=== PATIENT | female | born 1965 | race Caucasian/White ===

== ENCOUNTER 2017-08-21 06:25 | Emergency (ER) | payer BC, SELFPAY ==
[2017-08-21 06:26] VITALS: BP 121/74; PULSE 99; RESP 18; TEMP 36.6; O2SAT 99; BMI 30.3
[2017-08-21 06:29] VITALS: O2SAT 99
--- NOTE | 2017-08-21 06:38 | ED.VISSUMM ---
- ER Visit Summary Date of Service: 08/21/17 Chief Complaint: [] Cough, sore throat History of Present Illness: The patient is a 52 F [] complaining of cough, sore throat, body aches, nausea/vomiting. Her daughter is at the bedside complaining of similar symptoms in the past few weeks. Patient is concerned that she has bronchitis. Physical Examination: [] Afebrile, vital signs stable. HEENT reveals moist mucous terrains without significant oropharyngeal erythema or exudate. No cervical lymphadenopathy. Cardiovascular exam is regular rate and rhythm. Lungs are clear to auscultation. Abdomen is soft nontender. Test Results: [] None. Emergency Department Course and Treatment: [] Patient be treated clinically for viral URI with 8 mg orally of Decadron and 200 mg orally of Tessalon Perles. Patient was given a short-term presents for Tessalon Perles. Encouraged PCP follow-up. Treatment Plan: [] Follow-up with PCP. Disposition: [] Discharge, stable. Impression: [] URI This note was generated with [employer] dictation software. It may contain incorrect words, spelling, and punctuation that were not noted in review of the chart prior to signing ED Disposition - Plan for ED Patient: Disposition: Home or Assisted Living Chief Complaint: Shortness of Breath Instructions: ED Upper Resp Infec No Abx Tx Referrals: Care Physician,No Primary [Primary Care Provider] -
--- NOTE | 2017-08-21 06:41 | ED.DCSUM_ITS ---
- ER Visit Summary Date of Service: 08/21/17 Chief Complaint: [] Cough, sore throat History of Present Illness: The patient is a 52 F [] complaining of cough, sore throat, body aches, nausea/vomiting. Her daughter is at the bedside complaining of similar symptoms in the past few weeks. Patient is concerned that she has bronchitis. Physical Examination: [] Afebrile, vital signs stable. HEENT reveals moist mucous terrains without significant oropharyngeal erythema or exudate. No cervical lymphadenopathy. Cardiovascular exam is regular rate and rhythm. Lungs are clear to auscultation. Abdomen is soft nontender. Test Results: [] None. Emergency Department Course and Treatment: [] Patient be treated clinically for viral URI with 8 mg orally of Decadron and 200 mg orally of Tessalon Perles. Patient was given a short-term presents for Tessalon Perles. Encouraged PCP follow-up. Treatment Plan: [] Follow-up with PCP. Disposition: [] Discharge, stable. Impression: [] URI This note was generated with [employer] dictation software. It may contain incorrect words, spelling, and punctuation that were not noted in review of the chart prior to signing ED Disposition - Plan for ED Patient: Disposition: Home or Assisted Living Chief Complaint: Shortness of Breath Instructions: ED Upper Resp Infec No Abx Tx Referrals: Care Physician,No Primary [Primary Care Provider] -
[2017-08-21] MEDS: Benzonatate 100 MG Capsule 200 MG PO (06:49)
[2017-08-21 06:50] VITALS: BP 133/79; PULSE 96; RESP 17; O2SAT 100
== END 2017-08-21 06:52 | disposition home or self-care (01) ==
PROVIDERS: Emergency Provider Emergency Medicine
DX: J06.9 Acute upper respiratory infection, unspecified (principal); R11.2 Nausea with vomiting, unspecified
CPT/HCPCS: 99283

== ENCOUNTER 2017-12-27 21:11 | Emergency (ER) | payer BC, SELFPAY ==
[2017-12-27 21:12] VITALS: BP 130/77; PULSE 100; RESP 18; TEMP 35.8; O2SAT 98; BMI 30.2
--- NOTE | 2017-12-27 21:45 | CT_ITS ---
STUDY: CT ABDOMEN AND PELVIS WITHOUT CONTRAST REASON FOR EXAM: Female, 52 years old. Elevated blood pressure RADIATION DOSAGE (If Supplied By Facility): CTDIvol = ( 8.07 ) mGy, DLP = ( 403.09 ) mGycm TECHNIQUE: Transaxial images were obtained from the dome of the diaphragm to the symphysis pubis without oral contrast, and without intravenous contrast. Sagittal and coronal images were reconstructed. Individualized dose optimization techniques were used for this CT. COMPARISON: 01/03/2018. FINDINGS: The visualized lung bases are unremarkable. The visualized portions of the heart are within normal limits. Normal liver. The gallbladder is contracted. Normal spleen. Normal pancreas. Normal bilateral adrenal glands. Bilateral renal stones measuring up to 4 mm. No hydronephrosis. No ureteral stone or dilatation. Duplicated right renal collecting system. Normal visualized stomach. Normal small intestine. Normal colon. The appendix is visualized and appears normal. Normal abdominal aorta. Normal inferior vena cava. Normal retroperitoneum. Normal urinary bladder. Normal abdominal wall. Normal osseous structures. CT/Abdomen/Pelvis without Cont IMPRESSION: Nephrolithiasis. No hydronephrosis. Electronically Signed: Michele Martinez DO at 23:12 EDT , Service support ,
[2017-12-27] MEDS: 0.9% Normal Saline 1,000 ML 125 ML IV (22:13)
[2017-12-27 22:20] LABS: Bacteria 0 SEEN /hpf (None Seen); Squamous Epithelial Cells - UA 0 SEEN /hpf (5-10)
[2017-12-27 22:26] LABS: Absolute Lymphocyte Count 2.44 X10^3/ul (0.83-4.51); Absolute Neutrophil Count 4.8 X10^3/uL (2.0-7.7); Basophil# 0.02 X10^3/uL; Basophil% 0.2 % (0-1); Eosinophil# 0.18 X10^3/uL; Eosinophils% 2.1 % (0-5); Hematocrit 34.1 % (37-47); Hemoglobin 11.3 g/dl (12.0-15.0); Lymphocyte # 2.44 X10^3/ul (4.0); Lymphocyte % 28.3 % (19-41); Mean Corp Hgb Conc 33.1 g/gl (32-36); Mean Corpuscular Hgb 29.9 pg (27.0-32.0); Mean Corpuscular Volume 90.2 fL (81-99); Mean Platelet Vol. 8.9 fl (6.2-12.0); Monocyte# 1.21 X10^3/uL; Monocyte% 14.1 % (0-10); Neutrophil # 4.75 X10^3/uL (2.7-7.7); Neutrophil % 55.2 % (47-70); Platelet Count 239 K/mm3 (150-450); RBC Distribution Width CV 12.5 % (11.6-14.6); RBC Distribution Width SD 40.8 fl (35.1-43.9); Red Blood Count 3.78 M/mm3 (4.2-5.4); White Blood Count 8.6 K/mm3 (4.4-11.0)
[2017-12-27 22:27] LABS: POSITIVE COUNT NO; POSITIVE DIFFERENTIAL NO; POSITIVE MORPHOLOGY NO
[2017-12-27 22:34] LABS: ALB/GLOB Ratio 0.8 RATIO (0.9-2.4); AST(SGOT) 11 U/L (15-37); Alanine Aminotransfer ALT/SGPT 21 U/L (13-56); Albumin, Serum 3.3 g/dL (3.2-5.0); Alkaline Phosphatase 85 U/L (45-117); Anion Gap 4 (5-15); BUN 15 mg/dL (7-18); BUN/Creat Ratio 18.2 RATIO (10-20); Calcium,Total 8.4 mg/dL (8.5-10.1); Chloride 105 mmol/L (98-107); Creatinine, Serum 0.82 mg/dL (0.55-1.02); EST Glomerular Filtration Rate 78 mL/min (>60); Est Glom Filt Rate - Afr Amer 94 mL/min (>60); Glucose 88 mg/dL (74-106); Lipase 84 U/L (73-393); Potassium 3.9 mmol/L (3.5-5.1); Protein, Total 7.3 g/dL (6.4-8.2); Sodium Level 140 mmol/L (136-145)
[2017-12-27 22:37] LABS: Color, Urine Yellow (Yellow); Glucose, Dipstick Normal (Normal); Ketone-Dipstick Negative (Negative); Leukocyte Esterase-Dipstick 25 /ul (Negative); Nitrite-Dipstick Negative (Negative); Occult Blood-Urine 150 /ul (Negative); Protein-Dipstick 15 mg/dl (Negative); Urine Bilirubin Dipstick Negative (Negative); Urine Clarity Clear (Clear); Urine Urobilinogen Normal (Normal); Urine pH 6.5 (5.0 - 8.0)
[2017-12-27 22:48] LABS: Mucous, Urine 1+ /hpf (<or=2+); Red Blood Cells-Urine 10-25 SEEN /hpf (0-5)
--- NOTE | 2017-12-27 23:21 | ED.DCSUM_ITS ---
- ER Visit Summary Date of Service: 12/27/17 Chief Complaint: [Abdominal pain] History of Present Illness: The patient is a 52 F [presents the emergency department complaint of a nominal pain that started yesterday. Patient describes intermittent sharp stabbing pain to the right upper quadrant that feels like spasms and feels like a bruise in the area. Patient currently rates her pain a 9 out of 10. Patient's had no nausea or vomiting. She has had no diarrhea. Patient denies any blood in her stool or black tarry stool. Patient denies urinary symptoms. Patient denies trauma or any lifting that may have injured her abdominal wall.] Patient denies any chest pain. Patient denies shortness of breath. Patient has not had any recent travel or surgery. Physical Examination: [HEENT-PERRLA, EOMI. Cranial nerves II through XII grossly intact. TMs clear. Mucous membranes moist. No adenopathy. Cardiovascular-regular rate and rhythm without murmur or ectopy Lungs-clear to auscultation, chest wall stable without crepitus or subcu emphysema Abdomen-normoactive bowel sounds, soft. Patient does have some tenderness over the right upper quadrant seems to somewhat reproduce her pain there is a negative Suero sign. There is no rebound, rigidity, or perineal signs. Patient also has some mild tenderness to the lower anterior ribs that seems to somewhat reproduce her pain although she states it is not quite the same pain. Extremities-intact ?4, normal range of motion, normal pulses, atraumatic] Test Results: [CBC with differential obtained was normal. Chemistries were normal. LFTs were normal. Lipase was normal at 84. Urinalysis showed 10-25 red cells otherwise no signs of infection. CT flank showed nephrolithiasis but otherwise nothing acute] Emergency Department Course and Treatment: [Patient drove herself to the emergency department and did not want anything for pain here.] Treatment Plan: [Patient will be given a prescription for [place] for pain and advised to follow-up with Dr. Montoya within next 3-5 days. Patient advised to return if worsening pain, fever, vomiting, or condition should worsen in any way.] Disposition: [Discharged to home in stable condition] Impression: [Abdominal pain-etiology uncertain] This note was generated with [employer] software. It may contain incorrect words, spelling, and punctuation that were not noted in review of the chart prior to signing ED Disposition - Plan for ED Patient: Chief Complaint: Abd Pain Referrals: Care Physician,No Primary [Primary Care Provider] -
--- NOTE | 2017-12-27 23:21 | ED.DEP ---
ED Disposition - Plan for ED Patient: Chief Complaint: Abd Pain Instructions: ED Abdominal Pain Unkn Cause Prescriptions: Hydrocodone Bitart/Apap 5-325 [[place] 5MG-325MG] 1 tab PO Q4H PRN PRN 2 Days #10 tab PRN Reason: Pain Referrals: Care Physician,No Primary [Primary Care Provider] - Maria D Jean DO [STAFF PHYSICIAN] - 3-5 Days
[2017-12-27] MEDS: HYDROcodone Bitartrate/Apap 5/325 Tablet PO (23:36)
[2017-12-27 23:37] VITALS: BP 137/86; PULSE 88; RESP 16; O2SAT 97
== END 2017-12-27 23:42 | disposition home or self-care (01) ==
LOC: ED 21:55
PROVIDERS: Emergency Provider Emergency Medicine
DX: R10.11 Right upper quadrant pain (principal); N20.0 Calculus of kidney; Z90.89 Acquired absence of other organs
CPT/HCPCS: 74176; 80053; 81001; 83690; 85025; 96360; 99283; J7030; A4216

== ENCOUNTER 2018-06-29 13:25 | Day surgery (SDC) | payer BC, SELFPAY ==
[2018-06-29] VITALS (8 sets, daily range): BP systolic 132–161; BP diastolic 76–90; PULSE 84–97; RESP 14–16; TEMP 36.5–36.8; O2SAT 96–100; BMI 31.8
[2018-06-29 13:58] LABS: Internal QC Validated? YES +Cl - CLEAR BKGD; Pregnancy, Urine Negative Negative
[2018-06-29 14:08] LABS: Hematocrit 33.3 % (37-47); Hemoglobin 10.9 g/dl (12.0-15.0); Mean Corp Hgb Conc 32.7 g/gl (32-36); Mean Corpuscular Hgb 30.2 pg (27.0-32.0); Mean Corpuscular Volume 92.2 fL (81-99); Mean Platelet Vol. 8.7 fl (6.2-12.0); Platelet Count 297 K/mm3 (150-450); RBC Distribution Width CV 13.2 % (11.6-14.6); RBC Distribution Width SD 44.7 fl (35.1-43.9); Red Blood Count 3.61 M/mm3 (4.2-5.4); White Blood Count 7.5 K/mm3 (4.4-11.0)
[2018-06-29 14:15] LABS: Amphetamine Urine VISTA POSITIVE (<1000 ng/mL); Barbiturate Urine VISTA NEGATIVE (< 200 ng/mL); Benzodiazepine Urine VISTA NEGATIVE (< 200 ng/mL); Cocaine Urine VISTA NEGATIVE (< 300 ng/mL); Ecstacy Urine VISTA POSITIVE (< 500 ng/mL); Methadone Urine VISTA NEGATIVE (< 300 ng/mL); PCP Urine VISTA NEGATIVE (< 25 ng/mL); THC Urine VISTA NEGATIVE (< 50 ng/mL); Vista UDS pH Range 5
[2018-06-29 14:15] LABS: Scan Indicated on CBC? Y/N NO
--- NOTE | 2018-06-29 15:19 | PCM.DC.D&C ---
Discharge Diet: No Restrictions Discharge Activity: Return to Normal Activity, May Shower May resume sexual activity in: 4-6 weeks Weight Bearing Status: Weight bearing as tolerated Lifting Restrictions: None Call your doctor if you observe: Fever of 101 or Higher, Inability to urinate, Inability to have a bowel movement, Using more than one pad per hour, Shortness of breath, Dizziness, Chest pain, Increased palpitations (irregular heartbeat), Calf discomfort, Uncontrolled pain Cleanse incision/area with: Soap & Water Allergies/Adverse Reactions: Allergies latex Allergy (Verified 06/29/18 13:46) Swelling Medications to take at Discharge Ibuprofen 400 mg PO PRN PRN 06/29/18 Iron Carbonyl [Feosol] 45 mg PO DAILYCM 06/29/18 Orders to be completed after discharge: Type & Screen Time Frame: 06/29/18, Facility: [facility], Location: Laboratory CBC-Complete Blood Cnt No Diff Time Frame: 06/29/18, Location: Laboratory Urine Drug Screen ([facility]) Time Frame: 06/29/18, Location: Laboratory ,Urine Time Frame: 06/29/18, Location: Laboratory Primary Care Physician: Monica Deleon NP-C [Primary Care Provider] - Test Results: Test results from this visit will be discussed in further detail at your follow-up appointment, if applicable. Please Follow Up With: Meghan Crandall DO When: 1-2 weeks
--- NOTE | 2018-06-29 16:16 | PCM.OPRPT ---
Problem List (1) Abnormal uterine bleeding (AUB) Status: Acute Report of Operation Date of Procedure: 06/29/18 Pre-Operative Diagnosis: AUB, polyps noted on US Post-Operative Diagnosis: AUB, polyps noted on US Surgery/Procedure Performed:: Hysteroscopy, D&C Description of Surgical Findings:: Endometrium appeared very thick. No polyps or fibroids noted within the uterine cavity. Bilateral tubal ostia were visualized. Type of Anesthesia:: MAC Specimen's removed: Endometrial curettings Drains: None Estimated Blood Loss (mL): < 50 cc Description of Procedure: Patient was taken to the operating room where MAC anesthesia was found to be adequate. She was prepped and draped in the usual sterile fashion in dorsal lithotomy position using yellowfin stirrups. A weighted speculum was placed and a single-tooth tenaculum was placed on the anterior lip of the cervix. The cervix was serially dilated to accommodate the hysteroscope. Hysteroscope was introduced into the uterine cavity which was distended with normal saline. Bilateral tubal ostia were visualized. The endometrium appeared very thick. No polyps or fibroids were noted. The hysteroscope was then removed. A sharp curettage was then performed to obtain endometrial curettings. Endometrial curettings were sent to the pathologist for review. All instruments were removed from the vagina and hemostasis was noted. Instrument counts were correct. Patient was taken to the recovery room in stable condition.
== END 2018-06-29 18:14 | disposition home or self-care (01) ==
LOC: SDC 13:30 → AC 13:30
PROVIDERS: Family Provider Nurse Practitioner; PCP Nurse Practitioner; Referring Provider Obstetrics & Gynecology
PROC: 0UB98ZZ Excision of Uterus, Via Natural or Artificial Opening Endoscopic (ICD-10-PCS; CPT 58558; principal; 2018-06-29 14:50)
DX: N95.0 Postmenopausal bleeding (principal); D64.9 Anemia, unspecified; G47.33 Obstructive sleep apnea (adult) (pediatric); Z87.891 Personal history of nicotine dependence; G25.81 Restless legs syndrome; M19.90 Unspecified osteoarthritis, unspecified site; F10.21 Alcohol dependence, in remission; Z79.899 Other long term (current) drug therapy; F41.9 Anxiety disorder, unspecified; F32.9 Major depressive disorder, single episode, unspecified
CPT/HCPCS: 00952; 58558; 80307; 81025; 85027; 86850; 86900; 88305; J7120

== ENCOUNTER → 2023-01-17 | Outpatient (CLI) | payer BC, SELFPAY ==
--- NOTE | 2023-01-17 09:42 | RAD_ITS ---
STUDY: X-RAY - PELVIS REASON FOR EXAM: Female, 57 years old. INFLAMMATORY POLYARTHROPATHY TECHNIQUE: One view of the pelvis was obtained. COMPARISON: None. FINDINGS: There is a non-specific bowel gas pattern. Normal visualized soft tissue structures. Mild SI joint arthrosis. Normal visualized bilateral superior and inferior pubic rami. Normal pubic symphysis. Normal ischial tuberosities. Normal visualized right femoral head. Normal right acetabulum. There is mild articular joint space narrowing of the right hip. Normal visualized left femoral head. Normal left acetabulum. There is mild articular joint space narrowing of the left hip. RAD/Pelvis 1 or 2 Views IMPRESSION: Mild age consistent hip and SI joint arthrosis, no demonstrated fracture or suspicious osseous lesion Electronically Signed: Rodolfo Rockwell MD at 11:47 EDT ,
[2023-01-17 12:06] LABS: Erythrocyte Sedimentation Rate 4 mm/hr (0-30)
[2023-01-17 12:09] LABS: Absolute Lymphocyte Count 5.03 X10^3/uL (0.83-4.51); Absolute Neutrophil Count 5.2 X10^3/uL (2.0-7.7); Basophil# 0.04 X10^3/uL; Basophil% 0.3 % (0-1); Eosinophil# 0.43 X10^3/uL; Eosinophils% 3.7 % (0-5); Hematocrit 38.2 % (37-47); Hemoglobin 13.7 g/dL (12.0-15.0); Lymphocyte # 5.03 X10^3/ul (0.83-4.51); Lymphocyte % 43.4 % (19-41); Mean Corp Hgb Conc 35.9 g/dL (32-36); Mean Corpuscular Hgb 33.5 pg (27.0-32.0); Mean Corpuscular Volume 93.4 fL (81-99); Monocyte# 0.84 X10^3/uL; Monocyte% 7.3 % (0-10); NRBC Flagged by Analyzer 0 % (0-5); Neutrophil # 5.21 X10^3/uL (2.7-7.7); POSITIVE DIFFERENTIAL YES; Platelet Count 282 K/mm3 (150-450); RBC Distribution Width CV 11.4 % (11.6-14.6); RBC Distribution Width SD 39.1 fl (35.1-43.9); Red Blood Count 4.09 M/mm3 (4.2-5.4); White Blood Count 11.6 K/mm3 (4.4-11.0)
[2023-01-17 12:20] LABS: Differential Indicated SCAN CRITERIA MET
[2023-01-17 12:27] LABS: Differential Comment SCANNED
[2023-01-17 12:56] LABS: ALB/GLOB Ratio 1.1 RATIO (0.9-2.4); AST(SGOT) 19 U/L (15-37); Alanine Aminotransfer ALT/SGPT 26 U/L (13-56); Albumin, Serum 3.8 g/dL (3.2-5.0); Alkaline Phosphatase 67 U/L (45-117); Anion Gap 5 (5-15); BUN 18 mg/dL (7-18); BUN/Creat Ratio 24.2 RATIO (10-20); CRP < 2.90 mg/L (0.0-3.0); Calcium,Total 9.2 mg/dL (8.5-10.1); Chloride 110 mmol/L (98-107); Creatinine, Serum 0.74 mg/dL (0.55-1.02); EST Glomerular Filtration Rate 86 mL/min (>60); Est Glom Filt Rate - Afr Amer 104 mL/min (>60); Globulin 3.5 g/dL (2.2-4.2); Glucose 84 mg/dL (74-106); Potassium 3.7 mmol/L (3.5-5.1); Protein, Total 7.3 g/dL (6.4-8.2); Rheumatoid Factor < 10.0 IU/mL (<15); Sodium Level 140 mmol/L (136-145)
[2023-01-17 13:28] LABS: Hepatitis B Surface Antibody Non-Reactive; Hepatitis B Surface Antigen Non-Reactive (Nonreactive); Hepatitis C Antibody Non-Reactive (Nonreactive)
[2023-01-18 13:07] LABS: ANTINUCLEAR ANTIBODIES DIRECT Negative (Negative); CCP IgG Antibodies 5 units (0-19)
== END | disposition home or self-care (01) ==
PROVIDERS: Referring Provider Internal Medicine Rheumatology; Visit Provider Internal Medicine Rheumatology
DX: M06.4 Inflammatory polyarthropathy (principal); M65.341 Trigger finger, right ring finger; M21.41 Flat foot [pes planus] (acquired), right foot; F32.A Depression, unspecified; F98.8 Other specified behavioral and emotional disorders with onset usually occurring in childhood and adolescence; Z87.442 Personal history of urinary calculi
CPT/HCPCS: 36415; 72170; 80053; 85025; 85652; 86038; 86140; 86200; 86431; 86706; 86803; 87340

== ENCOUNTER → 2023-03-30 | Outpatient (CLI) | payer BC, SELFPAY ==
[2023-03-30 10:34] LABS: Absolute Neutrophil Count 4.8 X10^3/uL (2.0-7.7); Basophil# 0.02 X10^3/uL; Basophil% 0.2 % (0-1); Eosinophil# 0.25 X10^3/uL; Eosinophils% 2.3 % (0-5); Hematocrit 36.8 % (37-47); Hemoglobin 12.5 g/dL (12.0-15.0); Lymphocyte % 45.5 % (19-41); Mean Corpuscular Hgb 32.5 pg (27.0-32.0); Mean Corpuscular Volume 95.6 fL (81-99); Mean Platelet Vol. 10.1 fl (6.2-12.0); Monocyte# 0.89 X10^3/uL; Monocyte% 8.1 % (0-10); NRBC Flagged by Analyzer 0 % (0-5); Neutrophil % 43.6 % (47-70); Platelet Count 278 K/mm3 (150-450); RBC Distribution Width CV 12.3 % (11.6-14.6); RBC Distribution Width SD 42.2 fl (35.1-43.9); Red Blood Count 3.85 M/mm3 (4.2-5.4)
[2023-03-30 10:53] LABS: ALB/GLOB Ratio 1.1 RATIO (0.9-2.4); AST(SGOT) 19 U/L (15-37); Alanine Aminotransfer ALT/SGPT 28 U/L (13-56); Albumin, Serum 3.8 g/dL (3.2-5.0); Alkaline Phosphatase 64 U/L (45-117); Anion Gap 4 (5-15); BUN 16 mg/dL (7-18); BUN/Creat Ratio 22.3 RATIO (10-20); Chloride 108 mmol/L (98-107); Creatinine, Serum 0.72 mg/dL (0.55-1.02); EST Glomerular Filtration Rate 89 mL/min (>60); Est Glom Filt Rate - Afr Amer 108 mL/min (>60); Globulin 3.4 g/dL (2.2-4.2); Glucose 86 mg/dL (74-106); Potassium 4.1 mmol/L (3.5-5.1); Protein, Total 7.2 g/dL (6.4-8.2); Sodium Level 139 mmol/L (136-145)
== END | disposition home or self-care (01) ==
LOC: MTLAB 07:48
PROVIDERS: Referring Provider Internal Medicine Rheumatology; Visit Provider Internal Medicine Rheumatology
DX: M06.4 Inflammatory polyarthropathy (principal); Z79.899 Other long term (current) drug therapy
CPT/HCPCS: 36415; 80053; 85025

== ENCOUNTER → 2023-05-24 | Outpatient (CLI) | payer BC, SELFPAY ==
--- OUTSIDE RECORDS SUMMARY | 2023-05-24 07:38 | XMS RPT_ITS | CCD ---
Author Name Unknown Address [id number] [place] [address] Organization [facility] Results Test Name Value Interpretation Reference Range Facil ity Encounters Encounter Date Encounter Type Care Provider Facility Start: 07-10-2022 End: 07-10-2022 ambulatory Facility:[facility] Payers Date Payer Category Payer Unknown [id number] Progress note 07-10-2022 Note Date & Type Note Facility 07-10-2022 Note HNO ID: [id number] Author: Ely Burrell APRN.[employer] MACHINE OPERATOR Service: ? Author Type: Nurse Practitioner Type: Progress Notes Filed: 07/10/2022 9:01 AM Note Text: Subjective The history is provided by the patient. No home appliance tech was used. HPI Karl Martinez is a 57 year old female who presents today for CC of cough for 3 days. She is also having chest congestion. She has used dayquil with short term relief. She is an everyday smoker, no chronic lung disease diagnosis. Declines covid testing. BP 138/82 Pulse 96 Temp 37 ?C (98.6 ?F) Resp 16 Wt 68 kg (150 lb) LMP 06/27/2018 SpO2 98% BMI 29.29 kg/m? 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 Most recent use May 2018 PAST MEDICAL HISTORY Diagnosis Date ADD (attention deficit disorder) Arthritis Depression Renal calculus 2009 I have confirmed and edited as necessary, the [facility] Review of Systems Constitutional: Negative for chills and fever. HENT: Positive for congestion (chest). Negative for ear pain, sinus pain and sore throat. Respiratory: Positive for cough. Negative for sputum production, shortness of breath and wheezing. Cardiovascular: Negative for chest pain. Musculoskeletal: Negative for myalgias. Neurological: Negative for headaches. Objective Physical Exam Vitals and nursing note reviewed. HENT: Head: Normocephalic and atraumatic. Right Ear: Tympanic membrane, ear canal and external ear normal. Left Ear: Tympanic membrane, ear canal and external ear normal. Nose: Mucosal edema and rhinorrhea present. No congestion. Right Sinus: No maxillary sinus tenderness or frontal sinus tenderness. Left Sinus: No maxillary sinus tenderness or frontal sinus tenderness. Mouth/Throat: Pharynx: Uvula midline. No oropharyngeal exudate or posterior oropharyngeal erythema. Cardiovascular: Rate and Rhythm: Normal rate and regular rhythm. Heart sounds: Normal heart sounds. Pulmonary: Effort: Pulmonary effort is normal. Breath sounds: Normal breath sounds. Lymphadenopathy: Head: Right side of head: No submental, submandibular or tonsillar adenopathy. Left side of head: No submental, submandibular or tonsillar adenopathy. Cervical: No cervical adenopathy. Skin: General: Skin is warm and dry. Neurological: Mental Status: She is alert. Psychiatric: Mood and Affect: Affect normal. ASSESSMENT/PLAN: 1. URI with cough and congestion - ICD9: 465.9, ICD10: J06.9 (primary diagnosis) - Discussed viral etiology and rationale for treatment. - Symptomatic treatment with prn analgesia - Supportive care with fluids and rest - Tesslon perls prn 2. Wheezing - ICD9: 786.07, ICD10: R06.2 Albuterol inhaler prn Prednisone burst Diagnosis and treatment plan were discussed and questions were answered to the patient's satisfaction. Pt acknowledged understanding of concepts and follow up plan. Specific signs and symptoms that would indicate the need for higher level of care were discussed in detail warranting prompt ER evaluation. Ely Burrell APRN.[facility] Summary Purpose Family History No Family History Records Found Advance Directives No Advanced Directives Records Found Additional Source Comments INFORMATION SOURCE (unrecogn ized section and content) FOR RECORDS PERTAINING TO PATIENTS WHO ARE OR HAVE BEEN ENROLLED IN A CHEMICAL DEPENDENCY/SUBSTANCEABUSE PROGRAM, SOME INFORMATION MAY BE OMITTED. This clinical summary was aggregated from multiple sources. Caution should be exercised in using it in the provision of clinical care. This summary normalizes information from multiple sources, and as a consequence, information in this document may materially change the coding, format and clinical context of patient data. In addition, data may be omitted in some cases. CLINICAL DECISIONS SHOULD BE BASED ON THE PRIMARY CLINICAL RECORDS. [employer] [facility]. provides no warranty or guarantee of the accuracy or completeness of information in this document.
[2023-05-24 10:18] LABS: Absolute Lymphocyte Count 4.57 X10^3/uL (0.83-4.51); Absolute Neutrophil Count 5.2 X10^3/uL (2.0-7.7); Basophil# 0.03 X10^3/uL; Basophil% 0.3 % (0-1); Eosinophil# 0.27 X10^3/uL; Eosinophils% 2.4 % (0-5); Hematocrit 34.9 % (37-47); Hemoglobin 11.6 g/dL (12.0-15.0); Lymphocyte # 4.57 X10^3/ul (0.83-4.51); Lymphocyte % 41.2 % (19-41); Mean Corp Hgb Conc 33.2 g/dL (32-36); Mean Corpuscular Hgb 32.1 pg (27.0-32.0); Mean Corpuscular Volume 96.7 fL (81-99); Mean Platelet Vol. 9.9 fl (6.2-12.0); Monocyte# 0.94 X10^3/uL; Monocyte% 8.5 % (0-10); NRBC Flagged by Analyzer 0 % (0-5); Neutrophil # 5.24 X10^3/uL (2.7-7.7); Neutrophil % 47.1 % (47-70); Platelet Count 263 K/mm3 (150-450); RBC Distribution Width CV 12.5 % (11.6-14.6); RBC Distribution Width SD 42.9 fl (35.1-43.9); Red Blood Count 3.61 M/mm3 (4.2-5.4); White Blood Count 11.1 K/mm3 (4.4-11.0)
[2023-05-24 10:51] LABS: AST(SGOT) 17 U/L (15-37); Alanine Aminotransfer ALT/SGPT 33 U/L (13-56); Albumin, Serum 3.5 g/dL (3.2-5.0); Alkaline Phosphatase 62 U/L (45-117); Anion Gap 3 (5-15); BUN 29 mg/dL (7-18); BUN/Creat Ratio 27.9 RATIO (10-20); Calcium,Total 9.2 mg/dL (8.5-10.1); Chloride 111 mmol/L (98-107); Creatinine, Serum 1.04 mg/dL (0.55-1.02); EST Glomerular Filtration Rate 58 mL/min (>60); Est Glom Filt Rate - Afr Amer 70 mL/min (>60); Globulin 3.5 g/dL (2.2-4.2); Glucose 80 mg/dL (74-106); Potassium 4.4 mmol/L (3.5-5.1); Sodium Level 140 mmol/L (136-145)
== END | disposition home or self-care (01) ==
LOC: MTLAB 07:28
PROVIDERS: Referring Provider Internal Medicine Rheumatology; Visit Provider Internal Medicine Rheumatology
DX: M06.4 Inflammatory polyarthropathy (principal); Z79.899 Other long term (current) drug therapy
CPT/HCPCS: 36415; 80053; 85025

== ENCOUNTER → 2023-07-19 | Outpatient (CLI) | payer BC, SELFPAY ==
--- OUTSIDE RECORDS SUMMARY | 2023-07-19 07:19 | XMS RPT_ITS | CCD ---
Author Name Unknown Address [address] [place] [address] Organization [facility] Care Team Providers Care Thread Clipper Name Role Phone Unavailable Primary Care Provider Unavailabl e Medications Current Medications Medication Drug Class(es) Dates Sig (Normalized) Sig (Original) brompheniramine maleate 0.4 mg/ml / dextromethorphan hydrobromide 2 mg/ml / pseudoephedrine hydrochloride 6 mg/ml oral solution (1 source) alpha-Adrenergic Agonist, Uncompetitive Y-hzyoee-B-aspartat e Receptor Antagonist, Sigma-1 Agonist Start: 06-12-2023 take 5 mL by mouth four times daily as needed Brompheniramine -Pseudoeph-DM (BROMFED DM) 2-30-10 mg/5 mL syrup Indications: URI, acute , Acute cough Take 5 mL by mouth four times a day as needed. 118 mL 0 06/12/2023 Active Completed/Discontinued Medications Medication Drug Class(es) Dates Sig (Normalized) Sig (Original) acetaminophen 325 mg / HYDROcodone bitartrate 5 mg oral tablet (1 source) Opioid Agonist Start: 12-27-2017 HYDROcodone-acetam inophen (NORCO) 5-325 mg per tablet EVERY 4 HOURS NEEDED PRN For Pain 0 12/27/2017 Active Problems Active Problems Problem Classification Problem Date Documented Da te Episodic/Chronic Other female genital disorders (1 source) Abnormal uterine bleeding; Translations: [Abnormal uterine and vaginal bleeding, unspecified] Onset: 06-14-2018 06-14-2018 Chronic Other lower respiratory disease (1 source) Cough; Translations: [Acute cough] 06-12-2023 Episodic Other upper respiratory infections (1 source) Acute upper respiratory infection; Translations: [Acute upper respiratory infection, unspecified] 06-12-2023 Episodic Past or Other Problems Problem Classification Problem Date Documented Da te Episodic/Chronic Residual codes; unclassified (1 source) History of substance abuse; Translations: [Personal history of other specified conditions] Onset: 06-14-2018 06-14-2018 Episodic Results Test Name Value Interpretation Reference Range Facil ity Vital Signs Date Time Vital Sign Value Performing Clinician Chet steiner 06-12-2023 08:23-0500 Body temperature 100.6 [degF] Adeel Barker PACKAGING LINE ATTENDANT.WATER VALVE MECHANIC Work Phone: [facility] 06-12-2023 08:23-0500 Body weight 69.85 kg Adeel Barker PACKAGING LINE ATTENDANT.WATER VALVE MECHANIC Work Phone: [facility] 06-12-2023 08:23-0500 Diastolic blood pressure 70 mm[Hg] Adeel Barker PACKAGING LINE ATTENDANT.WATER VALVE MECHANIC Work Phone: [facility] 06-12-2023 08:23-0500 Heart rate 91 /min Adeel Barker PACKAGING LINE ATTENDANT.WATER VALVE MECHANIC Work Phone: [facility] 06-12-2023 08:23-0500 Respiratory rate 20 /min Adeel Barker PACKAGING LINE ATTENDANT.WATER VALVE MECHANIC Work Phone: [facility] 06-12-2023 08:23-0500 SaO2% (BldA) [Mass fraction] 100 % Adeel Barker PACKAGING LINE ATTENDANT.WATER VALVE MECHANIC Work Phone: [facility] 06-12-2023 08:23-0500 Systolic blood pressure 110 mm[Hg] Adeel Barker PACKAGING LINE ATTENDANT.WATER VALVE MECHANIC Work Phone: [facility] Encounters Encounter Date Encounter Type Care Provider Facility Start: 06-12-2023 End: 06-12-2023 ambulatory Facility:[facility] Start: 06-12-2023 End: 06-12-2023 Patient encounter procedure Adeel Barker APRN.WATER VALVE MECHANIC Work Phone: [facility] Procedures Date Procedure Procedure Detail Performing Clinician Start: 07-20-2011 Lipid 1996 panel - S alex or Plasma Adeel Barker APRN.WATER VALVE MECHANIC Work Phone: Plan of Treatment Date Care Activity Detail Author Start: 06-14-2023 Screening for malignant neoplasm of cervix [facility] Start: 06-12-2023 End: 06-26-2023 COVID & INFLUENZA A/B & RSV NAAT, ROUTINE COVID & INFLUENZA A/B & RSV NAAT, ROUTINE Microbiology Routine URI, acute Acute cough Expected: 06/12/2023, Expires: 06/26/2023 [facility] Work Phone: Payers Date Payer Category Payer Unknown [employer] PPO OOS [id number] 2022-Present [phone] [address] [place] [address] PPO [id number] 2022 Unknown [id number] Social History Date Type Detail Facility Start: 06-08-2023 [facility] Work Phone: History of tobacco use Current smoker [facility] Work Phone: Start: 06-08-2023 Tobacco use and exposure Smokeless tobacco non-user [facility] Work Phone: Start: 06-12-2023 Alcohol intake Current non-dr edge inker of alcohol (finding) [facility] Start: 04-30-2020 End: 06-12-2023 History of Social function [facility] Start: 04-30-2020 End: 06-12-2023 Tobacco use panel [facility] National Score (1-100), lower number is lower risk Not on file [facility] Start: 06-14-2018 Alcohol Comment rare -- 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 [facility] Start: 1965 Sex Assigned At Not on file [facility] Progress note 06-12-2023 Note Date & Type Note Facility 06-12-2023 Note HNO ID: [id number] Author: ADEEL BARKER APRN.WATER VALVE MECHANIC Service: ? Author Type: Nurse Practitioner Type: Progress Notes Filed: 06/12/2023 09:22 Note Text: This note was created using NoteWriter. Subjective Karl J Juan is a 58 year old female. 58 year old female with no PMH presents today for worsening cough. She was seen in [facility] on 06/08/2023 for cough x1 day and diagnosed with a viral URI. Pertinent positives include nonproductive cough, nasal congestion, rhinorrhea, fatigue, body aches, chills, nausea, vomiting, diarrhea, decreased appetite, chest tightness, and chest discomfort with coughing. Pertinent negatives include dyspnea, chest pain, sinus pain, ear drainage, ear pain, and eye drainage. Patient's daughter was flu positive on 06/08/23 and they live together. Of note, patient declined flu testing on 06/08/23. Was prescribed Tessalon Perles. Denies following up. The history is provided by the patient. No speech language pathologist travel was used. Cough This is a new problem. The current episode started more than 2 days ago. The problem occurs constantly. The problem has been gradually worsening. The cough is Non-productive. There has been no fever. Associated symptoms include chills, sweats, rhinorrhea and myalgias. Pertinent negatives include no chest pain, no ear congestion, no ear pain, no headaches, no sore throat, no shortness of breath and no eye redness. Treatments tried: tessalon pearls. The treatment provided mild relief. She is a smoker. Her past medical history does not include bronchitis, pneumonia, bronchiectasis, COPD, emphysema or asthma. PAST MEDICAL HISTORY Diagnosis Date ADD (attention deficit disorder) Arthritis Depression Renal calculus 2009 PAST SURGICAL HISTORY Procedure Laterality Date APPENDECTOMY SECTION HX x 2 PAST SURGICAL HISTORY OF Bilateral Carpal Tunnel Surgery PAST SURGICAL HISTORY OF Tubes in ears SALPINGECTOMY Ectopic ; unsure which tube was removed ALLERGIES No Known Allergies MEDICATIONS folic acid 1 mg tablet Take 2 tablets by mouth every afternoon. methotrexate 2.5 mg tablet TAKE 7 TABLETS BY MOUTH EVERY WEEK DULoxetine (CYMBALTA) 30 mg capsule Take 1 capsule by mouth every afternoon. benzonatate (TESSALON PERLES) 100 mg capsule Take 2 capsules by mouth three times a day as needed for cough. benzonatate (TESSALON PERLE) 100 mg capsule Take 2 capsules by mouth three times daily as needed. IBUPROFEN ORAL Take by mouth as needed. FLUoxetine (PROZAC) 20 mg capsule hydrOXYzine pamoate (VISTARIL) 25 mg capsule Pseudoephedrine HCl (SUDAFED SR) 120 mg TbER ondansetron orally disintegrating (ZOFRAN ODT) 4 mg disintegrating tablet Lpidkfyffjshldx-Rgcfsnwvl-GU (BROMFED DM) 2-30-10 mg/5 mL syrup Take 5 mL by mouth four times a day as needed. ondansetron orally disintegrating (ZOFRAN ODT) 4 mg disintegrating tablet Take 1 tablet by mouth every 8 hours as needed for nausea/vomiting. albuterol HFA (PROAIR HFA) 90 mcg/actuation inhaler Inhale 2 Puffs as instructed every 4 hours as needed. (Patient not taking: Reported on 06/12/2023) HYDROcodone-acetaminophen (NORCO) 5-325 mg per tablet EVERY 4 HOURS NEEDED PRN For Pain (Patient not taking: Reported on 06/12/2023) FAMILY HISTORY Problem Relation Age of Onset Drug abuse Son Social History Tobacco Use Smoking status: Former Smokeless tobacco: Never Substance Use Topics Alcohol use: No Comment: rare -- 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 Most recent use May 2018 Review of Systems Constitutional: Positive for appetite change, chills and fatigue. Negative for fever. HENT: Positive for congestion and rhinorrhea. Negative for ear discharge, ear pain, sinus pressure, sinus pain and sore throat. Eyes: Negative for discharge and redness. Respiratory: Positive for cough and chest tightness. Negative for shortness of breath. Cardiovascular: Negative for chest pain and leg swelling. Gastrointestinal: Positive for diarrhea, nausea and vomiting. Negative for abdominal pain. Musculoskeletal: Positive for myalgias. Skin: Negative for color change, pallor, rash and wound. Allergic/Immunologic: Negative for environmental allergies, food allergies and immunocompromised state. Neurological: Negative for headaches. Hematological: Negative for adenopathy. Does not bruise/bleed easily. Objective BP 110/70 Pulse 91 Temp (!) 38.1 ?C (100.6 ?F) Resp 20 Wt 69.9 kg (154 lb) LMP 06/27/2018 SpO2 100% BMI 30.08 kg/m? Physical Exam Constitutional: General: She is awake. She is not in acute distress. Appearance: Normal appearance. She is normal weight. She is not ill-appearing, toxic-appearing or diaphoretic. HENT: Head: Normocephalic. Right Ear: Hearing, ear canal and external ear normal. No decreased hearing noted. No laceration, drainage, sw (more content not included)... [facility] History of Present illness Narrative 06-12-2023 Adeel Barker APRN.WATER VALVE MECHANIC - 06/12/2023 8:40 AM EST Note Date & Type Note Facility 06-12-2023 History of Presen t illness Narrative This note was created using Spinnakr. Subjective Karl Martinez is a 58 year old female. 58 year old female with no PMH presents today for worsening cough. She was seen in [facility] on 06/08/2023 for cough x1 day and diagnosed with a viral URI. Pertinent positives include nonproductive cough, nasal congestion, rhinorrhea, fatigue, body aches, chills, nausea, vomiting, diarrhea, decreased appetite, chest tightness, and chest discomfort with coughing. Pertinent negatives include dyspnea, chest pain, sinus pain, ear drainage, ear pain, and eye drainage. Patient's daughter was flu positive on 06/08/23 and they live together. Of note, patient declined flu testing on 06/08/23. Was prescribed Tessalon Perles. Denies following up. The history is provided by the patient. No speech language pathologist travel was used. Cough This is a new problem. The current episode started more than 2 days ago. The problem occurs constantly. The problem has been gradually worsening. The cough is Non-productive. There has been no fever. Associated symptoms include chills, sweats, rhinorrhea and myalgias. Pertinent negatives include no chest pain, no ear congestion, no ear pain, no headaches, no sore throat, no shortness of breath and no eye redness. Treatments tried: tessalon pearls. The treatment provided mild relief. She is a smoker. Her past medical history does not include bronchitis, pneumonia, bronchiectasis, COPD, emphysema or asthma. PAST MEDICAL HISTORY Diagnosis Date ADD (attention deficit disorder) Arthritis Depression Renal calculus 2009 PAST SURGICAL HISTORY Procedure Laterality Date APPENDECTOMY SECTION HX x 2 PAST SURGICAL HISTORY OF Bilateral Carpal Tunnel Surgery PAST SURGICAL HISTORY OF Tubes in ears SALPINGECTOMY Ectopic ; unsure which tube was removed ALLERGIES No Known Allergies MEDICATIONS folic acid 1 mg tablet Take 2 tablets by mouth every afternoon. methotrexate 2.5 mg tablet TAKE 7 TABLETS BY MOUTH EVERY WEEK DULoxetine (CYMBALTA) 30 mg capsule Take 1 capsule by mouth every afternoon. benzonatate (TESSALON PERLES) 100 mg capsule Take 2 capsules by mouth three times a day as needed for cough. benzonatate (TESSALON PERLE) 100 mg capsule Take 2 capsules by mouth three times daily as needed. IBUPROFEN ORAL Take by mouth as needed. FLUoxetine (PROZAC) 20 mg capsule hydrOXYzine pamoate (VISTARIL) 25 mg capsule Pseudoephedrine HCl (SUDAFED SR) 120 mg TbER ondansetron orally disintegrating (ZOFRAN ODT) 4 mg disintegrating tablet Gaknxpsxsajjjsv-Wcfzuodtm-DI (BROMFED DM) 2-30-10 mg/5 mL syrup Take 5 mL by mouth four times a day as needed. ondansetron orally disintegrating (ZOFRAN ODT) 4 mg disintegrating tablet Take 1 tablet by mouth every 8 hours as needed for nausea/vomiting. albuterol HFA (PROAIR HFA) 90 mcg/actuation inhaler Inhale 2 Puffs as instructed every 4 hours as needed. (Patient not taking: Reported on 06/12/2023) HYDROcodone-acetaminophen (NORCO) 5-325 mg per tablet EVERY 4 HOURS NEEDED PRN For Pain (Patient not taking: Reported on 06/12/2023) FAMILY HISTORY Problem Relation Age of Onset Drug abuse Son Social History Tobacco Use Smoking status: Former Smokeless tobacco: Never Substance Use Topics Alcohol use: No Comment: rare -- 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 Most recent use May 2018 Review of Systems Constitutional: Positive for appetite change, chills and fatigue. Negative for fever. HENT: Positive for congestion and rhinorrhea. Negative for ear discharge, ear pain, sinus pressure, sinus pain and sore throat. Eyes: Negative for discharge and redness. Respiratory: Positive for cough and chest tightness. Negative for shortness of breath. Cardiovascular: Negative for chest pain and leg swelling. Gastrointestinal: Positive for diarrhea, nausea and vomiting. Negative for abdominal pain. Musculoskeletal: Positive for myalgias. Skin: Negative for color change, pallor, rash and wound. Allergic/Immunologic: Negative for environmental allergies, food allergies and immunocompromised state. Neurological: Negative for headaches. Hematological: Negative for adenopathy. Does not bruise/bleed easily. Objective BP 110/70 Pulse 91 Temp (!) 38.1 C (100.6 F) Resp 20 Wt 69.9 kg (154 lb) LMP 06/27/2018 SpO2 100% BMI 30.08 kg/m Physical Exam Constitutional: General: She is awake. She is not in acute distress. Appearance: Normal appearance. She is normal weight. She is not ill-appearing, toxic-appearing or diaphoretic. HENT: Head: Normocephalic. Right Ear: Hearing, ear canal and external ear normal. No decreased hearing noted. No laceration, drainage, swelling or tenderness. A middle ear effusion is present. There is no impacted cerumen. No foreign body. No mastoid tenderness. No PE tube. No hemotympanum. Tympanic membrane is not injected, scarred, perforated, erythematous, retracted or bulging. Tympanic membrane has normal mobility. Left Ear: Hearing, ear canal and external ear normal. No decreased hearing noted. No laceration, drainage, swelling or tenderness. A middle ear effusion is present. There is no impacted cerumen. No foreign body. No mastoid tenderness. No PE tube. No hemotympanum. Tympanic membrane is not injected, scarred, perforated, erythematous, retracted or bulging. Tympanic membrane has normal mobility. Nose: Congestion and rhinorrhea present. No nasal deformity or septal deviation. Right Turbinates: Swollen. Not enlarged or pale. Left Turbinates: Swollen. Not enlarged or pale. Right Sinus: No maxillary sinus tenderness or frontal sinus tenderness. Left Sinus: No maxillary sinus tenderness or frontal sinus tenderness. Mouth/Throat: Lips: Tangerine. Mouth: Mucous membranes are moist. No oral lesions. Tongue: No lesions. Palate: No lesions. Pharynx: Oropharynx is clear. Uvula midline. No pharyngeal swelling, oropharyngeal exudate, posterior oropharyngeal erythema or uvula swelling. Tonsils: No tonsillar exudate or tonsillar abscesses. Eyes: General: No scleral icterus. Right eye: No discharge. Left eye: No discharge. Conjunctiva/sclera: Conjunctivae normal. Pupils: Pupils are equal, round, and reactive to light. Cardiovascular: Rate and Rhythm: Normal rate and regular rhythm. Heart sounds: Normal heart sounds, S1 normal and S2 normal. Heart sounds not distant. No murmur heard. No friction rub. No gallop. Pulmonary: Effort: Pulmonary effort is normal. No tachypnea, bradypnea, accessory muscle usage, prolonged expiration or respiratory distress. Breath sounds: No stridor. No wheezing, rhonchi or rales. Chest: Chest wall: No tenderness. Abdominal: General: Abdomen is flat. There is no distension. Palpations: Abdomen is soft. There is no mass. Tenderness: There is no abdominal tenderness. There is no guarding or rebound. Hernia: No hernia is present. Lymphadenopathy: Cervical: No cervical adenopathy. Skin: General: Skin is warm and dry. Capillary Refill: Capillary refill takes less than 2 seconds. Neurological: General: No focal deficit present. Mental Status: She is alert and oriented to person, place, and time. Psychiatric: Mood and Affect: Mood normal. Behavior: Behavior normal. Behavior is cooperative. Assessment and Plan ASSESSMENT/PLAN: 1. URI, acute - ICD9: 465.9, ICD10: J06.9 (primary diagnosis) - Acute onset URI symptoms beginning 6 days ago. Non-productive cough, rhinorrhea, fatigue, body aches, nausea, vomiting, diarrhea, and decreased appetite. Denies dyspnea, sinus pain, ear pain. Daughter flu positive last week. - Current smoker - LCTA on exam, bilateral middle ear effusions - Vitals today include temp 100.6. RR 20, SpO2 100% - Differential includes viral URI and pneumonia - COVID & INFLUENZA A/B & RSV NAAT, ROUTINE - XR CHEST 2V FRONTAL/LAT - [id number] 2 MG-30 MG-10 MG/5 ML ORAL SYRUP - Discussed viral etiology and rationale for treatment. - Symptomatic treatment with prn analgesia - Supportive care with fluids and rest - The patient may also use acetaminophen PRN. XRAY NOT AVAILABLE AT TIME OF EXAM, PATIENT TO RETURN NEXT DAY.; IF REVEALS PNEUMONIA PLEASE PLACE ON ATB 2. Acute cough - ICD9: 786.2, ICD10: R05.1 - Acute onset URI symptoms beginning 6 days ago. Non-productive cough, rhinorrhea, fatigue, body aches, nausea, vomiting, diarrhea, and decreased appetite. Denies dyspnea, sinus pain, ear pain. - Current smoker - LCTA on exam, bilateral middle ear effusions - Vitals today include temp 100.6. RR 20, SpO2 100% - Differential includes viral URI and pneumonia - COVID & INFLUENZA A/B & RSV NAAT, ROUTINE - XR CHEST 2V FRONTAL/LAT - [id number] 2 MG-30 MG-10 MG/5 ML ORAL SYRUP - Discussed viral etiology and rationale for treatment. - Symptomatic treatment with prn analgesia - Supportive care with fluids and rest - The patient may also use acetaminophen PRN. Candelaria Lynn TEACHING PROVIDER (Physician/PA/PACKAGING LINE ATTENDANT) NOTE OF PERSONAL INVOLVEMENT IN CARE: I have personally seen and examined the patient and performed the medical decision-making components. I have reviewed the Advanced Practice Registered Nurse (PACKAGING LINE ATTENDANT) Student's documentation and verified the findings in the note as written. Any additions or changes are noted in bold/italics. Signature: Adeel Barker Date: 06/12/2023 Time: 9:20 AM documented in this encounter [facility] Progress note 06-08-2023 Note Date & Type Note Facility 06-08-2023 Note HNO ID: [id number] Author: ADEEL BARKER APRN.ELIANE Service: ? Author Type: Nurse Practitioner Type: Progress Notes Filed: 06/08/2023 12:12 Note Text: This note was created using NoteWriter. Subjective Karl Martinez is a 58 year old female. 58 year old female with no PMH presents today with acute onset cough and chest congestion that began 1 day ago. She is a current 0.5 ppd smoker for 5 years. Daughter is has been sick as well and is being today. Pertinent positives include non productive cough, chest congestion, and chest tightness with cough and deep breathing. Pertinent negatives include shortness of breath, chest pain, dizziness, nausea, vomiting, diarrhea, fever, fatigue, decreased appetite, nasal congestion, rhinorrhea, ear pain, and sore throat. The history is provided by the patient. Nasal Congestion This is a new problem. The current episode started yesterday. The problem is unchanged. There has been no fever. Her pain is at a severity of 0/10. She is experiencing no pain. Associated symptoms include congestion and coughing. Pertinent negatives include no chills, ear pain, shortness of breath, sinus pressure, sneezing or sore throat. Treatments tried: robitussin. The treatment provided mild relief. PAST MEDICAL HISTORY Diagnosis Date ADD (attention deficit disorder) Arthritis Depression Renal calculus 2009 PAST SURGICAL HISTORY Procedure Laterality Date APPENDECTOMY SECTION HX x 2 PAST SURGICAL HISTORY OF Bilateral Carpal Tunnel Surgery PAST SURGICAL HISTORY OF Tubes in ears SALPINGECTOMY Ectopic ; unsure which tube was removed ALLERGIES No Known Allergies MEDICATIONS albuterol HFA (PROAIR HFA) 90 mcg/actuation inhaler Inhale 2 Puffs as instructed every 4 hours as needed. IBUPROFEN ORAL Take by mouth as needed. folic acid 1 mg tablet Take 2 tablets by mouth every afternoon. methotrexate 2.5 mg tablet TAKE 7 TABLETS BY MOUTH EVERY WEEK DULoxetine (CYMBALTA) 30 mg capsule Take 1 capsule by mouth every afternoon. benzonatate (TESSALON PERLES) 100 mg capsule Take 2 capsules by mouth three times a day as needed for cough. benzonatate (TESSALON PERLE) 100 mg capsule Take 2 capsules by mouth three times daily as needed. (Patient not taking: Reported on 06/08/2023) HYDROcodone-acetaminophen (NORCO) 5-325 mg per tablet EVERY 4 HOURS NEEDED PRN For Pain (Patient not taking: Reported on 07/10/2022) FLUoxetine (PROZAC) 20 mg capsule DAILY (Patient not taking: Reported on 07/10/2022) hydrOXYzine pamoate (VISTARIL) 25 mg capsule 3 TIMES DAILY NEEDED PRN For Anxiety (Patient not taking: Reported on 07/10/2022) Pseudoephedrine HCl (SUDAFED SR) 120 mg TbER Q12H (Patient not taking: Reported on 07/10/2022) ondansetron orally disintegrating (ZOFRAN ODT) 4 mg disintegrating tablet EVERY 8 HOURS NEEDED PRN For Nausea (Patient not taking: Reported on 07/10/2022) FAMILY HISTORY Problem Relation Age of Onset Drug abuse Son Social History Tobacco Use Smoking status: Former Smokeless tobacco: Never Substance Use Topics Alcohol use: No Comment: rare -- 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 Most recent use May 2018 Review of Systems Constitutional: Negative for appetite change, chills, fatigue and fever. HENT: Positive for congestion and dental problem. Negative for ear discharge, ear pain, postnasal drip, rhinorrhea, sinus pressure, sinus pain, sneezing and sore throat. Patient states she had a blister around tooth that popped a few days ago and is having tooth pain. Eyes: Negative for discharge. Respiratory: Positive for cough and chest tightness. Negative for shortness of breath, wheezing and stridor. Cardiovascular: Negative for chest pain. Gastrointestinal: Negative for abdominal pain, diarrhea, nausea and vomiting. Musculoskeletal: Negative for arthralgias. Objective BP 136/68 Pulse 90 Temp 36.6 ?C (97.9 ?F) Resp 16 Wt 72.6 kg (160 lb) LMP 06/27/2018 SpO2 97% BMI 31.25 kg/m? Physical Exam Constitutional: General: She is not in acute distress. Appearance: Normal appearance. She is normal weight. She is not ill-appearing, toxic-appearing or diaphoretic. HENT: Head: Normocephalic. Right Ear: Tympanic membrane, ear canal and external ear normal. No decreased hearing noted. No laceration, drainage, swelling or tenderness. No middle ear effusion. There is no impacted cerumen. No foreign body. No mastoid tenderness. No PE tube. No hemotympanum. Tympanic membrane is not injected, scarred, perforated, erythematous, retracted or bulging. Tympanic membrane has normal mobility. Left Ear: Ear canal and external ear normal. No decreased hearing noted. No laceration, drainage, swelling or tenderness. No middle ear effusion. There is no impacted cerumen. No foreign body. No mastoid tenderness. No PE tube. No (more content not included)... [facility] Progress note 07-10-2022 Note Date & Type Note Facility 07-10-2022 Note HNO ID: [id number] Author: Ely Burrell APRN.[employer] Service: ? Author Type: Nurse Practitioner Type: Progress Notes Filed: 07/10/2022 9:01 AM Note Text: Subjective The history is provided by the patient. No speech language pathologist travel was used. HPI Karl Martinez is a [...] have confirmed and edited as necessary, the [facility] Review of Systems Constitutional: Negative for chills [...] detail warranting prompt ER evaluation. Ely Burrell APRN.[employer] [facility] Evaluation note Note Date & Type Note Facility documented in this encounter [facility] Health Concerns Infection Onset Date Last Indicated Resolved Time COVID-19 Rule-Out 06/12/2023 06/12/2023 Summary Purpose Family History No Family History Records Found Advance Directives No Advanced Directives Records Found Additional Source Comments Source Comments (unrecognize d section and content) In the event this informatio n is protected by the Federal Confidentiality of Alcohol and Drug Abuse Patient Records regulations: The Federal rules restrict any use of the information to criminally investigate or prosecute any alcohol or drug abuse patient.[facility] Reason for Visit (unrecogniz ed section and content) INFORMATION SOURCE (unrecogn ized section and content) [...] BE BASED ON THE PRIMARY CLINICAL RECORDS. [facility] [email or web address] [facility]. provides no warranty or guarantee of the accuracy or completeness of information in this document.
[2023-07-19 10:10] LABS: Absolute Lymphocyte Count 3.96 X10^3/uL (0.83-4.51); Absolute Neutrophil Count 4.3 X10^3/uL (2.0-7.7); Basophil# 0.02 X10^3/uL; Basophil% 0.2 % (0-1); Eosinophil# 0.26 X10^3/uL; Eosinophils% 2.7 % (0-5); Hemoglobin 11.7 g/dL (12.0-15.0); Lymphocyte # 3.96 X10^3/ul (0.83-4.51); Lymphocyte % 41.8 % (19-41); Mean Corp Hgb Conc 34.4 g/dL (32-36); Mean Corpuscular Hgb 33.7 pg (27.0-32.0); Mean Platelet Vol. 9.7 fl (6.2-12.0); Monocyte# 0.87 X10^3/uL; Monocyte% 9.2 % (0-10); NRBC Flagged by Analyzer 0 % (0-5); Neutrophil # 4.34 X10^3/uL (2.7-7.7); Neutrophil % 45.8 % (47-70); Platelet Count 300 K/mm3 (150-450); RBC Distribution Width CV 13.5 % (11.6-14.6); RBC Distribution Width SD 46.8 fl (35.1-43.9); Red Blood Count 3.47 M/mm3 (4.2-5.4); White Blood Count 9.5 K/mm3 (4.4-11.0)
[2023-07-19 11:23] LABS: ALB/GLOB Ratio 1.1 RATIO (0.9-2.4); AST(SGOT) 17 U/L (15-37); Alanine Aminotransfer ALT/SGPT 33 U/L (13-56); Albumin, Serum 3.7 g/dL (3.2-5.0); Alkaline Phosphatase 72 U/L (45-117); Anion Gap 5 (5-15); BUN 19 mg/dL (7-18); BUN/Creat Ratio 26.4 RATIO (10-20); Calcium,Total 9.6 mg/dL (8.5-10.1); Chloride 107 mmol/L (98-107); Creatinine, Serum 0.72 mg/dL (0.55-1.02); EST Glomerular Filtration Rate 89 mL/min (>60); Est Glom Filt Rate - Afr Amer 107 mL/min (>60); Globulin 3.4 g/dL (2.2-4.2); Glucose 82 mg/dL (74-106); Potassium 3.8 mmol/L (3.5-5.1); Protein, Total 7.1 g/dL (6.4-8.2); Sodium Level 141 mmol/L (136-145)
== END | disposition home or self-care (01) ==
LOC: MTLAB 07:07
PROVIDERS: Referring Provider Internal Medicine Rheumatology; Visit Provider Internal Medicine Rheumatology
DX: M06.4 Inflammatory polyarthropathy (principal); Z79.899 Other long term (current) drug therapy; M65.341 Trigger finger, right ring finger
CPT/HCPCS: 36415; 80053; 85025

== ENCOUNTER → 2023-09-13 | Outpatient (CLI) | payer BC, SELFPAY ==
[2023-09-13 10:54] LABS: Absolute Lymphocyte Count 4.01 X10^3/uL (0.83-4.51); Absolute Neutrophil Count 4.8 X10^3/uL (2.0-7.7); Basophil# 0.03 X10^3/uL; Basophil% 0.3 % (0-1); Eosinophil# 0.22 X10^3/uL; Eosinophils% 2.2 % (0-5); Hematocrit 35.5 % (37-47); Lymphocyte # 4.01 X10^3/ul (0.83-4.51); Lymphocyte % 39.9 % (19-41); Mean Corp Hgb Conc 33.8 g/dL (32-36); Mean Corpuscular Hgb 33.4 pg (27.0-32.0); Mean Corpuscular Volume 98.9 fL (81-99); Mean Platelet Vol. 9.7 fl (6.2-12.0); Monocyte# 0.96 X10^3/uL; Monocyte% 9.5 % (0-10); NRBC Flagged by Analyzer 0 % (0-5); Neutrophil # 4.81 X10^3/uL (2.7-7.7); Neutrophil % 47.8 % (47-70); Platelet Count 268 K/mm3 (150-450); RBC Distribution Width CV 12.8 % (11.6-14.6); RBC Distribution Width SD 45.6 fl (35.1-43.9); Red Blood Count 3.59 M/mm3 (4.2-5.4); White Blood Count 10.1 K/mm3 (4.4-11.0)
[2023-09-13 11:08] LABS: ALB/GLOB Ratio 1.1 RATIO (0.9-2.4); AST(SGOT) 26 U/L (15-37); Alanine Aminotransfer ALT/SGPT 68 U/L (13-56); Albumin, Serum 3.7 g/dL (3.2-5.0); Alkaline Phosphatase 63 U/L (45-117); Anion Gap 4 (5-15); BUN 22 mg/dL (7-18); BUN/Creat Ratio 27.8 RATIO (10-20); Calcium,Total 9.2 mg/dL (8.5-10.1); Chloride 110 mmol/L (98-107); Creatinine, Serum 0.79 mg/dL (0.55-1.02); EST Glomerular Filtration Rate 80 mL/min (>60); Est Glom Filt Rate - Afr Amer 96 mL/min (>60); Globulin 3.4 g/dL (2.2-4.2); Glucose 89 mg/dL (74-106); Potassium 4.3 mmol/L (3.5-5.1); Protein, Total 7.1 g/dL (6.4-8.2); Sodium Level 140 mmol/L (136-145)
== END | disposition home or self-care (01) ==
LOC: MTLAB 08:00
PROVIDERS: Referring Provider Internal Medicine Rheumatology; Visit Provider Internal Medicine Rheumatology
DX: M06.4 Inflammatory polyarthropathy (principal); Z79.899 Other long term (current) drug therapy; M65.341 Trigger finger, right ring finger
CPT/HCPCS: 36415; 80053; 85025

== ENCOUNTER → 2023-10-04 | Outpatient (CLI) | payer BC, SELFPAY ==
[2023-10-04 10:51] LABS: AST(SGOT) 22 U/L (15-37); Alanine Aminotransfer ALT/SGPT 33 U/L (13-56); Albumin, Serum 3.6 g/dL (3.2-5.0); Alkaline Phosphatase 76 U/L (45-117); Anion Gap 7 (5-15); BUN 20 mg/dL (7-18); BUN/Creat Ratio 31.2 RATIO (10-20); Calcium,Total 9.2 mg/dL (8.5-10.1); Chloride 105 mmol/L (98-107); Creatinine, Serum 0.64 mg/dL (0.55-1.02); EST Glomerular Filtration Rate 101 mL/min (>60); Est Glom Filt Rate - Afr Amer 123 mL/min (>60); Globulin 3.5 g/dL (2.2-4.2); Glucose 87 mg/dL (74-106); Protein, Total 7.1 g/dL (6.4-8.2); Sodium Level 136 mmol/L (136-145)
== END | disposition home or self-care (01) ==
PROVIDERS: Visit Provider Internal Medicine Rheumatology
DX: M06.4 Inflammatory polyarthropathy (principal); Z79.899 Other long term (current) drug therapy; M65.341 Trigger finger, right ring finger; M21.41 Flat foot [pes planus] (acquired), right foot; F32.A Depression, unspecified; F98.8 Other specified behavioral and emotional disorders with onset usually occurring in childhood and adolescence; Z87.442 Personal history of urinary calculi
CPT/HCPCS: 36415; 80053

== ENCOUNTER → 2023-11-28 | Outpatient (CLI) | payer BC, SELFPAY ==
[2023-11-28 10:14] LABS: Absolute Lymphocyte Count 4.19 X10^3/uL (0.83-4.51); Absolute Neutrophil Count 4.8 X10^3/uL (2.0-7.7); Basophil# 0.03 X10^3/uL; Basophil% 0.3 % (0-1); Eosinophil# 0.84 X10^3/uL; Eosinophils% 7.9 % (0-5); Lymphocyte # 4.19 X10^3/ul (0.83-4.51); Lymphocyte % 39.3 % (19-41); Mean Corp Hgb Conc 34.3 g/dL (32-36); Mean Corpuscular Hgb 32.8 pg (27.0-32.0); Mean Corpuscular Volume 95.6 fL (81-99); Monocyte# 0.81 X10^3/uL; Monocyte% 7.6 % (0-10); NRBC Flagged by Analyzer 0 % (0-5); Neutrophil # 4.76 X10^3/uL (2.7-7.7); Neutrophil % 44.6 % (47-70); Platelet Count 261 K/mm3 (150-450); RBC Distribution Width CV 11.9 % (11.6-14.6); RBC Distribution Width SD 40.6 fl (35.1-43.9); Red Blood Count 3.66 M/mm3 (4.2-5.4); White Blood Count 10.7 K/mm3 (4.4-11.0)
[2023-11-28 11:08] LABS: ALB/GLOB Ratio 1.1 RATIO (0.9-2.4); AST(SGOT) 23 U/L (15-37); Alanine Aminotransfer ALT/SGPT 33 U/L (13-56); Albumin, Serum 3.5 g/dL (3.2-5.0); Alkaline Phosphatase 77 U/L (45-117); Anion Gap 8 (5-15); BUN 21 mg/dL (7-18); BUN/Creat Ratio 28.3 RATIO (10-20); Calcium,Total 9.4 mg/dL (8.5-10.1); Chloride 109 mmol/L (98-107); Creatinine, Serum 0.74 mg/dL (0.55-1.02); EST Glomerular Filtration Rate 86 mL/min (>60); Est Glom Filt Rate - Afr Amer 104 mL/min (>60); Globulin 3.3 g/dL (2.2-4.2); Glucose 80 mg/dL (74-106); Protein, Total 6.8 g/dL (6.4-8.2); Sodium Level 142 mmol/L (136-145)
== END | disposition home or self-care (01) ==
PROVIDERS: Referring Provider Internal Medicine Rheumatology; Visit Provider Internal Medicine Rheumatology
DX: M06.4 Inflammatory polyarthropathy (principal); Z79.899 Other long term (current) drug therapy
CPT/HCPCS: 36415; 80053; 85025

== ENCOUNTER 2024-02-15 07:30 | Outpatient (CLI) | payer BC, SELFPAY ==
[2024-02-15 10:14] LABS: Absolute Lymphocyte Count 4.35 X10^3/uL (0.83-4.51); Absolute Neutrophil Count 6.9 X10^3/uL (2.0-7.7); Basophil# 0.02 X10^3/uL; Basophil% 0.2 % (0-1); Eosinophil# 0.46 X10^3/uL; Eosinophils% 3.6 % (0-5); Hemoglobin 11.9 g/dL (12.0-15.0); Lymphocyte # 4.35 X10^3/ul (0.83-4.51); Mean Corpuscular Hgb 32.9 pg (27.0-32.0); Mean Corpuscular Volume 96.7 fL (81-99); Mean Platelet Vol. 9.7 fl (6.2-12.0); Monocyte# 0.99 X10^3/uL; Monocyte% 7.7 % (0-10); NRBC Flagged by Analyzer 0 % (0-5); Neutrophil # 6.94 X10^3/uL (2.7-7.7); Neutrophil % 54.2 % (47-70); Platelet Count 271 K/mm3 (150-450); RBC Distribution Width CV 12.8 % (11.6-14.6); RBC Distribution Width SD 44.5 fl (35.1-43.9); Red Blood Count 3.62 M/mm3 (4.2-5.4); White Blood Count 12.8 K/mm3 (4.4-11.0)
[2024-02-15 10:29] LABS: AST(SGOT) 20 U/L (15-37); Alanine Aminotransfer ALT/SGPT 27 U/L (13-56); Albumin, Serum 3.5 g/dL (3.2-5.0); Alkaline Phosphatase 80 U/L (45-117); Anion Gap 4 (5-15); BUN 18 mg/dL (7-18); BUN/Creat Ratio 22.6 RATIO (10-20); Calcium,Total 9.5 mg/dL (8.5-10.1); Chloride 109 mmol/L (98-107); EST Glomerular Filtration Rate 79 mL/min (>60); Est Glom Filt Rate - Afr Amer 95 mL/min (>60); Globulin 3.6 g/dL (2.2-4.2); Glucose 90 mg/dL (74-106); Potassium 4.1 mmol/L (3.5-5.1); Protein, Total 7.1 g/dL (6.4-8.2); Sodium Level 140 mmol/L (136-145)
== END 2024-02-15 23:59 | disposition home or self-care (01) ==
LOC: MTLAB 07:31
PROVIDERS: Referring Provider Internal Medicine Rheumatology; Visit Provider Internal Medicine Rheumatology
DX: M06.4 Inflammatory polyarthropathy (principal); Z79.899 Other long term (current) drug therapy
CPT/HCPCS: 36415; 80053; 85025

== ENCOUNTER → 2024-02-21 | Outpatient (CLI) | payer BC, SELFPAY ==
[2024-02-21 12:10] LABS: Absolute Lymphocyte Count 4.35 X10^3/uL (0.83-4.51); Absolute Neutrophil Count 5.1 X10^3/uL (2.0-7.7); Basophil# 0.02 X10^3/uL; Basophil% 0.2 % (0-1); Eosinophils% 1.9 % (0-5); Hematocrit 38.2 % (37-47); Hemoglobin 12.9 g/dL (12.0-15.0); Lymphocyte # 4.35 X10^3/ul (0.83-4.51); Lymphocyte % 41.3 % (19-41); Mean Corp Hgb Conc 33.8 g/dL (32-36); Mean Corpuscular Hgb 32.5 pg (27.0-32.0); Mean Corpuscular Volume 96.2 fL (81-99); Mean Platelet Vol. 9.8 fl (6.2-12.0); Monocyte# 0.86 X10^3/uL; Monocyte% 8.2 % (0-10); NRBC Flagged by Analyzer 0 % (0-5); Neutrophil # 5.06 X10^3/uL (2.7-7.7); Neutrophil % 48.1 % (47-70); Platelet Count 316 K/mm3 (150-450); RBC Distribution Width CV 12.6 % (11.6-14.6); RBC Distribution Width SD 42.7 fl (35.1-43.9); Red Blood Count 3.97 M/mm3 (4.2-5.4); White Blood Count 10.5 K/mm3 (4.4-11.0)
[2024-02-21 12:44] LABS: Vitamin B12 1082 pg/mL (211-911)
[2024-02-21 13:08] LABS: AST(SGOT) 17 U/L (15-37); Alanine Aminotransfer ALT/SGPT 34 U/L (13-56); Albumin, Serum 3.8 g/dL (3.2-5.0); Alkaline Phosphatase 82 U/L (45-117); Anion Gap 7 (5-15); BUN 15 mg/dL (7-18); Calcium,Total 9.7 mg/dL (8.5-10.1); Chloride 106 mmol/L (98-107); Cholesterol 249 mg/dL (200); Creatinine, Serum 0.68 mg/dL (0.55-1.02); EST Glomerular Filtration Rate 94 mL/min (>60); Est Glom Filt Rate - Afr Amer 114 mL/min (>60); Ferritin 25 ng/mL (8-252); Globulin 3.7 g/dL (2.2-4.2); Glucose 88 mg/dL (74-106); High Density Lipoprotein 63 mg/dL; Iron 56 ug/dL (50-170); Potassium 3.6 mmol/L (3.5-5.1); Protein, Total 7.5 g/dL (6.4-8.2); Sodium Level 140 mmol/L (136-145); Triglycerides 80 mg/dL; Very Low Density Lipoprotein 16 mg/dL (5-40)
[2024-02-22 09:33] LABS: Vitamin D,25 Hydroxy 34.2 ng/mL
== END | disposition home or self-care (01) ==
LOC: BFHLAB 09:31
PROVIDERS: PCP Nurse Practitioner Family; Referring Provider Nurse Practitioner Family; Visit Provider Nurse Practitioner Family
DX: Z00.01 Encounter for general adult medical examination with abnormal findings (principal); R53.83 Other fatigue
CPT/HCPCS: 36415; 80053; 80061; 82306; 82607; 82728; 83540; 84439; 84443; 85025

== ENCOUNTER 2024-05-02 10:18 | Outpatient (RCR) | payer BC, SELFPAY ==
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
--- NOTE | 2024-09-27 15:12 | HP.PTDCNRP_ITS ---
Patient Information Patient Information: KARL CLAROS was seen in my office for initial evaluation on 05/02/24. The following Plan of Care was established for this patient: POC Established Initial Frequency: 2x /Week Initial Duration: 4 Weeks Anticipated Interventions Patient/Client Instruction: Educate patient on: Condition and Plan of Care For the Purpose of:: To decrease pain, To increase ROM, To improve muscle performance and motor function, To increase tolerance to activity/condition/position, To improve ability of physical actions for home/community/work/leisure, To improve health of tissue, To decrease soft tissue restriction, To increase flexibility/ROM and To improve tolerance to ADL's Therapeutic Exercise to Include: Strength training, Postural training, Flexibilty training and Active ROM For the Purpose of:: To decrease pain, To increase ROM, To improve muscle performance and motor function, To improve ability to perform ADL's, To improve ability of physical actions for home/community/work/leisure, To improve health of tissue, To decrease soft tissue restriction and To increase flexibility/ROM Manual Therapy Techniques to Include: Mobilization Comment: CERVICAL TRACTION For the Purpose of:: To decrease pain, To increase ROM, To improve nutrient delivery to tissue, To increase oxygenation perfusion, To decrease soft tissue restriction and To increase flexibility/ROM TENS: Yes IF ES: Yes Cryotherapy (ice pack, ice massage): Yes Thermo therapy (hot pack): Yes Ultrasound (thermal/non thermal): Yes For the Purpose of:: To decrease pain, To increase ROM, To improve nutrient delivery to tissue, To increase oxygenation perfusion, To improve health of tissue and To decrease soft tissue restriction Last Seen Last Seen: This patient was last seen in our office . Pertinent comments regarding their Physical therapy will appear below: Patient see for cervical pain with recommendation for s/p ACDF thus d/c. At this point I will be discontinuing this patient from physical therapy. I w ould be happy to see this patient again in the future if found appropriate by the physician. Thank you! Cesar Chacko, PT, Cert MDT, OCS Balance/Gait/Functional tests Balance/Special Test Scores Oswestry Neck Score: 24
== END 2024-05-02 19:00 | disposition home or self-care (01) ==
LOC: PT 10:18
PROVIDERS: PCP Nurse Practitioner Family; Referring Provider Student in an Organized Health Care Education/Training Program; Visit Provider Student in an Organized Health Care Education/Training Program
DX: G95.9 Disease of spinal cord, unspecified (principal)
CPT/HCPCS: 97140; 97162

== ENCOUNTER 2024-05-04 06:54 | Day surgery (SDC) | payer BC, SELFPAY ==
[2024-05-04] VITALS (7 sets, daily range): BP systolic 124–151; BP diastolic 71–83; PULSE 75–96; RESP 16; TEMP 36.2–36.6; O2SAT 96–100; BMI 31.8
--- NOTE | 2024-05-04 07:30 | PRE.ANES_ITS ---
ASA Classification* ASA Classification ASA Classification: 2 Assessment & Plan Anesthesia* Anesthesia Assessment Anesthesia Assessment: Discussed sedation and/or anesthesia options, risks, benefits, and alternatives with patient/parents/legal guardian/POA. Questions invited. The patient/parents/legal guardian/POA seems to understand and agrees to proceed with anesthesia plan. Reviewed the physical assessment, medical history, allergy history and patient home medications list prior to surgery/procedure/anesthetic and documented any changes. Performed airway and anesthesia risk assessments. Anesthesia Type Anesthesia Type: MAC Anesthesia Focused Assessment* Temperature: 98 F Pulse Rate: 96 Blood Pressure: 137/80 Respiratory Rate: 16 Pulse Ox: 100 Airway Assessment Mouth opens: >3 cm Mallampati Score: II Focused Labs Anesthesia Preop lab: CBC WBC 10.5 K/mm3 (4.4-11.0) 02/21/24 09:32 RBC 3.97 M/mm3 (4.2-5.4) L 02/21/24 09:32 Hgb 12.9 g/dL (12.0-15.0) 02/21/24 09:32 Hct 38.2 % (37-47) 02/21/24 09:32 Plt Count 316 K/mm3 (150-450) 02/21/24 09:32 CHEMISTRY Potassium 3.6 mmol/L (3.5-5.1) 02/21/24 09:32 Sodium 140 mmol/L (136-145) 02/21/24 09:32 BUN 15 mg/dL (7-18) 02/21/24 09:32 Creatinine 0.68 mg/dL (0.55-1.02) 02/21/24 09:32 Glucose 88 mg/dL (74-106) 02/21/24 09:32 TSH 1.220 uIU/mL (0.358-3.740) 02/21/24 09:32 COAG Urine Test Negative Negative 06/29/18 13:35 Pre-Assessment Diagnosis/Proposed Procedure Planned Operative Procedure(s): COLONOSCOPY Anesthesia History 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 When Was Last Pacemaker Check QUESTION #4 FULL TEXT: You/Your Family Experience fever (hyperthermia) with Anesthesia Last Oral Intake Last Oral intake: Last Oral Intake NPO since 20:00 05/04/24 07:21 Meds taken in AM with sips of No 05/04/24 07:21 water? Meds patient instructed to take am of surgery PONV PONV - wireline supervisor: PONV - wireline supervisor Female Yes 05/01/24 14:03 HX of Motion Sickness No 05/01/24 14:03 HX of N/V After Surgery No 05/01/24 14:03 Non-Smoker No 05/01/24 14:03 Duration of Surgery greater No 05/01/24 14:03 than 60 minutes Number of Risk Factors 1 05/01/24 14:03 PONV Score Low Risk 05/01/24 14:03 Height & Weight Height & Weight: Anesthesia: Height & Weight Height 5 ft 05/04/24 07:21 Weight: 74 kg 05/04/24 07:21 Body Mass Index (BMI) 31.8 05/04/24 07:21 Respiratory Assessment Respiratory Assessment - wireline supervisor: Respiratory Tract Infection Hx - wireline supervisor Hx Respiratory Tract Infection No 05/01/24 14:03 STOP Sleep Apnea STOP Sleep Apnea - wireline supervisor: STOP Sleep Apnea - wireline supervisor Hx Hypertension No 05/02/24 10:30 Hx Sleep Apnea Yes: UNABLE TO TOLERATE CPAP 05/01/24 14:03 CPAP No 05/01/24 14:03 BIPAP No 05/01/24 14:03 Do you snore loudly (louder than talking or can be heard Do you often feel tired/ fatigued/ sleepy during daytime? Has anyone observed you stop breathing during sleep? STOP Results Positive 05/01/24 14:03 QUESTION #5 FULL TEXT : Do you snore loudly (louder than talking or can be heard through closed doors)? 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 Specify any problems Hx of Preganancy in last 3 No 05/01/24 14:03 Months Nurse Filling Out Transfusion VLEHMAN 05/01/24 14:03 & Questions: Date: 05/01/24 05/01/24 14:03 Time: 14:10 05/01/24 14:03 Patient unable to answer at this time (ie. confused, unrespo /Reproduction History /Reproductive History - wireline supervisor: /Reproductive Hx- wireline supervisor Hx Now No 05/01/24 14:03 Gestational Age (in weeks): EDC: Hx Hx Para Hx Section SAB PFSH Medical History Wears glasses Wears partial dentures History of renal disease Low iron Heartburn Smoker CPAP (continuous positive airway pressure) dependence Leg cramps Sleep apnea Acid reflux Anxiety Depression Arthritis, rheumatoid Home Medications ?Medication ?Instructions ?Recorded ?Last Taken ?Type ibuprofen 400 mg tablet 400 mg PO PRN PRN Pain 06/29/18 Unknown History iron, carbonyl 45 mg tablet 45 mg PO DAILYCM 06/29/18 Unknown History (Feosol) cholecalciferol (vitamin D3) 25 25 mcg PO QDAY 04/11/24 Unknown History mcg (1,000 unit) capsule dextroamphetamine-amphetamine 30 30 mg PO BID 04/11/24 Unknown History mg tablet (Adderall) duloxetine 60 mg capsule,delayed 60 mg PO QDAY 04/11/24 Unknown History release (Cymbalta) folic acid 1 mg tablet 1 mg PO QDAY 04/11/24 Unknown History hydroxyzine HCl 25 mg tablet 25 mg PO TID PRN anxiety 11/20/24 Unknown History methotrexate sodium 2.5 mg tablet 15 mg PO QWEEK 04/11/24 Unknown History tramadol 50 mg tablet 50 mg PO TID 04/11/24 Unknown History Allergy/AdvReac Type Severity Reaction Status Date / Time No Known Allergies Allergy Verified 05/04/24 07:19 Family History Father Heart disease Cancer Surgical History S/P carpal tunnel release Delivery by section Social History Smoking Status: Light Smoker (<10/day) alcohol intake: never additional social history: ibuprofen daily Review of Systems (Anesthesia) ROS Narrative System reviewed and no additional complaints, except as documented.
--- NOTE | 2024-05-04 08:50 | HP.PCM_ITS ---
HPI - General General Date of Admission: 05/04/24 Date of Service: 05/04/24 Chief Complaint: Positive Cologuard test HPI Narrative KARL CLAROS, is a 58 F who presents for colonoscopy. She was recently found to have positive Cologuard test. She denies any GI issues or complaints otherwise. [facility] Medical History Wears glasses Wears partial dentures History of renal disease Low iron Heartburn Smoker CPAP (continuous positive airway pressure) dependence Leg cramps Sleep apnea Acid reflux Anxiety Depression Arthritis, rheumatoid Home Medications ?Medication ?Instructions ?Recorded ?Last Taken ?Type ibuprofen 400 mg tablet 400 mg PO PRN PRN Pain 06/29/18 Unknown History iron, carbonyl 45 mg tablet 45 mg PO DAILYCM 06/29/18 Unknown History (Feosol) cholecalciferol (vitamin D3) 25 25 mcg PO QDAY 04/11/24 Unknown History mcg (1,000 unit) capsule dextroamphetamine-amphetamine 30 30 mg PO BID 04/11/24 Unknown History mg tablet (Adderall) duloxetine 60 mg capsule,delayed 60 mg PO QDAY 04/11/24 Unknown History release (Cymbalta) folic acid 1 mg tablet 1 mg PO QDAY 04/11/24 Unknown History hydroxyzine HCl 25 mg tablet 25 mg PO TID PRN anxiety 04/11/24 Unknown History methotrexate sodium 2.5 mg tablet 15 mg PO QWEEK 04/11/24 Unknown History tramadol 50 mg tablet 50 mg PO TID 04/11/24 Unknown History Allergy/AdvReac Type Severity Reaction Status Date / Time No Known Allergies Allergy Verified 05/04/24 07:19 Family History Father Heart disease Cancer Surgical History S/P carpal tunnel release Delivery by section Social History Smoking Status: Light Smoker (<10/day) alcohol intake: never additional social history: ibuprofen daily Vital Signs Vital Signs Vital Signs: 05/04/24 07:21 05/04/24 07:21 05/04/24 07:30 Temperature 98 F 98 F Temperature Source Temporal Pulse Rate 96 96 Respiratory Rate 16 16 Respiratory Pattern Normal Blood Pressure 137/80 H 137/80 H Blood Pressure Mean 99 Blood Pressure Source Monitor Blood Pressure Position Semi-Fowlers Blood Pressure Location Right Arm Pulse Ox 100 100 Oxygen Delivery Method Room Air Weight Weight: 163 lb 2.273 oz Body Mass Index (BMI) 31.8 Assessment & Plan Assessment/Plan (1) Positive colorectal cancer screening using Cologuard test: PLAN: Plan The patient is a 58-year-old female in need of a colonoscopy to evaluate positive Cologuard test which was recently performed. We discussed the details of the planned procedure and she wishes to proceed. This will be performed momentarily.
--- NOTE | 2024-05-04 09:25 | OP.COLON_ITS ---
Patient Name: Cathy Martinez Procedure Date: 05/04/2024 8:50 AM Date of : 1965 Age: 58 Procedure: Colonoscopy Indications: Positive Cologuard test Providers: Christian Florence MD Referring MD: Stephenie Phillips Medicines: Monitored Anesthesia Care Patient Profile: Refer to note in patient chart for documentation of history and physical. Last Colonoscopy: none. The patient's first colonoscopy is today. Complications: No immediate complications. Estimated blood loss: None. Procedure: Pre-Anesthesia Assessment: - Prior to the procedure, a History and Physical was performed, and patient medications and allergies were reviewed. The patient's tolerance of previous anesthesia was also reviewed. The risks and benefits of the procedure and the sedation options and risks were discussed with the patient. All questions were answered, and informed consent was obtained. Prior Anticoagulants: The patient has taken no anticoagulant or antiplatelet agents. ASA Grade Assessment: II - A patient with mild systemic disease. After reviewing the risks and benefits, the patient was deemed in satisfactory condition to undergo the procedure. After I obtained informed consent, the scope was passed under direct vision. Throughout the procedure, the patient's blood pressure, pulse, and oxygen saturations were monitored continuously. The adult colonoscope was introduced through the anus and advanced to the cecum, identified by appendiceal orifice and ileocecal valve. The ileocecal valve, appendiceal orifice, and rectum were photographed. The entire colon was well visualized. The colonoscopy was performed without difficulty. The patient tolerated the procedure well. The quality of the bowel preparation was adequate. Moderate Sedation: See the other procedure note for documentation of moderate sedation with intraservice time. Scope In: 9:05:59 AM Scope Withdrawal Time 0 hours 8 minutes 58 seconds Scope Out: 9:20:37 AM Total Procedure Duration Time 0 hours 14 minutes 38 seconds Findings: The perianal and digital rectal examinations were normal. A few small-mouthed diverticula were found in the sigmoid colon. The exam was otherwise without abnormality on direct and retroflexion views. Impression: - Diverticulosis in the sigmoid colon. - The examination was otherwise normal on direct and retroflexion views. - No specimens collected. Recommendation: - Discharge patient to home (ambulatory). - High fiber diet. - Repeat colonoscopy in 7-10 years for screening purposes. - Return to my office PRN. - Continue present medications. Procedure Code(s): --- Professional --- 50448, Colonoscopy, flexible; diagnostic, including collection of specimen(s) by brushing or washing, when performed (separate procedure) Diagnosis Code(s): --- Professional --- K57.30, Diverticulosis of large intestine without perforation or abscess without bleeding R19.5, Other fecal abnormalities CPT copyright 2021 [employer]. All rights reserved. The codes documented in this report are preliminary and upon breaker up review may be revised to meet current compliance requirements. Christian Florence MD 05/04/2024 9:25:03 AM This report has been signed electronically. Number of Addenda: 0 Note Initiated On: 05/04/2024 8:50 AM
--- NOTE | 2024-05-04 09:25 | OP.CCLET_ITS ---
05/04/2024 Stephenie Phillips Re : Colonoscopy procedure for Cathy Daniels Sukumar This procedure was performed on Saturday, May 04, 2024. My impressions and recommendations are as follows: Impressions : - Diverticulosis in the sigmoid colon. - The examination was otherwise normal on direct and retroflexion views. - No specimens collected. Recommendations : - Discharge patient to home (ambulatory). - High fiber diet. - Repeat colonoscopy in 7-10 years for screening purposes. - Return to my office PRN. - Continue present medications. My findings are described in the full procedure note, which is enclosed. If I can be of further assistance, please feel free to contact me at . Sincerely, Christian Florence MD 05/04/2024 9:25:03 AM This report has been signed electronically.
--- NOTE | 2024-05-04 09:27 | PCM.POST.ANE ---
Anesthesia: Postop Eval I Current Vital Signs Temperature: 97.6 F Pulse Rate: 84 Blood Pressure: 151/83 Respiratory Rate: 16 Pulse Ox: 98 Oxygen Delivery Method: Room Air Assessment Airway patent: Yes Spontaneous unlabored respirations: Yes Mental status: Asleep nausea: No Vomiting: No Anesthesia Complication: No Fluid Hydration Crystalloid volume administer (ml): 60 Total IV fluid infused: 60 Progress Note Anesthesia document: Postop Eval 1 completed: Yes
--- NOTE | 2024-05-04 11:20 | PCM.POSTANE2 ---
Anesthesia Postop Eval I Sum Postop Eval Completion status Anesthesia document: Postop Eval 1 completed: Yes Anesthesia Postop Eval I Summary Anesthesia Postop Eval I Summary: Anesthesia Postop Eval I: Assessment Summary Airway patent Yes 05/04/24 09:28 [email or web address] Spontaneous unlabored Yes 05/04/24 09:28 [email or web address] respirations Mental status Asleep 05/04/24 09:28 [email or web address] nausea No 05/04/24 09:28 [email or web address] Vomiting No 05/04/24 09:28 [email or web address] Anesthesia Postop Eval I: Fluid Summary Crystalloid volume administer 60 05/04/24 09:28 [email or web address] (ml) Colloids volume administered ( ml) Blood Product volume administered (ml) Total IV fluid infused 60 05/04/24 09:28 [email or web address] Anesthesia Postop Eval I: Summary Notes Anesthesia Complication No 05/04/24 09:28 [email or web address] Anesthesia Complication Comment: Post-operative progress note Anesthesia: Postop Eval II Evaluation Mental status: Awake and Calm Pain Level: 0 nausea: No Vomiting: No Complications Anesthesia Complication: No
== END 2024-05-04 09:55 | disposition home or self-care (01) ==
LOC: EN 06:55 → AC 06:55
PROVIDERS: PCP Nurse Practitioner Family; Referring Provider Nurse Practitioner Family; Visit Provider Surgery
PROC: 0DJD8ZZ Inspection of Lower Intestinal Tract, Via Natural or Artificial Opening Endoscopic (ICD-10-PCS; CPT 45378; principal; 2024-05-04 08:10)
DX: K57.30 Diverticulosis of large intestine without perforation or abscess without bleeding (principal); K21.9 Gastro-esophageal reflux disease without esophagitis; R19.5 Other fecal abnormalities; F17.200 Nicotine dependence, unspecified, uncomplicated
CPT/HCPCS: 45378; A4216; J2405

== ENCOUNTER → 2024-05-21 | Outpatient (CLI) | payer BC, SELFPAY ==
[2024-05-21 10:20] LABS: Absolute Lymphocyte Count 4.72 X10^3/uL (0.83-4.51); Absolute Neutrophil Count 8.4 X10^3/uL (2.0-7.7); Basophil# 0.03 X10^3/uL; Basophil% 0.2 % (0-1); Eosinophil# 0.33 X10^3/uL; Eosinophils% 2.2 % (0-5); Hematocrit 34.9 % (37-47); Hemoglobin 12.1 g/dL (12.0-15.0); Lymphocyte # 4.72 X10^3/ul (0.83-4.51); Lymphocyte % 32.1 % (19-41); Mean Corp Hgb Conc 34.7 g/dL (32-36); Mean Corpuscular Hgb 32.3 pg (27.0-32.0); Mean Corpuscular Volume 93.1 fL (81-99); Mean Platelet Vol. 9.6 fl (6.2-12.0); Monocyte% 8.2 % (0-10); NRBC Flagged by Analyzer 0 % (0-5); Neutrophil # 8.37 X10^3/uL (2.7-7.7); Neutrophil % 56.8 % (47-70); Platelet Count 299 K/mm3 (150-450); RBC Distribution Width CV 11.6 % (11.6-14.6); RBC Distribution Width SD 39.1 fl (35.1-43.9); Red Blood Count 3.75 M/mm3 (4.2-5.4); White Blood Count 14.7 K/mm3 (4.4-11.0)
[2024-05-21 10:28] LABS: AST(SGOT) 22 U/L (15-37); Alanine Aminotransfer ALT/SGPT 35 U/L (13-56); Albumin, Serum 3.7 g/dL (3.2-5.0); Alkaline Phosphatase 83 U/L (45-117); Anion Gap 6 (5-15); BUN 27 mg/dL (7-18); BUN/Creat Ratio 27.1 RATIO (10-20); Calcium,Total 9.6 mg/dL (8.5-10.1); Chloride 107 mmol/L (98-107); EST Glomerular Filtration Rate 61 mL/min (>60); Est Glom Filt Rate - Afr Amer 74 mL/min (>60); Globulin 3.8 g/dL (2.2-4.2); Glucose 85 mg/dL (74-106); Potassium 3.9 mmol/L (3.5-5.1); Protein, Total 7.5 g/dL (6.4-8.2); Sodium Level 138 mmol/L (136-145)
== END | disposition home or self-care (01) ==
PROVIDERS: PCP Nurse Practitioner Family; Referring Provider Internal Medicine Rheumatology; Visit Provider Internal Medicine Rheumatology
DX: M06.4 Inflammatory polyarthropathy (principal); M65.341 Trigger finger, right ring finger; Z79.899 Other long term (current) drug therapy
CPT/HCPCS: 36415; 80053; 85025

== ENCOUNTER → 2024-06-04 | Outpatient (CLI) | payer BC, SELFPAY ==
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
== END | disposition home or self-care (01) ==
PROVIDERS: PCP Nurse Practitioner Family; Referring Provider Student in an Organized Health Care Education/Training Program; Visit Provider Student in an Organized Health Care Education/Training Program
DX: G95.9 Disease of spinal cord, unspecified (principal)

== ENCOUNTER → 2024-06-29 | Outpatient (CLI) | payer BC, SELFPAY ==
[2024-06-29 12:34] LABS: Absolute Lymphocyte Count 2.14 X10^3/uL (0.83-4.51); Absolute Neutrophil Count 4.6 X10^3/uL (2.0-7.7); Basophil# 0.02 X10^3/uL; Basophil% 0.3 % (0-1); Eosinophil# 0.13 X10^3/uL; Eosinophils% 1.7 % (0-5); Hematocrit 38.3 % (37-47); Hemoglobin 12.9 g/dL (12.0-15.0); Lymphocyte # 2.14 X10^3/ul (0.83-4.51); Lymphocyte % 27.7 % (19-41); Mean Corp Hgb Conc 33.7 g/dL (32-36); Mean Corpuscular Hgb 31.7 pg (27.0-32.0); Mean Corpuscular Volume 94.1 fL (81-99); Mean Platelet Vol. 9.6 fl (6.2-12.0); Monocyte# 0.81 X10^3/uL; Monocyte% 10.5 % (0-10); NRBC Flagged by Analyzer 0 % (0-5); Neutrophil # 4.61 X10^3/uL (2.7-7.7); Neutrophil % 59.5 % (47-70); Platelet Count 245 K/mm3 (150-450); RBC Distribution Width CV 12.3 % (11.6-14.6); RBC Distribution Width SD 42.2 fl (35.1-43.9); Red Blood Count 4.07 M/mm3 (4.2-5.4); White Blood Count 7.7 K/mm3 (4.4-11.0)
[2024-06-29 13:11] LABS: ALB/GLOB Ratio 0.8 RATIO (0.9-2.4); AST(SGOT) 38 U/L (15-37); Alanine Aminotransfer ALT/SGPT 51 U/L (13-56); Albumin, Serum 3.4 g/dL (3.2-5.0); Alkaline Phosphatase 91 U/L (45-117); Anion Gap 7 (5-15); BUN 13 mg/dL (7-18); Calcium,Total 9.5 mg/dL (8.5-10.1); Chloride 104 mmol/L (98-107); Creatinine, Serum 0.69 mg/dL (0.55-1.02); EST Glomerular Filtration Rate 94 mL/min (>60); Est Glom Filt Rate - Afr Amer 113 mL/min (>60); Glucose 94 mg/dL (74-106); Potassium 3.8 mmol/L (3.5-5.1); Protein, Total 7.4 g/dL (6.4-8.2); Sodium Level 139 mmol/L (136-145)
== END | disposition home or self-care (01) ==
LOC: BFHLAB 09:58
PROVIDERS: PCP Nurse Practitioner Family; Visit Provider Nurse Practitioner Family
DX: Z01.818 Encounter for other preprocedural examination (principal)
CPT/HCPCS: 36415; 80053; 85025

== ENCOUNTER → 2024-08-14 | Outpatient (CLI) | payer BC, SELFPAY ==
[2024-08-14 10:44] LABS: Absolute Neutrophil Count 6.7 X10^3/uL (2.0-7.7); Basophil# 0.04 X10^3/uL; Basophil% 0.3 % (0-1); Eosinophil# 0.35 X10^3/uL; Eosinophils% 2.9 % (0-5); Hematocrit 36.3 % (37-47); Hemoglobin 12.8 g/dL (12.0-15.0); Lymphocyte % 32.7 % (19-41); Mean Corp Hgb Conc 35.3 g/dL (32-36); Mean Corpuscular Hgb 32.7 pg (27.0-32.0); Mean Corpuscular Volume 92.6 fL (81-99); Mean Platelet Vol. 9.5 fl (6.2-12.0); NRBC Flagged by Analyzer 0 % (0-5); Neutrophil # 6.69 X10^3/uL (2.7-7.7); Neutrophil % 54.8 % (47-70); Platelet Count 301 K/mm3 (150-450); RBC Distribution Width CV 12.2 % (11.6-14.6); RBC Distribution Width SD 40.6 fl (35.1-43.9); Red Blood Count 3.92 M/mm3 (4.2-5.4); White Blood Count 12.2 K/mm3 (4.4-11.0)
[2024-08-14 11:49] LABS: ALB/GLOB Ratio 1.4 RATIO (0.9-2.4); AST(SGOT) 19 U/L (<=31); Alanine Aminotransfer ALT/SGPT 20 U/L (<=34); Albumin, Serum 4.2 g/dL (3.5-5.0); Alkaline Phosphatase 99 U/L (35-104); Anion Gap 11 (5-15); BUN 16 mg/dL (4-19); Calcium,Total 8.6 mg/dL (7.6-11.0); Carbon Dioxide 24.5 mmol/L (21.0-32.0); Chloride 105 mmol/L (98-108); Creatinine, Serum 0.79 mg/dL (0.70-1.20); EST Glomerular Filtration Rate 87 (>60); Globulin 2.9 g/dL (2.2-4.2); Glucose 82 mg/dL (70-99); Potassium 4.1 mmol/L (3.3-5.1); Protein, Total 7.1 g/dL (5.9-8.4); Sodium Level 140 mmol/L (133-145); Total Bilirubin 0.22 mg/dL (0.00-1.30)
== END | disposition home or self-care (01) ==
LOC: MTLAB 07:30
PROVIDERS: PCP Nurse Practitioner Family; Referring Provider Internal Medicine Rheumatology; Visit Provider Internal Medicine Rheumatology
DX: M06.4 Inflammatory polyarthropathy (principal); Z79.899 Other long term (current) drug therapy; M65.341 Trigger finger, right ring finger
CPT/HCPCS: 36415; 80053; 85025

== ENCOUNTER → 2024-11-05 | Outpatient (CLI) | payer BC, SELFPAY ==
[2024-11-05 10:50] LABS: Absolute Lymphocyte Count 3.46 X10^3/uL (0.83-4.51); Absolute Neutrophil Count 4.3 X10^3/uL (2.0-7.7); Basophil# 0.03 X10^3/uL; Basophil% 0.3 % (0-1); Eosinophil# 0.44 X10^3/uL; Eosinophils% 4.7 % (0-5); Hematocrit 32.6 % (37-47); Hemoglobin 11.6 g/dL (12.0-15.0); Lymphocyte # 3.46 X10^3/ul (0.83-4.51); Lymphocyte % 37.2 % (19-41); Mean Corp Hgb Conc 35.6 g/dL (32-36); Mean Corpuscular Hgb 32.5 pg (27.0-32.0); Mean Corpuscular Volume 91.3 fL (81-99); Mean Platelet Vol. 9.6 fl (6.2-12.0); Monocyte# 1.01 X10^3/uL; Monocyte% 10.9 % (0-10); NRBC Flagged by Analyzer 0 % (0-5); Neutrophil # 4.34 X10^3/uL (2.7-7.7); Neutrophil % 46.7 % (47-70); Platelet Count 273 K/mm3 (150-450); RBC Distribution Width CV 11.9 % (11.6-14.6); RBC Distribution Width SD 38.5 fl (35.1-43.9); Red Blood Count 3.57 M/mm3 (4.2-5.4); White Blood Count 9.3 K/mm3 (4.4-11.0)
[2024-11-05 18:16] LABS: ALB/GLOB Ratio 1.5 RATIO (0.9-2.4); AST(SGOT) 24 U/L (<=31); Alanine Aminotransfer ALT/SGPT 19 U/L (<=34); Alkaline Phosphatase 93 U/L (35-104); Anion Gap 12 (5-15); BUN 15 mg/dL (4-19); BUN/Creat Ratio 20.5 RATIO (10-20); Calcium,Total 9.6 mg/dL (7.6-11.0); Carbon Dioxide 22.9 mmol/L (21.0-32.0); Chloride 105 mmol/L (98-108); Creatinine, Serum 0.75 mg/dL (0.70-1.20); EST Glomerular Filtration Rate 93 (>60); Globulin 2.8 g/dL (2.2-4.2); Glucose 88 mg/dL (70-99); Potassium 4.3 mmol/L (3.3-5.1); Protein, Total 6.8 g/dL (5.9-8.4); Sodium Level 140 mmol/L (133-145)
[2024-11-06 16:04] LABS: Total Bilirubin 0.25 mg/dL (0.00-1.30)
== END | disposition home or self-care (01) ==
LOC: MTLAB 07:31
PROVIDERS: PCP Nurse Practitioner Family; Referring Provider Internal Medicine Rheumatology; Visit Provider Internal Medicine Rheumatology
DX: M06.4 Inflammatory polyarthropathy (principal); Z79.899 Other long term (current) drug therapy
CPT/HCPCS: 36415; 80053; 85025

== ENCOUNTER 2025-01-12 11:57 | Emergency (ER) | payer BC, SELFPAY ==
[2025-01-12 11:59] VITALS: BP 158/77; PULSE 108; RESP 16; TEMP 37.2; O2SAT 98; BMI 34.0
--- NOTE | 2025-01-12 12:24 | CT_ITS ---
PROCEDURE: ABDOMEN/PELVIS W IV CONT ONLY 01/12/2025 REASON FOR EXAM: LLQ PAIN TECHNIQUE: ABDOMEN/PELVIS W IV CONT ONLY Coronal and Sagittal reconstruction series were provided. CONTRAST: Isovue 370 VOLUME: 100 mL One or more dose reduction techniques were used (e.g., Automated exposure control, adjustment of the mA and/or kV according to patient size, use of iterative reconstruction technique. RADIATION DOSE SUMMARY: CTDlvol: 20.75 mGy DLP: 995.96 mGycm COMPARISON: None. FINDINGS: Lung bases: Clear. Liver: Unremarkable. Gallbladder: Unremarkable. No biliary dilation. Spleen: Unremarkable. Pancreas: Unremarkable. Adrenals: Unremarkable. Kidneys: Bilateral kidney stones measuring up to 4 mm. No hydronephrosis. Simple left kidney cysts measuring 11 and 17 mm. No hydronephrosis. Bladder: Unremarkable. Reproductive Organs: Unremarkable. Bowel: A haustral left, sigmoid colon and rectum along with edematous wall thickening with minimal pericolic fat stranding suggestive of acute colitis. Appendix: Unremarkable. Lymph nodes: No lymphadenopathy. Vasculature: No aneurysm. Atherosclerotic calcifications of the aorta. Peritoneum / Retroperitoneum: No free air or free fluid. Bones: No acute bony abnormalities. CT/Abdomen/Pelvis W IV Cont ONLY IMPRESSION: A haustral left, sigmoid colon and rectum along with edematous wall thickening with minimal pericolic fat stranding suggestive of acute colitis. This can be infectious, inflammatory or ischemic. Bilateral non obstructive kidney stones measuring up to 4 mm. No hydronephrosi s. Reading Location: [id number]
--- NOTE | 2025-01-12 12:25 | ED.VIS.GI ---
HPI HPI - GI History of Present Illness Chief Complaint: Abd Pain Informant: patient Narrative Narrative: 59-year-old female 4 days worth of pain in her left lower quadrant radiating into her left low back that feels different than her rheumatoid arthritis joint pain, sent by urgent care for evaluation. States pains been constant and worsening. No diarrhea no blood in her stool no urinary symptoms no nausea, vomiting, fevers, or chills. PFSH PFSH Medical History Loss of hearing Post-menopausal Rheumatoid arthritis Restless legs Injury of head and neck Blackout Shortness of breath on exertion History of pain when walking History of edema Wears glasses Wears partial dentures Low iron Heartburn Smoker CPAP (continuous positive airway pressure) dependence Leg cramps Anxiety Depression Home Medications ?Medication ?Instructions ?Recorded ?Last Taken ?Type iron, carbonyl 45 mg tablet 45 mg PO DAILYCM 06/29/18 Unknown History (Feosol) cholecalciferol (vitamin D3) 25 25 mcg PO QDAY 04/11/24 Unknown History mcg (1,000 unit) capsule dextroamphetamine-amphetamine 30 30 mg PO BID 04/11/24 Unknown History mg tablet (Adderall) duloxetine 60 mg capsule,delayed 60 mg PO QDAY 04/11/24 Unknown History release (Cymbalta) folic acid 1 mg tablet 1 mg PO QDAY 04/11/24 Unknown History hydroxyzine HCl 25 mg tablet 25 mg PO TID PRN anxiety 04/11/24 Unknown History methotrexate sodium 2.5 mg tablet 15 mg PO WE 04/11/24 Unknown History tramadol 50 mg tablet 50 mg PO TID 04/11/24 Unknown History metronidazole 500 mg tablet 500 mg PO BID #14 tabs 01/12/25 Unknown Rx naproxen 500 mg tablet 500 mg PO BID PRN pain #8 tabs 01/12/25 Unknown Rx Allergy/AdvReac Type Severity Reaction Status Date / Time No Known Allergies Allergy Verified 01/12/25 12:00 Family History Father Heart disease Cancer Surgical History Hx of myringotomy History of Hx of colonoscopy Hx of exploratory laparotomy Hx of lithotripsy History of carpal tunnel surgery of right wrist History of carpal tunnel surgery of left wrist Social History Smoking Status: Former smoker alcohol intake: never additional social history: ibuprofen daily ROS ROS ED Constitutional Constitutional ED: Denies chills or fever(s) Eyes Eyes: Denies change in vision or diplopia ENT ENT ED: Denies rhinorrhea or sore throat Cardiovascular Cardiovascular: Denies chest pain or palpitations Respiratory/Chest Respiratory/Chest: Denies cough or dyspnea Gastrointestinal Gastrointestinal: Reports abdominal pain; Denies diarrhea, hematochezia, melena, nausea or vomiting Genitourinary Genitourinary ED: Denies dysuria or hematuria Musculoskeletal Musculoskeletal: Reports back pain; Denies neck pain Integumentary Denies abscess or rash Neurologic Neurologic: Denies headache(s), paresthesias or weakness Psychiatric Psychiatric: Denies anxiety or suicidal thoughts EXAM Physical Exam Const Vital Signs: 01/12/25 11:59 01/12/25 13:58 01/12/25 15:00 Temperature 98.9 F 97.7 F L 98.1 F Temperature Source Oral Oral Oral Pulse Rate 108 H 93 97 Respiratory Rate 16 17 14 Blood Pressure 158/77 H 135/83 H 151/88 H Blood Pressure Mean 104 100 109 Pulse Ox 98 96 97 Oxygen Delivery Method Room Air Room Air 01/12/25 15:22 Temperature 97.8 F Temperature Source Pulse Rate 92 Respiratory Rate 16 Blood Pressure 151/88 H Blood Pressure Mean 109 Pulse Ox 93 Oxygen Delivery Method Positive well nourished and well developed General Appearance ED: well developed and NAD HEENT Reports moist mucous membranes normocephalic and atraumatic Eyes PERRL and EOMs intact bilaterally Neck full ROM and supple Resp normal respiratory effort and clear to auscultation bilaterally Cardio regular rate, regular rhythm and no murmurs GI non-distended GI Narrative: Tender in the left lower quadrant, closer to the umbilicus/medially, no guarding or rebound no pulsatile masses. No cullon sign or Delgado Blum sign Auscultation: normoactive bowel sounds Palpation: soft Back/Spine no CVA tenderness General Back: other FROM Extremity normal to inspection General Extremety ED: Negative for edema, pulses abnormal or tenderness General Extremity: Negative for edema or pulses abnormal Neuro oriented x3, CN's II-XII intact bilaterally and no sensory deficits noted Sensorium / Orientation: awake and alert Motor Exam: strength 5/5 throughout Skin no rashes or lesions noted and no wounds MDM MDM MDM Narrative Medical decision making narrative: Patient with left lower quadrant pain and some focal tenderness without guarding or rebound, less concerned about AAA but more concerned about diverticulitis, could also be a stone in the differential. Urinalysis shows trace amount of blood but is also otherwise unremarkable, and her labs are normal. Obtained a CT of the abdomen/pelvis, I reviewed images and the result which I agree with, it is consistent with sigmoid and rectal colitis rather than diverticulitis. Also noted incidental bilateral nephrolithiasis up to 4 mm without signs of hydronephrosis. When asked about blood and mucus in her stools, she states she does not think she has had any blood but she really has not been paying that much attention to her stools. She was given Toradol which did not help a lot with the pain but she states the pain is not severe. Her vital signs are stable. I think this is less likely to be ischemic given her overall general good health, but differential includes ischemic colitis versus inflammatory versus infectious. She does not have a significant leukocytosis but I am going to put her on metronidazole until she can follow-up especially since she is relatively immunocompromised on methotrexate. GI is not on-call this weekend, I am giving her their information to make an appointment as well as her physician. Lab Data Attestation: I reviewed the patient's lab results. Labs: Laboratory Results - last 24 hr 01/12/25 01/12/25 12:33 12:50 WBC 8.4 RBC 3.77 L Hgb 12.2 Hct 34.6 L MCV 91.8 MCH 32.4 H MCHC 35.3 RDW Std Deviation 39.6 RDW Coeff of Kierra 11.9 Plt Count 272 MPV 8.8 Immature Gran % (Auto) 0.200 Neut % (Auto) 53.6 Lymph % (Auto) 33.0 [place] % (Auto) 9.6 Eos % (Auto) 3.2 Baso % (Auto) 0.4 Absolute Neuts (auto) 4.5 Absolute Lymphs (auto) 2.78 Nucleated RBC % 0 Sodium 141 Potassium 4.1 Chloride 103 Carbon Dioxide 27.6 Anion Gap 11 BUN 14 Creatinine 0.67 L Estim Creat Clear Calc 85.06 Est GFR (MDRD) Non-Af 101 BUN/Creatinine Ratio 20.7 H Glucose 86 Calcium 10.2 Urine Color Yellow Urine Clarity Clear Urine pH 7.0 Ur Specific [place] 1.010 Urine Protein Negative Urine Glucose (UA) Normal Urine Ketones Negative Urine Occult Blood 150 H Urine Nitrite Negative Urine Bilirubin Negative Urine Urobilinogen Normal Ur Leukocyte Esterase Negative Urine RBC 5-10 SEEN Urine WBC 0 SEEN Ur Squamous Epith Cells 0 SEEN Urine Bacteria 0 SEEN Urine Mucus 0 SEEN Radiography Diagnostic Testing: Clinical Impression(s) from Imaging Studies Abdomen/Pelvis CT 01/12/25 12:24 IMPRESSION: A haustral left, sigmoid colon and rectum along with edematous wall thickening with minimal pericolic fat stranding suggestive of acute colitis. This can be infectious, inflammatory or ischemic. Bilateral non obstructive kidney stones measuring up to 4 mm. No hydronephrosis. Reading Location: [facility] Discharge Plan Triage Chief Complaint: Abd Pain ED Provider: Anthony Delgado Dx/Rx/DC Orders Clinical Impression: Colitis, Bilateral nephrolithiasis Instructions: Colitis Prescriptions: New metronidazole 500 mg tablet 500 mg PO BID Qty: 14 0RF naproxen 500 mg tablet 500 mg PO BID PRN (Reason: pain) Qty: 8 0RF No Action dextroamphetamine-amphetamine [Adderall] 30 mg tablet 30 mg PO BID Rx Instructions: administer doses at least 4-6 hours apart duloxetine [Cymbalta] 60 mg capsule,delayed release(DR/EC) 60 mg PO QDAY folic acid 1 mg tablet 1 mg PO QDAY hydroxyzine HCl 25 mg tablet 25 mg PO TID PRN (Reason: anxiety) tramadol 50 mg tablet 50 mg PO TID methotrexate sodium 2.5 mg tablet 15 mg PO WE cholecalciferol (vitamin D3) 25 mcg (1,000 unit) capsule 25 mcg PO QDAY iron, carbonyl [Feosol] 45 MG capsule 45 mg PO DAILYCM Primary Care Provider: Leslie Patino Referrals: Friend,DO Justino [Med Staff - Active Staff] - As soon as possible Leslie Patino, PHARMACY TECHNICIAN ASSISTANT-C [Primary Care Provider] - As soon as possible Activity Restrictions/Additional Instructions: Your CT scan also incidentally showed small stones in both your kidneys, no larger than 4 mm. These are not causing any pain or problems right now but could come down and become stuck in the plumbing 1 day and cause pain on 1 side. There is no sign of that occurring at this time. Print Language: Cymro Disposition Disposition: Home, Self Care
--- OUTSIDE RECORDS SUMMARY | 2025-01-12 12:36 | XMS RPT_ITS | CCD ---
Author Organization [facility] Care Team Providers Care Leach Tank Tender Name Role Phone Unavailable Primary Care Provider Unavailabl e Sukumar WASTEWATER PLANT OPERATOR-C, Leslie Primary Care Provider Kate Gaona Attending Provider [phone] Kate Gaona Referring Provider [phone] Sukumar WASTEWATER PLANT OPERATOR-C, Leslie Referring Provider Naman PHILIPPE, Dr. Christian Ornelas Attending Provider Naman PHILIPPE, Dr. Christian Ornelas Other Provider Erum PHILIPPE, Dr. Mansfield Attending Provider Erum PHILIPPE, Dr. Mansfield Referring Provider Reno PHILIPPE, Dr. Dos Santos Attending Provider Lucas PHILIPPE, Dr. Stone Attending Provider [phone] Sukumar WASTEWATER PLANT OPERATOR-C, Leslie Attending Provider [phone] Sukumar WASTEWATER PLANT OPERATOR-C, Leslie Primary Care Provider Sukumar WASTEWATER PLANT OPERATOR-C, Leslie Referring Provider [phone] Kate Gaona Attending Provider [phone] Erum PHILIPPE, Dr. Mansfield Attending Provider Erum PHILIPPE, Dr. Mansfield Referring Provider Sukumar WASTEWATER PLANT OPERATOR-C, Leslie Primary Care Provider Sukumar, Leslie Referring Unavailable Sukumar, Leslie Primary Care Unavailable Kate Burrell Attending Unavailable Care Physician, No Primary Primary Care Unava ilable Vellanki, Shyla Attending Unavailable Vellanki, Shyla Referring Unavailable Care Physician, No Primary Primary Care Unava ilable Vellanki, Shyla Attending Unavailable Vellanki, Shyla Referring Unavailable Levon Bojorquez Attending Unavailable Sukumar, Leslie Primary Care Unavailable Sukumar, Lesile Attending Unavailable Sukumar, Leslie Primary Care Unavailable Sukumar, Leslie Referring Unavailable Sukumar, Leslie Primary Care Unavailable Vellanki, Shyla Referring Unavailable Vellanki, Shyla Attending Unavailable Sukumar, Leslie Primary Care Unavailable IndraFloriyn Attending Unavailable Indra, Kate Referring Unavailable Sukumar, Leslie Primary Care Unavailable Vellanki, Shyla Attending Unavailable Vellanki, Shyla Referring Unavailable Sukumar, Leslie Referring Unavailable Christian Florence Attending Unavailable Sukumar, Leslie Primary Care Unavailable Indra, Kate Attending Unavailable Indra, Kate Referring Unavailable Sukumar, Leslie Primary Care Unavailable Levon Bojorquez Attending Unavailable Sukumar, Leslie Primary Care Unavailable Sukumar, Leslie Referring Unavailable Sukumar, Leslie Attending Unavailable Sukumar, Leslie Primary Care Unavailable Sukumar, Leslie Attending Unavailable Sukumar, Leslie Primary Care Unavailable Sukumar, Leslie Referring Unavailable Sukumar, Leslie Primary Care Unavailable Vellanki, Shyla Referring Unavailable Vellanki, Shyla Attending Unavailable Sukumar, Leslie Primary Care Unavailable LucasChase lala Attending Unavailable Sukumar, Leslie Referring Unavailable WanChristian roper Attending Unavailable Sukumar, Leslie Primary Care Unavailable Sukumar, Leslie Primary Care Unavailable LucasAnirudh lalaril Attending Unavailable Sukumar, Leslie Referring Unavailable Sukumar, Leslie Primary Care Unavailable Kate Burrell Attending Unavailable Sukumar, Leslie Primary Care Unavailable LucasAnirudh lalaril Attending Unavailable Sukumar, Leslie Referring Unavailable Christian Florence Attending Unavailable Christian Florence Consulting Unavailable Sukumar, Leslie Primary Care Unavailable Allergies Allergy Classification Reported Allergen(s) Allergy Type Date of Onset Reaction(s) Facility (5 sources) Latex Allergy [facility] substance 06-29-[facility] Latex Drug allergy (disorder) 04-17-2024 [facility] Repository Medications Current Medications Medication Drug Class(es) Dates Sig (Normalized) Sig (Original) amphetamine aspartate 7.5 mg / amphetamine sulfate 7.5 mg / dextroamphetamine saccharate 7.5 mg / dextroamphetamine sulfate 7.5 mg oral tablet (3 sources) Central Nervous System Stimulant Start: 04-11-2024 take 1 tablet by mouth every four to six hours Dextroamphetami ne-Amphetamine (Adderall) 30 mg tablet Active 30 mg PO TWICE A DAY April 11, 2024 1:00am administer doses at least 4-6 hours apart brompheniramine maleate 0.4 mg/ml / dextromethorphan hydrobromide 2 mg/ml / pseudoephedrine hydrochloride 6 mg/ml oral solution (1 source) alpha-Adrenergic Agonist, Uncompetitive H-suzjap-Q-aspartat e Receptor Antagonist, Sigma-1 Agonist Start: 06-12-2023 take 5 mL by mouth four times daily as needed Brompheniramine -Pseudoeph-DM (BROMFED DM) 2-30-10 mg/5 mL syrup Indications: URI, acute , Acute cough Take 5 mL by mouth four times a day as needed. 118 mL 0 06/12/2023 Active Start: 06-12-2023 take 5 mL by mouth f our times daily as needed Sjiuqqmzvbutkky-Jfmrekyoz-ZT (BROMFED DM ) 2-30-10 mg/5 mL syrup Indications: URI, acute , Acute cough Take 5 mL by mouth four times a day as needed. 118 mL 0 06/12/2023 Active Comment on above: Take 5 mL by mouth f our times a day as needed. cholecalciferol 0.025 mg oral capsule (3 sources) Vitamin D Start: take 1 capsule by mouth once daily Cholecalciferol (Vitamin D3) 25 mcg (1,000 unit) capsule Active 25 ug PO daily April 11, 2024 1:00am DULoxetine 60 mg delayed release oral capsule (4 sources) Serotonin and Norepinephrine Reuptake Inhibitor Start: take 1 capsule by mouth once daily Duloxetine (Cymbalta) 60 mg capsule,delayed release(DR/EC) Active 60 mg PO daily April 11, 2024 1:00am Start: 05-25-2023 take 1 capsule by mouth once D ULoxetine (CYMBALTA) 30 mg capsule Take 1 capsule by mouth every afternoon. 0 05/25/2023 Active Comment on above: Take 1 capsule by mo ut every afternoon. folic acid 1 mg oral tablet (4 sources) Start: 04-11-2024 take 1 tablet by mouth once daily Folic Acid 1 mg tablet Active 1 mg PO daily April 11, 2024 1:00am Start: 06-03-2023 take 2 tablets by mouth once f olic acid 1 mg tablet Take 2 tablets by mouth every afternoon. 0 06/03/2023 Active Comment on above: Take 2 tablets by [facility] every afternoon. hydrOXYzine hydrochloride 25 mg oral tablet (4 sources) Antihistamine Start: 04-11-20 take 1 tablet by mouth three times daily as needed for anxiety Hydroxyzine Hcl 25 mg tablet Active 25 mg PO THREE TIMES A DAY as needed for anxiety April 11, 2024 1:00am Start: 04-30-2017 hydrOXYzine pa moate (VISTARIL) 25 mg capsule iron carbonyl 45 mg oral tablet (8 sources) Start: 06-29-2018 take 1 capsule by mouth once daily at mealtime Iron, Carbonyl (Feosol) 45 MG capsule Active 45 mg PO DAILY WITH MEALS June 29, 2018 1:00am methotrexate 2.5 mg oral tablet (4 sources) Folate Analog Metabolic Inhibitor Start: 04-11-2024 Methotrexate Sodium 2.5 mg tablet Active 15 mg PO WE April 11, 2024 1:00am Start: 05-25-2023 take 7 tablets by [facility] every week methotrexate 2.5 mg tablet TAKE 7 TABLETS BY MOUTH EVERY WEEK 0 05/25/2023 Active Comment on above: TAKE 7 TABLETS BY [facility] EVERY WEEK ondansetron 4 mg disintegrating oral tablet (2 sources) Serotonin-3 Receptor Antagonist Start: 06-12-19 take 1 tablet by mouth every eight hours as needed ondansetron orally disintegrating (ZOFRAN ODT) 4 mg disintegrating tablet Take 1 tablet by mouth every 8 hours as needed for nausea/vomiting. 15 tablet 0 06/12/2023 Active Start: 04-30-2017 ondansetron or ally disintegrating (ZOFRAN ODT) 4 mg disintegrating tablet Comment on above: Take 1 tablet by [facility] every 8 hours as needed for nausea/vomiting. traMADol hydrochloride 50 mg oral tablet (3 sources) Opioid Agonist Start: 04-11-20 take 1 tablet by mouth three times daily Tramadol 50 mg tablet Active 50 mg PO THREE TIMES A DAY April 11, 2024 1:00am Completed/Discontinued Medications Medication Drug Class(es) Dates Sig (Normalized) Sig (Original) acetaminophen 325 mg / HYDROcodone bitartrate 5 mg oral tablet (1 source) Opioid Agonist Start: 12-27-2017 HYDROcodone-acetam inophen (NORCO) 5-325 mg per tablet EVERY 4 HOURS NEEDED PRN For Pain 0 12/27/2017 Active Comment on above: EVERY 4 HOURS NEE DED PRN For Pain [id number] 200 actuat albuterol 0.09 mg/actuat metered dose inhaler (1 source) beta2-Adrenergic Agonist Start: 07-10-2022 take 2 puff(s) by inhalation every four hours as needed albuterol HFA (PROAIR HFA) 90 mcg/actuation inhaler Inhale 2 Puffs as instructed every 4 hours as needed. 18 g 0 07/10/2022 Active Comment on above: Inhale 2 Puffs as in structed every 4 hours as needed. benzonatate 100 mg oral capsule (2 sources) Non-narcotic Antitussive Start: 07-10-2022 take 2 capsules by mouth every eight hours as needed benzonatate (TESSALON PERLES) 100 mg capsule Take 2 capsules by mouth three times a day as needed for cough. 30 capsule 0 06/08/2023 Active Comment on above: Take 2 capsules by m outh three times daily as needed. Take 2 capsules by m outh three times a day as needed for cough. FLUoxetine 20 mg oral capsule (1 source) Serotonin Reuptake Inhibitor Start: 05-26-2016 FLUoxetine (PROZAC) 20 mg capsule ibuprofen 400 mg oral tablet (9 sources) Nonsteroidal Anti-inflammatory Drug Start: 06-29-2018 End: 06-14-2024 Ibuprofen 400 MG tablet Discontinued 400 mg PO NEEDED as needed for Pain June 29, 2018 1:00am June 14, 2024 10:07am IBUPROFEN ORAL T chang by mouth as needed. 0 Active Comment on above: Take by mouth as nee ded. 12 hr pseudoephedrine hydrochloride 120 mg extended release oral tablet (1 source) alpha-Adrenergic Agonist Start: 05-26-2016 Pseudoephedrine HCl (SUDAFED SR) 120 mg TbER Problems Active Problems Problem Classification Problem Date Documented Da te Episodic/Chronic Menopausal disorders (8 sources) Perimenopausal state; Translations: [Menopausal and female climacteric states] 05-27-2016 Chronic Other female genital disorders (9 sources) Abnormal uterine bleeding; Translations: [Abnormal uterine and vaginal bleeding, unspecified] Onset: 06-14-2018 06-29-2018 Chronic Other gastrointestinal disorders (4 sources) Stool DNA-based colorectal cancer screening positive; Translations: [Other fecal abnormalities] 04-11-2024 Episodic Other gastrointestinal disorders (3 sources) Constipation; Translations: [Constipation, unspecified] 04-11-2024 Episodic Other lower respiratory disease (1 source) Cough; Translations: [Acute cough] 06-12-2023 Episodic Other nervous system disorders (7 sources) Cervical myelopathy; Translations: [Disease of spinal cord, unspecified] 04-17-2024 Chronic Other nervous system disorders (1 source) Disease of spinal cord, unspecified; Translations: [Disease of spinal cord, unspecified] Onset: 10-05-2024 Chronic Other upper respiratory disease (1 source) Chronic rhinitis; Translations: [Rhinosinusitis] 05-27-2016 Chronic Other upper respiratory infections (7 sources) Chronic sinusitis, unspecified; Translations: [Rhinosinusitis] 05-27-2016 Chronic Other upper respiratory infections (1 source) Acute upper respiratory infection; Translations: [Acute upper respiratory infection, unspecified] 06-12-2023 Episodic Rheumatoid arthritis and related disease (1 source) Inflammatory polyarthropathy; Translations: [Inflammatory polyarthropathy] Onset: 11-09-2024 Chronic Past or Other Problems Problem Classification Problem Date Documented Da te Episodic/Chronic Other gastrointestinal disorders (2 sources) Other fecal abnormalities; Translations: [Other fecal abnormalities] Onset: 05-14-2024 Episodic Other non-traumatic joint disorders (6 sources) Pain in left knee; Translations: [Left knee pain] Onset: 06-21-2024 06-21-2024 Episodic Other screening for suspected conditions (not mental disorders or infectious disease) (1 source) Encounter for screening mammogram for malignant neoplasm of breast; Translations: [Encounter for screening mammogram for malignant neoplasm of breast] Onset: 02-28-2024 Episodic Residual codes; unclassified (1 source) History of substance abuse; Translations: [Personal history of other specified conditions] Onset: 06-14-2018 06-14-2018 Episodic Spondylosis; intervertebral disc disorders; other back problems (9 sources) Cervical radiculopathy; Translations: [Radiculopathy, cervical region] Onset: 04-17-2024 04-17-2024 Episodic Results Test Name Value Interpretation Reference Range Facility Comprehensive Metabolic Prof ilon 11-06-2024 Bilirubin [Mass/Vol] 0.25 mg/dL Normal 0.00-1.30 [facility] Comment on above: Performed By: #### L 500.4050, L100.0100 ####[facility] [address], [address] Absolute lymphocyte countOrd ered By: Shylabethany Danielson on 11-05-2024 Lymphocytes Auto (Unsp spec) [#/Vol] 3.46 10*3/uL 0.83-4.51 [facility] Absolute neutrophil countOrd ered By: [facility] Erum on 11-05-2024 Neutrophils (Bld) [#/Vol] 4.3 10*3/uL 2.0-7.7 [facility] Anion gap in Serum or Plasma Ordered By: Shyla Danielson on 11-05-2024 Anion gap [Moles/Vol] 12 mmol/L 5-15 [facility] Automated lymphocyte count a s percentage of total leukocytesOrdered By: Shyla Danielson on 11-05-2024 Lymphocytes/100 WBC Auto (Unsp spec) 37.2 % 19-41 [facility] BUN/creatinine ratioOrdered By: Shylabethany Danielson on 11-05-2024 Urea nitrogen/Creatinine [Mass ratio] 20.5 mg/mg High 10-20 [facility] Basophil percentageOrdered B y: Shyla Danielson on 11-05-2024 Basophils/100 WBC (Bld) 0.3 % 0-1 [facility] Bilirubin, totalOrdered By: Shyla Danielson on 11-05-2024 Bilirubin [Mass/Vol] 0.25 mg/dL 0.00-1.30 [facility] CBC W/Diff, Automatedon 10-21 Absolute Lymph 3.46 X10 3/uL Normal 0.83-4.51 [facility] Comment on above: Performed By: #### L 500.4050, L100.0100 ####[facility] [address], [address] Absolute Neut 4.3 X10 3/uL Normal 2.0-7.7 [facility] Comment on above: Performed By: #### L 500.4050, L100.0100 ####[facility] [address] [place], [address] Basophils/100 WBC (Bld) 0.3 % Normal 0-1 [facility] Comment on above: Performed By: #### L 500.4050, L100.0100 ####[facility] [address] [place], [address] Eosinophils/100 WBC (Bld) 4.7 % Normal 0-5 [facility] Comment on above: Performed By: #### L [id number], L100.0100 ####[facility] [address], [address] Erythrocyte distribution width (RBC) [Ratio] 11.9 % Normal 11.6-14.6 [facility] Comment on above: Performed By: #### L 500.4050, L100.0100 ####[facility] [address] [place], [address] Hematocrit (Bld) [Volume fraction] 32.6 % Low 37-47 [facility] Comment on above: Performed By: #### L 500.4050, L100.0100 ####[facility] [address] [place], [address] Hemoglobin (Bld) [Mass/Vol] 11.6 g/dL Low 12.0-15.0 [facility] Comment on above: Performed By: #### L 500.4050, L100.0100 ####[facility] [address] [place], [address] IG% 0.200 Normal 0.0-0.9 [facility] Comment on above: Result Comment: IG% - Immature Granulocytes (promyelocytes, myelocytes and metamyelocytes) > 1% indicates that a LEFT SHIFT is Present. Performed By: #### L 500.4050, L100.0100 ####[facility] [address] [place], [address] Lymphocytes/100 WBC (Bld) 37.2 % Normal 19-41 [facility] Comment on above: Performed By: #### L 500.4050, L100.0100 ####[facility] [address] [place], [address] MCH (RBC) [Entitic mass] 32.5 pg High 27.0-32.0 [facility] Comment on above: Performed By: #### L 500.4050, L100.0100 ####[facility] [address] [place], [address] MCHC (RBC) [Mass/Vol] 35.6 g/dL Normal 32-36 [facility] Comment on above: Performed By: #### L [id number], L100.0100 ####[facility] [address] [place], [address] MCV (RBC) [Entitic vol] 91.3 fL Normal 81-99 [facility] Comment on above: Performed By: #### L 500.4050, L100.0100 ####[facility] [address] [place], [address] Monocytes/100 WBC (Bld) 10.9 % High 0-10 [facility] Comment on above: Performed By: #### L 500.4050, L100.0100 ####[facility] [address] [place], [address] Neutrophils/100 WBC (Bld) 46.7 % Low 47-70 [facility] Comment on above: Performed By: #### L 500.4050, L100.0100 ####[facility] [address] [place], [address] Nucleated RBC (Bld) [#/Vol] 0 10*3/uL Normal 0-5 [facility] Comment on above: Performed By: #### L 500.4050, L100.0100 ####[facility] [address] [place], [address] Platelet mean volume (Bld) [Entitic vol] 9.6 fL Normal 6.2-12.0 [facility] Comment on above: Performed By: #### L 500.4050, L100.0100 ####[facility] [address] [place], [address] Platelets (Bld) [#/Vol] 273 10*3/uL Normal 150-450 [facility] Comment on above: Performed By: #### L 500.4050, L100.0100 ####[facility] [address] [place], [address] RBC (Bld) [#/Vol] 3.57 10*6/uL Low 4.2-5.4 [facility] Comment on above: Performed By: #### L 500.4050, L100.0100 ####[facility] [address] [place], [address] RDW SD 38.5 fl Normal 35.1-43.9 [facility] Comment on above: Performed By: #### L 500.4050, L100.0100 ####[facility] [address] [place], [address] WBC (Bld) [#/Vol] 9.3 10*3/uL Normal 4.4-11.0 [facility] Comment on above: Performed By: #### L 500.4050, L100.0100 ####[facility] [address] [place], [address] Carbon dioxide, total [Moles /volume] in Central venous bloodOrdered By: Shyla Danielson on 11-05-2024 CO2 [Moles/Vol] 22.9 mmol/L 21.0-32.0 [facility] Chloride assayOrdered By: Jeffery Danielson on 11-05-2024 Chloride [Moles/Vol] 105 mmol/L 98-108 [facility] Eosinophil percentageOrdered By: Shyla Danielson on 11-05-2024 Eosinophils/100 WBC (Bld) 4.7 % 0-5 [facility] Erythrocyte distribution wid th ratioOrdered By: Shyla Danielson on 11-05-2024 Erythrocyte distribution width (RBC) [Ratio] 11.9 % 11.6-14.6 [facility] Erythrocyte distribution wid th standard deviationOrdered By: Shyla Danielson on 11-05-2024 Erythrocyte distribution width (RBC) [Ratio] 38.5 fl 35.1-43.9 [facility] Glomerular filtration rate ( GFR) estimation/1.73 sq m using serum, plasma, or whole bOrdered By: Shyla Danielson on 11-05-2024 GFR/1.73 sq M.predicted among non-blacks MDRD (S/P/Bld) [Vol rate/Area] 93 mL/min/{1.73_m2} >60 [facility] Comment on above: mL/min/1.73m2 CKD-EP I Creatinine Equation (2020) Hematocrit Auto (Bld) [Volum e fraction]Ordered By: Shyla Danielson on 11-05-2024 Hematocrit (Bld) [Volume fraction] 32.6 % Low 37-47 [facility] Hemoglobin measurementOrdere d By: Shyla Danielson on 11-05-2024 Hemoglobin (Bld) [Mass/Vol] 11.6 g/dL Low 12.0-15.0 [facility] Immature granulocytes/100 WB C Auto (Bld)Ordered By: Shyla Danielson on 11-05-2024 Immature granulocytes/100 WBC (Bld) 0.200 % 0.0-0.9 [facility] Comment on above: IG% - Immature Granu locytes (promyelocytes, myelocytes and metamyelocytes) > 1% indicates that a LEFT SHIFT is Present. Laboratory - Chemistry and C hemistry - challengeOrdered By: Shyla Danielson on 11-05-2024 AST [Catalytic activity/Vol] 24 U/L <32 [facility] MCV (mean corpuscular volume ) determinationOrdered By: Shyla Danielson on 11-05-2024 MCV (RBC) [Entitic vol] 91.3 fL 81-99 [facility] Mean corpuscular hemoglobin (MCH) determinationOrdered By: Shyla Danielson on 11-05-2024 MCH (RBC) [Entitic mass] 32.5 pg High 27.0-32.0 [facility] Mean corpuscular hemoglobin concentration (MCHC) determinationOrdered By: Shyla Danielson on 11-05-2024 MCHC (RBC) [Mass/Vol] 35.6 g/dL 32-36 [facility] Mean platelet volume determi nationOrdered By: Shyla Danielson on 11-05-2024 Platelet mean volume (Bld) [Entitic vol] 9.6 fL 6.2-12.0 [facility] Monocyte percentageOrdered B y: Shyla Danielson on 11-05-2024 Monocytes/100 WBC (Bld) 10.9 % High 0-10 [facility] Neutrophil percentageOrdered By: Shyla Danielson on 11-05-2024 Neutrophils/100 WBC (Bld) 46.7 % Low 47-70 [facility] Nucleated red blood cell per centageOrdered By: Shyla Danielson on 11-05-2024 Nucleated RBC/100 WBC (Bld) [Ratio] 0 % 0-5 [facility] Platelet countOrdered By: Jeffery Danielson on 11-05-2024 Platelets (Bld) [#/Vol] 273 10*3/uL 150-450 [facility] Potassium measurement (mass/ volume)Ordered By: Shyla Danielson on 11-05-2024 Potassium (Unsp spec) [Mass/Vol] 4.3 mmol/L 3.3-5.1 [facility] RBC Auto (Bld) [#/Vol]Ordere d By: Shyla Danielson on 11-05-2024 RBC (Bld) [#/Vol] 3.57 10*6/uL Low 4.2-5.4 [facility] Serum creatinine measurement (mass/volume)Ordered By: Shyla Danielson on 11-05-2024 Creatinine [Mass/Vol] 0.75 mg/dL 0.70-1.20 [facility] Serum globulin measurementOr dered By: Shyla Danielson on 11-05-2024 Globulin (S) [Mass/Vol] 2.8 g/dL 2.2-4.[address] [facility] Serum glucose measurement (m ass/volume)Ordered By: Shyla Danielson on 11-05-2024 Glucose [Mass/Vol] 88 mg/dL 70-99 [facility] Serum or plasma alanine avila otransferase (ALT) measurementOrdered By: Shyla Danielson on 11-05-2024 ALT [Catalytic activity/Vol] 19 U/L <35 [facility] Serum or plasma albumin idania urement (mass/volume)Ordered By: Shyla Danielson on 11-05-2024 Albumin [Mass/Vol] 4.0 g/dL 3.5-5.0 [facility] Serum or plasma albumin/glob ulin mass ratioOrdered By: Shyla Danielson on 11-05-2024 Albumin/Globulin [Mass ratio] 1.5 {ratio} 0.9-2.4 [facility] Serum or plasma alkaline joaquín sphatase measurementOrdered By: Shyla Danielson on 11-05-2024 ALP [Catalytic activity/Vol] 93 U/L 35-104 [facility] Serum or plasma calcium idania urement (mass/volume)Ordered By: Shyla Danielson on 11-05-2024 Calcium [Mass/Vol] 9.6 mg/dL 7.6-11.0 [facility] Serum or plasma urea nitroge n measurement (mass/volume)Ordered By: Shyla Danielson on 11-05-2024 Urea nitrogen [Mass/Vol] 15 mg/dL 4-19 [facility] Sodium levelOrdered By: Tushar Danielson on 11-05-2024 Sodium [Moles/Vol] 140 mmol/L 133-145 [facility] Total proteinOrdered By: Deja Danielson on 11-05-2024 Protein [Mass/Vol] 6.8 g/dL 5.9-8.4 [facility] White blood cell (WBC) count Ordered By: Shyla Danielson on 11-05-2024 WBC (Bld) [#/Vol] 9.3 10*3/uL 4.4-11.0 [facility] Absolute lymphocyte countOrd ered By: Shyla Danielson on 08-14-2024 Lymphocytes Auto (Unsp spec) [#/Vol] 4.00 10*3/uL 0.83-4.51 [facility] Absolute neutrophil countOrd ered By: Shylabethany Danielson on 08-14-2024 Neutrophils (Bld) [#/Vol] 6.7 10*3/uL 2.0-7.7 [facility] Anion gap in Serum or Plasma Ordered By: Shyla Danielson on 08-14-2024 Anion gap [Moles/Vol] 11 mmol/L 5- [facility] Automated lymphocyte count a s percentage of total leukocytesOrdered By: Shyla Danielson on 08-14-2024 Lymphocytes/100 WBC Auto (Unsp spec) 32.7 % 19-41 [facility] BUN/creatinine ratioOrdered By: Shylabethany Danielson on 08-14-2024 Urea nitrogen/Creatinine [Mass ratio] 20.0 mg/mg 10-20 [facility] Basophil percentageOrdered B y: Shyla Danielson on 08-14-2024 Basophils/100 WBC (Bld) 0.3 % 0-1 [facility] Bilirubin, totalOrdered By: Shyla Danielson on 08-14-2024 Bilirubin [Mass/Vol] 0.22 mg/dL 0.00-1.30 [facility] CBC W/Diff, Automatedon 07-22 Absolute Lymph 4.00 X10 3/uL Normal 0.83-4.51 [facility] Comment on above: Performed By: #### L 500.4050, L100.0100 #### [facility] [address] [place] [address]. [place], [address] Absolute Neut 6.7 X10 3/uL Normal 2.0-7.7 [facility] Comment on above: Performed By: #### L 500.4050, L100.0100 #### [facility] [address] [place], [address] Basophils/100 WBC (Bld) 0.3 % Normal 0-1 [facility] Comment on above: Performed By: #### L 500.4050, L100.0100 #### [facility] [address] [place], [address] Eosinophils/100 WBC (Bld) 2.9 % Normal 0-5 [facility] Comment on above: Performed By: #### L 500.4050, L100.0100 #### [facility] [address] [place], [address] Erythrocyte distribution width (RBC) [Ratio] 12.2 % Normal 11.6-14.6 [facility] Comment on above: Performed By: #### L 500.4050, L100.0100 #### [facility] [address] [place], [address] Hematocrit (Bld) [Volume fraction] 36.3 % Low 37-47 [facility] Comment on above: Performed By: #### L 500.4050, L100.0100 #### [facility] [address] [place], [address] Hemoglobin (Bld) [Mass/Vol] 12.8 g/dL Normal 12.0-15.0 [facility] Comment on above: Performed By: #### L 500.4050, L100.0100 #### [facility] [address] [place], [address] IG% 0.300 Normal 0.0-0.9 [facility] Comment on above: Result Comment: IG% - Immature Granulocytes (promyelocytes, myelocytes and metamyelocytes) > 1% indicates that a LEFT SHIFT is Present. Performed By: #### L 500.4050, L100.0100 #### [facility] [address] [place], [address] Lymphocytes/100 WBC (Bld) 32.7 % Normal 19-41 [facility] Comment on above: Performed By: #### L 500.4050, L100.0100 #### [facility] [address] [place], [address] MCH (RBC) [Entitic mass] 32.7 pg High 27.0-32.0 [facility] Comment on above: Performed By: #### L 500.4050, L100.0100 #### [facility] [address] [place], [address] MCHC (RBC) [Mass/Vol] 35.3 g/dL Normal 32-36 [facility] Comment on above: Performed By: #### L 500.4050, L100.0100 #### [facility] [address] [place], [address] MCV (RBC) [Entitic vol] 92.6 fL Normal 81-[address] [facility] Comment on above: Performed By: #### L 500.4050, L100.0100 #### [facility] [address] [place], [address] Monocytes/100 WBC (Bld) 9.0 % Normal 0-[address] [facility] Comment on above: Performed By: #### L 500.4050, L100.0100 #### [facility] [address] [place], [address] Neutrophils/100 WBC (Bld) 54.8 % Normal 47-70 [facility] Comment on above: Performed By: #### L 500.4050, L100.0100 #### [facility] [address] [place], [address] Nucleated RBC (Bld) [#/Vol] 0 10*3/uL Normal 0-5 [facility] Comment on above: Performed By: #### L 500.4050, L100.0100 #### [facility] [address] [place], [address] Platelet mean volume (Bld) [Entitic vol] 9.5 fL Normal 6.2-12.0 [facility] Comment on above: Performed By: #### L 500.4050, L100.0100 #### [facility] [address] [place], [address] Platelets (Bld) [#/Vol] 301 10*3/uL Normal 150-450 [facility] Comment on above: Performed By: #### L 500.4050, L100.0100 #### [facility] [address] [place], [address] RBC (Bld) [#/Vol] 3.92 10*6/uL Low 4.2-5.4 [facility] Comment on above: Performed By: #### L 500.4050, L100.0100 #### [facility] [address] [place], [address] RDW SD 40.6 fl Normal 35.1-43.9 [facility] Comment on above: Performed By: #### L 500.4050, L100.0100 #### [facility] [address] [place], [address] WBC (Bld) [#/Vol] 12.2 10*3/uL High 4.4-11.0 [facility] Comment on above: Performed By: #### L 500.4050, L100.0100 #### [facility] [address] [place], [address] Carbon dioxide, total [Moles /volume] in Central venous bloodOrdered By: Shyla Danielson on 08-14-2024 CO2 [Moles/Vol] 24.5 mmol/L 21.0-32.0 [facility] Chloride assayOrdered By: Jeffery Danielson on 08-14-2024 Chloride [Moles/Vol] 105 mmol/L 98-108 [facility] Comprehensive Metabolic Prof ilon 08-14-2024 Albumin [Mass/Vol] 4.2 g/dL Normal 3.5-5.0 [facility] Comment on above: Performed By: #### L 500.4050, L100.0100 #### [facility] [address] [place], [address] Albumin/Globulin [Mass ratio] 1.4 {ratio} Normal 0.9-2.4 [facility] Comment on above: Performed By: #### L 500.4050, L100.0100 #### [facility] [address] [place], [address] ALK PHOS 99 U/L Normal 35-104 [facility] Comment on above: Performed By: #### L 500.4050, L100.0100 #### [facility] [address] [place], [address] ALT [Catalytic activity/Vol] 20 U/L Normal <=34 [facility] Comment on above: Performed By: #### L 500.4050, L100.0100 #### [facility] [address] [place], [address] AST [Catalytic activity/Vol] 19 U/L Normal <=31 [facility] Comment on above: Performed By: #### L 500.4050, L100.0100 #### [facility] [address] [place], [address] Bilirubin [Mass/Vol] 0.22 mg/dL Normal 0.00-1.30 [facility] Comment on above: Performed By: #### L 500.4050, L100.0100 #### [facility] [address] [place], [address] BUN/CRE 20.0 RATIO Normal 10-20 [facility] Comment on above: Performed By: #### L 500.4050, L100.0100 #### [facility] [address] [place], [address] Calcium [Mass/Vol] 8.6 mg/dL Normal 7.6-11.0 [facility] Comment on above: Performed By: #### L 500.4050, L100.0100 #### [facility] [address] [place], [address] Chloride [Moles/Vol] 105 mmol/L Normal 98-108 [facility] Comment on above: Performed By: #### L 500.4050, L100.0100 #### [facility] [address] [place], [address] CO2 [Moles/Vol] 24.5 mmol/L Normal 21.0-32.0 [facility] Comment on above: Performed By: #### L 500.4050, L100.0100 #### [facility] [address] [place], [address] Creatinine [Mass/Vol] 0.79 mg/dL Normal 0.70-1.20 [facility] Comment on above: Performed By: #### L 500.4050, L100.0100 #### [facility] [address] [place], [address] GAP 11 Normal 5-15 [facility] Comment on above: Performed By: #### L 500.4050, L100.0100 #### [facility] [address] [place], [address] GFR/1.73 sq M.predicted among non-blacks MDRD (S/P/Bld) [Vol rate/Area] 87 mL/min/{1.73_m2} Normal >60 [facility] Comment on above: Result Comment: mL/m in/1.73m2 CKD-EPI Creatinine Equation (2020) Performed By: #### L 500.4050, L100.0100 #### [facility] [address] [place], [address] Globulin (S) [Mass/Vol] 2.9 g/dL Normal 2.2-4.[address] [facility] Comment on above: Performed By: #### L 500.4050, L100.0100 #### [facility] [address] [place], [address] Glucose [Mass/Vol] 82 mg/dL Normal 70-99 [facility] Comment on above: Performed By: #### L 500.4050, L100.0100 #### [facility] [address] [place], [address] Potassium [Moles/Vol] 4.1 mmol/L Normal 3.3-5.1 [facility] Comment on above: Performed By: #### L 500.4050, L100.0100 #### [facility] [address] [place], [address] Sodium [Moles/Vol] 140 mmol/L Normal 133-145 [facility] Comment on above: Performed By: #### L 500.4050, L100.0100 #### [facility] [address] [place], [address] T PROT 7.1 g/dL Normal 5.9-8.4 [facility] Comment on above: Performed By: #### L 500.4050, L100.0100 #### [facility] [address] [place], [address] Urea nitrogen [Mass/Vol] 16 mg/dL Normal 4-19 [facility] Comment on above: Performed By: #### L 500.4050, L100.0100 #### [facility] [place], [address] Eosinophil percentageOrdered By: Shyla Danielson on 08-14-2024 Eosinophils/100 WBC (Bld) 2.9 % 0-5 [facility] Erythrocyte distribution wid th ratioOrdered By: Shyla Danielson on 08-14-2024 Erythrocyte distribution width (RBC) [Ratio] 12.2 % 11.6-14.6 [facility] Erythrocyte distribution wid th standard deviationOrdered By: Shylabethany Danielson on 08-14-2024 Erythrocyte distribution width (RBC) [Entitic vol] 40.6 fL 35.1-43.9 [facility] Erythrocyte distribution width (RBC) [Ratio] 40.6 fl 35.1-43.9 [facility] GFR/1.73 sq M.predicted reza g non-blacks MDRD (S/P/Bld) [Vol rate/Area]Ordered By: Shyla Danielson on 08-14-2024 Estimated GFR (MDRD) Non-Af Amer 87 >60 [facility] Comment on above: mL/min/1.73m2 CKD-EP I Creatinine Equation (2020) Glomerular filtration rate ( GFR) estimation/1.73 sq m using serum, plasma, or whole bOrdered By: Shyla Danielson on 08-14-2024 GFR/1.73 sq M.predicted among non-blacks MDRD (S/P/Bld) [Vol rate/Area] 87 mL/min/{1.73_m2} >60 [facility] Comment on above: mL/min/1.73m2 CKD-EP I Creatinine Equation (2020) Hematocrit Auto (Bld) [Volum e fraction]Ordered By: Shyla Danielson on 08-14-2024 Hematocrit (Bld) [Volume fraction] 36.3 % Low 37-47 [facility] Hemoglobin measurementOrdere d By: Shyla Danielson on 08-14-2024 Hemoglobin (Bld) [Mass/Vol] 12.8 g/dL 12.0-15.0 [facility] Immature granulocytes/100 WB C Auto (Bld)Ordered By: Shyla Danielson on 08-14-2024 Immature granulocytes/100 WBC (Bld) 0.300 % 0.0-0.9 [facility] Comment on above: IG% - Immature Granu locytes (promyelocytes, myelocytes and metamyelocytes) > 1% indicates that a LEFT SHIFT is Present. Laboratory - Chemistry and C hemistry - challengeOrdered By: Shyla Danielson on 08-14-2024 AST [Catalytic activity/Vol] 19 U/L <32 [facility] Lymphocytes Auto (Unsp spec) [#/Vol]Ordered By: Shyla Danielson on 08-14-2024 Lymphocytes (Bld) [#/Vol] 4.00 10*3/uL 0.83-4.51 [facility] Lymphocytes/100 WBC Auto (Un sp spec)Ordered By: Shyla Danielson on 08-14-2024 Lymphocytes/100 WBC (Bld) 32.7 % 19-41 [facility] MCV (mean corpuscular volume ) determinationOrdered By: Shyla Danielson on 08-14-2024 MCV (RBC) [Entitic vol] 92.6 fL 81-99 [facility] Mean corpuscular hemoglobin (MCH) determinationOrdered By: Shylabethany Danielson on 08-14-2024 MCH (RBC) [Entitic mass] 32.7 pg High 27.0-32.0 [facility] Mean corpuscular hemoglobin concentration (MCHC) determinationOrdered By: Shyla Danielson on 08-14-2024 MCHC (RBC) [Mass/Vol] 35.3 g/dL 32-36 [facility] Mean platelet volume determi nationOrdered By: Shyla Danielson on 08-14-2024 Platelet mean volume (Bld) [Entitic vol] 9.5 fL 6.2-12.0 [facility] Monocyte percentageOrdered B y: Shyla Danielson on 08-14-2024 Monocytes/100 WBC (Bld) 9.0 % 0-10 [facility] Neutrophil percentageOrdered By: Shyla Danielson on 08-14-2024 Neutrophils/100 WBC (Bld) 54.8 % 47-70 [facility] Nucleated red blood cell per centageOrdered By: Shyla Danielson on 08-14-2024 Nucleated RBC/100 WBC (Bld) [Ratio] 0 % 0-5 [facility] Platelet countOrdered By: Jeffery Danielson on 08-14-2024 Platelets (Bld) [#/Vol] 301 10*3/uL 150-450 [facility] Potassium (Unsp spec) [Mass/ Vol]Ordered By: Shyla Danielson on 08-14-2024 Potassium [Moles/Vol] 4.1 mmol/L 3.3-5.1 [facility] Potassium measurement (mass/ volume)Ordered By: Shyla Danielson on 08-14-2024 Potassium (Unsp spec) [Mass/Vol] 4.1 mmol/L 3.3-5.1 [facility] RBC Auto (Bld) [#/Vol]Ordere d By: Shyla Danielson on 08-14-2024 RBC (Bld) [#/Vol] 3.92 10*6/uL Low 4.2-5.4 [facility] Serum creatinine measurement (mass/volume)Ordered By: Shyla Danielson on 08-14-2024 Creatinine [Mass/Vol] 0.79 mg/dL 0.70-1.20 [facility] Serum globulin measurementOr dered By: Shyla Danielson on 08-14-2024 Globulin (S) [Mass/Vol] 2.9 g/dL 2.2-4.2 [facility] Serum glucose measurement (m ass/volume)Ordered By: Shyla Danielson on 08-14-2024 Glucose [Mass/Vol] 82 mg/dL 70-99 [facility] Serum or plasma alanine avila otransferase (ALT) measurementOrdered By: Shyla Danielson on 08-14-2024 ALT [Catalytic activity/Vol] 20 U/L <35 [facility] Serum or plasma albumin idania urement (mass/volume)Ordered By: Shyla Danielson on 08-14-2024 Albumin [Mass/Vol] 4.2 g/dL 3.5-5.0 [facility] Serum or plasma albumin/glob ulin mass ratioOrdered By: Shyla Danielson on 08-14-2024 Albumin/Globulin [Mass ratio] 1.4 {ratio} 0.9-2.4 [facility] Serum or plasma alkaline joaquín sphatase measurementOrdered By: Shyla Danielson on 08-14-2024 ALP [Catalytic activity/Vol] 99 U/L 35-104 [facility] Serum or plasma calcium idania urement (mass/volume)Ordered By: Shyla Danielson on 08-14-2024 Calcium [Mass/Vol] 8.6 mg/dL 7.6-11.0 [facility] Serum or plasma urea nitroge n measurement (mass/volume)Ordered By: Shyla Danielson on 08-14-2024 Urea nitrogen [Mass/Vol] 16 mg/dL 4-19 [facility] Sodium levelOrdered By: Tushar Danielson on 08-14-2024 Sodium [Moles/Vol] 140 mmol/L 133-145 [facility] Total proteinOrdered By: Deja Danielson on 08-14-2024 Protein [Mass/Vol] 7.1 g/dL 5.9-8.4 [facility] White blood cell (WBC) count Ordered By: Shyla Danielson on 08-14-2024 WBC (Bld) [#/Vol] 12.2 10*3/uL High 4.4-11.0 [facility] MR/PATZONIAon 07-02-2024 MR/PATZONIA [facility] Medical Records Department [address] [place] [address] PAT - Anesthesia 07/02/24 1452 MR#: [id number] Acct: [id number] Name: KARL CLAROS Rep #: [id number] : 1965 59 From: Dev Balbuena MD PCP: ELISE Phillips Status:PRE [facility] Y Race: C Location: 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 When Was Last Pacemaker Check QUESTION #4 FULL TEXT: You/Your Family Experience fever (hyperthermia) with Anesthesia Last Oral Intake Last Oral intake: Last Oral Intake NPO since Meds taken in AM with sips of water? 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 machine operator Female Yes 07/02/24 13:22 HX of Motion Sickness No 07/02/24 13:22 HX of N/V After Surgery No 07/02/24 13:22 Non-Smoker No 07/02/24 13:22 Duration of Surgery greater Yes 07/02/24 13:22 than 60 minutes Number of Risk Factors 2 07/02/24 13:22 PONV Score Moderate Risk 07/02/24 13:22 Height Weight Height Weight: Anesthesia: Height Weight Height 5 ft 05/04/24 07:21 Respiratory Assessment Respiratory Assessment - chip machine operator: Respiratory Tract Infection Hx - chip machine operator Hx Respiratory Tract Infection No: SINUS CONGESTION 07/02/24 13:22 STOP Sleep Apnea STOP Sleep Apnea - chip machine operator: STOP Sleep Apnea - chip machine operator Hx Hypertension No 07/02/24 13:22 Hx Sleep Apnea Yes 07/02/24 13:22 CPAP Yes: NONCOMPLIANT 07/02/24 13:22 BIPAP No 07/02/24 13:22 Do you snore loudly (louder than talking or can be heard Do you often feel tired/ fatigued/ sleepy during daytime? Has anyone observed you stop breathing during sleep? STOP Results Positive 07/02/24 13:22 QUESTION #5 FULL TEXT : Do you snore loudly (louder than talking or can be heard through closed doors)? 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 Specify any problems Hx of Preganancy in last 3 No 07/02/24 13:22 Months Nurse Filling Out Transfusion DSCHRIBER 07/02/24 13:22 Questions: Date: 07/02/24 07/02/24 13:22 Time: 13:24 07/02/24 13:22 Patient unable to answer at this time (ie. confused, unrespo /Reproducti on History /Reproducti ve History - chip machine operator: /Reproducti ve Hx- chip machine operator Hx Now No 07/02/24 13:22 Gestational Age (in weeks): EDC: Hx Hx Para Hx Section SAB No 07/02/24 13:22 [facility] Medical History (Updated 07/02/24 @ 13:32 by Elise Walter) Loss of hearing Post-menopausal Rheumatoid arthritis Restless legs Injury of head and neck Blackout Shortness of breath on exertion History of pain when walking History of edema Wears glasses Wears partial dentures Low iron Heartburn Smoker CPAP (continuous positive airway pressure) dependence Leg cramps Anxiety Depression Home Medications ???Medication ???Instructions ???Recorded ???Last Taken ???Type iron, carbonyl 45 mg tablet 45 mg PO DAILYCM 06/29/18 Unknown History (Feosol) cholecalciferol (vitamin D3) 25 25 mcg PO QDAY 04/11/24 Unknown Hi story mcg (1,000 unit) capsule dextroamphetamine-am phetamine 30 30 mg PO BID 04/11/24 Unknown Hist ory mg tablet (Adderall) duloxetine 60 mg capsule,delayed 60 mg PO QDAY 04/11/24 Unknown His tory release (Cymbalta) folic acid 1 mg tablet 1 mg PO QDAY 04/11/24 Unk (more content not included)... Normal [facility] Absolute lymphocyte countOrd ered By: Leslie Patino on 06-29-2024 Lymphocytes Auto (Unsp spec) [#/Vol] 2.14 10*3/uL 0.83-4.51 [facility] Absolute neutrophil countOrd ered By: Leslie Patino on 06-29-2024 Neutrophils (Bld) [#/Vol] 4.6 10*3/uL 2.0-7.7 [facility] Albumin to globulin ratioOrd ered By: Leslie Patino on 06-29-2024 Albumin/Globulin [Mass ratio] 0.8 {ratio} Low 0.9-2.4 [facility] Automated lymphocyte count a s percentage of total leukocytesOrdered By: Leslie Sukumar on 06-29-2024 Lymphocytes/100 WBC Auto (Unsp spec) 27.7 % 19-41 [facility] Basophil percentageOrdered B y: Leslie Sukumar on 06-29-2024 Basophils/100 WBC (Bld) 0.3 % 0-1 [facility] Bilirubin, totalOrdered By: Leslie Sukumar on 06-29-2024 Bilirubin [Mass/Vol] 0.30 mg/dL 0.20-1.00 [facility] Comment on above: For patients on eltr ombopag therapy, use of Dimension Mcclellan TBIL is not recommended. Blood urea nitrogen (BUN)/cr eatinine ratioOrdered By: Leslie Sukumar on 06-29-2024 Urea nitrogen/Creatinine [Mass ratio] 19.0 mg/mg 10-20 [facility] CBC W/Diff, Automatedon Absolute Lymph 2.14 X10 3/uL Normal 0.83-4.51 [facility] Comment on above: Performed By: #### L 100.0100, L500.4050 #### [facility] [address] [place], [address] Absolute Neut 4.6 X10 3/uL Normal 2.0-7.7 [facility] Comment on above: Performed By: #### L 100.0100, L500.4050 #### [facility] [address] [place], [address] Basophils/100 WBC (Bld) 0.3 % Normal 0-1 [facility] Comment on above: Performed By: #### L 100.0100, L500.4050 #### [facility] [address] [place], [address] Eosinophils/100 WBC (Bld) 1.7 % Normal 0-5 [facility] Comment on above: Performed By: #### L 100.0100, L500.4050 #### [facility] [address] [place], [address] Erythrocyte distribution width (RBC) [Ratio] 12.3 % Normal 11.6-14.6 [facility] Comment on above: Performed By: #### L 100.0100, L500.4050 #### [facility] [address] [place], [address] Hematocrit (Bld) [Volume fraction] 38.3 % Normal 37-47 [facility] Comment on above: Performed By: #### L 100.0100, L500.4050 #### [facility] [address], [address] Hemoglobin (Bld) [Mass/Vol] 12.9 g/dL Normal 12.0-15.0 [facility] Comment on above: Performed By: #### L 100.0100, L500.4050 #### [facility] [address], [address] IG% 0.300 Normal 0.0-0.9 [facility] Comment on above: Result Comment: IG% - Immature Granulocytes (promyelocytes, myelocytes and metamyelocytes) > 1% indicates that a LEFT SHIFT is Present. Performed By: #### L 100.0100, L500.4050 #### [facility] [address] [place], [address] Lymphocytes/100 WBC (Bld) 27.7 % Normal 19-41 [facility] Comment on above: Performed By: #### L 100.0100, L500.4050 #### [facility] [address] [place], [address] MCH (RBC) [Entitic mass] 31.7 pg Normal 27.0-32.0 [facility] Comment on above: Performed By: #### L 100.0100, L500.4050 #### [facility] [address] [place], [address] MCHC (RBC) [Mass/Vol] 33.7 g/dL Normal 32-36 [facility] Comment on above: Performed By: #### L 100.0100, L500.4050 #### [facility] [address] [place], [address] MCV (RBC) [Entitic vol] 94.1 fL Normal 81-[address] [facility] Comment on above: Performed By: #### L 100.0100, L500.4050 #### [facility] [address] [place], [address] Monocytes/100 WBC (Bld) 10.5 % High 0-[address] [facility] Comment on above: Performed By: #### L 100.0100, L500.4050 #### [facility] [address] [place], [address] Neutrophils/100 WBC (Bld) 59.5 % Normal 47-70 [facility] Comment on above: Performed By: #### L 100.0100, L500.4050 #### [facility] [address] [place], [address] Nucleated RBC (Bld) [#/Vol] 0 10*3/uL Normal 0-5 [facility] Comment on above: Performed By: #### L 100.0100, L500.4050 #### [facility] [address] [place], [address] Platelet mean volume (Bld) [Entitic vol] 9.6 fL Normal 6.2-12.0 [facility] Comment on above: Performed By: #### L 100.0100, L500.4050 #### [facility] [address] [place], [address] Platelets (Bld) [#/Vol] 245 10*3/uL Normal 150-450 [facility] Comment on above: Performed By: #### L 100.0100, L500.4050 #### [facility] [address] [place], [address] RBC (Bld) [#/Vol] 4.07 10*6/uL Low 4.2-5.4 [facility] Comment on above: Performed By: #### L 100.0100, L500.4050 #### [facility] [address] [place], [address] RDW SD 42.2 fl Normal 35.1-43.9 [facility] Comment on above: Performed By: #### L 100.0100, L500.4050 #### [facility] [address] [place], [address] WBC (Bld) [#/Vol] 7.7 10*3/uL Normal 4.4-11.0 [facility] Comment on above: Performed By: #### L 100.0100, L500.4050 #### [facility] [address] [place], [address] Carbon dioxide measurementOr dered By: Leslie Patino on 06-29-2024 CO2 [Moles/Vol] 28.0 mmol/L 21.0-32.0 [facility] Chloride measurementOrdered By: Leslie Patino on 06-29-2024 Chloride [Moles/Vol] 104 mmol/L 98-107 [facility] Comprehensive Metabolic Prof ilon 06-29-2024 Albumin [Mass/Vol] 3.4 g/dL Normal 3.2-5.0 [facility] Comment on above: Performed By: #### L 100.0100, L500.4050 ####[facility] [address] [place], [address] Albumin/Globulin [Mass ratio] 0.8 {ratio} Low 0.9-2.4 [facility] Comment on above: Performed By: #### L 100.0100, L500.4050 ####[facility] [address] [place], [address] ALK P 91 U/L Normal 45-117 [facility] Comment on above: Performed By: #### L 100.0100, L500.4050 ####[facility] [address] [place], [address] ALT [Catalytic activity/Vol] 51 U/L Normal 13-56 [facility] Comment on above: Performed By: #### L 100.0100, L500.4050 ####[facility] [address] [place], [address] AST [Catalytic activity/Vol] 38 U/L High 15-37 [facility] Comment on above: Performed By: #### L 100.0100, L500.4050 ####[facility] [address] [place], [address] Bilirubin [Mass/Vol] 0.30 mg/dL Normal 0.20-1.00 [facility] Comment on above: Result Comment: For patients on eltrombopag therapy, use of Dimension Mcclellan TBIL is not recommended. Performed By: #### L 100.0100, L500.4050 ####[facility] [address] [place], [address] BUN/CRE 19.0 RATIO Normal 10-20 [facility] Comment on above: Performed By: #### L 100.0100, L500.4050 ####[facility] [address] [place], [address] CA,Total 9.5 mg/dL Normal 8.5-10.1 [facility] Comment on above: Performed By: #### L 100.0100, L500.4050 ####[facility] [address] [place], [address] Chloride [Moles/Vol] 104 mmol/L Normal 98-107 [facility] Comment on above: Performed By: #### L 100.0100, L500.4050 ####[facility] [address] [place], [address] CO2 [Moles/Vol] 28.0 mmol/L Normal 21.0-32.0 [facility] Comment on above: Performed By: #### L 100.0100, L500.4050 ####[facility] [address] [place], [address] Creatinine [Mass/Vol] 0.69 mg/dL Normal 0.55-1.02 [facility] Comment on above: Result Comment: The validity of the calculated GFR GFRAA in patients over 70 years has not been determined. Clinical correlation is essential. Performed By: #### L 100.0100, L500.4050 ####[facility] [address] [place], [address] EST GFR - AA 113 mL/min Normal >60 [facility] Comment on above: Result Comment: Afri can [place] GFR Calc Performed By: #### L 100.0100, L500.4050 ####[facility] [address] [place], [address] GAP 7 Normal 5-15 [facility] Comment on above: Performed By: #### L 100.0100, L500.4050 ####[facility] [address] [place], [address] GFR/1.73 sq M.predicted among non-blacks MDRD (S/P/Bld) [Vol rate/Area] 94 mL/min/{1.73_m2} Normal >60 [facility] Comment on above: Result Comment: Non- GFR Calc Performed By: #### L 100.0100, L500.4050 ####[facility] [address] [place], [address] Globulin (S) [Mass/Vol] 4.0 g/dL Normal 2.2-4.[address] [facility] Comment on above: Performed By: #### L 100.0100, L500.4050 ####[facility] [address] [place], [address] Glucose [Mass/Vol] 94 mg/dL Normal 74-106 [facility] Comment on above: Performed By: #### L 100.0100, L500.4050 ####[facility] [address] [place], [address] Potassium [Moles/Vol] 3.8 mmol/L Normal 3.5-5.1 [facility] Comment on above: Performed By: #### L 100.0100, L500.4050 ####[facility] [address] [place], [address] Sodium [Moles/Vol] 139 mmol/L Normal 136-145 [facility] Comment on above: Performed By: #### L 100.0100, L500.4050 ####[facility] [address] [place], [address] T PROT 7.4 g/dL Normal 6.4-8.2 [facility] Comment on above: Performed By: #### L 100.0100, L500.4050 ####[facility] [address] [place], [address] Urea nitrogen [Mass/Vol] 13 mg/dL Normal 7-18 [facility] Comment on above: Performed By: #### L 100.0100, L500.4050 ####[facility] [address] [place], [address] Eosinophil percentageOrdered By: Leslie Patino on 06-29-2024 Eosinophils/100 WBC (Bld) 1.7 % 0-5 [facility] Erythrocyte distribution wid th ratioOrdered By: Leslieshay Patino on 06-29-2024 Erythrocyte distribution width (RBC) [Ratio] 12.3 % 11.6-14.6 [facility] Erythrocyte distribution wid th standard deviationOrdered By: Leslie Sukumar on 06-29-2024 Erythrocyte distribution width (RBC) [Entitic vol] 42.2 fL 35.1-43.9 [facility] Erythrocyte distribution width (RBC) [Ratio] 42.2 fl 35.1-43.9 [facility] Estimated glomerular filtrat ion rate (GFR) AmericanOrdered By: Leslieshay Patino on 06-29-2024 Estimated GFR (MDRD) Amer 113 mL/min >60 [facility] Comment on above: GFR Calc Glomerular filtration rate ( GFR) estimationOrdered By: Leslieshay Patino on 06-29-2024 Estimated GFR (MDRD) Non-Af Amer 94 mL/min >60 [facility] Comment on above: Non- GFR Calc GFR/1.73 sq M.predicted among non-blacks MDRD (S/P/Bld) [Vol rate/Area] 94 mL/min/{1.73_m2} >60 [facility] Comment on above: Non- GFR Calc Glucose measurementOrdered B y: Leslie Patino on 06-29-2024 Glucose [Mass/Vol] 94 mg/dL 74-106 [facility] Hematocrit Auto (Bld) [Volum e fraction]Ordered By: Leslieshay Patino on 06-29-2024 Hematocrit (Bld) [Volume fraction] 38.3 % 37-47 [facility] Hemoglobin measurementOrdere d By: Leslieshay Patino on 06-29-2024 Hemoglobin (Bld) [Mass/Vol] 12.9 g/dL 12.0-15.0 [facility] Immature granulocytes/100 WB C Auto (Bld)Ordered By: Leslie Patino on 06-29-2024 Immature granulocytes/100 WBC (Bld) 0.300 % 0.0-0.9 [facility] Comment on above: IG% - Immature Granu locytes (promyelocytes, myelocytes and metamyelocytes) > 1% indicates that a LEFT SHIFT is Present. Laboratory - Chemistry and C hemistry - challengeOrdered By: Leslie Patino on 06-29-2024 AST [Catalytic activity/Vol] 38 U/L High 15-37 [facility] Lymphocytes Auto (Unsp spec) [#/Vol]Ordered By: Leslie Patino on 06-29-2024 Lymphocytes (Bld) [#/Vol] 2.14 10*3/uL 0.83-4.51 [facility] Lymphocytes/100 WBC Auto (Un sp spec)Ordered By: Leslie Patino on 06-29-2024 Lymphocytes/100 WBC (Bld) 27.7 % 19-41 [facility] MCV (mean corpuscular volume ) determinationOrdered By: Leslie Patino on 06-29-2024 MCV (RBC) [Entitic vol] 94.1 fL 81-99 [facility] Mean corpuscular hemoglobin (MCH) determinationOrdered By: Leslie Patino on 06-29-2024 MCH (RBC) [Entitic mass] 31.7 pg 27.0-32.0 [facility] Mean corpuscular hemoglobin concentration (MCHC) determinationOrdered By: Leslie Patino on 06-29-2024 MCHC (RBC) [Mass/Vol] 33.7 g/dL 32-36 [facility] Mean platelet volume determi nationOrdered By: Leslie Patino on 06-29-2024 Platelet mean volume (Bld) [Entitic vol] 9.6 fL 6.2-12.0 [facility] Monocyte percentageOrdered B y: Leslie Patino on 06-29-2024 Monocytes/100 WBC (Bld) 10.5 % High 0-10 [facility] Neutrophil percentageOrdered By: Leslie Patino on 06-29-2024 Neutrophils/100 WBC (Bld) 59.5 % 47-70 [facility] Nucleated red blood cell per centageOrdered By: Leslie Patino on 06-29-2024 Nucleated RBC/100 WBC (Bld) [Ratio] 0 % 0-5 [facility] Platelet countOrdered By: Ra roverto Patino on 06-29-2024 Platelets (Bld) [#/Vol] 245 10*3/uL 150-450 [facility] Potassium measurementOrdered By: Leslei Patino on 06-29-2024 Potassium [Moles/Vol] 3.8 mmol/L 3.5-5.1 [facility] RBC Auto (Bld) [#/Vol]Ordere d By: Leslie Patino on 06-29-2024 RBC (Bld) [#/Vol] 4.07 10*6/uL Low 4.2-5.4 [facility] Serum anion gap measurementO rdered By: Leslie Patino on 06-29-2024 Anion gap [Moles/Vol] 7 mmol/L 5-15 [facility] Serum globulin measurementOr dered By: Leslie Patino on 06-29-2024 Globulin (S) [Mass/Vol] 4.0 g/dL 2.2-4.2 [facility] Serum or plasma alanine avila otransferase (ALT) measurementOrdered By: Leslie Patino on 06-29-2024 ALT [Catalytic activity/Vol] 51 U/L 13-56 [facility] Serum or plasma albumin idania urement (mass/volume)Ordered By: Leslie Patino on 06-29-2024 Albumin [Mass/Vol] 3.4 g/dL 3.2-5.0 [facility] Serum or plasma alkaline joaquín sphatase measurementOrdered By: Leslie Patino on 06-29-2024 ALP [Catalytic activity/Vol] 91 U/L 45-117 [facility] Serum or plasma calcium idania urement (mass/volume)Ordered By: Leslie Patino on 06-29-2024 Calcium [Mass/Vol] 9.5 mg/dL 8.5-10.1 [facility] Serum or plasma creatinine m easurement (mass/volume)Ordered By: Leslie Patino on 06-29-2024 Creatinine [Mass/Vol] 0.69 mg/dL 0.55-1.02 [facility] Comment on above: The validity of the calculated GFR & GFRAA in patients over 70 years has not been determined. Clinical correlation is essential. Serum or plasma urea nitroge n measurement (mass/volume)Ordered By: Leslie Patino on 06-29-2024 Urea nitrogen [Mass/Vol] 13 mg/dL 7-18 [facility] Sodium levelOrdered By: Roseline el Sukumar on 06-29-2024 Sodium [Moles/Vol] 139 mmol/L 136-145 [facility] Total proteinOrdered By: Yumi Patino on 06-29-2024 Protein [Mass/Vol] 7.4 g/dL 6.4-8.2 [facility] White blood cell (WBC) count Ordered By: Leslie Sukumar on 06-29-2024 WBC (Bld) [#/Vol] 7.7 10*3/uL 4.4-11.0 [facility] Knee 4 or More Viewson 06-21 Knee 4 or More Views [facility] Imaging Services [address] [place] [address] Knee 4 or More Views MR#: [id number] Acct: [id number] Name: KARL CLAROS Rep #: [id number] : 1965 F 59 From: Fareed Rashid PCP: ELISE Phillips Status: DEP AMB Study: Knee 4 or More Views Date of Exam: 06/21/24 Exam# [id number] Ordering Dr: Kate Burrell PROCEDURE: KNEE 4 OR MORE VIEWS REASON FOR EXAM: Chronic pain. TECHNIQUE: 4 views of the left knee COMPARISON: None. RAD/Knee 4 or More Views IMPRESSION: No significant left knee joint effusion is noted. [id number]-qihmtvna left knee degenerative changes are seen, most prominent in the medial compartment, where moderately severe joint narrowing is evident. No acute fracture or dislocation is seen. Reading Location: [id number] CC: WASTEWATER PLANT OPERATORQuan Patino; JEFFERY Lynn It Support Engineer: Signed Normal [facility] Orthopedic Visit Reporton Orthopedic Visit Report [facility] [address] [place] [address] [address] [place], [place] [address] OFFICE VISIT Date of Service: 06/21/24 MR#: [id number] Acct: [id number] Name: KARL CLAROS Rep #: [id number] : 1965 Provider: Dr. Levon Bojorquez MD Age/Sex: 59/F Location: [facility] [place] Status: Signed Intake Vital Signs 05/04/24 07:21 Height 5 ft Intake Visit Reasons: CERVICAL SPINE Chief Complaint: Cervical spine Allergies No Known Allergies Allergy (Verified 06/21/24 08:21) Medications ???Medication ???Instructions ???Recorded ???Confirmed ???Type iron, carbonyl 45 mg tablet 45 mg PO DAILYCM 06/29/18 06/21/24 History (Feosol) cholecalciferol (vitamin D3) 25 25 mcg PO QDAY 04/11/24 06/21/24 H istory mcg (1,000 unit) capsule dextroamphetamine-am phetamine 30 30 mg PO BID 04/11/24 06/21/24 His tory mg tablet (Adderall) duloxetine 60 mg capsule,delayed 60 mg PO QDAY 04/11/24 06/21/24 Hi story release (Cymbalta) folic acid 1 mg tablet 1 mg PO QDAY 04/11/24 06/21/24 His tory hydroxyzine HCl 25 mg tablet 25 mg PO TID PRN anxiety 04/11/24 06/21/24 History methotrexate sodium 2.5 mg tablet 15 mg PO QWEEK 04/11/24 06/21/24 History tramadol 50 mg tablet 50 mg PO TID 04/11/24 06/21/24 His tory PFSH Medical History Wears glasses Wears partial dentures History of renal disease Low iron Heartburn Smoker CPAP (continuous positive airway pressure) dependence Leg cramps Sleep apnea Acid reflux Anxiety Depression Arthritis, rheumatoid Surgical History S/P carpal tunnel release Delivery by section Family History Father Heart disease Cancer Social History Smoking Status: Light Smoker (<10/day) alcohol intake: never additional social history: ibuprofen daily HPI CERVICAL SPINE Details: This documentation accurately reflects the service provided and the decisions made by me, Dr. Levon Bojorquez MD 06/21/24 0814. Part of today???s visit was documented by Sammi [place] LPN, acting as scribe. KARL CLAROS is a 59 year old F here today to discuss surgical options. She still complains of ongoing neck and upper back pain that is worse on the left. She has numbness and tingling into her left arm. She would like to discuss surgical options. Says that she can't use a pen to write, she does have RA in her hands and has a trigger finger. HPI from 06/14/24: KARL CLAROS is a 59 year old F here today for MRI cervical spine follow-up. Established 04/17/24 for neck and upper back pain. Occasional numbness and tingling in left upper arm and forearm; Tilting head to right or re-positioning left arm is helpful however it does make it difficult to sleep at night due to the amount of repositioning that she has to do. Denies numbness or tingling sensation in hand. Worsening numbness and tingling in left arm that extends from her elbow to her wrist. Says that she still has a numb spot by her left shoulder blade. Says her balance comes and goes, says she had a fall in the cooler at work. Says that her symptoms have made it difficult for her to complete her job at work. No diabetes, no heart or lung issues, no blood thinners. She has a history of rheumatoid arthritis and takes methotrexate once a week. 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 No prior neck or back surgeries. Ortho Exam General General: Yes no acute distress Neurologic: Yes alert and Yes oriented x3 Spine SPINE TESTING CERVICAL THORACIC LUMBAR Musculoskeletal Strength 0=absent - 5=normal Details: Neurological exam of the upper extremities shows 4+ power bilateral triceps, all other muscle groups shows 5 power. Normal sensations across all dermatomes. Brisk right knee reflexes. Aryan's negative. No midline tenderness. Left paraspinal tenderness. Romberg's negative. Single leg stand shows poor balance bilaterally. Coding Level of Care Code Off vis,est,level 4 Diagnoses Cervical radiculopathy M54.12 Cervical myelopathy G95.9 Acute pain of left knee M25.562 Chronicity: acute Time Spent (min) 35 Assessment and Plan Assessment and Plan (1) Cervical radiculopathy: Status: Acute (2) Cervical myelopathy: Status: Acute (3) Left knee pain: Status: Acute Qualifiers: Chronicity: acute Qualified Code(s): M25.562 - Pain in left knee Plan Again reviewed prior cervical x-rays. Imaging shows loss of normal cervical lordosis, subtle spondylolisthesis of C4-5 which reduces on extension, and multilevel disc height loss. Reviewed cervical MRI from June 04. Imaging shows C4-C5 significant n (more content not included)... 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 Integration Required: No Accompanied by: Self Is patient in pain?: No Allergies No Known Allergies Allergy (Verified 06/14/24 09:07) Medications ???Medication ???Instructions ???Recorded ???Confirmed ???Type iron, carbonyl 45 mg tablet 45 mg PO DAILYCM 06/29/18 06/14/24 History (Feosol) cholecalciferol (vitamin D3) 25 25 mcg PO QDAY 04/11/24 06/14/24 History mcg (1,000 unit) capsule dextroamphetamine-am phetamine 30 30 mg PO BID 04/11/24 06/14/24 History mg tablet (Adderall) duloxetine 60 mg capsule,delayed 60 mg PO QDAY 04/11/24 06/14/24 History release (Cymbalta) folic acid 1 mg tablet 1 mg PO QDAY 04/11/24 06/14/24 History hydroxyzine HCl 25 mg tablet 25 mg PO TID PRN anxiety 04/11/24 06/14/24 History methotrexate sodium 2.5 mg tablet 15 mg PO QWEEK 04/11/24 06/14/24 History tramadol 50 mg tablet 50 mg PO TID 04/11/24 06/14/24 History PFSH Medical History Wears glasses Wears partial dentures History of renal disease Low iron Heartburn Smoker CPAP (continuous positive airway pressure) dependence Leg cramps Sleep apnea Acid reflux Anxiety Depression Arthritis, rheumatoid Surgical History S/P carpal tunnel release Delivery by section Family History Father Heart disease Cancer Social History Smoking Status: Light Smoker (<10/day) alcohol intake: never additional social history: ibuprofen daily HPI CERVICAL SPINE Details: This documentation accurately reflects the service provided and the decisions made by me, JEFEFRY Lynn 06/14/24 0904. Part of today???s visit was documented by [ ], acting as scribe. KARL CLAROS is a 59 year old F here today for MRI cervical spine follow-up. Establshed 04/17/24 for neck and upper back pain. Occasional numbness and tingling in left upper arm and forearm; Tilting head to right or re-positioning left arm is helpful however it does make it difficult to sleep at night due to the amount of repositioning that she has to do. Denies numbness or tingling sensation in hand. Worsening numbness and tingling in left arm that extends from her elbow to her wrist. Says that she still has a numb spot by her left shoulder blade. Says her balance comes and goes, says she had a fall in the cooler at work. Says that her symptoms have made it difficult for her to complete her job at work. No diabetes, no heart or lung issues, no blood thinners. She has a history of rheumatoid arthritis and takes methotrexate once a week. 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 No prior neck or back surgeries. Ortho Exam General General: Yes no acute distress Neurologic: Yes alert and Yes oriented x3 Spine SPINE TESTING CERVICAL THORACIC LUMBAR Musculoskeletal Strength 0=absent - 5=normal Details: Neurological exam of the upper extremities shows 4+ power bilateral triceps, all other muscle groups shows 5 power. Normal sensations across all dermatomes. Brisk right knee reflexes. Aryan's negative. No midline tenderness. Left paraspinal tenderness. Romberg's negative. Single leg stand shows poor balance bilaterally. Coding Level of Care Code Off vis,est,level 3 Diagnoses Cervical myelopathy G95.9 Cervical radiculopathy M54.12 Assessment and Plan Assessment and Plan (1) Cervical myelopathy: Status: Acute (2) Cervical radiculopathy: Status: Acute Plan Again reviewed prior cervical x-rays. Imaging shows loss of normal cervical lordosis, subtle spondylolisthesis of C4-5 which reduces on extension, and multilevel disc height loss. Reviewed cervical MRI from June 04. Imaging shows C4-C5 significant narrowing of the right neural foramen, C5-C6 left central disc protrusion causes narrowing of the left lateral recess and left neural foramen. C6-C7 disc space narrowing and mild disc protrusion causing mild spinal stenosis. Explained imaging findings with the patient. At this time she does continue to have dexterity issues in her left hand and complaints of her left arm going numb from her elbow to her wrist. Due to her myelopathic symptoms of dexterity issues, balance changes, brisk knee reflexes, discussed her symptoms and imaging (more content not included)... Normal [facility] Spine Cervical (Routine)on 0 06-04-2024 Spine Cervical (Routine) [facility] Imaging Services [address] [place] [address] Spine Cervical (Routine) MR#: [id number] Acct: [id number] Name: KARL CLAROS Paz Rep #: [id number] : 1965 F 59 From: Anibal Arias MD PCP: ELISE Phillips Status: REG CLI Study: Spine Cervical (Routine) Date of Exam: Exam# [id number] Ordering Dr: Kate Burrell [id number] EXAM: MR CERVICAL SPINE WITHOUT INTRAVENOUS CONTRAST CLINICAL INDICATION: cervical myelopathy, PAIN IN L SIDE OF NECK INTO L SHOULDER AND ARM, L ARM NUMBNESS X 6 MONS - YEAR TECHNIQUE: Multiplanar and multisequence MR images of the cervical spine without intravenous contrast were performed. COMPARISON: No relevant prior studies available. FINDINGS: VERTEBRAE: See below. SPINAL CORD: Unremarkable in signal and morphology. SOFT TISSUES: Normal. No prevertebral soft tissue swelling. LYMPH NODES: Normal. There is no cervical adenopathy. DISCS/SPINAL CANAL/NEURAL FORAMINA: C2-C3: Normal disc height and morphology. Normal spinal canal. Normal neuroforamina. C3-C4: Normal disc height and morphology. Normal spinal canal. Normal neuroforamina. C4-C5: No disc space narrowing. No disc protrusion. No spinal stenosis. Significant narrowing of the right neural foramen related to uncinate joint hypertrophy and facet arthropathy. C5-C6: Left central disc protrusion causes narrowing of the left lateral recess and left neural foramen. No significant spinal stenosis. C6-C7: Disc space narrowing. Mild broad-based disc protrusion causes mild spinal stenosis. Prominent narrowing of the left neural foramen related to uncinate joint hypertrophy. C7-T1: Normal disc height and morphology. Normal spinal canal. Normal neuroforamina. MRI/Spine Cervical (Routine) IMPRESSION: 1. Mild multilevel spinal stenosis related to disc protrusion. 2. Prominent left lateral recess stenosis at C5-6 related to disc protrusion. 3. Marked right C4-5 neural foraminal narrowing related to bony hypertrophy. Electronically Signed: Anibal Arias MD at 17:01 EST , CC: ELISE Patino; JEFFERY Lynn It Support Engineer: Signed Normal [facility] Absolute neutrophil countOrd ered By: Shyla Danielson on 05-21-2024 Neutrophils (Bld) [#/Vol] 8.4 10*3/uL High 2.0-7.7 [facility] Albumin to globulin ratioOrd ered By: Shyla Danielson on 05-21-2024 Albumin/Globulin [Mass ratio] 1.0 {ratio} 0.9-2.4 [facility] Basophil percentageOrdered B y: Shyla Danielson on 05-21-2024 Basophils/100 WBC (Bld) 0.2 % 0-1 [facility] Bilirubin, totalOrdered By: Shyla Danielson on 05-21-2024 Bilirubin [Mass/Vol] 0.50 mg/dL 0.20-1.00 [facility] Comment on above: For patients on eltr ombopag therapy, use of Dimension Mcclellan TBIL is not recommended. Blood urea nitrogen (BUN)/cr eatinine ratioOrdered By: Shyla Danielson on 05-21-2024 Urea nitrogen/Creatinine [Mass ratio] 27.1 mg/mg High 10- [facility] CBC W/Diff, Automatedon 04-24-2023 Absolute Lymph 4.72 X10 3/uL High 0.83-4.51 [facility] Comment on above: Performed By: #### L 500.4050, L100.0100 ####[facility] [address] [place], [address] Absolute Neut 8.4 X10 3/uL High 2.0-7.7 [facility] Comment on above: Performed By: #### L 500.4050, L100.0100 ####[facility] [address] [place], [address] Basophils/100 WBC (Bld) 0.2 % Normal 0-1 [facility] Comment on above: Performed By: #### L 500.4050, L100.0100 ####[facility] [address] [place], [address] Eosinophils/100 WBC (Bld) 2.2 % Normal 0-5 [facility] Comment on above: Performed By: #### L 500.4050, L100.0100 ####[facility] [address] [place], [address] Erythrocyte distribution width (RBC) [Ratio] 11.6 % Normal 11.6-14.6 [facility] Comment on above: Performed By: #### L 500.4050, L100.0100 ####[facility] [address] [place], [address] Hematocrit (Bld) [Volume fraction] 34.9 % Low 37-47 [facility] Comment on above: Performed By: #### L 500.4050, L100.0100 ####[facility] [address] [place], [address] Hemoglobin (Bld) [Mass/Vol] 12.1 g/dL Normal 12.0-15.0 [facility] Comment on above: Performed By: #### L 500.4050, L100.0100 ####[facility] [address] [place], [address] IG% 0.500 Normal 0.0-0.9 [facility] Comment on above: Result Comment: IG% - Immature Granulocytes (promyelocytes, myelocytes and metamyelocytes) > 1% indicates that a LEFT SHIFT is Present. Performed By: #### L 500.4050, L100.0100 ####[facility] [address] [place], [address] Lymphocytes/100 WBC (Bld) 32.1 % Normal 19-41 [facility] Comment on above: Performed By: #### L 500.4050, L100.0100 ####[facility] [address] [place], [address] MCH (RBC) [Entitic mass] 32.3 pg High 27.0-32.0 [facility] Comment on above: Performed By: #### L 500.4050, L100.0100 ####[facility] [address] [place], [address] MCHC (RBC) [Mass/Vol] 34.7 g/dL Normal 32-36 [facility] Comment on above: Performed By: #### L 500.4050, L100.0100 ####[facility] [address] [place], [address] MCV (RBC) [Entitic vol] 93.1 fL Normal 81-99 [facility] Comment on above: Performed By: #### L 500.4050, L100.0100 ####[facility] [address] [place], [address] Monocytes/100 WBC (Bld) 8.2 % Normal 0-[address] [facility] Comment on above: Performed By: #### L 500.4050, L100.0100 ####[facility] [address] [place], [address] Neutrophils/100 WBC (Bld) 56.8 % Normal 47-70 [facility] Comment on above: Performed By: #### L 500.4050, L100.0100 ####[facility] [address] [place], [address] Nucleated RBC (Bld) [#/Vol] 0 10*3/uL Normal 0-5 [facility] Comment on above: Performed By: #### L 500.4050, L100.0100 ####[facility] [address] [place], [address] Platelet mean volume (Bld) [Entitic vol] 9.6 fL Normal 6.2-12.0 [facility] Comment on above: Performed By: #### L 500.4050, L100.0100 ####[facility] [address] [place], [address] Platelets (Bld) [#/Vol] 299 10*3/uL Normal 150-450 [facility] Comment on above: Performed By: #### L 500.4050, L100.0100 ####[facility] [address] [place], [address] RBC (Bld) [#/Vol] 3.75 10*6/uL Low 4.2-5.4 [facility] Comment on above: Performed By: #### L 500.4050, L100.0100 ####[facility] [address] [place], [address] RDW SD 39.1 fl Normal 35.1-43.9 [facility] Comment on above: Performed By: #### L 500.4050, L100.0100 ####[facility] [address] [place], [address] WBC (Bld) [#/Vol] 14.7 10*3/uL High 4.4-11.0 [facility] Comment on above: Performed By: #### L 500.4050, L100.0100 ####[facility] [address] [place], [address] Carbon dioxide measurementOr dered By: Shyla Danielson on 05-21-2024 CO2 [Moles/Vol] 25.0 mmol/L 21.0-32.0 [facility] Chloride measurementOrdered By: Shylabethany Danielson on 05-21-2024 Chloride [Moles/Vol] 107 mmol/L 98-107 [facility] Comprehensive Metabolic Prof ilon 05-21-2024 Albumin [Mass/Vol] 3.7 g/dL Normal 3.2-5.0 [facility] Comment on above: Performed By: #### L 500.4050, L100.0100 ####[facility] [address] [place], [address] Albumin/Globulin [Mass ratio] 1.0 {ratio} Normal 0.9-2.4 [facility] Comment on above: Performed By: #### L 500.4050, L100.0100 ####[facility] [address] [place], [address] ALK P 83 U/L Normal 45-117 [facility] Comment on above: Performed By: #### L 500.4050, L100.0100 ####[facility] [address] [facility] [place], [address] ALT [Catalytic activity/Vol] 35 U/L Normal 13-56 [facility] Comment on above: Performed By: #### L 500.4050, L100.0100 ####[facility] [address] [place], [address] AST [Catalytic activity/Vol] 22 U/L Normal 15-37 [facility] Comment on above: Performed By: #### L 500.4050, L100.0100 ####[facility] [address] [place], [address] Bilirubin [Mass/Vol] 0.50 mg/dL Normal 0.20-1.00 [facility] Comment on above: Result Comment: For patients on eltrombopag therapy, use of Dimension Mcclellan TBIL is not recommended. Performed By: #### L 500.4050, L100.0100 ####[facility] [address] [place], [address] BUN/CRE 27.1 RATIO High 10-20 [facility] Comment on above: Performed By: #### L 500.4050, L100.0100 ####[facility] [address] [place], [address] CA,Total 9.6 mg/dL Normal 8.5-10.1 [facility] Comment on above: Performed By: #### L 500.4050, L100.0100 ####[facility] [address] [place], [address] Chloride [Moles/Vol] 107 mmol/L Normal 98-107 [facility] Comment on above: Performed By: #### L 500.4050, L100.0100 ####[facility] [address] [place], [address] CO2 [Moles/Vol] 25.0 mmol/L Normal 21.0-32.0 [facility] Comment on above: Performed By: #### L 500.4050, L100.0100 ####[facility] [address] [place], [address] Creatinine [Mass/Vol] 1.00 mg/dL Normal 0.55-1.02 [facility] Comment on above: Result Comment: The validity of the calculated GFR GFRAA in patients over 70 years has not been determined. Clinical correlation is essential. Performed By: #### L 500.4050, L100.0100 ####[facility] [address] [place], [address] EST GFR - AA 74 mL/min Normal >60 [facility] Comment on above: Result Comment: Afri can [place] GFR Calc Performed By: #### L 500.4050, L100.0100 ####[facility] [address] [place], [address] GAP 6 Normal 5-15 [facility] Comment on above: Performed By: #### L 500.4050, L100.0100 ####[facility] [address] [place], [address] GFR/1.73 sq M.predicted among non-blacks MDRD (S/P/Bld) [Vol rate/Area] 61 mL/min/{1.73_m2} Normal >60 [facility] Comment on above: Result Comment: Non- GFR Calc Performed By: #### L 500.4050, L100.0100 ####[facility] [address] [place], [address] Globulin (S) [Mass/Vol] 3.8 g/dL Normal 2.2-4.[address] [facility] Comment on above: Performed By: #### L 500.4050, L100.0100 ####[facility] [address] [place], [address] Glucose [Mass/Vol] 85 mg/dL Normal 74-106 [facility] Comment on above: Performed By: #### L 500.4050, L100.0100 ####[facility] [address] [place], [address] Potassium [Moles/Vol] 3.9 mmol/L Normal 3.5-5.1 [facility] Comment on above: Performed By: #### L 500.4050, L100.0100 ####[facility] [address] [place], [address] Sodium [Moles/Vol] 138 mmol/L Normal 136-145 [facility] Comment on above: Performed By: #### L 500.4050, L100.0100 ####[facility] [address] [place], [address] T PROT 7.5 g/dL Normal 6.4-8.2 [facility] Comment on above: Performed By: #### L 500.4050, L100.0100 ####[facility] [address] [place], [address] Urea nitrogen [Mass/Vol] 27 mg/dL High 7-18 [facility] Comment on above: Performed By: #### L 500.4050, L100.0100 ####[facility] [address] [place], [address] Eosinophil percentageOrdered By: Shyla Danielson on 05-21-2024 Eosinophils/100 WBC (Bld) 2.2 % 0-5 [facility] Erythrocyte distribution wid th ratioOrdered By: Shyla Danielson on 05-21-2024 Erythrocyte distribution width (RBC) [Ratio] 11.6 % 11.6-14.6 [facility] Erythrocyte distribution wid th standard deviationOrdered By: Shyla Danielson on 05-21-2024 Erythrocyte distribution width (RBC) [Entitic vol] 39.1 fL 35.1-43.9 [facility] Estimated glomerular filtrat ion rate (GFR) AmericanOrdered By: Shyla Danielson on 05-21-2024 Estimated GFR (MDRD) Amer 74 mL/min >60 [facility] Comment on above: GFR Calc Glomerular filtration rate ( GFR) estimationOrdered By: Shyla Danielson on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 other visual disturbances, No radicular pain, No restless legs, No sensory deficit, No syncope, Yes tingling, No tremor(s), No weakness and No other Exam Const General: cooperative, comfortable and no acute distress Nutritional Appearance: average body habitus HENMT Head: normal to inspection Eyes General: appearance normal, both eyes and all related structures GI Inspection: normal to inspection Assessment and Plan Assessment and Plan (1) Positive colorectal cancer screening using Cologuard test: Status: Acute Plan: The patient is a 58-year-old female who is being seen today with a positive Cologuard test. She is in need of a colonoscopy. We discu (more content not included)... 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 COMPARISON: Thoracic spine on the same date and cervical spine, 02/16/2011 FINDINGS: VERTEBRAE: Multilevel facet arthrosis, uncovertebral joint arthrosis, and endplate osteophytosis. Straightening of expected cervical lordosis may be in part positional. No spondylolisthesis. No fracture or traumatic subluxation. DISC SPACES: Multilevel intervertebral disc height loss. At least mild multilevel osseous encroachment of the neural foramina. SOFT TISSUES: No significant abnormality. No prevertebral soft tissue widening. VASCULATURE: Vascular calcifications. LUNG APICES: Clear. RAD/Cerv Spine 4 or 5 Views IMPRESSION: 1. No fracture or traumatic subluxation. Degenerative changes mildly progressed since prior radiographic examination. 2. Straightening of expected cervical lordosis may be in part positional. Electronically Signed: Bryant Flaherty DO at 23:53 EDT , CC: ELISE Patino It Support Engineer: Signed Normal [facility] L/S Spine Min 4 Viewson L/S Spine Min 4 Views [facility] [address] [place] [address] L/S Spine Min 4 Views MR#: [id number] Acct: [id number] Name: KARL CLAROS Rep #: [id number] : 1965 F 58 From: Bryant miller DO PCP: ELISE Phillips Status: DEP AMB Study: L/S Spine Min 4 Views Date of Exam: 02/22/24 Exam# [id number] Ordering Dr: Leslie Patino NP-Anthony [id number] EXAM: XR LUMBOSACRAL SPINE, 4 OR 5 VIEWS CLINICAL INDICATION: PAIN TECHNIQUE: Frontal, lateral and bilateral oblique views of the lumbar spine. COMPARISON: Thoracic Spine on the same date and lumbar spine, 06/20/2006 FINDINGS: VERTEBRAE: Multilevel facet arthrosis and endplate osteophytosis. No fracture or spondylolysis. Degenerative anterolisthesis of L5 upon S1. Mild apex right scoliotic curvature of the thoracolumbar spine. DISC SPACES: Multilevel intervertebral disc height loss. VASCULATURE: Atherosclerosis. GASTROINTESTINAL TRACT: Normal as visualized. Included bowel gas pattern is non-obstructive. RAD/L/S Spine Min 4 Views IMPRESSION: No fracture or spondylolysis. Degenerative anterolisthesis of L5 upon S1. Multilevel degenerative change. Electronically Signed: Bryant Flaherty DO at 23:54 EDT , CC: ELISE Patino It Support Engineer: Signed Normal [facility] Thoracic Spine 2 Viewson Thoracic Spine 2 Views [facility] [address] [place] [address] Thoracic Spine 2 Views MR#: [id number] Acct: [id number] Name: KARL CLAROS Rep #: [id number] : 1965 F 58 From: Bryant miller DO PCP: ELISE Phillips Status: DEP AMB Study: Thoracic Spine 2 Views Date of Exam: 02/22/24 Exam# [id number] Ordering Dr: Leslie Patino [id number] EXAM: XR THORACIC SPINE, 2 VIEWS CLINICAL INDICATION: PAIN TECHNIQUE: Frontal and lateral views of the thoracic spine. COMPARISON: Cervical and thoracic spine on the same date. FINDINGS: VERTEBRAE: Multilevel facet arthrosis and endplate osteophytosis. Mild apex right thoracolumbar curvature. Preserved vertebral body height. No fracture. No spondylolisthesis. DISC SPACES: Multilevel intervertebral disc height loss. RAD/Thoracic Spine 2 Views IMPRESSION: Degenerative change. No acute findings. Electronically Signed: Bryant Flaherty DO at 23:55 EDT , CC: ELISE Patino It Support Engineer: Signed Normal [facility] Vitamin D,25 Hydroxyon 02-21 Vitamin D 25-OH 34.2 ng/mL Normal [facility] Comment on above: Result Comment: Olga min D 25(OH) Status Range Deficiency <20 ng/mL (50nmol/L) Insufficiency 20 - 30 ng/mL (50 - 75 nmol/L) Sufficiency 30 - 100 ng/mL (75 - 250 nmol/L) Toxicity >100 ng/mL (>250 nmol/L) Performed By: #### L 503.0105, L506.1000, L501.9520, L506.0400, L100.0100, L503.6550, L503.6150, L500.4100, L500.4050 ####[facility] [address], [address] CBC W/Diff, Automatedon 10-0 1-2024 Absolute Lymph 4.35 X10 3/uL Normal 0.83-4.51 [facility] Comment on above: Performed By: #### L 503.0105, L506.1000, L501.9520, L506.0400, L100.0100, L503.6550, L503.6150, L500.4100, L500.4050 ####[facility] [address] [place], [address] Absolute Neut 5.1 X10 3/uL Normal 2.0-7.7 [facility] Comment on above: Performed By: #### L 503.0105, L506.1000, L501.9520, L506.0400, L100.0100, L503.6550, L503.6150, L500.4100, L500.4050 ####[facility] [address] [place], [address] Basophils/100 WBC (Bld) 0.2 % Normal 0-1 [facility] Comment on above: Performed By: #### L 503.0105, L506.1000, L501.9520, L506.0400, L100.0100, L503.6550, L503.6150, L500.4100, L500.4050 ####[facility] [address] [place], [address] Eosinophils/100 WBC (Bld) 1.9 % Normal 0-5 [facility] Comment on above: Performed By: #### L 503.0105, L506.1000, L501.9520, L506.0400, L100.0100, L503.6550, L503.6150, L500.4100, L500.4050 ####[facility] [address] [place], [address] Erythrocyte distribution width (RBC) [Ratio] 12.6 % Normal 11.6-14.6 [facility] Comment on above: Performed By: #### L 503.0105, L506.1000, L501.9520, L506.0400, L100.0100, L503.6550, L503.6150, L500.4100, L500.4050 ####[facility] [address] [place], [address] Hematocrit (Bld) [Volume fraction] 38.2 % Normal 37-47 [facility] Comment on above: Performed By: #### L 503.0105, L506.1000, L501.9520, L506.0400, L100.0100, L503.6550, L503.6150, L500.4100, L500.4050 ####[facility] [address] [place], [place], [phone]) Hemoglobin (Bld) [Mass/Vol] 12.9 g/dL Normal 12.0-15.0 [facility] Comment on above: Performed By: #### L 503.0105, L506.1000, L501.9520, L506.0400, L100.0100, L503.6550, L503.6150, L500.4100, L500.4050 ####[facility] [address] [place], [address] IG% 0.300 Normal 0.0-0.9 [facility] Comment on above: Result Comment: IG% - Immature Granulocytes (promyelocytes, myelocytes and metamyelocytes) > 1% indicates that a LEFT SHIFT is Present. Performed By: #### L 503.0105, L506.1000, L501.9520, L506.0400, L100.0100, L503.6550, L503.6150, L500.4100, L500.4050 ####[facility] [address] [place], [place], [phone] Lymphocytes/100 WBC (Bld) 41.3 % High 19-41 [facility] Comment on above: Performed By: #### L 503.0105, L506.1000, L501.9520, L506.0400, L100.0100, L503.6550, L503.6150, L500.4100, L500.4050 ####[facility] [address] [place], [address] MCH (RBC) [Entitic mass] 32.5 pg High 27.0-32.0 [facility] Comment on above: Performed By: #### L 503.0105, L506.1000, L501.9520, L506.0400, L100.0100, L503.6550, L503.6150, L500.4100, L500.4050 ####[facility] [address] [place], [address] MCHC (RBC) [Mass/Vol] 33.8 g/dL Normal 32-36 [facility] Comment on above: Performed By: #### L 503.0105, L506.1000, L501.9520, L506.0400, L100.0100, L503.6550, L503.6150, L500.4100, L500.4050 ####[facility] [address] [place], [address] MCV (RBC) [Entitic vol] 96.2 fL Normal 81-99 [facility] Comment on above: Performed By: #### L 503.0105, L506.1000, L501.9520, L506.0400, L100.0100, L503.6550, L503.6150, L500.4100, L500.4050 ####[facility] [address] [place], [address] Monocytes/100 WBC (Bld) 8.2 % Normal 0-10 [facility] Comment on above: Performed By: #### L 503.0105, L506.1000, L501.9520, L506.0400, L100.0100, L503.6550, L503.6150, L500.4100, L500.4050 ####[facility] [address], [address] Neutrophils/100 WBC (Bld) 48.1 % Normal 47-70 [facility] Comment on above: Performed By: #### L 503.0105, L506.1000, L501.9520, L506.0400, L100.0100, L503.6550, L503.6150, L500.4100, L500.4050 ####[facility] [address] [place], [address] Nucleated RBC (Bld) [#/Vol] 0 10*3/uL Normal 0-5 [facility] Comment on above: Performed By: #### L 503.0105, L506.1000, L501.9520, L506.0400, L100.0100, L503.6550, L503.6150, L500.4100, L500.4050 ####[facility] [address] [place], [address] Platelet mean volume (Bld) [Entitic vol] 9.8 fL Normal 6.2-12.0 [facility] Comment on above: Performed By: #### L 503.0105, L506.1000, L501.9520, L506.0400, L100.0100, L503.6550, L503.6150, L500.4100, L500.4050 ####[facility] [address] [place], [address] Platelets (Bld) [#/Vol] 316 10*3/uL Normal 150-450 [facility] Comment on above: Performed By: #### L 503.0105, L506.1000, L501.9520, L506.0400, L100.0100, L503.6550, L503.6150, L500.4100, L500.4050 ####[facility] [address] [place], [place], [phone] RBC (Bld) [#/Vol] 3.97 10*6/uL Low 4.2-5.4 [facility] Comment on above: Performed By: #### L 503.0105, L506.1000, L501.9520, L506.0400, L100.0100, L503.6550, L503.6150, L500.4100, L500.4050 ####[facility] [address] [place], [address] RDW SD 42.7 fl Normal 35.1-43.9 [facility] Comment on above: Performed By: #### L 503.0105, L506.1000, L501.9520, L506.0400, L100.0100, L503.6550, L503.6150, L500.4100, L500.4050 ####[facility] [address] [place], [place], [id number] WBC (Bld) [#/Vol] 10.5 10*3/uL Normal 4.4-11.0 [facility] Comment on above: Performed By: #### L 503.0105, L506.1000, L501.9520, L506.0400, L100.0100, L503.6550, L503.6150, L500.4100, L500.4050 ####[facility] [address] [place], [place], [id number] Comprehensive Metabolic Prof ilon 02-21-2024 Albumin [Mass/Vol] 3.8 g/dL Normal 3.2-5.0 [facility] Comment on above: Performed By: #### L 503.0105, L506.1000, L501.9520, L506.0400, L100.0100, L503.6550, L503.6150, L500.4100, L500.4050 ####[facility] [address] [place], [address] Albumin/Globulin [Mass ratio] 1.0 {ratio} Normal 0.9-2.4 [facility] Comment on above: Performed By: #### L 503.0105, L506.1000, L501.9520, L506.0400, L100.0100, L503.6550, L503.6150, L500.4100, L500.4050 ####[facility] [address] [place], [address] ALK P 82 U/L Normal 45-117 [facility] Comment on above: Performed By: #### L 503.0105, L506.1000, L501.9520, L506.0400, L100.0100, L503.6550, L503.6150, L500.4100, L500.4050 ####[facility] [address] [place], [address] ALT [Catalytic activity/Vol] 34 U/L Normal 13-56 [facility] Comment on above: Performed By: #### L 503.0105, L506.1000, L501.9520, L506.0400, L100.0100, L503.6550, L503.6150, L500.4100, L500.4050 ####[facility] [address] [place], [address] AST [Catalytic activity/Vol] 17 U/L Normal 15-37 [facility] Comment on above: Performed By: #### L 503.0105, L506.1000, L501.9520, L506.0400, L100.0100, L503.6550, L503.6150, L500.4100, L500.4050 ####[facility] [address] [place], [address] Bilirubin [Mass/Vol] 0.30 mg/dL Normal 0.20-1.00 [facility] Comment on above: Result Comment: For patients on eltrombopag therapy, use of Dimension Mcclellan TBIL is not recommended. Performed By: #### L 503.0105, L506.1000, L501.9520, L506.0400, L100.0100, L503.6550, L503.6150, L500.4100, L500.4050 ####[facility] [address] [place], [address] BUN/CRE 22.0 RATIO High 10-20 [facility] Comment on above: Performed By: #### L 503.0105, L506.1000, L501.9520, L506.0400, L100.0100, L503.6550, L503.6150, L500.4100, L500.4050 ####[facility] [address] [place], [address] CA,Total 9.7 mg/dL Normal 8.5-10.1 [facility] Comment on above: Performed By: #### L 503.0105, L506.1000, L501.9520, L506.0400, L100.0100, L503.6550, L503.6150, L500.4100, L500.4050 ####[facility] [address] [place], [address] Chloride [Moles/Vol] 106 mmol/L Normal 98-107 [facility] Comment on above: Performed By: #### L 503.0105, L506.1000, L501.9520, L506.0400, L100.0100, L503.6550, L503.6150, L500.4100, L500.4050 ####[facility] [address] [place], [address] CO2 [Moles/Vol] 27.0 mmol/L Normal 21.0-32.0 [facility] Comment on above: Performed By: #### L 503.0105, L506.1000, L501.9520, L506.0400, L100.0100, L503.6550, L503.6150, L500.4100, L500.4050 ####[facility] [address] [place], [place], [phone] Creatinine [Mass/Vol] 0.68 mg/dL Normal 0.55-1.02 [facility] Comment on above: Result Comment: The validity of the calculated GFR GFRAA in patients over 70 years has not been determined. Clinical correlation is essential. Performed By: #### L 503.0105, L506.1000, L501.9520, L506.0400, L100.0100, L503.6550, L503.6150, L500.4100, L500.4050 ####[facility] [address] [place], [phone] EST GFR - AA 114 mL/min Normal >60 [facility] Comment on above: Result Comment: Afri can [place] GFR Calc Performed By: #### L 503.0105, L506.1000, L501.9520, L506.0400, L100.0100, L503.6550, L503.6150, L500.4100, L500.4050 ####[facility] [address] [place], [place], [phone] GAP 7 Normal 5-15 [facility] Comment on above: Performed By: #### L 503.0105, L506.1000, L501.9520, L506.0400, L100.0100, L503.6550, L503.6150, L500.4100, L500.4050 ####[facility] [address] [place], [place], [phone] GFR/1.73 sq M.predicted among non-blacks MDRD (S/P/Bld) [Vol rate/Area] 94 mL/min/{1.73_m2} Normal >60 [facility] Comment on above: Result Comment: Non- GFR Calc Performed By: #### L 503.0105, L506.1000, L501.9520, L506.0400, L100.0100, L503.6550, L503.6150, L500.4100, L500.4050 ####[facility] [address] [place], [address] Globulin (S) [Mass/Vol] 3.7 g/dL Normal 2.2-4.[address] [facility] Comment on above: Performed By: #### L 503.0105, L506.1000, L501.9520, L506.0400, L100.0100, L503.6550, L503.6150, L500.4100, L500.4050 ####[facility] [address] [place], [address] Glucose [Mass/Vol] 88 mg/dL Normal 74-106 [facility] Comment on above: Performed By: #### L 503.0105, L506.1000, L501.9520, L506.0400, L100.0100, L503.6550, L503.6150, L500.4100, L500.4050 ####[facility] [address] [place], [address] Potassium [Moles/Vol] 3.6 mmol/L Normal 3.5-5.1 [facility] Comment on above: Performed By: #### L 503.0105, L506.1000, L501.9520, L506.0400, L100.0100, L503.6550, L503.6150, L500.4100, L500.4050 ####[facility] [address] [place], [address] Sodium [Moles/Vol] 140 mmol/L Normal 136-145 [facility] Comment on above: Performed By: #### L 503.0105, L506.1000, L501.9520, L506.0400, L100.0100, L503.6550, L503.6150, L500.4100, L500.4050 ####[facility] [address] [place], [place], [phone] T PROT 7.5 g/dL Normal 6.4-8.2 [facility] Comment on above: Performed By: #### L 503.0105, L506.1000, L501.9520, L506.0400, L100.0100, L503.6550, L503.6150, L500.4100, L500.4050 ####[facility] [address] [place], [place], [id number] Urea nitrogen [Mass/Vol] 15 mg/dL Normal 7-18 [facility] Comment on above: Performed By: #### L 503.0105, L506.1000, L501.9520, L506.0400, L100.0100, L503.6550, L503.6150, L500.4100, L500.4050 ####[facility] [address] [place], [place], [phone] Ferritinon 02-21-2024 Ferritin [Mass/Vol] 25 ng/mL Normal 8-252 [facility] Comment on above: Performed By: #### L 503.0105, L506.1000, L501.9520, L506.0400, L100.0100, L503.6550, L503.6150, L500.4100, L500.4050 ####[facility] [address] [place], [address] Ironon 02-21-2024 Iron [Mass/Vol] 56 ug/dL Normal 50-170 [facility] Comment on above: Performed By: #### L 503.0105, L506.1000, L501.9520, L506.0400, L100.0100, L503.6550, L503.6150, L500.4100, L500.4050 ####[facility] [address] [place], [address] Lipid Profileon 02-21-2024 Cholesterol [Mass/Vol] 249 mg/dL High 200 [facility] Comment on above: Result Comment: <200 mg/dL Desirable 200-240 mg/dL Borderline >240 mg/dL High Risk Performed By: #### L 503.0105, L506.1000, L501.9520, L506.0400, L100.0100, L503.6550, L503.6150, L500.4100, L500.4050 ####[facility] [address] [place], [address] Cholesterol in HDL [Mass/Vol] 63 mg/dL Normal [facility] Comment on above: Result Comment: The drugs N-Acetylcysteine and Metamizole may falsely depress this assay. Reference Range HDL <40 mg/dL Low HDL Cholesterol HDL >or= 60 mg/dL High HDL Cholesterol Performed By: #### L 503.0105, L506.1000, L501.9520, L506.0400, L100.0100, L503.6550, L503.6150, L500.4100, L500.4050 ####[facility] [address] [place], [address] Cholesterol in LDL [Mass/Vol] 170 mg/dL High 0-130 [facility] Comment on above: Performed By: #### L 503.0105, L506.1000, L501.9520, L506.0400, L100.0100, L503.6550, L503.6150, L500.4100, L500.4050 ####[facility] [address] [place], [address] Cholesterol in VLDL [Mass/Vol] 16 mg/dL Normal 5-40 [facility] Comment on above: Performed By: #### L 503.0105, L506.1000, L501.9520, L506.0400, L100.0100, L503.6550, L503.6150, L500.4100, L500.4050 ####[facility] [address] [place], [place], [id number] Triglyceride [Mass/Vol] 80 mg/dL Normal [facility] Comment on above: Result Comment: The drugs N-Acetylcysteine and Metamizole may falsely depress this assay. Serum Triglycerides Reference Interval Normal <150 mg/dL Borderline high 150 - 199 mg/dL High 200 - 499 mg/dL Very High > or = 500 mg/dL Performed By: #### L 503.0105, L506.1000, L501.9520, L506.0400, L100.0100, L503.6550, L503.6150, L500.4100, L500.4050 ####[facility] [address], [address] T4 Free Directon 02-21-2024 T4 FREE DIRECT 1.10 ng/dL Normal 0.76-1.46 [facility] Comment on above: Performed By: #### L 503.0105, L506.1000, L501.9520, L506.0400, L100.0100, L503.6550, L503.6150, L500.4100, L500.4050 ####[facility] [address] [place], [place], [phone] Thyroid Stim Hormone (TSH)on 02-21-2024 TSH 1.220 uIU/mL Normal 0.358-3.740 [facility] Comment on above: Performed By: #### L 503.0105, L506.1000, L501.9520, L506.0400, L100.0100, L503.6550, L503.6150, L500.4100, L500.4050 ####[facility] [address] [place], [address] Vitamin B12on 02-21-2024 Cobalamin (Vitamin B12) [Mass/Vol] 1082 pg/mL High 211-911 [facility] Comment on above: Performed By: #### L 503.0105, L506.1000, L501.9520, L506.0400, L100.0100, L503.6550, L503.6150, L500.4100, L500.4050 ####[facility] [address] [place], [address] CBC W/Diff, Automatedon 01-22 Absolute Lymph 4.35 X10 3/uL Normal 0.83-4.51 [facility] Comment on above: Performed By: #### L 100.0100, L500.4050 ####[facility] [address] [place], [address] Absolute Neut 6.9 X10 3/uL Normal 2.0-7.7 [facility] Comment on above: Performed By: #### L 100.0100, L500.4050 ####[facility] [address] [place], [address] Basophils/100 WBC (Bld) 0.2 % Normal 0-1 [facility] Comment on above: Performed By: #### L 100.0100, L500.4050 ####[facility] [address] [place], [address] Eosinophils/100 WBC (Bld) 3.6 % Normal 0-5 [facility] Comment on above: Performed By: #### L 100.0100, L500.4050 ####[facility] [address] [place], [address] Erythrocyte distribution width (RBC) [Ratio] 12.8 % Normal 11.6-14.6 [facility] Comment on above: Performed By: #### L 100.0100, L500.4050 ####[facility] [address] [place], [address] Hematocrit (Bld) [Volume fraction] 35.0 % Low 37-47 [facility] Comment on above: Performed By: #### L 100.0100, L500.4050 ####[facility] [address] [place], [address] Hemoglobin (Bld) [Mass/Vol] 11.9 g/dL Low 12.0-15.0 [facility] Comment on above: Performed By: #### L 100.0100, L500.4050 ####[facility] [address] [place], [address] IG% 0.300 Normal 0.0-0.9 [facility] Comment on above: Result Comment: IG% - Immature Granulocytes (promyelocytes, myelocytes and metamyelocytes) > 1% indicates that a LEFT SHIFT is Present. Performed By: #### L 100.0100, L500.4050 ####[facility] [address] [place], [address] Lymphocytes/100 WBC (Bld) 34.0 % Normal 19-41 [facility] Comment on above: Performed By: #### L 100.0100, L500.4050 ####[facility] [address] [place], [address] MCH (RBC) [Entitic mass] 32.9 pg High 27.0-32.0 [facility] Comment on above: Performed By: #### L 100.0100, L500.4050 ####[facility] [address] [place], [address] MCHC (RBC) [Mass/Vol] 34.0 g/dL Normal 32-36 [facility] Comment on above: Performed By: #### L 100.0100, L500.4050 ####[facility] [address] [place], [address] MCV (RBC) [Entitic vol] 96.7 fL Normal 81-99 [facility] Comment on above: Performed By: #### L 100.0100, L500.4050 ####[facility] [address] [place], [address] Monocytes/100 WBC (Bld) 7.7 % Normal 0-10 [facility] Comment on above: Performed By: #### L 100.0100, L500.4050 ####[facility] [address] [place], [address] Neutrophils/100 WBC (Bld) 54.2 % Normal 47-70 [facility] Comment on above: Performed By: #### L 100.0100, L500.4050 ####[facility] [address] [place], [address] Nucleated RBC (Bld) [#/Vol] 0 10*3/uL Normal 0-5 [facility] Comment on above: Performed By: #### L 100.0100, L500.4050 ####[facility] [address] [place], [address] Platelet mean volume (Bld) [Entitic vol] 9.7 fL Normal 6.2-12.0 [facility] Comment on above: Performed By: #### L 100.0100, L500.4050 ####[facility] [address] [place], [address] Platelets (Bld) [#/Vol] 271 10*3/uL Normal 150-450 [facility] Comment on above: Performed By: #### L 100.0100, L500.4050 ####[facility] [address] [place], [address] RBC (Bld) [#/Vol] 3.62 10*6/uL Low 4.2-5.4 [facility] Comment on above: Performed By: #### L 100.0100, L500.4050 ####[facility] [address] [place], [address] RDW SD 44.5 fl High 35.1-43.9 [facility] Comment on above: Performed By: #### L 100.0100, L500.4050 ####[facility] [address] [place], [address] WBC (Bld) [#/Vol] 12.8 10*3/uL High 4.4-11.0 [facility] Comment on above: Performed By: #### L 100.0100, L500.4050 ####[facility] [address] [place], [address] Comprehensive Metabolic Prof ilon 02-15-2024 Albumin [Mass/Vol] 3.5 g/dL Normal 3.2-5.0 [facility] Comment on above: Performed By: #### L 100.0100, L500.4050 ####[facility] [address] [place], [address] Albumin/Globulin [Mass ratio] 1.0 {ratio} Normal 0.9-2.4 [facility] Comment on above: Performed By: #### L 100.0100, L500.4050 ####[facility] [address] [place], [address] ALK P 80 U/L Normal 45-117 [facility] Comment on above: Performed By: #### L 100.0100, L500.4050 ####[facility] [address] [place], [address] ALT [Catalytic activity/Vol] 27 U/L Normal 13-56 [facility] Comment on above: Performed By: #### L 100.0100, L500.4050 ####[facility] [address] [place], [address] AST [Catalytic activity/Vol] 20 U/L Normal 15-37 [facility] Comment on above: Performed By: #### L 100.0100, L500.4050 ####[facility] [address] [place], [address] Bilirubin [Mass/Vol] 0.20 mg/dL Normal 0.20-1.00 [facility] Comment on above: Result Comment: For patients on eltrombopag therapy, use of Dimension Mcclellan TBIL is not recommended. Performed By: #### L 100.0100, L500.4050 ####[facility] [address] [place], [address] BUN/CRE 22.6 RATIO High 10-20 [facility] Comment on above: Performed By: #### L 100.0100, L500.4050 ####[facility] [address] [place], [address] CA,Total 9.5 mg/dL Normal 8.5-10.1 [facility] Comment on above: Performed By: #### L 100.0100, L500.4050 ####[facility] [address] [place], [address] Chloride [Moles/Vol] 109 mmol/L High 98-107 [facility] Comment on above: Performed By: #### L 100.0100, L500.4050 ####[facility] [address] [place], [address] CO2 [Moles/Vol] 26.0 mmol/L Normal 21.0-32.0 [facility] Comment on above: Performed By: #### L 100.0100, L500.4050 ####[facility] [address] [place], [address] Creatinine [Mass/Vol] 0.80 mg/dL Normal 0.55-1.02 [facility] Comment on above: Result Comment: The validity of the calculated GFR GFRAA in patients over 70 years has not been determined. Clinical correlation is essential. Performed By: #### L 100.0100, L500.4050 ####[facility] [address] [place], [address] EST GFR - AA 95 mL/min Normal >60 [facility] Comment on above: Result Comment: Afri can [place] GFR Calc Performed By: #### L 100.0100, L500.4050 ####[facility] [address] [place], [address] GAP 4 Low 5-15 [facility] Comment on above: Performed By: #### L 100.0100, L500.4050 ####[facility] [address] [place], [address] GFR/1.73 sq M.predicted among non-blacks MDRD (S/P/Bld) [Vol rate/Area] 79 mL/min/{1.73_m2} Normal >60 [facility] Comment on above: Result Comment: Non- GFR Calc Performed By: #### L 100.0100, L500.4050 ####[facility] [address] [place], [address] Globulin (S) [Mass/Vol] 3.6 g/dL Normal 2.2-4.[address] [facility] Comment on above: Performed By: #### L 100.0100, L500.4050 ####[facility] [address] [place], [address] Glucose [Mass/Vol] 90 mg/dL Normal 74-106 [facility] Comment on above: Performed By: #### L 100.0100, L500.4050 ####[facility] [address] [place], [address] Potassium [Moles/Vol] 4.1 mmol/L Normal 3.5-5.1 [facility] Comment on above: Performed By: #### L 100.0100, L500.4050 ####[facility] [address] [place], [address] Sodium [Moles/Vol] 140 mmol/L Normal 136-145 [facility] Comment on above: Performed By: #### L 100.0100, L500.4050 ####[facility] [address] [place], [address] T PROT 7.1 g/dL Normal 6.4-8.2 [facility] Comment on above: Performed By: #### L 100.0100, L500.4050 ####[facility] [address] [place], [address] Urea nitrogen [Mass/Vol] 18 mg/dL Normal 7-18 [facility] Comment on above: Performed By: #### L 100.0100, L500.4050 ####[facility] [address] [place], [address] CBC W/Diff, Automatedon 07-0 8-2024 Absolute Lymph 4.19 X10 3/uL Normal 0.83-4.51 [facility] Comment on above: Performed By: #### L 500.4050, L100.0100 #### [facility] [address] [place], [address] Absolute Neut 4.8 X10 3/uL Normal 2.0-7.7 [facility] Comment on above: Performed By: #### L 500.4050, L100.0100 #### [facility] [address] [place], [address] Basophils/100 WBC (Bld) 0.3 % Normal 0-1 [facility] Comment on above: Performed By: #### L 500.4050, L100.0100 #### [facility] [address] [place], [address] Eosinophils/100 WBC (Bld) 7.9 % High 0-5 [facility] Comment on above: Performed By: #### L 500.4050, L100.0100 #### [facility] [address] [place], [address] Erythrocyte distribution width (RBC) [Ratio] 11.9 % Normal 11.6-14.6 [facility] Comment on above: Performed By: #### L 500.4050, L100.0100 #### [facility] [address] [place], [address] Hematocrit (Bld) [Volume fraction] 35.0 % Low 37-47 [facility] Comment on above: Performed By: #### L 500.4050, L100.0100 #### [facility] [address] [place], [address] Hemoglobin (Bld) [Mass/Vol] 12.0 g/dL Normal 12.0-15.0 [facility] Comment on above: Performed By: #### L 500.4050, L100.0100 #### [facility] [address] [place], [address] IG% 0.300 Normal 0.0-0.9 [facility] Comment on above: Result Comment: IG% - Immature Granulocytes (promyelocytes, myelocytes and metamyelocytes) > 1% indicates that a LEFT SHIFT is Present. Performed By: #### L 500.4050, L100.0100 #### [facility] [address] [place], [address] Lymphocytes/100 WBC (Bld) 39.3 % Normal 19-41 [facility] Comment on above: Performed By: #### L 500.4050, L100.0100 #### [facility] [address] [place], [address] MCH (RBC) [Entitic mass] 32.8 pg High 27.0-32.0 [facility] Comment on above: Performed By: #### L 500.4050, L100.0100 #### [facility] [address] [place], [address] MCHC (RBC) [Mass/Vol] 34.3 g/dL Normal 32-36 [facility] Comment on above: Performed By: #### L 500.4050, L100.0100 #### [facility] [address] [place], [address] MCV (RBC) [Entitic vol] 95.6 fL Normal 81-[address] [facility] Comment on above: Performed By: #### L 500.4050, L100.0100 #### [facility] [address] [place], [address] Monocytes/100 WBC (Bld) 7.6 % Normal 0-[address] [facility] Comment on above: Performed By: #### L 500.4050, L100.0100 #### [facility] [address] [place], [address] Neutrophils/100 WBC (Bld) 44.6 % Low 47-70 [facility] Comment on above: Performed By: #### L 500.4050, L100.0100 #### [facility] [address] [place], [address] Nucleated RBC (Bld) [#/Vol] 0 10*3/uL Normal 0-5 [facility] Comment on above: Performed By: #### L 500.4050, L100.0100 #### [facility] [address] [place], [address] Platelet mean volume (Bld) [Entitic vol] 10.0 fL Normal 6.2-12.0 [facility] Comment on above: Performed By: #### L 500.4050, L100.0100 #### [facility] [address] [place], [address] Platelets (Bld) [#/Vol] 261 10*3/uL Normal 150-450 [facility] Comment on above: Performed By: #### L 500.4050, L100.0100 #### [facility] [address] [place], [address] RBC (Bld) [#/Vol] 3.66 10*6/uL Low 4.2-5.4 [facility] Comment on above: Performed By: #### L 500.4050, L100.0100 #### [facility] [address] [place], [address] RDW SD 40.6 fl Normal 35.1-43.9 [facility] Comment on above: Performed By: #### L 500.4050, L100.0100 #### [facility] [address] [place], [address] WBC (Bld) [#/Vol] 10.7 10*3/uL Normal 4.4-11.0 [facility] Comment on above: Performed By: #### L 500.4050, L100.0100 #### [facility] [address] [place], [address] Comprehensive Metabolic Prof [facility] 11-28-2023 Albumin [Mass/Vol] 3.5 g/dL Normal 3.2-5.0 [facility] Comment on above: Performed By: #### L 500.4050, L100.0100 #### [facility] [address] [place], [address] Albumin/Globulin [Mass ratio] 1.1 {ratio} Normal 0.9-2.4 [facility] Comment on above: Performed By: #### L 500.4050, L100.0100 #### [facility] [address] [place], [id number] ALK P 77 U/L Normal 45-117 [facility] Comment on above: Performed By: #### L 500.4050, L100.0100 #### [facility] [address] [place], [address] ALT [Catalytic activity/Vol] 33 U/L Normal 13-56 [facility] Comment on above: Performed By: #### L [id number], L100.0100 #### [facility] [address] [place], [address] AST [Catalytic activity/Vol] 23 U/L Normal 15-37 [facility] Comment on above: Performed By: #### L [id number], L100.0100 #### [facility] [address] [place], [address] Bilirubin [Mass/Vol] 0.20 mg/dL Normal 0.20-1.00 [facility] Comment on above: Result Comment: For patients on eltrombopag therapy, use of Dimension Mcclellan TBIL is not recommended. Performed By: #### L [id number], L100.0100 #### [facility] [address] [place], [address] BUN/CRE 28.3 RATIO High 10-20 [facility] Comment on above: Performed By: #### L [id number], L100.0100 #### [facility] [address] [place], [address] CA,Total 9.4 mg/dL Normal 8.5-10.1 [facility] Comment on above: Performed By: #### L [id number], L100.0100 #### [facility] [address] [place], [address] Chloride [Moles/Vol] 109 mmol/L High 98-107 [facility] Comment on above: Performed By: #### L [id number], L100.0100 #### [facility] [address] [place], [address] CO2 [Moles/Vol] 25.0 mmol/L Normal 21.0-32.0 [facility] Comment on above: Performed By: #### L [id number], L100.0100 #### [facility] [address] [place], [address] Creatinine [Mass/Vol] 0.74 mg/dL Normal 0.55-1.02 [facility] Comment on above: Result Comment: The validity of the calculated GFR GFRAA in patients over 70 years has not been determined. Clinical correlation is essential. Performed By: #### L [id number], L100.0100 #### [facility] [address] [place], [address] EST GFR - AA 104 mL/min Normal >60 [facility] Comment on above: Result Comment: Afri can [place] GFR Calc Performed By: #### L [id number], L100.0100 #### [facility] [address] [place], [address] GAP 8 Normal 5-15 [facility] Comment on above: Performed By: #### L [id number], L100.0100 #### [facility] [address] [place], [address] GFR/1.73 sq M.predicted among non-blacks MDRD (S/P/Bld) [Vol rate/Area] 86 mL/min/{1.73_m2} Normal >60 [facility] Comment on above: Result Comment: Non- GFR Calc Performed By: #### L [id number], L100.0100 #### [facility] [address] [place], [address] Globulin (S) [Mass/Vol] 3.3 g/dL Normal 2.2-4.[address] [facility] Comment on above: Performed By: #### L [id number], L100.0100 #### [facility] [address] [place], [address] Glucose [Mass/Vol] 80 mg/dL Normal 74-106 [facility] Comment on above: Performed By: #### L [id number], L100.0100 #### [facility] [address] [place], [address] Potassium [Moles/Vol] 4.0 mmol/L Normal 3.5-5.1 [facility] Comment on above: Performed By: #### L [id number], L100.0100 #### [facility] [address] [place], [address] Sodium [Moles/Vol] 142 mmol/L Normal 136-145 [facility] Comment on above: Performed By: #### L [id number], L100.0100 #### [facility] [address] [place], [address] T PROT 6.8 g/dL Normal 6.4-8.2 [facility] Comment on above: Performed By: #### L [id number], L100.0100 #### [facility] [address] [place], [address] Urea nitrogen [Mass/Vol] 21 mg/dL High 7-18 [facility] Comment on above: Performed By: #### L [id number], L100.0100 #### [facility] [address] [place], [address] Absolute lymphocyte countOrd ered By: Shyla Danielson on 09-13-2023 Lymphocytes Auto (Unsp spec) [#/Vol] 4.01 10*3/uL 0.83-4.51 [facility] Automated lymphocyte count a s percentage of total leukocytesOrdered By: Shyla Danielson on 09-13-2023 Lymphocytes/100 WBC Auto (Unsp spec) 39.9 % 19-41 [facility] Basophil percentageOrdered B y: Shyla Danielson on 09-13-2023 Basophils/100 WBC (Bld) 0.3 % 0-1 [facility] Bilirubin [Mass/Vol] 0.30 mg/dL 0.20-1.00 [facility] Comment on above: For patients on eltr ombopag therapy, use of Dimension Mcclellan TBIL is not recommended. Chloride [Moles/Vol] 110 mmol/L 98-107 [facility] Eosinophils/100 WBC (Bld) 2.2 % 0-5 [facility] Glucose [Mass/Vol] 89 mg/dL 74-106 [facility] Hemoglobin (Bld) [Mass/Vol] 12.0 g/dL 12.0-15.0 [facility] Monocytes/100 WBC (Bld) 9.5 % 0-10 [facility] Neutrophils (Bld) [#/Vol] 4.8 10*3/uL 2.0-7.7 [facility] Neutrophils/100 WBC (Bld) 47.8 % 47-70 [facility] Potassium [Moles/Vol] 4.3 mmol/L 3.5-5.1 [facility] Protein [Mass/Vol] 7.1 g/dL 6.4-8.2 [facility] Sodium [Moles/Vol] 140 mmol/L 136-145 [facility] WBC (Bld) [#/Vol] 10.1 10*3/uL 4.4-11.0 [facility] Determination of erythrocyte mean corpuscular volume (MCV)Ordered By: Shyla Danielson on 09-13-2023 MCV (RBC) [Entitic vol] 98.9 fL 81-99 [facility] Erythrocyte distribution wid th ratioOrdered By: Shyla Danielson on 09-13-2023 Erythrocyte distribution width (RBC) [Ratio] 12.8 % 11.6-14.6 [facility] Erythrocyte distribution wid th standard deviationOrdered By: Shyla Danielson on 09-13-2023 Erythrocyte distribution width (RBC) [Entitic vol] 45.6 fL 35.1-43.9 [facility] Hematocrit Auto (Bld) [Volum e fraction]Ordered By: Shyla Danielson on 09-13-2023 Hematocrit (Bld) [Volume fraction] 35.5 % 37-47 [facility] Immature granulocytes/100 WB C Auto (Bld)Ordered By: Shyla Danielson on 09-13-2023 Immature granulocytes/100 WBC (Bld) 0.300 % 0.0-0.9 [facility] Comment on above: IG% - Immature Granu locytes (promyelocytes, myelocytes and metamyelocytes) > 1% indicates that a LEFT SHIFT is Present. Laboratory - Chemistry and C hemistry - challengeOrdered By: Shyla Danielson on 09-13-2023 Albumin/Globulin [Mass ratio] 1.1 {ratio} 0.9-2.4 [facility] ALP [Catalytic activity/Vol] 63 U/L 45-117 [facility] ALT [Catalytic activity/Vol] 68 U/L 13-56 [facility] CO2 [Moles/Vol] 26.0 mmol/L 21.0-32.0 [facility] Globulin (S) [Mass/Vol] 3.4 g/dL 2.2-4.2 [facility] Urea nitrogen/Creatinine [Mass ratio] 27.8 mg/mg 10-20 [facility] - Hematology and Cell countsOrdered By: Shyla Danielson on 09-13-2023 MCH (RBC) [Entitic mass] 33.4 pg 27.0-32.0 [facility] MCHC (RBC) [Mass/Vol] 33.8 g/dL 32-36 [facility] Nucleated RBC/100 WBC (Bld) [Ratio] 0 % 0-5 [facility] Platelet mean volume (Bld) [Entitic vol] 9.7 fL 6.2-12.0 [facility] Platelets (Bld) [#/Vol] 268 10*3/uL 150-450 [facility] No Panel InformationOrdered By: Shyla Danielson on 09-13-2023 Estimated GFR (MDRD) Amer 96 mL/min >60 [facility] Comment on above: GFR Calc Estimated GFR (MDRD) Non-Af Amer 80 mL/min >60 [facility] Comment on above: Non- GFR Calc RBC Auto (Bld) [#/Vol]Ordere d By: Shyla Danielson on 09-13-2023 RBC (Bld) [#/Vol] 3.59 10*6/uL 4.2-5.4 [facility] Serum or plasma calcium idania urement (mass/volume)Ordered By: Shyla Danielson on 09-13-2023 Calcium [Mass/Vol] 9.2 mg/dL 8.5-10.1 [facility] Serum or plasma creatinine m easurement (mass/volume)Ordered By: Shyla Danielson on 09-13-2023 Creatinine [Mass/Vol] 0.79 mg/dL 0.55-1.02 [facility] Comment on above: The validity of the calculated GFR & GFRAA in patients over 70 years has not been determined. Clinical correlation is essential. Serum or plasma urea nitroge n measurement (mass/volume)Ordered By: Shyla Danielson on 09-13-2023 Urea nitrogen [Mass/Vol] 22 mg/dL 7-18 [facility] Thin prep Papanicolaou smear with manual screeningOrdered By: Shyla Danielson on 09-13-2023 Thin prep Papanicolaou smear with manual screening 3.7 g/dL 3.2-5.0 [facility] Thin prep Papanicolaou smear with manual screening 26 U/L 15-37 [facility] Thin prep Papanicolaou smear with manual screening 4 5-15 [facility] Absolute lymphocyte countOrd ered By: hSyla Danielson on 07-19-2023 Lymphocytes Auto (Unsp spec) [#/Vol] 3.96 10*3/uL 0.83-4.51 [facility] Automated lymphocyte count a s percentage of total leukocytesOrdered By: Shyla Danielson on 07-19-2023 Lymphocytes/100 WBC Auto (Unsp spec) 41.8 % 19-41 [facility] Basophil percentageOrdered B y: Shyla Danielson on 07-19-2023 Basophils/100 WBC (Bld) 0.2 % 0-1 [facility] Bilirubin [Mass/Vol] 0.20 mg/dL 0.20-1.00 [facility] Comment on above: For patients on eltr ombopag therapy, use of Dimension Mcclellan TBIL is not recommended. Chloride [Moles/Vol] 107 mmol/L 98-107 [facility] Eosinophils/100 WBC (Bld) 2.7 % 0-5 [facility] Glucose [Mass/Vol] 82 mg/dL 74-106 [facility] Hemoglobin (Bld) [Mass/Vol] 11.7 g/dL 12.0-15.0 [facility] Monocytes/100 WBC (Bld) 9.2 % 0-10 [facility] Neutrophils (Bld) [#/Vol] 4.3 10*3/uL 2.0-7.7 [facility] Neutrophils/100 WBC (Bld) 45.8 % 47-70 [facility] Potassium [Moles/Vol] 3.8 mmol/L 3.5-5.1 [facility] Protein [Mass/Vol] 7.1 g/dL 6.4-8.2 [facility] Sodium [Moles/Vol] 141 mmol/L 136-145 [facility] WBC (Bld) [#/Vol] 9.5 10*3/uL 4.4-11.0 [facility] Determination of erythrocyte mean corpuscular volume (MCV)Ordered By: Shyla Danielson on 07-19-2023 MCV (RBC) [Entitic vol] 98.0 fL 81-99 [facility] Erythrocyte distribution wid th ratioOrdered By: Shyla Danielson on 07-19-2023 Erythrocyte distribution width (RBC) [Ratio] 13.5 % 11.6-14.6 [facility] Erythrocyte distribution wid th standard deviationOrdered By: Shyla Danielson on 07-19-2023 Erythrocyte distribution width (RBC) [Entitic vol] 46.8 fL 35.1-43.9 [facility] Hematocrit Auto (Bld) [Volum e fraction]Ordered By: Shyla Danielson on 07-19-2023 Hematocrit (Bld) [Volume fraction] 34.0 % 37-47 [facility] Immature granulocytes/100 WB C Auto (Bld)Ordered By: Shyla Danielson on 07-19-2023 Immature granulocytes/100 WBC (Bld) 0.300 % 0.0-0.9 [place] [facility] Comment on above: IG% - Immature Granu locytes (promyelocytes, myelocytes and metamyelocytes) > 1% indicates that a LEFT SHIFT is Present. Laboratory - Chemistry and C hemistry - challengeOrdered By: Shyla Danielson on 07-19-2023 Albumin/Globulin [Mass ratio] 1.1 {ratio} 0.9-2.4 [facility] ALP [Catalytic activity/Vol] 72 U/L 45-117 [facility] ALT [Catalytic activity/Vol] 33 U/L 13-56 [facility] CO2 [Moles/Vol] 29.0 mmol/L 21.0-32.0 [facility] Globulin (S) [Mass/Vol] 3.4 g/dL 2.2-4.[address] [facility] Urea nitrogen/Creatinine [Mass ratio] 26.4 mg/mg 10-20 [facility] - Hematology and Cell countsOrdered By: Shyla Danielson on 07-19-2023 MCH (RBC) [Entitic mass] 33.7 pg 27.0-32.0 [facility] MCHC (RBC) [Mass/Vol] 34.4 g/dL 32-36 [facility] Nucleated RBC/100 WBC (Bld) [Ratio] 0 % 0-5 [facility] Platelet mean volume (Bld) [Entitic vol] 9.7 fL 6.2-12.0 [facility] Platelets (Bld) [#/Vol] 300 10*3/uL 150-450 [facility] No Panel InformationOrdered By: Shyla Danielson on 07-19-2023 Estimated GFR (MDRD) Amer 107 mL/min >60 [facility] Comment on above: GFR Calc Estimated GFR (MDRD) Non-Af Amer 89 mL/min >60 [facility] Comment on above: Non- GFR Calc RBC Auto (Bld) [#/Vol]Ordere d By: Shyla Danielson on 07-19-2023 RBC (Bld) [#/Vol] 3.47 10*6/uL 4.2-5.4 [facility] Serum or plasma calcium idania urement (mass/volume)Ordered By: Shyla Danielson on 07-19-2023 Calcium [Mass/Vol] 9.6 mg/dL 8.5-10.1 [facility] Serum or plasma creatinine m easurement (mass/volume)Ordered By: Shyla Danielson on 07-19-2023 Creatinine [Mass/Vol] 0.72 mg/dL 0.55-1.02 [facility] Comment on above: The validity of the calculated GFR & GFRAA in patients over 70 years has not been determined. Clinical correlation is essential. Serum or plasma urea nitroge n measurement (mass/volume)Ordered By: Shyla Danielson on 07-19-2023 Urea nitrogen [Mass/Vol] 19 mg/dL 7-18 [facility] Thin prep Papanicolaou smear with manual screeningOrdered By: Shylabethany Danielson on 07-19-2023 Thin prep Papanicolaou smear with manual screening 3.7 g/dL 3.2-5.0 [facility] Thin prep Papanicolaou smear with manual screening 17 U/L 15-37 [facility] Thin prep Papanicolaou smear with manual screening 5 5-15 [facility] CNOVon 06-12-2023 CNOV Office Visit (UCTR) KARL CLAROS ([id number]) 1965 F Date Time Provider Department 06/12/23 8:15 AM MINNIE BARKER [facility] During your visit today, we recorded the following information about you: Temperature Pulse Respiration Blood pressure 100.6 degrees 91/minute 20/minute 110/70 Weight 69.9 kg Minnie Barker APRN.SUPERVISOR [employer] 06/12/2023 9:22 AM Addendum This note was created using NoteWriter. Subjective Karl Mullen Juan is a 58 year old female. 58 year old female with no PMH presents today for worsening cough. She was seen in [facility] on 06/08/2023 for cough x1 day and [...] history is provided by the patient. No ethylbenzene converter operator was used. Cough This is a new [...] disintegrating (ZOFRAN ODT) 4 mg disintegrating tablet Brompheniramine-Pseu doeph-DM (BROMFED DM) 2-30-10 mg/5 mL syrup Take 5 mL by mouth four times a day as needed. ondansetron orally disintegrating (ZOFRAN ODT) 4 mg disintegrating tablet Take 1 tablet by mouth every 8 hours as needed for nausea/vomiting. albuterol HFA (PROAIR HFA) 90 mcg/actuation inhaler Inhale 2 Puffs as instructed every 4 hours as needed. (Patient not taking: Reported on 06/12/2023) HYDROcodone-acetamin ophen (NORCO) 5-325 mg per tablet EVERY 4 [...] for color change, pallor, rash and wound. Allergic/Immunologic : Negative for environmental allergies, food allergies and immunocompromised state. Neurological: Negative for headaches. Hematological: Negative for adenopathy. Does not bruise/bleed easily. Objective BP 110/70 Pulse 91 Temp (!) 38.1 ?C (100.6 ?F) Resp 20 Wt 69.9 kg (154 lb) LMP 06/27/2018 SpO2 100% BMI 30.08 kg/m? Physical Exam Constitutional: General: She is (more content not included)... Normal [facility] COVID AND INFLUENZA A/B AND RSV NAAT, ROUTINEon 06-12-2023 SARS-CoV-2 (COVID-19) RNA RAMEZ+probe Ql (Unsp spec) COVID 19 RESULT: Not detected The method used is RT-PCR or an equivalent NAAT method. Reference Range (the expected result in uninfected individuals): Not detected INFLUENZA A PCR: Detected INFLUENZA B PCR: Not detected RSV PCR: Not detected Abnormal [facility] Comment on above: Performed By: #### C LRS #### [facility] CLIA [id number] [address] [place] [address] [place] CNOVon 06-08-2023 CNOV Office Visit (UCWSTR) KARL CLAROS ([id number]) 1965 F Date Time Provider Department 06/08/23 11:15 AM MINNIE BARKER [facility] During your visit today, we recorded the following information about you: Temperature Pulse Respiration Blood pressure 97.9 degrees 90/minute 16/minute 136/68 Weight 72.6 kg Minnie Barker APRN.SUPERVISOR [employer] 06/08/2023 12:12 PM Signed This note was created using doUdealter. Subjective Karl Claros is a 58 year old female. 58 [...] needed. (Patient not taking: Reported on 06/08/2023) HYDROcodone-acetamin ophen (NORCO) 5-325 mg per tablet EVERY 4 [...] membrane is not injected, scarred, perforated, erythematous, retrac (more content not included)... Normal [facility] Absolute lymphocyte countOrd ered By: Shyla Danielson on 05-24-2023 Lymphocytes Auto (Unsp spec) [#/Vol] 4.57 10*3/uL 0.83-4.51 [facility] Basophil percentageOrdered B y: Shyla Danielson on 05-24-2023 Basophils/100 WBC (Bld) 0.3 % 0-1 [facility] Bilirubin [Mass/Vol] 0.20 mg/dL 0.20-1.00 [facility] Comment on above: For patients on eltr ombopag therapy, use of Dimension Mcclellan TBIL is not recommended. Chloride [Moles/Vol] 111 mmol/L 98-107 [facility] Eosinophils/100 WBC (Bld) 2.4 % 0-5 [facility] Glucose [Mass/Vol] 80 mg/dL 74-106 [facility] Neutrophils (Bld) [#/Vol] 5.2 10*3/uL 2.0-7.7 [facility] Neutrophils/100 WBC (Bld) 47.1 % 47-70 [facility] Potassium [Moles/Vol] 4.4 mmol/L 3.5-5.1 [facility] Protein [Mass/Vol] 7.0 g/dL 6.4-8.2 [facility] Sodium [Moles/Vol] 140 mmol/L 136-145 [facility] WBC (Bld) [#/Vol] 11.1 10*3/uL 4.4-11.0 [facility] Blood erythrocytes count (nu mber/volume)Ordered By: Shyla Danielson on 05-24-2023 RBC (Bld) [#/Vol] 3.61 10*6/uL 4.2-5.4 [facility] Blood hemoglobin measurement (mass/volume)Ordered By: Shyla Danielson on 05-24-2023 Hemoglobin (Bld) [Mass/Vol] 11.6 g/dL 12.0-15.0 [facility] Blood lymphocytes/100 leukoc ytesOrdered By: Shyla Danielson on 05-24-2023 Lymphocytes/100 WBC (Bld) 41.2 % 19-41 [facility] Blood monocytes/100 leukocyt esOrdered By: Shyla Danielson on 05-24-2023 Monocytes/100 WBC (Bld) 8.5 % 0-10 [facility] Blood platelet mean volumeOr dered By: Shyla Danielson on 05-24-2023 Platelet mean volume (Bld) [Entitic vol] 9.9 fL 6.2-12.0 [facility] Determination of erythrocyte mean corpuscular volume (MCV)Ordered By: Shyla Danielson on 05-24-2023 MCV (RBC) [Entitic vol] 96.7 fL 81-99 [facility] Hematocrit Auto (Bld) [Volum e fraction]Ordered By: Shyla Danielson on 05-24-2023 Hematocrit (Bld) [Volume fraction] 34.9 % 37-47 [facility] - Chemistry and C hemistry - challengeOrdered By: Shyla Danielson on 05-24-2023 ALP [Catalytic activity/Vol] 62 U/L 45-117 [facility] ALT [Catalytic activity/Vol] 33 U/L 13-56 [facility] CO2 [Moles/Vol] 26.0 mmol/L 21.0-32.0 [facility] Globulin (S) [Mass/Vol] 3.5 g/dL 2.2-4.2 [facility] Urea nitrogen/Creatinine [Mass ratio] 27.9 mg/mg 10-20 [facility] - Hematology and Cell countsOrdered By: Shyla Danielson on 05-24-2023 Erythrocyte distribution width (RBC) [Entitic vol] 42.9 fL 35.1-43.9 [facility] Erythrocyte distribution width (RBC) [Ratio] 12.5 % 11.6-14.6 [facility] Immature granulocytes/100 WBC (Bld) 0.500 % 0.0-0.9 [facility] Comment on above: IG% - Immature Granu locytes (promyelocytes, myelocytes and metamyelocytes) > 1% indicates that a LEFT SHIFT is Present. MCH (RBC) [Entitic mass] 32.1 pg 27.0-32.0 [facility] Nucleated RBC/100 WBC (Bld) [Ratio] 0 % 0-5 [facility] MCHC Auto (RBC) [Mass/Vol]Or dered By: Shyla Danielson on 05-24-2023 MCHC (RBC) [Mass/Vol] 33.2 g/dL 32-36 [facility] No Panel InformationOrdered By: Shyla Danielson on 05-24-2023 Estimated GFR (MDRD) Amer 70 mL/min >60 [facility] Comment on above: GFR Calc Estimated GFR (MDRD) Non-Af Amer 58 mL/min >60 [facility] Comment on above: Non- GFR Calc Platelets bldOrdered By: Deja Danielson on 05-24-2023 Platelets (Bld) [#/Vol] 263 10*3/uL 150-450 [facility] Serum or plasma albumin idania urement (mass/volume)Ordered By: Shyla Danielson on 05-24-2023 Albumin [Mass/Vol] 3.5 g/dL 3.2-5.0 [facility] Serum or plasma albumin/glob ulin mass ratioOrdered By: Shyla Danielson on 05-24-2023 Albumin/Globulin [Mass ratio] 1.0 {ratio} 0.9-2.4 [facility] Serum or plasma calcium idania urement (mass/volume)Ordered By: Shyla Danielson on 05-24-2023 Calcium [Mass/Vol] 9.2 mg/dL 8.5-10.1 [facility] Serum or plasma creatinine m easurement (mass/volume)Ordered By: Shyla Danielson on 05-24-2023 Creatinine [Mass/Vol] 1.04 mg/dL 0.55-1.02 [facility] Comment on above: The validity of the calculated GFR & GFRAA in patients over 70 years has not been determined. Clinical correlation is essential. Serum or plasma urea nitroge n measurement (mass/volume)Ordered By: Shyla Danielson on 05-24-2023 Urea nitrogen [Mass/Vol] 29 mg/dL 7-18 [facility] Thin prep Papanicolaou smear with manual screeningOrdered By: Shyla Danielson on 05-24-2023 Thin prep Papanicolaou smear with manual screening 17 U/L 15-37 [facility] Thin prep Papanicolaou smear with manual screening 3 5-15 [facility] Absolute lymphocyte countOrd ered By: Shyla Danielson on 03-30-2023 Lymphocytes Auto (Unsp spec) [#/Vol] 5.00 10*3/uL 0.83-4.51 [facility] Basophil percentageOrdered B y: Shyla Danielson on 03-30-2023 Basophils/100 WBC (Bld) 0.2 % 0-[address] [facility] Bilirubin [Mass/Vol] 0.20 mg/dL 0.20-1.00 [facility] Comment on above: For patients on eltr ombopag therapy, use of Dimension Mcclellan TBIL is not recommended. Chloride [Moles/Vol] 108 mmol/L 98-107 [facility] Eosinophils/100 WBC (Bld) 2.3 % 0-5 [facility] Glucose [Mass/Vol] 86 mg/dL 74-106 [facility] Neutrophils (Bld) [#/Vol] 4.8 10*3/uL 2.0-7.7 [facility] Neutrophils/100 WBC (Bld) 43.6 % 47-70 [facility] Potassium [Moles/Vol] 4.1 mmol/L 3.5-5.1 [facility] Protein [Mass/Vol] 7.2 g/dL 6.4-8.2 [facility] Sodium [Moles/Vol] 139 mmol/L 136-145 [facility] WBC (Bld) [#/Vol] 11.0 10*3/uL 4.4-11.0 [facility] Blood erythrocytes count (nu mber/volume)Ordered By: Shyla Danielson on 03-30-2023 RBC (Bld) [#/Vol] 3.85 10*6/uL 4.2-5.4 [facility] Blood hemoglobin measurement (mass/volume)Ordered By: Shyla Danielson on 03-30-2023 Hemoglobin (Bld) [Mass/Vol] 12.5 g/dL 12.0-15.0 [facility] Blood lymphocytes/100 leukoc ytesOrdered By: Shlya Danielson on 03-30-2023 Lymphocytes/100 WBC (Bld) 45.5 % 19-41 [facility] Blood monocytes/100 leukocyt esOrdered By: Shyla Danielson on 03-30-2023 Monocytes/100 WBC (Bld) 8.1 % 0-10 [facility] Blood platelet mean volumeOr dered By: Shyla Danielson on 03-30-2023 Platelet mean volume (Bld) [Entitic vol] 10.1 fL 6.2-12.0 [facility] Determination of erythrocyte mean corpuscular volume (MCV)Ordered By: Shyla Danielson on 03-30-2023 MCV (RBC) [Entitic vol] 95.6 fL 81-[address] [facility] Hematocrit Auto (Bld) [Volum e fraction]Ordered By: Shyla Danielson on 03-30-2023 Hematocrit (Bld) [Volume fraction] 36.8 % 37-47 [facility] - Chemistry and C hemistry - challengeOrdered By: Shyla Danielson on 03-30-2023 ALP [Catalytic activity/Vol] 64 U/L 45-117 [facility] ALT [Catalytic activity/Vol] 28 U/L 13-56 [facility] CO2 [Moles/Vol] 27.0 mmol/L 21.0-32.0 [facility] Globulin (S) [Mass/Vol] 3.4 g/dL 2.2-4.2 [facility] Urea nitrogen/Creatinine [Mass ratio] 22.3 mg/mg 10-20 [facility] - Hematology and Cell countsOrdered By: Shyla Danielson on 03-30-2023 Erythrocyte distribution width (RBC) [Entitic vol] 42.2 fL 35.1-43.9 [facility] Erythrocyte distribution width (RBC) [Ratio] 12.3 % 11.6-14.6 [facility] Immature granulocytes/100 WBC (Bld) 0.300 % 0.0-0.9 [facility] Comment on above: IG% - Immature Granu locytes (promyelocytes, myelocytes and metamyelocytes) > 1% indicates that a LEFT SHIFT is Present. MCH (RBC) [Entitic mass] 32.5 pg 27.0-32.0 [facility] Nucleated RBC/100 WBC (Bld) [Ratio] 0 % 0-5 [facility] MCHC Auto (RBC) [Mass/Vol]Or dered By: Shyla Danielson on 03-30-2023 MCHC (RBC) [Mass/Vol] 34.0 g/dL 32-36 [facility] No Panel InformationOrdered By: Shyla Danielson on 03-30-2023 Estimated GFR (MDRD) Amer 108 mL/min >60 [facility] Comment on above: GFR Calc Estimated GFR (MDRD) Non-Af Amer 89 mL/min >60 [facility] Comment on above: Non- GFR Calc Platelets bldOrdered By: Deja Danielson on 03-30-2023 Platelets (Bld) [#/Vol] 278 10*3/uL 150-450 [facility] Serum or plasma albumin idania urement (mass/volume)Ordered By: Shyla Danielson on 03-30-2023 Albumin [Mass/Vol] 3.8 g/dL 3.2-5.0 [facility] Serum or plasma albumin/glob ulin mass ratioOrdered By: Shyla Danielson on 03-30-2023 Albumin/Globulin [Mass ratio] 1.1 {ratio} 0.9-2.4 [facility] Serum or plasma calcium idania urement (mass/volume)Ordered By: Shyla Danielson on 03-30-2023 Calcium [Mass/Vol] 9.0 mg/dL 8.5-10.1 [facility] Serum or plasma creatinine m easurement (mass/volume)Ordered By: Shyla Danielson on 03-30-2023 Creatinine [Mass/Vol] 0.72 mg/dL 0.55-1.02 [facility] Comment on above: The validity of the calculated GFR & GFRAA in patients over 70 years has not been determined. Clinical correlation is essential. Serum or plasma urea nitroge n measurement (mass/volume)Ordered By: Shyla Danielson on 03-30-2023 Urea nitrogen [Mass/Vol] 16 mg/dL 7-18 [facility] Thin prep Papanicolaou smear with manual screeningOrdered By: Shyla Danielson on 03-30-2023 Thin prep Papanicolaou smear with manual screening 19 U/L 15-37 [facility] Thin prep Papanicolaou smear with manual screening 4 5-15 [facility] Absolute lymphocyte countOrd ered By: Shyla Danielson on 01-17-2023 Lymphocytes Auto (Unsp spec) [#/Vol] 5.03 10*3/uL 0.83-4.51 [facility] Basophil percentageOrdered B y: Shyla Danielson on 01-17-2023 Basophils/100 WBC (Bld) 0.3 % 0-[address] [facility] Bilirubin [Mass/Vol] 0.40 mg/dL 0.20-1.00 [facility] Comment on above: For patients on eltr ombopag therapy, use of Dimension Mcclellan TBIL is not recommended. Chloride [Moles/Vol] 110 mmol/L 98-107 [facility] Eosinophils/100 WBC (Bld) 3.7 % 0-5 [facility] Glucose [Mass/Vol] 84 mg/dL 74-106 [facility] Neutrophils (Bld) [#/Vol] 5.2 10*3/uL 2.0-7.7 [facility] Neutrophils/100 WBC (Bld) 45.0 % 47-70 [facility] Potassium [Moles/Vol] 3.7 mmol/L 3.5-5.1 [facility] Protein [Mass/Vol] 7.3 g/dL 6.4-8.2 [facility] Sodium [Moles/Vol] 140 mmol/L 136-145 [facility] WBC (Bld) [#/Vol] 11.6 10*3/uL 4.4-11.0 [facility] Blood erythrocytes count (nu mber/volume)Ordered By: Shyla Danielson on 01-17-2023 RBC (Bld) [#/Vol] 4.09 10*6/uL 4.2-5.4 [facility] Blood hemoglobin measurement (mass/volume)Ordered By: Shyla Danielson on 01-17-2023 Hemoglobin (Bld) [Mass/Vol] 13.7 g/dL 12.0-15.0 [facility] Blood lymphocytes/100 leukoc ytesOrdered By: Shyla Danielson on 01-17-2023 Lymphocytes/100 WBC (Bld) 43.4 % 19-41 [facility] Blood manual differential co mment interpretation (narrative result)Ordered By: Shyla Danielson on 01-17-2023 Manual differential comment Lauro (Bld) [Interp] SCANNED [facility] Blood monocytes/100 leukocyt esOrdered By: Shyla Danielson on 01-17-2023 Monocytes/100 WBC (Bld) 7.3 % 0-10 [facility] Blood platelet mean volumeOr dered By: Shyla Danielson on 01-17-2023 Platelet mean volume (Bld) [Entitic vol] 10.0 fL 6.2-12.0 [facility] Determination of erythrocyte mean corpuscular volume (MCV)Ordered By: Shyla Danielson on 01-17-2023 MCV (RBC) [Entitic vol] 93.4 fL 81-99 [facility] Erythrocyte sedimentation ra teOrdered By: Shyla Danielson on 01-17-2023 ESR (Bld) [Velocity] 4 mm/h 0-30 [facility] Hematocrit Auto (Bld) [Volum e fraction]Ordered By: Shyla Danielson on 01-17-2023 Hematocrit (Bld) [Volume fraction] 38.2 % 37-47 [facility] - Chemistry and C hemistry - challengeOrdered By: Shyla Danielson on 01-17-2023 ALP [Catalytic activity/Vol] 67 U/L 45-117 [facility] ALT [Catalytic activity/Vol] 26 U/L 13-56 [facility] CO2 [Moles/Vol] 25.0 mmol/L 21.0-32.0 [facility] Globulin (S) [Mass/Vol] 3.5 g/dL 2.2-4.2 [facility] Urea nitrogen/Creatinine [Mass ratio] 24.2 mg/mg 10-20 [facility] - Hematology and Cell countsOrdered By: Shyla Danielson on 01-17-2023 Erythrocyte distribution width (RBC) [Entitic vol] 39.1 fL 35.1-43.9 [facility] Erythrocyte distribution width (RBC) [Ratio] 11.4 % 11.6-14.6 [facility] Immature granulocytes/100 WBC (Bld) 0.300 % 0.0-0.9 [facility] Comment on above: IG% - Immature Granu locytes (promyelocytes, myelocytes and metamyelocytes) > 1% indicates that a LEFT SHIFT is Present. MCH (RBC) [Entitic mass] 33.5 pg 27.0-32.0 [facility] Nucleated RBC/100 WBC (Bld) [Ratio] 0 % 0-5 [facility] MCHC Auto (RBC) [Mass/Vol]Or dered By: Shyla Danielson on 01-17-2023 MCHC (RBC) [Mass/Vol] 35.9 g/dL 32-36 [facility] No Panel InformationOrdered By: Shyla Danielson on 01-17-2023 Anti-Nuclear Antibody Screen Negative Negative [facility] Comment on above: Performed at: [address] [id number] Director: Jass Portillo PhD, Phone: [phone] Estimated GFR (MDRD) Amer 104 mL/min >60 [facility] Comment on above: GFR Calc Estimated GFR (MDRD) Non-Af Amer 86 mL/min >60 [facility] Comment on above: Non- GFR Calc Hepatitis B Surface Antigen Non-Reactive Nonreactive [facility] Hepatitis C Antibody Non-Reactive Nonreactive [facility] Comment on above: Non Reactive: < 0.8 Equivocal: >/= 0.8 to < 1.0 Reactive: >/= 1.0The [facility] recommends that a reactive/equivocal HCV antibody result be followed up by the HCV Nucleic Acid Amplificationtest (216126) Platelets bldOrdered By: Deja Danielson on 01-17-2023 Platelets (Bld) [#/Vol] 282 10*3/uL 150-450 [facility] Serum cyclic citrullinated p eptide IgG antibody assay (units/volume)Ordered By: Shyla Danielson on 01-17-2023 Cyclic citrullinated peptide IgG Qn 5 units 0-19 [facility] Comment on above: Negative <20 Weak po sitive 20 - 39 Moderate positive 40 - 59 Strong positive >59Performed at: [facility] Director: Jass Portillo PhD, Phone: [phone] Serum hepatitis B virus surf solange antibody IgG detectionOrdered By: Shyla Danielson on 01-17-2023 HBV surface IgG Ql (S) Non-Reactive [facility] Comment on above: Non Reactive: Incons istent with immunity less than <10 mIU/mL Reactive: Consistent with immunity greater than or equal to 10 mIU/mL Serum or plasma C reactive p rotein measurement (mass/volume)Ordered By: Shyla Danielson on 01-17-2023 CRP [Mass/Vol] mg/L 0.0-3.0 [facility] Comment on above: C-Reactive Protein ( CRP) provides useful information for thediagnosis, therapy and monitoring of inflammatory processesand associated diseases. For the evaluation of Relative Riskfor Cardiovascular Disease, a High Sensitivity CRP (HSCRP)should be ordered. Serum or plasma albumin idania urement (mass/volume)Ordered By: Shyla Danielson on 01-17-2023 Albumin [Mass/Vol] 3.8 g/dL 3.2-5.0 [facility] Serum or plasma albumin/glob ulin mass ratioOrdered By: Shyla Danielson on 01-17-2023 Albumin/Globulin [Mass ratio] 1.1 {ratio} 0.9-2.4 [facility] Serum or plasma calcium idania urement (mass/volume)Ordered By: Shyla Danielson on 01-17-2023 Calcium [Mass/Vol] 9.2 mg/dL 8.5-10.1 [facility] Serum or plasma creatinine m easurement (mass/volume)Ordered By: Shyla Danielson on 01-17-2023 Creatinine [Mass/Vol] 0.74 mg/dL 0.55-1.02 [facility] Comment on above: The validity of the calculated GFR & GFRAA in patients over 70 years has not been determined. Clinical correlation is essential. Serum or plasma urea nitroge n measurement (mass/volume)Ordered By: Shyla Danielson on 01-17-2023 Urea nitrogen [Mass/Vol] 18 mg/dL 7-18 [facility] Serum rheumatoid factor dete ctionOrdered By: Shyla Danielson on 01-17-2023 Rheumatoid factor Ql (S) < 10.0 IU/mL <15 [facility] Thin prep Papanicolaou smear with manual screeningOrdered By: Shyla Danielson on 01-17-2023 Thin prep Papanicolaou smear with manual screening 19 U/L 15-37 [facility] Thin prep Papanicolaou smear with manual screening 5 5-15 [facility] CNOVon 07-10-2022 CNOV Office Visit (UCWSTR) KARL CLAROS ([id number]) 1965 F Date Time Provider Department 07/10/22 8:45 AM ELY BURRELL SURAJ During your visit today, we recorded the following information about you: Temperature Pulse Respiration Blood pressure 98.6 degrees 96/minute 16/minute 138/82 Weight 68 kg Ely Burrell APRN.ELIANE 07/10/2022 8:50 AM Signed Rest, increase water intake Motrin or Tylenol as needed for fever or pain. Salt water gargles, chloraseptic spray or lozenges as needed for sore throat. Warm beverages, honey. Nasal saline spray as needed Cool mist humidifier at night Tylenol (generic acetaminophen) 500 mg-2 tabs every 8 hrs. as needed for fever and aches Ibuprofen 600 mg (3-200mg tablets) every 6 hours -Mucinex (generic is fine) Guaifenesin 1200 mg twice daily to help with cough and to thin out mucus Albuterol inhaler 2 puffs every 4-6 hours as needed * Prednisone 40 mg (2 tablets) per day for 5 days, take in morning or early in day * Do not NSAIDs during this 5 day course (ibuprofen, naproxen, Motrin, Aleve, Advil) Tylenol only during prednisone use * Follow up with primary care provider if no improvement with treatment * Seek medical care immediately, call 911, go to ER if you have chest pain, difficulty breathing, shortness of breath, inability to swallow. Ely Burrell APRN.ELIANE 07/10/2022 9:01 AM Signed Subjective The history is provided by the patient. No ethylbenzene converter operator was used. RAJESH Karl Claros is a 57 year old female who [...] have confirmed and edited as necessary, the [facility] Review of Systems Constitutional: Negative for [...] detail warranting prompt ER evaluation. Ely Burrell APRN.SUPERVISOR BEET END Referring Provider: SELF [[id number]] Allergies As of Date: 07/10/2022 Noted Allergy Reaction NO KNOWN ALLERGIES 08/21/2017 14 - Other: See Comments Date Reviewed: 07/10/2022 Reviewed by: Karen Gibbs LPN - Fully Assessed Reason for Visit: Cough [28] Cmt: X3 days Primary Visit Diagnosis:URI with cough and congestion [J06.9] Other Visit Diagnosis:Wheezing [R06.2] Order(s):albut (more content not included)... Normal [facility] Vital Signs Date Time Vital Sign Value Performing Clinician Facility 05-04-2024 09:35-0500 Body temperature 97.2 [degF] Leslie Ricardogar [employer]EWATER [employer] OPERATOR[employer] Work Phone: [facility] 05-04-2024 09:35-0500 Diastolic blood pressure 80 mm[Hg] Leslie Sukumar [employer] OPERATOR[employer] Work Phone: [facility] 05-04-2024 09:35-0500 Heart rate 85 /min Leslie Sukumar [employer] PL[employer] OPERATOR[employer]C Work Phone: [facility] 05-04-2024 09:35-0500 Respiratory rate 16 /min Leslie Sukumar [employer]ATER PL[employer] OPERATOR[employer]C Work Phone: [facility] 05-04-2024 09:35-0500 SaO2% (BldA) [Mass fraction] 100 % Leslie Sukumar [employer] OPERATOR[employer]C Work Phone: [facility] 05-04-2024 09:35-0500 Systolic blood pressure 128 mm[Hg] Leslie Sukumar [employer]EWATER PL[employer] OPERATOR-C Work Phone: [facility] 05-04-2024 07:21-0500 Body height 152.4 cm Leslie Sukumar [employer]ATER PL[employer] OPERATOR[employer]C Work Phone: [facility] 05-04-2024 07:21-0500 Body mass index (BMI) [Ratio] 31.8 kg/m2 Leslie Sukumar [employer] OPERATOR[employer] Work Phone: [facility] 05-04-2024 07:21-0500 Body weight 74 kg Leslie Sukumar [employer]ATER PL[employer] OPERATOR[employer]C Work Phone: [facility] 06-12-2023 08:23-0500 Body temperature 100.6 [degF] Minnie Barker SCADA ENGINEER.SUPERVISOR BEET END Work Phone: [facility] 06-12-2023 08:23-0500 Body weight 69.85 kg Minnie Barker SCADA ENGINEER.SUPERVISOR BEET END Work Phone: [facility] 06-12-2023 08:23-0500 Diastolic blood pressure 70 mm[Hg] Minnie Barker SCADA ENGINEER.SUPERVISOR BEET END Work Phone: [facility] 06-12-2023 08:23-0500 Heart rate 91 /min Minnie Barker SCADA ENGINEER.SUPERVISOR BEET END Work Phone: [facility] 06-12-2023 08:23-0500 Respiratory rate 20 /min Minnie Barker SCADA ENGINEER.SUPERVISOR BEET END Work Phone: [facility] 06-12-2023 08:23-0500 SaO2% (BldA) [Mass fraction] 100 % Minnie Barker SCADA ENGINEER.SUPERVISOR BEET END Work Phone: [facility] 06-12-2023 08:23-0500 Systolic blood pressure 110 mm[Hg] Minnie Barker SCADA ENGINEER.SUPERVISOR BEET END Work Phone: [facility] Encounters Encounter Date Encounter Type Care Provider Facility Start: 11-05-2024 End: 11-05-2024 ambulatory [facility] [employer]ATER [employer] OPERATOR-C Work Phone: [facility] Work Phone: Start: 11-05-2024 End: 11-05-[address] Shyla Danielson MD -Laboratory [place] Work Phone: Start: 11-05-2024 End: 11-05-2024 ambulatory [facility] Facility:[facility] Start: 08-14-2024 End: 08-14-2024 ambulatory [facility] [employer]ATER [employer] OPERATOR-C Work Phone: [facility] Work Phone: Start: 08-14-2024 End: 08-14-[address] Shyla Danielson MD -Laboratory, [place] Work Phone: Start: 08-14-2024 End: 08-14-2024 ambulatory [facility] Facility:[facility] Start: 07-13-2024 Encounter for other preprocedural examination [facility] Start: 07-10-2024 Encounter for other preprocedural examination Levon Bojorquez [facility] Start: 06-29-2024 End: 06-29-2024 Patient encounter procedure Leslie Patino [employer]EWATER PLANT OPERATOR-C -Laboratory, [place] Start: 06-29-2024 End: 06-29-2024 ambulatory [facility] Facility:[facility] Start: 06-26-2024 ambulatory [facility] Facility:[facility] Start: 06-21-2024 End: 06-21-[address] Levon Bojorquez MD -[facility] Work Phone: Start: 06-21-2024 End: 06-21-2024 ambulatory Levonwilliams Bojorquez Facility:[facility] Start: 06-14-2024 End: 06-14-2024 Patient encounter procedure Kate GIL -[facility] Work Phone: Start: 06-14-2024 End: 06-14-2024 ambulatory [place] Sukumar Facility:[facility] Start: 06-04-2024 End: 06-04-2024 Patient encounter procedure Kate GIL [facility] Work Phone: Start: 06-04-2024 End: 06-04-2024 ambulatory Kate Indra Facility:[facility] Start: 05-21-2024 End: 05-21-[address] Shyla Danielson MD -Laboratory, [place] Work Phone: Start: 05-21-2024 End: 05-21-2024 ambulatory Leslieshay Patino Facility:[facility] Start: 05-04-2024 ambulatory [facility] Facility:[facility] Start: 05-04-2024 Non-patient / Non-visit [facility]. Sunita PHILIPPE [facility] Start: 05-04-2024 End: 05-04-2024 Admission to same day surgery center Dr. Christian Florence MD -Endoscopy Work Phone: Start: 05-04-2024 End: 05-04-2024 ambulatory [facility] Facility:[facility] Start: 05-02-2024 Registered Recurring Kate GIL -Physical Therapy Work Phone: Start: 05-02-2024 End: 05-02-2024 ambulatory [facility] Facility:[facility] Start: 04-17-2024 End: 04-17-2024 ambulatory [facility] Facility:[facility] Start: 04-11-2024 End: 04-11-2024 ambulatory [facility] Facility:[facility] Start: 03-14-2024 Encounter for genera l adult medical examination with abnormal findings [facility] Start: 02-29-2024 ambulatory [facility] Facility:[facility] Start: 02-22-2024 End: 02-22-2024 ambulatory [facility] Facility:[facility] Start: 02-21-2024 End: 02-21-2024 ambulatory [facility] Facility:[facility] Start: 02-15-2024 End: 02-15-2024 ambulatory No Primary Care Physician Facility:[facility] Start: 11-28-2023 End: 11-28-2023 ambulatory No Primary Care Physician Facility:[facility] Start: 09-13-2023 End: 09-13-2023 ambulatory [facility] Work Phone: Start: 09-13-2023 End: 09-13-2023 Patient encounter procedure [facility] Work Phone: Start: 07-19-2023 End: 07-19-2023 ambulatory [facility] Work Phone: Start: 07-19-2023 End: 07-19-2023 Patient encounter procedure [facility] Work Phone: Start: 06-12-2023 End: 06-12-2023 ambulatory Facility:[facility] Start: 06-12-2023 End: 06-12-2023 Patient encounter procedure Minnie Barker APRN.SUPERVISOR BEET END Work Phone: [facility] Comment on above: URI, acute (Primary Dx); Acute cough Start: 06-08-2023 End: 06-08-2023 ambulatory Facility:[facility] Start: 05-24-2023 End: 05-24-2023 ambulatory [facility] Work Phone: Start: 05-24-2023 End: 05-24-2023 [facility] Start: 03-30-2023 End: 03-30-2023 ambulatory [facility] Work Phone: Start: 03-30-2023 End: 03-30-2023 Patient encounter procedure [facility] Work Phone: Start: 01-17-2023 End: 01-17-2023 ambulatory [facility] Work Phone: Start: 01-17-2023 End: 01-17-2023 Patient encounter procedure [facility] Work Phone: Start: 07-10-2022 End: 07-10-2022 ambulatory Facility:[facility] Procedures Date Procedure Procedure Detail Performing Clinician Start: 06-29-2024 Measurement of renal function Leslie Patino W[employer]EWATER PL[employer] OPERATOR-C Work Phone: Comment on above: GFR Calc Start: 06-21-2024 X-ray of knee, four or more views Leslie Patino WASTEWATER PLANT OPERATOR-C Work Phone: Start: 06-04-2024 MRI of cervical spine R richardson Patino W[employer]EWATER PLANT OPERATOR-C Work Phone: Start: 01-17-2023 Pelvis X-ray Start: 07-20-2011 Lipid 1996 panel - S alex or Plasma Minnie Barker SCADA ENGINEER.SUPERVISOR BEET END Work Phone: Plan of Treatment Date Care Activity Detail Author Start: 05-04-2024 Colonoscopy flx dx w/collj spec when pfrmd DIAGNOSTIC COLONOSCOPY [facility] Start: 05-04-2024 Patient discharge [facility] Start: 06-14-2023 Screening for malign ant neoplasm of cervix [facility] Start: 06-12-2023 End: 06-26-2023 COVID & INFLUENZA A/B & RSV NAAT, ROUTINE COVID & INFLUENZA A/B & RSV NAAT, ROUTINE Microbiology Routine URI, acute Acute cough Expected: 06/12/2023, Expires: 06/26/2023 [facility] Work Phone: Comment on above: Expected: 06/12/2023 , Expires: 06/26/2023 Start: 05-23-2023 Depression Assessment Depression Ass essment [facility] Start: 01-21-2023 Influenza vaccination Influenza Vacc ine (#1) [facility] Start: 10-09-2020 Covid-19 Vaccine (3 - Moderna risk series) Covid-19 Vaccine (3 - Moderna risk series) [facility] Start: 07-20-2016 Lipid panel Lipid Screening [facility] Start: 07-20-2014 Diabetes Screening Diabetes Screenin g [facility] Start: 2011 Screening for malign ant neoplasm of colon [facility] Start: 2006 Screening for malign ant neoplasm of breast Mammogram Screening [facility] Start: 1985 Shingrix Vaccine (1 of 2) Shingrix Vaccine (1 of 2) [facility] Start: 1985 Urine microalbumin profile DTaP,Tdap,Td Vaccine (1 - Tdap) [facility] Start: 1984 Hepatitis C screening Hepatitis C Sc maryana [facility] Start: 1984 HIV screening HIV Screening [facility] Start: 1972 Pneumococcal vaccination Pneumococcal Vaccine (1 of 2 - PCV) [facility] Start: 1966 Hepatitis B Vaccine (1 of 3 - 3-dose series) Hepatitis B Vaccine (1 of 3 - 3-dose series) [facility] Patient referral [facility] Work Phone: End: 07-11-2024 Radiologic exam chest 2 views XR CHEST 2V FRONTAL/LAT Radiology STAT URI, acute Acute cough 1 Occurrences starting 06/12/2023 until 07/11/2024 [facility] Work Phone: Comment on above: 1 Occurrences starti ng 06/12/2023 until 07/11/2024 Payers Date Payer Category Payer Unknown [id number] 2023 Self-pay [id number] 2022 Unknown [id number] 2022 Unknown [employer] C[employer] PPO OOS [id number] 2022-Present [phone] [address] [place] [address] PPO [id number] Unknown MED [place] TPA [id number] Unknown [id number] Unknown [id number] Unknown [id number] Unknown [id number] [id number] Unknown [id number] [id number] Unknown [id number] [id number] Unknown [id number] [id number] Unknown [id number] [id number] Unknown [id number] [id number] Unknown [id number] [id number] Unknown [id number] [id number] Unknown [id number] [id number] Unknown [id number] 2.16.840.1.923904.3.579.2.462 Unknown [id number] 2.16.840.1.891785.3.579.2.462 Unknown [id number] 2.16.840.1.156213.3.579.2.462 Unknown [id number] 2.16.840.1.991829.3.579.2.462 Unknown [id number] [id number] Unknown [id number] Unknown [id number] Unknown [id number] Social History Date Type Detail Facility Start: 06-29-2018 End: 06-29-2018 Tobacco smoking status [facility] Unknown if ever smoked [facility] Start: 06-29-2018 Non-smoker [facility] Start: 1965 Sex Assigned At Female [facility] Start: 06-08-2023 Tobacco smoking status PRIS Ex-smoker [facility] Work Phone: History of tobacco use Current smoker [facility] Work Phone: Start: 06-08-2023 Tobacco use and exposure Smokeless tobacco non-user [facility] Work Phone: Start: 06-12-2023 Alcohol intake Current non-dr 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 of alcohol (finding) [facility] Start: 04-30-2020 End: 06-12-2023 History of Social function [facility] Start: 04-30-2020 End: 06-12-2023 Tobacco use panel [facility] National Score (1-100), lower number is lower risk Not on file [facility] Start: 06-14-2018 Alcohol Comment rare -- 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 [facility] Start: 1965 Sex Assigned At Not on file [facility] Start: 07-02-2024 Tobacco smoking status PRIS Smokes tobacco daily (finding) [facility] Start: 08-20-2024 Sex Female (finding) [facility] NEGATED: Highlighted row Not [facility] Goals Date Patient Goal Desired Activity /State Mental Status Date Assessment Result Facility 05-04-2024 Cognitive function Level Of Consciousness Drowsy [facility] Work Phone: 05-04-2024 Cognitive function Voice/Name [facility] Work Phone: Evaluation note 06-14-2024 Note Date & Type Note Facility 06-14-2024 Evaluation note Diagnosis Onset Date Resolution Cervical myelopathy acute 2024 9:02am Cervical radiculopathy acute [facility] 2024 9:02am Cervical myelopathy acute 2024 8:13am Cervical radiculopathy acute [facility] 2024 8:13am Left knee pain acute June 212024 8:13am [facility] Work Phone: Evaluation note 05-04-2024 Note Date & Type Note Facility 05-04-2024 Evaluation note Diagnosis Onset Date Resolution Positive colorectal cancer screening using Cologuard test acute May 04, 2 024 6:54am Cervical myelopathy acute 2024 9:02am Cervical radiculopathy acute [facility]2024 9:02am Cervical myelopathy acute 2024 8:13am Cervical radiculopathy acute [facility] 2024 8:13am Left knee pain acute June 212024 8:13am [facility] Work Phone: Clinical Note 05-04-2024 Note Date & Type Note Facility 05-04-2024 Note [facility] Medical Records Department [address] [place] [address] History Physical Exam 05/04/24 0850 MR#: [id number] Acct: [id number] Name: KARL CLAROS Rep #: [id number] : 1965 58 From: Christian Florence MD PCP: ELISE Phillips Status:REG [facility] Location: AC AC15-1 HPI - General General Date of Admission: 05/04/24 Date of Service: 05/04/24 Chief Complaint: Positive Cologuard test HPI Narrative KARL CLAROS, is a 58 F who presents for colonoscopy. She was recently found to have positive Cologuard test. She denies any GI issues or complaints otherwise. [facility] Medical History Wears glasses Wears partial dentures History of renal disease Low iron Heartburn Smoker CPAP (continuous positive airway pressure) dependence Leg cramps Sleep apnea Acid reflux Anxiety Depression Arthritis, rheumatoid Home Medications ???Medication ???Instructions ???Recorded ???Last Taken ???Type ibuprofen 400 mg tablet 400 mg PO PRN PRN Pain 06/29/18 Unknown History iron, carbonyl 45 mg tablet 45 mg PO DAILYCM 06/29/18 Unknown History (Feosol) cholecalciferol (vitamin D3) 25 25 mcg PO QDAY 04/11/24 Unknown History mcg (1,000 unit) capsule dextroamphetamine-amphetamine 30 30 mg PO BID 04/11/24 Unknown History mg tablet (Adderall) duloxetine 60 mg capsule,delayed 60 mg PO QDAY 04/11/24 Unknown History release (Cymbalta) folic acid 1 mg tablet 1 mg PO QDAY 04/11/24 Unknown History hydroxyzine HCl 25 mg tablet 25 mg PO TID PRN anxiety 04/11/24 Unknown History methotrexate sodium 2.5 mg tablet 15 mg PO QWEEK 04/11/24 Unknown History tramadol 50 mg tablet 50 mg PO TID 04/11/24 Unknown History Allergy/AdvReac Type Severity Reaction Status Date / Time No Known Allergies Allergy Verified 05/04/24 07:19 Family History Father Heart disease Cancer Surgical History S/P carpal tunnel release Delivery by section Social History Smoking Status: Light Smoker (<10/day) alcohol intake: never additional social history: ibuprofen daily Vital Signs Vital Signs Vital Signs: 05/04/24 07:21 05/04/24 07:21 05/04/24 07:30 Temperature 98 F 98 F Temperature Source Temporal Pulse Rate 96 96 Respiratory Rate 16 16 Respiratory Pattern Normal Blood Pressure 137/80 H 137/80 H Blood Pressure Mean 99 Blood Pressure Source Monitor Blood Pressure Position Semi-Fowlers Blood Pressure Location Right Arm Pulse Ox 100 100 Oxygen Delivery Method Room Air Weight Weight: 163 lb 2.273 oz Body Mass Index (BMI) 31.8 Assessment Plan Assessment/Plan (1) Positive colorectal cancer screening using Cologuard test: PLAN: Plan The patient is a 58-year-old female in need of a colonoscopy to evaluate positive Cologuard test which was recently performed. We discussed the details of the planned procedure and she wishes to proceed. This will be performed momentarily. 05/04/24 0853 Cosigner Signature (if applicable): CC: ELISE Patino; Dr. Christian Florence MD Signed ADDENDUM by Dr. Christian Florence MD on 05/04/24 at 0936 Addendum Patient is alert and oriented x 3. She is in no acute distress. Abdomen is soft, nontender nondistended. 05/04/24 0936 Cosigner Signature (if applicable): cc: ELISE Patino; Dr. Christian Florence MD * Signed [facility] Progress note 06-12-2023 Note Date & Type Note Facility 06-12-2023 Note HNO ID: [id number] Author: MINNIE BARKER APRN.SUPERVISOR BE[employer] Service: ? Author Type: Nurse Practitioner Type: Progress Notes Filed: 06/12/2023 09:22 Note Text: This note was created using NoteWriter. Subjective Karl Claros is a 58 year old female. 58 year old female with no PMH presents today for worsening cough. She was seen in [facility] on 06/08/2023 for cough x1 day [...] history is provided by the patient. No ethylbenzene converter operator was used. Cough This is a new [...] disintegrating (ZOFRAN ODT) 4 mg disintegrating tablet Blwftsqcajsjrwg-Bogayauji-TC (BROMFED DM) 2-30-10 mg/5 mL syrup Take [...] laceration, drainage, sw (more content not included)... [facility] History of Present illness Narrative 06-12-2023 Minnie Barker APRN.[facility] - 06/12/2023 8:40 AM EST Note Date & Type Note Facility 06-12-2023 History of Presen t illness Narrative This note was created using MicroQuantriter. Subjective Karl Claros is a 58 year old female. 58 year old female with no PMH presents today for worsening cough. She was seen in [facility] care on 06/08/2023 for cough x1 day [...] history is provided by the patient. No ethylbenzene converter operator was used. Cough This is a new [...] disintegrating (ZOFRAN ODT) 4 mg disintegrating tablet Jigenqcrnhybiwd-Yxyzyyfaw-BG (BROMFED DM) 2-30-10 mg/5 mL syrup Take [...] tenderness or frontal sinus tenderness. Mouth/Throat: Lips: [place]. Mouth: Mucous membranes are moist. No oral [...] ROUTINE - XR CHEST 2V FRONTAL/LAT - ONWPSEYLMXGSHTE-BVXXSGGVRJZMRXE-[id number] 2 MG-30 MG-10 MG/5 ML ORAL SYRUP [...] ROUTINE - XR CHEST 2V FRONTAL/LAT - DTJSUPKYKXYRKAQ-KETOHLSVFKOTKKY-[id number] 2 MG-30 MG-10 MG/5 ML ORAL SYRUP - Discussed viral etiology and rationale for treatment. - Symptomatic treatment with prn analgesia - Supportive care with fluids and rest - The patient may also use acetaminophen PRN. Candelaria Lynn TEACHING PROVIDER (Physician/PA/SCADA ENGINEER) NOTE OF PERSONAL INVOLVEMENT IN CARE: I have personally seen and examined the patient and performed the medical decision-making components. I have reviewed the Advanced Practice Registered Nurse (SCADA ENGINEER) Student's documentation and verified the findings in the note as written. Any additions or changes are noted in bold/italics. Signature: Minnie Barker Date: 06/12/2023 Time: 9:20 AM documented in this encounter [facility] Progress note 06-08-2023 Note Date & Type Note Facility 06-08-2023 Note HNO ID: [id number] Author: MINNIE BARKER APRN.ELIANE Service: ? Author Type: Nurse Practitioner Type: Progress Notes Filed: 06/08/2023 12:12 Note Text: This note was created using MicroQuantriter. Subjective Karl Claros is a 58 year old female. 58 [...] PE tube. No (more content not included)... [facility] Progress note 07-10-2022 Note Date & Type Note Facility 07-10-2022 Note HNO ID: [id number] Author: Ely Burrell APRN.SUPERVISOR [employer] Service: ? Author Type: Nurse Practitioner Type: Progress Notes Filed: 07/10/2022 9:01 AM Note Text: Subjective The history is provided by the patient. No ethylbenzene converter operator was used. HPI Karl Claros is a 57 year old female who [...] have confirmed and edited as necessary, the [facility] Review of Systems Constitutional: Negative for [...] detail warranting prompt ER evaluation. Ely Burrell APRN.[facility] Evaluation note Note Date & Type Note Facility Evaluation note No assessment information availa ble [facility] Work Phone: Evaluation note Note Date & Type Note Facility Evaluation note Diagnosis URI, acute- Primary Acute upper respiratory infections of unspecified site Acute cough documented in this encounter [facility] Reason for referral (narrative) Note Date & Type Note Facility Reason for referral (narrative) No reason for referral information available [facility] Work Phone: Advance Directives No Advanced Directives Records Found Advance Directive Response Recorded Date/ Time Advance Directives No April 30, 2017 12:59am Living Will No June 29 9:34am Power of Public Health Technician No June 29, 2018 9:34am Advance Directive Response Recorded Date/ Time Advance Directives No April 29, 2017 11:59pm Living Will No June 29 8:34am Power of Public Health Technician No June 29, 2018 8:34am Advance Directive Response Recorded Date/ Time Living Will No May 01 3:03pm Do you have a Healthcare Power of Public Health Technician? No May 01, 2024 3:03pm Advance Directives No February 22, 2024 8:17am Advance Directive Response Recorded Date/ Time Advance Directives No February 22, 2024 8:17am Chief Complaint and Reason for Visit Chief Complaint PAIN- COPY PCP Chief Complaint PAIN- COPY PCP PAIN- COPY PCP Chief Complaint PAIN- COPY PCP PAIN- COPY PCP Pain Chief Complaint Admit Date CERV MYELOPATHY/RX HERE May 02 10:18am COPY PCP May 21, 2024 7:43am CERVICAL MYELOPATHY June 04, 2024 7 :30am CERVICAL SPINE June 14, 2024 9 :02am CERVICAL SPINE June 21, 2024 8 :13am room 4 June 21, 2024 9 :12am PAIN- COPY PCP August 14, 2024 7:2 9am Reason for Visit Admit Date Positive colorectal cancer screening usi ng Cologuard test May 04, 2024 6:54am Cervical myelopathy June 14, 2024 9 :02am Cervical radiculopathy June 14 9:02am Cervical myelopathy June 21, 2024 8 :13am Cervical radiculopathy June 21 8:13am Left knee pain June 21, 2024 8 :13am Chief Complaint Admit Date CERVICAL SPINE June 14, 2024 9 :02am CERVICAL SPINE June 21, 2024 8 :13am room 4 June 21, 2024 9 :12am PAIN- COPY PCP August 14, 2024 7:2 9am Reason for Visit Admit Date Cervical myelopathy June 14, 2024 9 :02am Cervical radiculopathy June 14 9:02am Cervical myelopathy June 21, 2024 8 :13am Cervical radiculopathy June 21 8:13am Left knee pain June 21, 2024 8 :13am Chief Complaint Admit Date PAIN- COPY PCP August 14, 2024 7:2 9am PAIN- COPY PCP November 05, 2024 7:30 am Health Concerns Infection Onset Date Last Indicated Resolved Time COVID-19 Rule-Out 06/12/2023 06/12/2023 Summary Purpose Family History No Family History Records Found Relationship Condition Age at Onset Recorded Date/T mallory father Cardiac disease Unknown Malignant neoplasm Unknown Additional Source Comments Care Teams (unrecognized sec tion and content) Team Status: Active Member Role Status Dates Leslie Patino NP-C Primary Care Provider Active Team Status: Inactive Member Role Status Dates Leslie Patino NP-C Primary Care Provider Active Start: June 14, 2024 End: June 14, 2024 Leslie Patino NP-Anthony Referring Provider Active St art: June 14, 2024 End: June 14, 2024 JEFFERY Lynn Attending Provider Active Star t: June 14, 2024 End: June 14, 2024 Team Status: Inactive Member Role Status Dates Leslie Patino NP-C Primary Care Provider Active Start: June 21, 2024 End: June 21, 2024 Leslie Patino NP-Anthony Referring Provider Active St art: June 21, 2024 End: June 21, 2024 Dr. Levon Bojorquez MD Attending Provider Active Start: June 21, 2024 End: June 21, 2024 Team Status: Inactive Member Role Status Dates Leslie Patino NP-C Primary Care Provider Active Start: June 21, 2024 End: June 21, 2024 Dr. Chase Zavala MD Attending Provider Active S tart: June 21, 2024 End: June 21, 2024 Team Status: Inactive Member Role Status Dates Leslie Patino , WASTEWATER PLANT OPERATOR-C Primary Care Provider Active Start: June 29, 2024 End: June 29, 2024 Leslie Patino WASTEWATER PLANT OPERATOR-C Attending Provider Active St art: June 29, 2024 End: June 29, 2024 Team Status: Inactive Member Role Status Dates Leslie Patino WASTEWATER PLANT OPERATOR-C Primary Care Provider Active Start: August 14, 2024 End: August 14, 2024 Dr. Shyla Danielson MD Attending Provider Active Start: August 14, 2024 End: August 14, 2024 Dr. Shyla Danielson MD Referring Provider Active Start: August 14, 2024 End: August 14, 2024 Team Status: Active Member Role Status Dates Monica Deleon MIGUEL, WASTEWATER PLANT OPERATOR-C Family Provider Active No Primary Care Physician Primary Care Provider Active Team Status: Inactive Member Role Status Dates No Primary Care Physician Primary Care Provider Active Dr. Shyla Danielson MD Attending Provider, Referring Provider Active Team Status: Active Member Role Status Dates Leslie Patino , WASTEWATER PLANT OPERATOR-C Primary Care Provider Active Start: May 02, 2024 JEFFERY Lynn Attending Provider Active Star t: May 02, 2024 JEFFERY Lynn Referring Provider Active Star t: May 02, 2024 Team Status: Inactive Member Role Status Dates Leslie Patino WASTEWATER PLANT OPERATOR-C Primary Care Provider Active Start: May 04, 2024 End: May 04, 2024 Leslie Patino , WASTEWATER PLANT OPERATOR-C Referring Provider Active St art: May 04, 2024 End: May 04, 2024 Dr. Christian Florence MD Attending Provider Active Start: May 04, 2024 End: May 04, 2024 Team Status: Active Member Role Status Dates Leslie Patino WASTEWATER PLANT OPERATOR-C Primary Care Provider Active Start: May 04, 2024 Leslie Patino WASTEWATER PLANT OPERATOR-C Referring Provider Active St art: May 04, 2024 Dr. Christian Florence MD Attending Provider Active Start: May 04, 2024 Dr. Christian Florence MD Other Provider Active St art: May 04, 2024 Team Status: Inactive Member Role Status Dates Leslie Patino , WASTEWATER PLANT OPERATOR-C Primary Care Provider Active Start: May 21, 2024 End: May 21, 2024 Dr. Shyla Danielson MD Attending Provider Active Start: May 21, 2024 End: May 21, 2024 Dr. Shyla Danielson MD Referring Provider Active Start: May 21, 2024 End: May 21, 2024 Team Status: Inactive Member Role Status Dates ELISE Phillips Primary Care Provider Active Start: June 04, 2024 End: June 04, 2024 JEFFERY Lynn Attending Provider Active Star t: June 04, 2024 End: June 04, 2024 JEFFERY Lynn Referring Provider Active Star t: June 04, 2024 End: June 04, 2024 Team Status: Inactive Member Role Status Dates ELISE Phillips Primary Care Provider Active Start: November 05, 2024 End: November 05, 2024 Dr. Shyla Danielson MD Attending Provider Active Start: November 05, 2024 End: November 05, 2024 Dr. Shyla Danielson MD Referring Provider Active Start: November 05, 2024 End: November 05, 2024 Goals (unrecognized section and content) Goals may be documented in a n alternate sectionGoals may be documented in an alternate sectionGoals may be documented in an alternate sectionGoals may be documented in an alternate sectionGoals may be documented in an alternate sectionGoals may be documented in an alternate sectionGoals may be documented in an alternate section Source Comments (unrecognize d section and content) In the event this informatio n is protected by the Federal Confidentiality of Alcohol and Drug Abuse Patient Records regulations: The Federal rules restrict any use of the information to criminally investigate or prosecute any alcohol or drug abuse patient.[facility] Reason for Visit (unrecogniz ed section and content) Reason Comments Cough Retuning from INFORMATION SOURCE (unrecogn ized section and content) DATE CREATED AUTHOR 06/12/2023 [facility] DATE CREATED AUTHOR 'S ORGANIZ ATION 11/09/2024 [facility] FOR RECORDS PERTAINING TO PATIENTS WHO ARE [...] BE BASED ON THE PRIMARY CLINICAL RECORDS. [facility] [employer] [facility]. provides no warranty or guarantee of the accuracy or completeness of information in this document.
[2025-01-12 12:41] LABS: Hematocrit 34.6 % (37-47); Hemoglobin 12.2 g/dL (12.0-15.0); Immature Granulocytes Count 0.020 X10^3/uL (0.0-0.0); Mean Corp Hgb Conc 35.3 g/dL (32-36); Mean Corpuscular Volume 91.8 fL (81-99); Mean Platelet Vol. 8.8 fl (6.2-12.0); NRBC Flagged by Analyzer 0 % (0-5); Platelet Count 272 K/mm3 (150-450); RBC Distribution Width CV 11.9 % (11.6-14.6); RBC Distribution Width SD 39.6 fl (35.1-43.9); Red Blood Count 3.77 M/mm3 (4.2-5.4); White Blood Count 8.4 K/mm3 (4.4-11.0)
[2025-01-12 12:55] LABS: Mucous, Urine 0 SEEN /hpf (<or=2+); Squamous Epithelial Cells - UA 0 SEEN /hpf (5-10)
[2025-01-12 12:56] LABS: Color, Urine Yellow (Yellow); Glucose, Dipstick Normal (Normal); Ketone-Dipstick Negative (Negative); Leukocyte Esterase-Dipstick Negative /ul (Negative); Nitrite-Dipstick Negative (Negative); Occult Blood-Urine 150 /ul (Negative); Protein-Dipstick Negative (Negative); Specific Gravity, Urine 1.010 (1.002-1.030); Urine Bilirubin Dipstick Negative (Negative)
[2025-01-12 13:05] LABS: Red Blood Cells-Urine 5-10 SEEN /hpf (0-5)
[2025-01-12 13:19] LABS: Anion Gap 11 (5-15); BUN 14 mg/dL (4-19); BUN/Creat Ratio 20.7 RATIO (10-20); Calcium,Total 10.2 mg/dL (7.6-11.0); Carbon Dioxide 27.6 mmol/L (21.0-32.0); Chloride 103 mmol/L (98-108); Estimated Creatinine Clearance 85.06 ml/min (50-250); Glucose 86 mg/dL (70-99); Potassium 4.1 mmol/L (3.3-5.1)
[2025-01-12 13:58] VITALS: BP 135/83; PULSE 93; RESP 17; TEMP 36.5; O2SAT 96
[2025-01-12 15:00] VITALS: BP 151/88; PULSE 97; RESP 14; TEMP 36.7; O2SAT 97
[2025-01-12 15:22] VITALS: BP 151/88; PULSE 92; RESP 16; TEMP 36.6; O2SAT 93
== END 2025-01-12 15:44 | disposition home or self-care (01) ==
PROVIDERS: Emergency Provider Emergency Medicine; PCP Nurse Practitioner Family; Visit Provider Emergency Medicine
DX: K52.9 Noninfective gastroenteritis and colitis, unspecified (principal); M06.9 Rheumatoid arthritis, unspecified; M54.50 Low back pain, unspecified; D84.9 Immunodeficiency, unspecified; N20.0 Calculus of kidney; F32.A Depression, unspecified; F41.9 Anxiety disorder, unspecified; Z79.899 Other long term (current) drug therapy; Z87.891 Personal history of nicotine dependence
CPT/HCPCS: 74177; 80048; 81001; 85025; 96374; 99283; Q9967; A4216

== ENCOUNTER → 2025-02-12 | Outpatient (CLI) | payer BC, SELFPAY ==
[2025-02-18 19:08] LABS: Age Gdln ACOG Testing 30-65 (.); HPV APTIMA, High Risk Negative (Negative)
== END | disposition home or self-care (01) ==
LOC: LABSPEC 15:34
PROVIDERS: PCP Nurse Practitioner Family; Referring Provider Nurse Practitioner Family; Visit Provider Nurse Practitioner Family
DX: Z12.4 Encounter for screening for malignant neoplasm of cervix (principal)
CPT/HCPCS: 87624; 88175; G0145

== ENCOUNTER → 2025-02-20 | Outpatient (CLI) | payer BC, SELFPAY ==
[2025-02-20 12:47] LABS: Hematocrit 36.8 % (37-47); Hemoglobin 12.5 g/dL (12.0-15.0); Immature Granulocytes Count 0.030 X10^3/uL (0.0-0.0); Mean Corp Hgb Conc 34.0 g/dL (32-36); Mean Corpuscular Volume 93.9 fL (81-99); Mean Platelet Vol. 9.5 fl (6.2-12.0); NRBC Flagged by Analyzer 0 % (0-5); Platelet Count 289 K/mm3 (150-450); RBC Distribution Width CV 12.5 % (11.6-14.6); RBC Distribution Width SD 42.2 fl (35.1-43.9); Red Blood Count 3.92 M/mm3 (4.2-5.4); White Blood Count 8.1 K/mm3 (4.4-11.0)
[2025-02-20 13:04] LABS: AST(SGOT) 20 U/L (<=31); Alanine Aminotransfer ALT/SGPT 20 U/L (<=34); Albumin, Serum 4.2 g/dL (3.5-5.0); Alkaline Phosphatase 97 U/L (35-104); Anion Gap 12 (5-15); BUN 15 mg/dL (4-19); BUN/Creat Ratio 22.3 RATIO (10-20); Calcium,Total 9.5 mg/dL (7.6-11.0); Carbon Dioxide 26.1 mmol/L (21.0-32.0); Chloride 105 mmol/L (98-108); Globulin 3.1 g/dL (2.2-4.2); Glucose 81 mg/dL (70-99); Potassium 4.0 mmol/L (3.3-5.1)
== END | disposition home or self-care (01) ==
LOC: MTLAB 09:09
PROVIDERS: PCP Nurse Practitioner Family; Referring Provider Internal Medicine Rheumatology; Visit Provider Internal Medicine Rheumatology
DX: M06.4 Inflammatory polyarthropathy (principal); Z79.899 Other long term (current) drug therapy
CPT/HCPCS: 36415; 80053; 85025

== ENCOUNTER → 2025-05-08 | Outpatient (CLI) | payer BC, SELFPAY ==
--- OUTSIDE RECORDS SUMMARY | 2025-05-08 07:48 | XMS RPT_ITS | CCD ---
Author Organization [facility] Care Team Providers Care [place] Stonemason Name Role Phone Unavailable Primary Care Provider Unavailabl e Sukumar DIAMOND SAW OPERATOR-C, Leslie Primary Care Provider Kate Gaona Attending Provider [phone] Kate Gaona Referring Provider [phone] Sukumar DIAMOND SAW OPERATOR-C, Leslie Referring Provider [phone] Naman PHILIPPE, Dr. Christian Ornelas Attending Provider Naman PHILIPPE, Dr. Christian Ornelas Other Provider Erum PHILIPPE, Dr. Mansfield Attending Provider Erum PHILIPPE, Dr. Mansfield Referring Provider Reno PHILIPPE, Dr. Dos Santos Attending Provider Lucas PHILIPPE, Dr. Stone Attending Provider [phone] Sukumar DIAMOND SAW OPERATOR-C, Leslie Attending Provider Sukumar DIAMOND SAW OPERATOR-C, Leslie Primary Care Provider Sukumar DIAMOND SAW OPERATOR-C, Leslie Referring Provider Kate Gaona Attending Provider Erum PHILIPPE, Dr. Mansfield Attending Provider Dr. Shyla Danielson MD Referring Provider Sukumar DIAMOND SAW OPERATOR-C, Leslie Primary Care Provider Sukumar DIAMOND SAW OPERATOR-C, Leslie Primary Care Provider Erum PHILIPPE, Dr. Mansfield Attending Provider Erum PHILIPPE, Dr. Mansfield Referring Provider Sandy PHILIPPE, Dr. Cruz Emergency Provider Unavailable Primary Care Provider UnavailNADEEN Cedillo Attending Unavailable Sukumar DIAMOND SAW OPERATOR-C, Leslie Primary Care Physician Erum PHILIPPE, Dr. Mansfield Attending Physician Sandy PHILIPPE, Dr. Cruz Attending Physician Sandy PHILIPPE, Dr. Cruz Emergency Department Phys ician Sukumar DIAMOND SAW OPERATOR-C, Leslie Attending Physician Sukumar DIAMOND SAW OPERATOR-C, Leslie Referring Provider [phone] Sukumar, Leslie Primary Care Unavailable IndraKate Attending Unavailable Sukumar, Leslie Referring Unavailable Sukumar, Leslie Primary Care Unavailable Vellanki, Shyla Attending Unavailable Vellanki, Shyla Referring Unavailable Sukumar, Leslie Referring Unavailable Sukumar, Leslie Attending Unavailable Sukumar, Leslie Primary Care Unavailable Sukumar, Leslie Primary Care Unavailable IndraFloriyn Attending Unavailable Sukumar, Leslie Referring Unavailable Sukumar, Leslie Referring Unavailable Sukumar, Leslie Primary Care Unavailable Levon Bojorquez Attending Unavailable Christian Florence Attending Unavailable Christian Florence Consulting Unavailable Sukumar, Leslie Primary Care Unavailable Sukumar, Leslie Referring Unavailable Levon Bojorquez Attending Unavailable Sukumar, Leslie Primary Care Unavailable Sukumar, Leslie Primary Care Unavailable Indra Kate Referring Unavailable IndraKate Attending Unavailable Sukumar, Leslie Primary Care Unavailable Vellanki, Shyla Referring Unavailable Vellanki, Shyla Attending Unavailable Sukumar, Leslie Primary Care Unavailable Anthony Delgado Attending Unavailable Christian Florence Attending Unavailable Sukumar, Leslie Primary Care Unavailable Sukumar, Leslie Referring Unavailable Sukumar, Leslie Primary Care Unavailable IndraFloriyn Attending Unavailable Indra, Kate Referring Unavailable Sukumar, Leslie Primary Care Unavailable Vellanki, Shyla Referring Unavailable Vellanki, Shyla Attending Unavailable Sukumar, Leslie Primary Care Unavailable Sukumar, Leslie Attending Unavailable Sukumar, Leslie Primary Care Unavailable Vellanki, Shyla Referring Unavailable Vellanki, Shyla Attending Unavailable Sukumar, Leslie Primary Care Unavailable Lucas, Orovada Attending Unavailable [facility] Primary Care Unavailable Chase Zavala Attending Unavailable [facility] Primary Care Unavailable Chase Zavala Attending Unavailable Christian Florence Attending Unavailable [facility] Primary Care Unavailable [facility] Referring Unavailable Allergies Allergy Classification Reported Allergen(s) Allergy Type Date of Onset Reaction(s) Facility (5 sources) Latex Allergy to substance 06-29-2018 Swelling [facility] (1 source) Latex Drug allergy (disorder) 04-17-2024 [facility] Repository Medications Current Medications Medication Drug Class(es) Dates Sig (Normalized) Sig (Original) acetaminophen 325 mg / HYDROcodone bitartrate 5 mg oral tablet (3 sources) Opioid Agonist Start: 12-27-2017 HYDROcodone-acet aminophen (NORCO) 5-325 mg per tablet EVERY 4 HOURS NEEDED PRN For Pain 12/27/2017 Active Comment on above: EVERY 4 HOURS NEE DED PRN For Pain [id number] actuat albuterol 0.09 mg/actuat metered dose inhaler (3 sources) beta2-Adrenergic Agonist Start: 07-10-2022 take 2 puff(s) by inhalation every four hours as needed albuterol HFA (PROAIR HFA) 90 mcg/actuation inhaler Inhale 2 Puffs as instructed every 4 hours as needed. 18 g 07/10/2022 Active Comment on above: Inhale 2 Puffs as in structed every 4 hours as needed. amphetamine aspartate 7.5 mg / amphetamine sulfate 7.5 mg / dextroamphetamine saccharate 7.5 mg / dextroamphetamine sulfate 7.5 mg oral tablet (5 sources) Central Nervous System Stimulant Start: 04-11-2024 take 1 tablet by mouth every four to six hours benzonatate 100 mg oral capsule (6 sources) Non-narcotic Antitussive Start: 07-10-2022 take 2 capsules by mouth every eight hours as needed benzonatate (TESSALON PERLES) 100 mg capsule Take 2 capsules by mouth three times a day as needed for cough. 30 capsule 06/08/2023 Active Comment on above: Take 2 capsules by m outh three times daily as needed. Take 2 capsules by m outh three times a day as needed for cough. brompheniramine maleate 0.4 mg/ml / dextromethorphan hydrobromide 2 mg/ml / pseudoephedrine hydrochloride 6 mg/ml oral solution (3 sources) alpha-Adrenergic Agonist, Uncompetitive N-rcckvr-H-aspartat e Receptor Antagonist, Sigma-1 Agonist Start: 06-12-2023 take 5 mL by mouth four times daily as needed Brompheniramine- Pseudoeph-DM (BROMFED DM) 2-30-10 mg/5 mL syrup Indications: URI, acute , Acute cough Take 5 mL by mouth four times a day as needed. 118 mL 06/12/2023 Active Comment on above: Take 5 mL by mouth f our times a day as needed. cholecalciferol 0.025 mg oral capsule (5 sources) Vitamin D Start: 04-11-2024 take 1 capsule by mouth once daily DULoxetine 60 mg delayed release oral capsule (8 sources) Serotonin and Norepinephrine Reuptake Inhibitor Start: 04-11-2024 take 1 capsule by mouth once daily Start: 05-25-2023 take 1 capsule by mouth once D ULoxetine (CYMBALTA) 30 mg capsule Take 1 capsule by mouth every afternoon. 05/25/2023 Active Comment on above: Take 1 capsule by mo [facility] every afternoon. FLUoxetine 20 mg oral capsule (3 sources) Serotonin Reuptake Inhibitor Start: 05-26-2016 FLUoxetine (PROZAC) 20 mg capsule 05/26/2016 Active folic acid 1 mg oral tablet (8 sources) Start: 04-11-2024 take 1 tablet by mouth once daily Start: 06-03-2023 take 2 tablets by mouth once f olic acid 1 mg tablet Take 2 tablets by mouth every afternoon. 06/03/2023 Active Comment on above: Take 2 tablets by mo [facility] every afternoon. hydrOXYzine hydrochloride 25 mg oral tablet (8 sources) Antihistamine Start: 04-11-2024 take 1 tablet by mouth three times daily as needed for anxiety Start: 04-30-2017 hydrOXYzine pa moate (VISTARIL) 25 mg capsule 04/30/2017 Active iron carbonyl 45 mg oral tablet (10 sources) Start: 06-29-2018 take 1 capsule by mouth once daily at mealtime methotrexate 2.5 mg oral tablet (8 sources) Folate Analog Metabolic Inhibitor Start: 04-11-2024 Start: 05-25-2023 take 7 tablets by mo [facility] every week methotrexate 2.5 mg tablet TAKE 7 TABLETS BY MOUTH EVERY WEEK 05/25/2023 Active Comment on above: TAKE 7 TABLETS BY [facility] EVERY WEEK metroNIDAZOLE 500 mg oral tablet (2 sources) Nitroimidazole Antimicrobial Start: take 1 tablet by mouth twice daily naproxen 500 mg oral tablet (2 sources) Nonsteroidal Anti-inflammatory Drug Start: take 1 tablet by mouth twice daily as needed for pain ondansetron 4 mg disintegrating oral tablet (6 sources) Serotonin-3 Receptor Antagonist Start: take 1 tablet by mouth every eight hours as needed ondansetron orally disintegrating (ZOFRAN ODT) 4 mg disintegrating tablet Take 1 tablet by mouth every 8 hours as needed for nausea/vomiting. 15 tablet 06/12/2023 Active Comment on above: Take 1 tablet by [facility] every 8 hours as needed for nausea/vomiting. 12 hr pseudoephedrine hydrochloride 120 mg extended release oral tablet (3 sources) alpha-Adrenergic Agonist Start: Pseudoephedrine HCl (SUDAFED SR) 120 mg TbER 05/26/2016 Active traMADol hydrochloride 50 mg oral tablet (5 sources) Opioid Agonist Start: take 1 tablet by mouth three times daily Completed/Discontinued Medications Medication Drug Class(es) Dates Sig (Normalized) Sig (Original) ibuprofen 400 mg oral tablet (13 sources) Nonsteroidal Anti-inflammatory Drug Start: 06-29-2018 End: 06-14-2024 Ibuprofen 400 MG tablet Discontinued 400 mg PO NEEDED as needed for Pain June 29, 2018 1:00am June 14, 2024 10:07am IBUPROFEN ORAL T chang by mouth as needed. Active IBUPROFEN ORAL T chang by mouth as needed. 0 Active Comment on above: Take by mouth as nee ded. Problems Active Problems Problem Classification Problem Date Documented Da te Episodic/Chronic Abdominal pain (3 sources) Left lower quadrant pain; Translations: [Left lower quadrant pain] Onset: 01-12-2025 01-12-2025 Episodic Calculus of urinary tract (2 sources) Kidney stone; Translations: [Calculus of kidney] 01-12-2025 Episodic Genitourinary symptoms and ill-defined conditions (2 sources) Blood in urine; Translations: [Hematuria, unspecified] Onset: 01-12-2025 01-12-2025 Episodic Menopausal disorders (10 sources) Perimenopausal state; Translations: [Menopausal and female climacteric states] 05-27-2016 Chronic Noninfectious gastroenteritis (2 sources) Colitis; Translations: [Noninfective gastroenteritis and colitis, unspecified] 01-12-2025 Episodic Other female genital disorders (13 sources) Abnormal uterine bleeding; Translations: [Abnormal uterine and vaginal bleeding, unspecified] Onset: 06-14-2018 06-29-2018 Chronic Other gastrointestinal disorders (6 sources) Stool DNA-based colorectal cancer screening positive; Translations: [Other fecal abnormalities] 04-11-2024 Episodic Other gastrointestinal disorders (5 sources) Constipation; Translations: [Constipation, unspecified] 04-11-2024 Episodic Other lower respiratory disease (1 source) Cough; Translations: [Acute cough] 06-12-2023 Episodic Other nervous system disorders (9 sources) Cervical myelopathy; Translations: [Disease of spinal cord, unspecified] 04-17-2024 Chronic Other nervous system disorders (1 source) Disease of spinal cord, unspecified; Translations: [Disease of spinal cord, unspecified] Onset: 10-05-2024 Chronic Other screening for suspected conditions (not mental disorders or infectious disease) (1 source) Encounter for screening for malignant neoplasm of cervix; Translations: [Encounter for screening for malignant neoplasm of cervix] Onset: 02-21-2025 Episodic Other upper respiratory disease (1 source) Chronic rhinitis; Translations: [Rhinosinusitis] 05-27-2016 Chronic Other upper respiratory infections (9 sources) Chronic sinusitis, unspecified; Translations: [Rhinosinusitis] 05-27-2016 Chronic Other upper respiratory infections (1 source) Acute upper respiratory infection; Translations: [Acute upper respiratory infection, unspecified] 06-12-2023 Episodic Rheumatoid arthritis and related disease (1 source) Inflammatory polyarthropathy; Translations: [Inflammatory polyarthropathy] Onset: 03-15-2025 Chronic Past or Other Problems Problem Classification Problem Date Documented Da te Episodic/Chronic Other gastrointestinal disorders (2 sources) Other fecal abnormalities; Translations: [Other fecal abnormalities] Onset: 05-14-2024 Episodic Other non-traumatic joint disorders (8 sources) Pain in left knee; Translations: [Left knee pain] Onset: 06-21-2024 06-21-2024 Episodic Residual codes; unclassified (1 source) History of substance abuse; Translations: [Personal history of other specified conditions] Onset: 06-14-2018 06-14-2018 Episodic Residual codes; unclassified (2 sources) Personal history of other specified conditions; Translations: [Other specified personal history presenting hazards to health] Onset: 06-14-2018 06-14-2018 Episodic Spondylosis; intervertebral disc disorders; other back problems (11 sources) Cervical radiculopathy; Translations: [Radiculopathy, cervical region] Onset: 04-17-2024 04-17-2024 Episodic Results Test Name Value Interpretation Reference Range Facility Foot min 3 Viewson Foot min 3 Views [facility] Imaging Services [address] [place] [address] (020) Foot min 3 Views MR#: [id number] Acct: [id number] Name: KARL CLAROS Rep #: [id number] : 1965 F 59 From: Bharat Potter MD PCP: ELISE Phillips Status: DEP AMB Study: Foot min 3 Views Date of Exam: 03/25/25 Exam# [id number] Ordering Dr: Leslie Patino EXAM: XR Left Foot Complete, 3 or More Views CLINICAL INDICATION: ASSESS FOR ABNORMALITITES, PAIN, NKI TECHNIQUE: Frontal, lateral and oblique views of the left foot. COMPARISON: No relevant prior studies available. FINDINGS: BONES/JOINTS: Moderate degenerative changes of the 1st metatarsophalangeal joint. Mild degenerative change of the D IP joints. Mild degenerative change of the intertarsal joints. No acute fracture. No dislocation. SOFT TISSUES: Soft tissue swelling. RAD/Foot min 3 Views IMPRESSION: Degenerative changes as above. Reading Location: [facility] CC: ELISE Patino Research Biostatistician: Signed Normal [facility] Foot min 3 Views [facility] Imaging Services [address], [place] [id number] (297) Foot min 3 Views MR#: [id number] Acct: [id number] Name: KARL CLAROS Rep #: [id number] : 1965 F 59 From: Bharat Potter MD PCP: ELISE Phillips Status: DEP AMB Study: Foot min 3 Views Date of Exam: 03/25/25 Exam# [id number] Ordering Dr: Leslie Patino EXAM: XR Right Foot Complete, 3 or More Views CLINICAL INDICATION: ASSESS FOR ABNORMALITITES, PAIN, NKI TECHNIQUE: Frontal, lateral and oblique views of the right foot. COMPARISON: No relevant prior studies available. FINDINGS: BONES/JOINTS: Moderate degenerative changes of the 1st metatarsophalangeal joint. Mild degenerative change of the intra tarsal joints. Mild degenerative changes of the DIP joints. No acute fracture. No dislocation. SOFT TISSUES: Soft tissue swelling. RAD/Foot min 3 Views IMPRESSION: Degenerative changes as above. Reading Location: [facility] CC: DIAMOND SAW OPERATOR-C Leslie Patino Research Biostatistician: Signed Normal [facility] Knee 4 or More Viewson 03-25 Knee 4 or More Views [facility] Imaging Services [address] [place] [address] Knee 4 or More Views MR#: [id number] Acct: [id number] Name: KARL CLAROS Rep #: [id number] : 1965 F 59 From: Bharat Potter MD PCP: ELISE Phillips Status: DEP AMB Study: Knee 4 or More Views Date of Exam: 03/25/25 Exam# [id number] Ordering Dr: Leslie Patino EXAM: XR Left Knee Complete, 4 or More Views CLINICAL INDICATION: ASSESS FOR ABNORMALITIES, PAIN, NKI TECHNIQUE: Four or more views of the left knee. COMPARISON: XR Knee dated 06/21/2024 FINDINGS: BONES/JOINTS: Moderate degenerative changes medial compartment of the knee joint. No acute fracture. No dislocation. SOFT TISSUES: Unremarkable. RAD/Knee 4 or More Views IMPRESSION: Degenerative changes as above. Reading Location: [facility] CC: ELISE Patino Research Biostatistician: Signed Normal [facility] Absolute lymphocyte countOrd ered By: Shyla Danielson on 02-20-2025 Lymphocytes Auto (Unsp spec) [#/Vol] 2.77 10*3/uL 0.83-4.51 [facility] Absolute neutrophil countOrd ered By: Shylabethany Danielson on 02-20-2025 Neutrophils (Bld) [#/Vol] 4.1 10*3/uL 2.0-7.7 [facility] Anion gap in Serum or Plasma Ordered By: Shyla Danielson on 02-20-2025 Anion gap [Moles/Vol] 12 mmol/L - [facility] Automated lymphocyte count a s percentage of total leukocytesOrdered By: Shyla Danielson on 02-20-2025 Lymphocytes/100 WBC Auto (Unsp spec) 34.2 % [facility] BUN/creatinine ratioOrdered By: Shylabethnay Danielson on 02-20-2025 Urea nitrogen/Creatinine [Mass ratio] 22.3 mg/mg High 10- [facility] Basophil percentageOrdered B y: Shyla Danielson on 02-20-2025 Basophils/100 WBC (Bld) 0.4 % 0-1 [facility] Bilirubin, totalOrdered By: Shyla Danielson on 02-20-2025 Bilirubin [Mass/Vol] mg/dL 0.00-1.30 [facility] CBC W/Diff, Automatedon Absolute Lymph 2.77 X10 3/uL Normal 0.83-4.51 [facility] Comment on above: Performed By: #### L 500.4050, L100.0100 #### [facility] [address] [place], [address] Absolute Neut 4.1 X10 3/uL Normal 2.0-7.7 [facility] Comment on above: Performed By: #### L 500.4050, L100.0100 #### [facility] [address] [place], [address] Basophils/100 WBC (Bld) 0.4 % Normal 0-1 [facility] Comment on above: Performed By: #### L 500.4050, L100.0100 #### [facility] [address], [address] Eosinophils/100 WBC (Bld) 3.1 % Normal 0-5 [facility] Comment on above: Performed By: #### L 500.4050, L100.0100 #### [facility] [address] [place], [address] Erythrocyte distribution width (RBC) [Ratio] 12.5 % Normal 11.6-14.6 [facility] Comment on above: Performed By: #### L 500.4050, L100.0100 #### [facility] [address] [place], [address] Hematocrit (Bld) [Volume fraction] 36.8 % Low 37-47 [facility] Comment on above: Performed By: #### L 500.4050, L100.0100 #### [facility] [address] [place], [address] Hemoglobin (Bld) [Mass/Vol] 12.5 g/dL Normal 12.0-15.0 [facility] Comment on above: Performed By: #### L 500.4050, L100.0100 #### [facility] [address] [place], [address] IG% 0.400 Normal 0.0-0.9 [facility] Comment on above: Result Comment: IG% - Immature Granulocytes (promyelocytes, myelocytes and metamyelocytes) > 1% indicates that a LEFT SHIFT is Present. Performed By: #### L 500.4050, L100.0100 #### [facility] [address] [place], [address] Lymphocytes/100 WBC (Bld) 34.2 % Normal 19-41 [facility] Comment on above: Performed By: #### L 500.4050, L100.0100 #### [facility] [address] [place], [address] MCH (RBC) [Entitic mass] 31.9 pg Normal 27.0-32.0 [facility] Comment on above: Performed By: #### L 500.4050, L100.0100 #### [facility] [address] [place], [address] MCHC (RBC) [Mass/Vol] 34.0 g/dL Normal 32-36 [facility] Comment on above: Performed By: #### L 500.4050, L100.0100 #### [facility] [address] [place], [address] MCV (RBC) [Entitic vol] 93.9 fL Normal 81-99 [facility] Comment on above: Performed By: #### L 500.4050, L100.0100 #### [facility] [address] [place], [address] Monocytes/100 WBC (Bld) 11.1 % High 0-10 [facility] Comment on above: Performed By: #### L 500.4050, L100.0100 #### [facility] [address] [place], [address] Neutrophils/100 WBC (Bld) 50.8 % Normal 47-70 [facility] Comment on above: Performed By: #### L 500.4050, L100.0100 #### [facility] [address] [place], [address] Nucleated RBC (Bld) [#/Vol] 0 10*3/uL Normal 0-5 [facility] Comment on above: Performed By: #### L 500.4050, L100.0100 #### [facility] [address] [place], [address] Platelet mean volume (Bld) [Entitic vol] 9.5 fL Normal 6.2-12.0 [facility] Comment on above: Performed By: #### L 500.4050, L100.0100 #### [facility] [address] [place], [address] Platelets (Bld) [#/Vol] 289 10*3/uL Normal 150-450 [facility] Comment on above: Performed By: #### L 500.4050, L100.0100 #### [facility] [address] [place], [address] RBC (Bld) [#/Vol] 3.92 10*6/uL Low 4.2-5.4 [facility] Comment on above: Performed By: #### L 500.4050, L100.0100 #### [facility] [address] [place], [address] RDW SD 42.2 fl Normal 35.1-43.9 [facility] Comment on above: Performed By: #### L 500.4050, L100.0100 #### [facility] [address] [place], [address] WBC (Bld) [#/Vol] 8.1 10*3/uL Normal 4.4-11.0 [facility] Comment on above: Performed By: #### L 500.4050, L100.0100 #### [facility] [address] [place], [address] Carbon dioxide, total [Moles /volume] in Central venous bloodOrdered By: Shyla Danielson on 02-20-2025 CO2 [Moles/Vol] 26.1 mmol/L 21.0-32.0 [facility] Chloride assayOrdered By: Jeffery Danielson on 02-20-2025 Chloride [Moles/Vol] 105 mmol/L 98-108 [facility] Comprehensive Metabolic Prof ilon 02-20-2025 Albumin [Mass/Vol] 4.2 g/dL Normal 3.5-5.0 [facility] Comment on above: Performed By: #### L 500.4050, L100.0100 #### [facility] [address] [place], [address] Albumin/Globulin [Mass ratio] 1.3 {ratio} Normal 0.9-2.4 [facility] Comment on above: Performed By: #### L 500.4050, L100.0100 #### [facility] [address] [place], [address] ALK PHOS 97 U/L Normal 35-104 [facility] Comment on above: Performed By: #### L 500.4050, L100.0100 #### [facility] [address] [place], [address] ALT [Catalytic activity/Vol] 20 U/L Normal <=34 [facility] Comment on above: Performed By: #### L 500.4050, L100.0100 #### [facility] [address] [place], [address] AST [Catalytic activity/Vol] 20 U/L Normal <=31 [facility] Comment on above: Performed By: #### L 500.4050, L100.0100 #### [facility] [address] [place], [address] BUN/CRE 22.3 RATIO High 10-20 [facility] Comment on above: Performed By: #### L 500.4050, L100.0100 #### [facility] [address] [place], [address] Calcium [Mass/Vol] 9.5 mg/dL Normal 7.6-11.0 [facility] Comment on above: Performed By: #### L 500.4050, L100.0100 #### [facility] [address] [place], [address] Chloride [Moles/Vol] 105 mmol/L Normal 98-108 [facility] Comment on above: Performed By: #### L 500.4050, L100.0100 #### [facility] [address] [place], [address] CO2 [Moles/Vol] 26.1 mmol/L Normal 21.0-32.0 [facility] Comment on above: Performed By: #### L 500.4050, L100.0100 #### [facility] [address] [place], [address] Creatinine [Mass/Vol] 0.68 mg/dL Low 0.70-1.20 [facility] Comment on above: Performed By: #### L 500.4050, L100.0100 #### [facility] [address] [place], [address] GAP 12 Normal 5-15 [facility] Comment on above: Performed By: #### L 500.4050, L100.0100 #### [facility] [address] [place], [address] GFR/1.73 sq M.predicted among non-blacks MDRD (S/P/Bld) [Vol rate/Area] 101 mL/min/{1.73_m2} Normal >60 [facility] Comment on above: Result Comment: mL/m in/1.73m2 CKD-EPI Creatinine Equation (2020) Performed By: #### L 500.4050, L100.0100 #### [facility] [address] [place], [address] Globulin (S) [Mass/Vol] 3.1 g/dL Normal 2.2-4.2 [facility] [facility] Comment on above: Performed By: #### L 500.4050, L100.0100 #### [facility] [address] [place], [address] Glucose [Mass/Vol] 81 mg/dL Normal 70-99 [facility] Comment on above: Performed By: #### L 500.4050, L100.0100 #### [facility] [address] [place], [address] Potassium [Moles/Vol] 4.0 mmol/L Normal 3.3-5.1 [facility] Comment on above: Performed By: #### L 500.4050, L100.0100 #### [facility] [address] [place], [address] Sodium [Moles/Vol] 143 mmol/L Normal 133-145 [facility] Comment on above: Performed By: #### L 500.4050, L100.0100 #### [facility] [address] [place], [address] T BILI < 0.15 Normal 0.00-1.30 [facility] Comment on above: Performed By: #### L 500.4050, L100.0100 #### [facility] [address] [place], [address] T PROT 7.3 g/dL Normal 5.9-8.4 [facility] Comment on above: Performed By: #### L 500.4050, L100.0100 #### [facility] [address] [place], [address] Urea nitrogen [Mass/Vol] 15 mg/dL Normal 4-19 [facility] Comment on above: Performed By: #### L 500.4050, L100.0100 #### [facility] [address] [place], [address] Eosinophil percentageOrdered By: Shyla Danielson on 02-20-2025 Eosinophils/100 WBC (Bld) 3.1 % 0-5 [facility] Erythrocyte distribution wid th ratioOrdered By: Shyla Danielson on 02-20-2025 Erythrocyte distribution width (RBC) [Ratio] 12.5 % 11.6-14.6 [facility] Erythrocyte distribution wid th standard deviationOrdered By: Shyla Danielson on 02-20-2025 Erythrocyte distribution width (RBC) [Ratio] 42.2 fl 35.1-43.9 [facility] Glomerular filtration rate ( GFR) estimation/1.73 sq m using serum, plasma, or whole bOrdered By: Shyla Danielson on 02-20-2025 GFR/1.73 sq M.predicted among non-blacks MDRD (S/P/Bld) [Vol rate/Area] 101 mL/min/{1.73_m2} >60 [facility] Comment on above: mL/min/1.73m2 CKD-EP I Creatinine Equation (2020) Hematocrit Auto (Bld) [Volum e fraction]Ordered By: Shyla Danielson on 02-20-2025 Hematocrit (Bld) [Volume fraction] 36.8 % Low 37-47 [facility] Hemoglobin measurementOrdere d By: Shyla Danielson on 02-20-2025 Hemoglobin (Bld) [Mass/Vol] 12.5 g/dL 12.0-15.0 [facility] Immature granulocytes/100 WB C Auto (Bld)Ordered By: Shyla Danielson on 02-20-2025 Immature granulocytes/100 WBC (Bld) 0.400 % 0.0-0.9 [facility] Comment on above: IG% - Immature Granu locytes (promyelocytes, myelocytes and metamyelocytes) > 1% indicates that a LEFT SHIFT is Present. Laboratory - Chemistry and C hemistry - challengeOrdered By: Shyla Danielson on 02-20-2025 AST [Catalytic activity/Vol] 20 U/L <32 [facility] MCV (mean corpuscular volume ) determinationOrdered By: Shyla Danielson on 02-20-2025 MCV (RBC) [Entitic vol] 93.9 fL 81-99 [facility] Mean corpuscular hemoglobin (MCH) determinationOrdered By: Shyla Danielson on 02-20-2025 MCH (RBC) [Entitic mass] 31.9 pg 27.0-32.0 [facility] Mean corpuscular hemoglobin concentration (MCHC) determinationOrdered By: Shyla Danielson on 02-20-2025 MCHC (RBC) [Mass/Vol] 34.0 g/dL 32-36 [facility] Mean platelet volume determi nationOrdered By: Shyla Danielson on 02-20-2025 Platelet mean volume (Bld) [Entitic vol] 9.5 fL 6.2-12.0 [facility] Monocyte percentageOrdered B y: Shyla Danielson on 02-20-2025 Monocytes/100 WBC (Bld) 11.1 % High 0-10 [facility] Neutrophil percentageOrdered By: Shyla Danielson on 02-20-2025 Neutrophils/100 WBC (Bld) 50.8 % 47-70 [facility] Nucleated red blood cell per centageOrdered By: Shyla Danielson on 02-20-2025 Nucleated RBC/100 WBC (Bld) [Ratio] 0 % 0-5 [facility] Platelet countOrdered By: Jeffery Danielson on 02-20-2025 Platelets (Bld) [#/Vol] 289 10*3/uL 150-450 [facility] Potassium measurement (mass/ volume)Ordered By: Shyla Danielson on 02-20-2025 Potassium (Unsp spec) [Mass/Vol] 4.0 mmol/L 3.3-5.1 [facility] RBC Auto (Bld) [#/Vol]Ordere d By: Shyla Danielson on 02-20-2025 RBC (Bld) [#/Vol] 3.92 10*6/uL Low 4.2-5.4 [facility] Serum creatinine measurement (mass/volume)Ordered By: Shyla Danielson on 02-20-2025 Creatinine [Mass/Vol] 0.68 mg/dL Low 0.70-1.20 [facility] Serum globulin measurementOr dered By: Shyla Danielson on 02-20-2025 Globulin (S) [Mass/Vol] 3.1 g/dL 2.2-4.2 [facility] Serum glucose measurement (m ass/volume)Ordered By: Shyla Danielson on 02-20-2025 Glucose [Mass/Vol] 81 mg/dL 70-99 [facility] Serum or plasma alanine avila otransferase (ALT) measurementOrdered By: Shyla Danielson on 02-20-2025 ALT [Catalytic activity/Vol] 20 U/L <35 [facility] Serum or plasma albumin idania urement (mass/volume)Ordered By: Shyla Danielson on 02-20-2025 Albumin [Mass/Vol] 4.2 g/dL 3.5-5.0 [facility] Serum or plasma albumin/glob ulin mass ratioOrdered By: Shyla Danielson on 02-20-2025 Albumin/Globulin [Mass ratio] 1.3 {ratio} 0.9-2.4 [facility] Serum or plasma alkaline joaquín sphatase measurementOrdered By: Shyla Danielson on 02-20-2025 ALP [Catalytic activity/Vol] 97 U/L 35-104 [facility] Serum or plasma calcium idania urement (mass/volume)Ordered By: Shyla Danielson on 02-20-2025 Calcium [Mass/Vol] 9.5 mg/dL 7.6-11.0 [facility] Serum or plasma urea nitroge n measurement (mass/volume)Ordered By: Shyla Danielson on 02-20-2025 Urea nitrogen [Mass/Vol] 15 mg/dL 4-19 [facility] Sodium levelOrdered By: Tushar Danielson on 02-20-2025 Sodium [Moles/Vol] 143 mmol/L 133-145 [facility] Total proteinOrdered By: Deja Danielson on 02-20-2025 Protein [Mass/Vol] 7.3 g/dL 5.9-8.4 [facility] White blood cell (WBC) count Ordered By: Shyla Danielson on 02-20-2025 WBC (Bld) [#/Vol] 8.1 10*3/uL 4.4-11.0 [facility] PAP IG w/Reflex HPV GDLNon 0 02-18-2025 ADEQ Comment Normal . [facility] Comment on above: Order Comment: Speci men Comment: No. of containers..01 ThinPrep Vial Result Comment: Sati sfactory for evaluation. Endocervical component may not be distinguished in cases of atrophy. Performed By: #### L 7400.0290 #### [facility] [address] [place], [address] Age Gdln ACOG T 30-65 Normal . [facility] Comment on above: Order Comment: Speci men Comment: No. of containers..01 ThinPrep Vial Performed By: #### L 7400.0290 #### [facility] [address] [place], [address] COMM . Normal . [facility] Comment on above: Order Comment: Speci men Comment: No. of containers..01 ThinPrep Vial Performed By: #### L 7400.0290 #### [facility] [address] [place], [address] COMMENT Comment Normal . [facility] Comment on above: Order Comment: Speci men Comment: No. of containers..01 ThinPrep Vial Result Comment: This liquid based ThinPrep(R) pap test was screened with the use of an image guided system. Performed By: #### L 7400.0290 #### [facility] [address] [place], [address] DIAG Comment Normal . [facility] Comment on above: Order Comment: Speci men Comment: No. of containers..01 ThinPrep Vial Result Comment: NEGA TIVE FOR INTRAEPITHELIAL LESION OR MALIGNANCY. CELLULAR CHANGES ASSOCIATED WITH ATROPHY ARE PRESENT. Performed By: #### L 7400.0290 #### [facility] [address] [place], [address] HPV APTIMA, HR Negative Normal Negative [facility] Comment on above: Order Comment: Speci men Comment: No. of containers..01 ThinPrep Vial Result Comment: This nucleic acid amplification test detects fourteen high- risk HPV types (16,18,31,33,35,39,45,51,52,56,58,59,66,68) without differentiation. Performed By: #### L 7400.0290 #### [facility] [address] [place], [place], [id number] HPV Yanet Rfx Comment Normal . [facility] Comment on above: Order Comment: Speci men Comment: No. of containers..01 ThinPrep Vial Result Comment: Crit eria not met, HPV Genotype not performed. Performed at: =[address] [id number] Claims Administrator: Zahra Bang MD, Phone: [phone] Performed at: [address] [id number] Claims Administrator: Zahra Bang MD, Phone: [phone] Performed By: #### L 7400.0290 #### [facility] [address] [place], [place], [id number] PAPSMR Comment Normal . [facility] Comment on above: Order Comment: Speci men Comment: No. of containers..01 ThinPrep Vial Result Comment: The Pap smear is a screening test designed to aid in the detection of premalignant and malignant conditions of the uterine cervix. It is not a diagnostic procedure and should not be used as the sole means of detecting cervical cancer. Both false-positive and false-negative reports do occur. Performed By: #### L 7400.0290 #### [facility] [address] [place], [place], [address] PERFORM Comment Normal . [facility] Comment on above: Order Comment: Speci men Comment: No. of containers..01 ThinPrep Vial Result Comment: Darwin Wyatt, Furnace Unloader (ASCP) Performed By: #### L 7400.0290 #### [facility] [address] [place], [place], [id number] Cervical or vaginal specimen microscopic examination by liquid based cytology (reportOrdered By: Leslie Patino on 02-12-2025 Cytology report Cyto stain.thin prep Doc (Cvx/Vag) Comment . [facility] Comment on above: Criteria not met, HP V Genotype not performed.Performed at: =[address] [id number] Director: Zahra Bang MD, Phone: [phone] at: [address] [place], [place] [id number] Director: Zahra Bang MD, Phone: [phone] Cervical or vagninal specime n microscopic examination by cytology stain (reported asOrdered By: Leslie Patino on 02-12-2025 Cytology report Cyto stain Doc (Cvx/Vag) Comment . [facility] Comment on above: The Pap smear is a s creening test designed to aid in thedetection of premalignant and malignant conditions of theuterine cervix. It is not a diagnostic procedure andshould not be used as the sole means of detecting cervicalcancer. Both false-positive and false-negative reports dooccur. Laboratory - CytologyOrdered By: Leslie Patino on 02-12-2025 Furnace Unloader Cyto stain Nom (Cvx/Vag) [ID] Comment . [facility] Comment on above: Frank Nalyorlo gist (ASCP) Laboratory - Miscellaneous t estsOrdered By: Leslie Patino on 02-12-2025 Service comment (Unsp spec) [Interp] . . [facility] No Panel InformationOrdered By: Leslie Patino on 02-12-2025 Pap Smear Additional Comments 30-65 . [facility] Pap Smear Specimen Adequacy Comment . [facility] Comment on above: Satisfactory for gabriele luation. Endocervical component may not bedistinguished in cases of atrophy. Abdomen/Pelvis W IV Cont ONL Yon 01-12-2025 Abdomen/Pelvis W IV Cont ONLY [facility] [address] [place] [address] Abdomen/Pelvis W IV Cont ONLY MR#: [id number] Acct: [id number] Name: KARL CLAROS Rep #: [id number] : 1965 F 59 From: Alice Madden MD PCP: Leslie Patino, DIAMOND SAW OPERATOR-C Status: REG ER Study: Abdomen/Pelvis W IV Cont ONLY Date of Exam: Exam# [id number] Ordering Dr: Anthony Delgado MD PROCEDURE: ABDOMEN/PELVIS W IV CONT ONLY 01/12/2025 REASON FOR EXAM: LLQ PAIN TECHNIQUE: ABDOMEN/PELVIS W IV CONT ONLY Coronal and Sagittal reconstruction series were provided. CONTRAST: Isovue 370 VOLUME: 100 mL One or more dose reduction techniques were used (e.g., Automated exposure control, adjustment of the mA and/or kV according to patient size, use of iterative reconstruction technique. RADIATION DOSE SUMMARY: CTDlvol: 20.75 mGy DLP: 995.96 mGycm COMPARISON: None. FINDINGS: Lung bases: Clear. Liver: Unremarkable. Gallbladder: Unremarkable. No biliary dilation. Spleen: Unremarkable. Pancreas: Unremarkable. Adrenals: Unremarkable. Kidneys: Bilateral kidney stones measuring up to 4 mm. No hydronephrosis. Simple left kidney cysts measuring 11 and 17 mm. No hydronephrosis. Bladder: Unremarkable. Reproductive Organs: Unremarkable. Bowel: A haustral left, sigmoid colon and rectum along with edematous wall thickening with minimal pericolic fat stranding suggestive of acute colitis. Appendix: Unremarkable. Lymph nodes: No lymphadenopathy. Vasculature: No aneurysm. Atherosclerotic calcifications of the aorta. Peritoneum / Retroperitoneum: No free air or free fluid. Bones: No acute bony abnormalities. CT/Abdomen/Pelvis W IV Cont ONLY IMPRESSION: A haustral left, sigmoid colon and rectum along with edematous wall thickening with minimal pericolic fat stranding suggestive of acute colitis. This can be infectious, inflammatory or ischemic. Bilateral non obstructive kidney stones measuring up to 4 mm. No hydronephrosis. Reading Location: [facility] CC: ELISE Patino; Dr. Anthony Delgado MD Research Biostatistician: Signed Normal [facility] Absolute lymphocyte countOrd ered By: Anthony Delgado on 01-12-2025 Lymphocytes Auto (Unsp spec) [#/Vol] 2.78 10*3/uL 0.83-4.51 [facility] Absolute neutrophil countOrd ered By: Anthony Delgado on 01-12-2025 Neutrophils (Bld) [#/Vol] 4.5 10*3/uL 2.0-7.7 [facility] Anion gap in Serum or Plasma Ordered By: Anthony Delgado on 01-12-2025 Anion gap [Moles/Vol] 11 mmol/L 5-15 [facility] Automated lymphocyte count a s percentage of total leukocytesOrdered By: Anthony Delgado on 01-12-2025 Lymphocytes/100 WBC Auto (Unsp spec) 33.0 % 19-41 [facility] BUN/creatinine ratioOrdered By: Anthony Delgado on 01-12-2025 Urea nitrogen/Creatinine [Mass ratio] 20.7 mg/mg High 10-20 [facility] Bacteria Ur Culton Bacteria identified Cx Nom (U) ORGANISM ID: 1 <10,000 CFU/ml Normal urogenital venita Normal [facility] Comment on above: Performed By: #### 6 30-4 #### [facility] CLIA [id number] [address] [place] [address] [place] Basic Metabolic Profile (BMP )on 01-12-2025 BUN/CRE 20.7 RATIO High 10- [facility] Comment on above: Performed By: #### L 100.0100, L500.2500 #### [facility] [address] [place], [address] Calcium [Mass/Vol] 10.2 mg/dL Normal 7.6-11.0 [facility] Comment on above: Performed By: #### L 100.0100, L500.2500 #### [facility] [address] [place], [address] Chloride [Moles/Vol] 103 mmol/L Normal 98-108 [facility] Comment on above: Performed By: #### L 100.0100, L500.2500 #### [facility] [address] [place], [address] CO2 [Moles/Vol] 27.6 mmol/L Normal 21.0-32.0 [facility] Comment on above: Performed By: #### L 100.0100, L500.2500 #### [facility] [address] [place], [address] Creatinine [Mass/Vol] 0.67 mg/dL Low 0.70-1.20 [facility] Comment on above: Performed By: #### L 100.0100, L500.2500 #### [facility] [address] [place], [address] ECRCL 85.06 ml/min Normal 50-250 [facility] Comment on above: Performed By: #### L 100.0100, L500.2500 #### [facility] [address] [place], [address] GAP 11 Normal 5-15 [facility] Comment on above: Performed By: #### L 100.0100, L500.2500 #### [facility] [address] [place], [address] GFR/1.73 sq M.predicted among non-blacks MDRD (S/P/Bld) [Vol rate/Area] 101 mL/min/{1.73_m2} Normal >60 [facility] Comment on above: Result Comment: mL/m in/1.73m2 CKD-EPI Creatinine Equation (2020) Performed By: #### L 100.0100, L500.2500 #### [facility] [address] [place], [address] Glucose [Mass/Vol] 86 mg/dL Normal 70-99 [facility] Comment on above: Performed By: #### L 100.0100, L500.2500 #### [facility] [address] [place], [address] Potassium [Moles/Vol] 4.1 mmol/L Normal 3.3-5.1 [facility] Comment on above: Performed By: #### L 100.0100, L500.2500 #### [facility] [address] [place], [address] Sodium [Moles/Vol] 141 mmol/L Normal 133-145 [facility] Comment on above: Performed By: #### L 100.0100, L500.2500 #### [facility] [address] [place], [address] Urea nitrogen [Mass/Vol] 14 mg/dL Normal 4-19 [facility] Comment on above: Performed By: #### L 100.0100, L500.2500 #### [facility] [address] [place], [address] Basophil percentageOrdered B y: Anthony Sandy on 01-12-2025 Basophils/100 WBC (Bld) 0.4 % 0-1 [facility] Bilirubin Test strip Ql (U)O rdered By: Anthony Sandy on 01-12-2025 Bilirubin Ql (U) Negative Negative [facility] CBC W/Diff, Automatedon 12-22-2024 Absolute Lymph 2.78 X10 3/uL Normal 0.83-4.51 [facility] Comment on above: Performed By: #### L 100.0100, L500.2500 #### [facility] [address] [place], [address] Absolute Neut 4.5 X10 3/uL Normal 2.0-7.7 [facility] Comment on above: Performed By: #### L 100.0100, L500.2500 #### [facility] [address] [place], [address] Basophils/100 WBC (Bld) 0.4 % Normal 0-1 [facility] Comment on above: Performed By: #### L 100.0100, L500.2500 #### [facility] [address] [place], [address] Eosinophils/100 WBC (Bld) 3.2 % Normal 0-5 [facility] Comment on above: Performed By: #### L 100.0100, L500.2500 #### [facility] [address] [place], [address] Erythrocyte distribution width (RBC) [Ratio] 11.9 % Normal 11.6-14.6 [facility] Comment on above: Performed By: #### L 100.0100, L500.2500 #### [facility] [address] [place], [address] Hematocrit (Bld) [Volume fraction] 34.6 % Low 37-47 [facility] Comment on above: Performed By: #### L 100.0100, L500.2500 #### [facility] [address] [place], [address] Hemoglobin (Bld) [Mass/Vol] 12.2 g/dL Normal 12.0-15.0 [facility] Comment on above: Performed By: #### L 100.0100, L500.2500 #### [facility] [address] [place], [address] IG% 0.200 Normal 0.0-0.9 [facility] Comment on above: Result Comment: IG% - Immature Granulocytes (promyelocytes, myelocytes and metamyelocytes) > 1% indicates that a LEFT SHIFT is Present. Performed By: #### L 100.0100, L500.2500 #### [facility] [address] [place], [address] Lymphocytes/100 WBC (Bld) 33.0 % Normal 19-41 [facility] Comment on above: Performed By: #### L 100.0100, L500.2500 #### [facility] [address] [place], [address] MCH (RBC) [Entitic mass] 32.4 pg High 27.0-32.0 [facility] Comment on above: Performed By: #### L 100.0100, L500.2500 #### [facility] [address] [place], [address] MCHC (RBC) [Mass/Vol] 35.3 g/dL Normal 32-36 [facility] Comment on above: Performed By: #### L 100.0100, L500.2500 #### [facility] [address] [place], [address] MCV (RBC) [Entitic vol] 91.8 fL Normal 81-99 [facility] Comment on above: Performed By: #### L 100.0100, L500.2500 #### [facility] [address] [place], [address] Monocytes/100 WBC (Bld) 9.6 % Normal 0-10 [facility] Comment on above: Performed By: #### L 100.0100, L500.2500 #### [facility] [address] [place], [address] Neutrophils/100 WBC (Bld) 53.6 % Normal 47-70 [facility] Comment on above: Performed By: #### L 100.0100, L500.2500 #### [facility] [address] [place], [address] Nucleated RBC (Bld) [#/Vol] 0 10*3/uL Normal 0-5 [facility] Comment on above: Performed By: #### L 100.0100, L500.2500 #### [facility] [address] [place], [address] Platelet mean volume (Bld) [Entitic vol] 8.8 fL Normal 6.2-12.0 [facility] Comment on above: Performed By: #### L 100.0100, L500.2500 #### [facility] [address] [place], [address] Platelets (Bld) [#/Vol] 272 10*3/uL Normal 150-450 [facility] Comment on above: Performed By: #### L 100.0100, L500.2500 #### [facility] [address] [place], [address] RBC (Bld) [#/Vol] 3.77 10*6/uL Low 4.2-5.4 [facility] Comment on above: Performed By: #### L 100.0100, L500.2500 #### [facility] [address] [place], [address] RDW SD 39.6 fl Normal 35.1-43.9 [facility] Comment on above: Performed By: #### L 100.0100, L500.2500 #### [facility] [address] [place], [address] WBC (Bld) [#/Vol] 8.4 10*3/uL Normal 4.4-11.0 [facility] Comment on above: Performed By: #### L 100.0100, L500.2500 #### [facility] [address] [place], [address] CNOVon 01-12-2025 CNOV Office Visit ([facility]) KARL CLAROS ([id number]) 1965 F Date Time Provider Department 01/12/25 11:15 AM NADEEN ROCHA During your visit today, we recorded the following information about you: Temperature Pulse Respiration Blood pressure 98.5 degrees 118/minute 18/minute 136/84 Weight 78.9 kg Nadeen Rocha, JIAN.ANIMAL KEEPER 01/12/2025 11:50 AM Signed [facility] Juan is a 59 year old female. Patient presents with: Abdominal Pain: left lower quadrant and back pain, worse with touch x 4 days Abdominal Pain Abdominal Pain: - Onset a few days ago, with increasing severity. - Described as feeling like a huge bruise. - Pain is more pronounced at night, causing difficulty standing upright. - Pain is reminiscent of previous kidney stone episodes. - Denies fever, chills, nausea, emesis, or diarrhea. - Mild constipation noted; recently stopped taking a prescribed stool softener. - Recent cervical fusion surgery on 01/11, with prescribed pain medication and muscle relaxers. RA: - Managed with weekly medication regimen of six pills. - Regular blood work required by arthritis specialist. Review of Systems Gastrointestinal: Positive for abdominal pain. Constitutional: (-) fever, (-) chills Musculoskeletal: (+) back pain Gastrointestinal: (+) abdominal pain, (+) constipation, (-) nausea, (-) vomiting, (-) diarrhea Objective BP 136/84 Pulse 118 Temp 36.9 ?C (98.5 ?F) Resp 18 Wt 78.9 kg (173 lb 15.1 oz) LMP 06/27/2018 SpO2 98% BMI 33.97 kg/m? PAST MEDICAL HISTORY Diagnosis Date ADD (attention deficit disorder) Arthritis Depression Renal calculus 2009 PAST SURGICAL HISTORY Procedure Laterality Date APPENDECTOMY SECTION HX x 2 PAST SURGICAL HISTORY OF Bilateral Carpal Tunnel Surgery PAST SURGICAL HISTORY OF Tubes in ears SALPINGECTOMY Ectopic ; unsure which tube was removed ALLERGIES No Known Allergies MEDICATIONS Brompheniramine-Pseudo eph-DM (BROMFED DM) 2-30-10 mg/5 mL syrup Take 5 mL by mouth four times a day as needed. folic acid 1 mg tablet Take 2 tablets by mouth every afternoon. methotrexate 2.5 mg tablet TAKE 7 TABLETS BY MOUTH EVERY WEEK DULoxetine (CYMBALTA) 30 mg capsule Take 1 capsule by mouth every afternoon. albuterol HFA (PROAIR HFA) 90 mcg/actuation inhaler Inhale 2 Puffs as instructed every 4 hours as needed. benzonatate (TESSALON PERLE) 100 mg capsule Take 2 capsules by mouth three times daily as needed. IBUPROFEN ORAL Take by mouth as needed. FLUoxetine (PROZAC) 20 mg capsule hydrOXYzine pamoate (VISTARIL) 25 mg capsule Pseudoephedrine HCl (SUDAFED SR) 120 mg TbER ondansetron orally disintegrating (ZOFRAN ODT) 4 mg disintegrating tablet ondansetron orally disintegrating (ZOFRAN ODT) 4 mg disintegrating tablet Take 1 tablet by mouth every 8 hours as needed for nausea/vomiting. benzonatate (TESSALON PERLES) 100 mg capsule Take 2 capsules by mouth three times a day as needed for cough. HYDROcodone-acetaminop hen (NORCO) 5-325 mg per tablet EVERY 4 HOURS NEEDED PRN For Pain (Patient not taking: Reported on 06/12/2023) FAMILY HISTORY Problem Relation Age of Onset Drug abuse Son SOCIAL HISTORY[1] Physical Exam Vitals and nursing note reviewed. Constitutional: General: She is not in acute distress. Appearance: Normal appearance. She is not ill-appearing. Cardiovascular: Rate and Rhythm: Normal rate and regular rhythm. Heart sounds: Normal heart sounds. Pulmonary: Effort: Pulmonary effort is normal. No respiratory distress. Breath sounds: Normal breath sounds. No wheezing or rales. Abdominal: General: Bowel sounds are normal. There is no distension. Palpations: Abdomen is soft. There is no mass. Tenderness: There is abdominal tenderness in the left lower quadrant. There is no right CVA tenderness, left CVA tenderness or guarding. Skin: General: Skin is warm and dry. Neurological: Mental Status: She is alert. { 1. LLQ abdominal pain (R10.32) 2. Hematuria, unspecified type (R31.9) - LLQ abdominal pain with hematuria on urinalysis; differential includes diverticulitis and nephrolithiasis. - Advised ED evaluation for abdominal and pelvic CT to rule out diverticulitis or nephrolithiasis. - Discussed risks of delayed diagnosis, including potential for colonic rupture or abscess if diverticulitis is present. - Provided education on diverticulitis, including pathophysiology and need for prompt diagnosis and treatment. Nadeen Rocha APRN.ANIMAL KEEPER and Recording using [employer] software for draft documentation of the visit was discussed with the patient/authorized representative government relations; all questions welcomed and answered. Patient/authorized representative government relations agreed to proceed Disposition The patient was other (comment). Procedures [1] Social Hi (more content not included)... Normal [facility] Carbon dioxide, total [Moles /volume] in Central venous bloodOrdered By: Anthony Delgado on 01-12-2025 CO2 [Moles/Vol] 27.6 mmol/L 21.0-32.0 [facility] Chloride assayOrdered By: Lawrence Delgado on 01-12-2025 Chloride [Moles/Vol] 103 mmol/L 98-108 [facility] Emergency Department Summary on 01-12-2025 Emergency Department Summary [facility] Medical Records Department [address] [place] [address] Emergency Department Summary 01/12/25 MR#: [id number] Acct: [id number] Name: KARL CLAROS Rep #: [id number] : 1965 59 From: Anthony Delgado MD PCP: ELISE Phillips Status:REG ER Location: ED HPI HPI - GI History of Present Illness Chief Complaint: Abd Pain Informant: patient Narrative Narrative: 59-year-old female 4 days worth of pain in her left lower quadrant radiating into her left low back that feels different than her rheumatoid arthritis joint pain, sent by urgent care for evaluation. States pains been constant and worsening. No diarrhea no blood in her stool no urinary symptoms no nausea, vomiting, fevers, or chills. PFSH PFS Medical History Loss of hearing Post-menopausal Rheumatoid arthritis Restless [...] Unknown Hi story mcg (1,000 unit) capsule dextroamphetamine-amph etamine 30 30 mg PO BID 04/11/24 Unknown Hist ory mg tablet (Adderall) duloxetine 60 mg capsule,delayed 60 mg PO QDAY 04/11/24 Unknown His tory release (Cymbalta) folic acid 1 mg tablet 1 mg PO QDAY 04/11/24 Unknown Hist ory hydroxyzine HCl 25 mg tablet 25 mg PO TID PRN anxiety 04/11/24 Unknown History methotrexate sodium 2.5 mg tablet 15 mg PO WE 04/11/24 Unknown Hist ory tramadol 50 mg tablet 50 mg PO TID 04/11/24 Unknown Hist ory metronidazole 500 mg tablet 500 mg PO BID #14 tabs 01/12/25 Un known Rx naproxen 500 mg tablet 500 mg PO BID PRN pain #8 tabs Unknown Rx Allergy/AdvReac Type Severity Reaction Status Date / Time No Known Allergies Allergy Verified 01/12/25 12:00 Family History Father Heart disease Cancer Surgical History Hx of myringotomy History of Hx of colonoscopy Hx of exploratory laparotomy Hx of lithotripsy History of carpal tunnel surgery of right wrist History of carpal tunnel surgery of left wrist Social History Smoking Status: Former smoker alcohol intake: never additional social history: ibuprofen daily ROS ROS ED Constitutional Constitutional ED: Denies chills or fever(s) Eyes Eyes: Denies change in vision or diplopia ENT ENT ED: Denies rhinorrhea or sore throat Cardiovascular Cardiovascular: Denies chest pain or palpitations Respiratory/Chest Respiratory/Chest: Denies cough or dyspnea Gastrointestinal Gastrointestinal: Reports abdominal pain; Denies diarrhea, hematochezia, melena, nausea or vomiting Genitourinary Genitourinary ED: Denies dysuria or hematuria Musculoskeletal Musculoskeletal: Reports back pain; Denies neck pain Integumentary Denies abscess or rash Neurologic Neurologic: Denies headache(s), paresthesias or weakness Psychiatric Psychiatric: Denies anxiety or suicidal thoughts EXAM Physical Exam Const Vital Signs: 01/12/25 11:59 01/12/25 13:58 01/12/25 15:00 Temperature 98.9 F 97.7 F L 98.1 F Temperature Source Oral Oral Oral Pulse Rate 108 H 93 97 Respiratory Rate 16 17 14 Blood Pressure 158/77 H 135/83 H 151/88 H Blood Pressure Mean 104 100 109 Pulse Ox 98 96 97 Oxygen Delivery Method Room Air Room Air 01/12/25 15:22 Temperature 97.8 F Temperature Source Pulse Rate 92 Respiratory Rate 16 Blood Pressure 151/88 H Blood Pressure Mean 109 Pulse Ox 93 Oxygen Delivery Method Positive well nourished and well developed General Appearance ED: well developed and NAD HEENT Reports moist mucous membranes normocephalic and atraumatic Eyes PERRL and EOMs intact bilaterally Neck full ROM and supple Resp normal respiratory effort and clear to auscultation bilaterally Cardio regular rate, regular rhythm and no murmurs GI non-distended GI Narrative: Tender in the left lower quadrant, closer to the umbilicus/medially, no guarding or rebound no pulsatile masses. No cullon sign or Delgado Blum sign Auscultation: normoactive bowel sounds Palpation: soft Back/Spine no CVA tenderness General Back: other FROM Extremity normal to inspection General Extremety (more content not included)... Normal [facility] Eosinophil percentageOrdered By: Anthony Delgado on 01-12-2025 Eosinophils/100 WBC (Bld) 3.2 % 0-5 [facility] Erythrocyte distribution wid th ratioOrdered By: Anthony Delgado on 01-12-2025 Erythrocyte distribution width (RBC) [Ratio] 11.9 % 11.6-14.6 [facility] Erythrocyte distribution wid th standard deviationOrdered By: Anthony Delgado on 01-12-2025 Erythrocyte distribution width (RBC) [Ratio] 39.6 fl 35.1-43.9 [facility] Glomerular filtration rate ( GFR) estimation/1.73 sq m using serum, plasma, or whole bOrdered By: Anthony Delgado on 01-12-2025 GFR/1.73 sq M.predicted among non-blacks MDRD (S/P/Bld) [Vol rate/Area] 101 mL/min/{1.73_m2} >60 [facility] Comment on above: mL/min/1.73m2 CKD-EP I Creatinine Equation (2020) Hematocrit Auto (Bld) [Volum e fraction]Ordered By: Anthony Delgado on 01-12-2025 Hematocrit (Bld) [Volume fraction] 34.6 % Low 37-47 [facility] Hemoglobin measurementOrdere d By: Anthony Delgado on 01-12-2025 Hemoglobin (Bld) [Mass/Vol] 12.2 g/dL 12.0-15.0 [facility] Immature granulocytes/100 WB C Auto (Bld)Ordered By: Anthony Delgado on 01-12-2025 Immature granulocytes/100 WBC (Bld) 0.200 % 0.0-0.9 [facility] Comment on above: IG% - Immature Granu locytes (promyelocytes, myelocytes and metamyelocytes) > 1% indicates that a LEFT SHIFT is Present. Ketones Test strip Ql (U)Ord ered By: Anthony Delgado on 01-12-2025 Ketones Ql (U) Negative Negative [facility] MCV (mean corpuscular volume ) determinationOrdered By: Anthony Delgado on 01-12-2025 MCV (RBC) [Entitic vol] 91.8 fL 81-99 [facility] Mean corpuscular hemoglobin (MCH) determinationOrdered By: Anthony Delgado on 01-12-2025 MCH (RBC) [Entitic mass] 32.4 pg High 27.0-32.0 [facility] Mean corpuscular hemoglobin concentration (MCHC) determinationOrdered By: Anthony Delgado on 01-12-2025 MCHC (RBC) [Mass/Vol] 35.3 g/dL 32-36 [facility] Mean platelet volume determi nationOrdered By: Anthony Delgado on 01-12-2025 Platelet mean volume (Bld) [Entitic vol] 8.8 fL 6.2-12.0 [facility] Microscopic analysis of urin e for red blood cells (RBC)Ordered By: Anthony Delgado on 01-12-2025 Microscopic analysis of urine for red blood cells (RBC) 5-10 SEEN /hpf 0-5 [facility] Monocyte percentageOrdered B y: Anthony Delgado on 01-12-2025 Monocytes/100 WBC (Bld) 9.6 % 0-10 [facility] Mucus LM Ql (Urine sed)Order ed By: Anthony Delgado on 01-12-2025 Mucus Ql (Urine sed) 0 SEEN /hpf [facility] Neutrophil percentageOrdered By: Anthony Delgado on 01-12-2025 Neutrophils/100 WBC (Bld) 53.6 % 47-70 [facility] Nitrite Test strip Ql (U)Ord ered By: Anthony Delgado on 01-12-2025 Nitrite Ql (U) Negative Negative [facility] Nucleated red blood cell per centageOrdered By: Anthony Delgado on 01-12-2025 Nucleated RBC/100 WBC (Bld) [Ratio] 0 % 0-5 [facility] Platelet countOrdered By: Lawrence bacarajiv Sandy on 01-12-2025 Platelets (Bld) [#/Vol] 272 10*3/uL 150-450 [facility] Potassium measurement (mass/ volume)Ordered By: Anthony Delgado on 01-12-2025 Potassium (Unsp spec) [Mass/Vol] 4.1 mmol/L 3.3-5.1 [facility] Protein Test strip Ql (U)Ord ered By: Anthony Delgado on 01-12-2025 Protein Ql (U) Negative Negative [facility] RBC Auto (Bld) [#/Vol]Ordere d By: Anthony Delgado on 01-12-2025 RBC (Bld) [#/Vol] 3.77 10*6/uL Low 4.2-5.4 [facility] Serum creatinine measurement (mass/volume)Ordered By: Anthony Delgado on 01-12-2025 Creatinine [Mass/Vol] 0.67 mg/dL Low 0.70-1.20 [facility] Serum glucose measurement (m ass/volume)Ordered By: Anthony Delgado on 01-12-2025 Glucose [Mass/Vol] 86 mg/dL 70-99 [facility] Serum or plasma calcium idania urement (mass/volume)Ordered By: Anthony Delgado on 01-12-2025 Calcium [Mass/Vol] 10.2 mg/dL 7.6-11.0 [facility] Serum or plasma urea nitroge n measurement (mass/volume)Ordered By: Anthony Delgado on 01-12-2025 Urea nitrogen [Mass/Vol] 14 mg/dL 4-19 [facility] Sodium levelOrdered By: Rick Delgado on 01-12-2025 Sodium [Moles/Vol] 141 mmol/L 133-145 [facility] Squamous epithelial cells de tection in urine sediment by light microscopyOrdered By: Anthony Delgado on 01-12-2025 Epithelial cells.squamous LM Ql (Urine sed) 0 SEEN /hpf 5-10 [facility] UA DIP, URINE (POC)on 2024 BILIRUBIN UA (POCT) Negative Negative [facility] CLARITY UA (POCT) Clear [facility] COLOR UA (POCT) [facility] GLUCOSE UA (POCT) Negative Negative mg/dL [facility] Hemoglobin Ql (U) Moderate Abnormal Negative [facility] Interpretation and review of laboratory results Abnormal [facility] KETONE UA (POCT) Trace Negative mg/dL [facility] LEUKOCYTES UA (POCT) Negative Negative [facility] NITRITE UA (POCT) Negative Negative [facility] PH UA (POCT) 7.0 4.5 - 8.0 [facility] Protein Ql (U) Negative Negative mg/dL [facility] SPECIFIC GRAVITY UA (POCT) 1.015 1.005 - 1.030 [facility] UROBILINOGEN UA (POCT) 0.2 Normal E.U./d L [facility] Location:[address], [place], [place], [id number] [place] [address] POINT OF CARE [facility] Urinalysis, Completeon 01-12 RBC 5-10 SEEN Normal 0-5 [facility] Comment on above: Order Comment: CLEAN CATCH Performed By: #### L [id number] ####[facility] [address] [place], [address] BACTERIA 0 SEEN Normal None Seen [facility] Comment on above: Order Comment: CLEAN CATCH Performed By: #### L [id number] ####[facility] [address] [place], [address] EPI,SQUAMOUS 0 SEEN Normal 5-10 [facility] Comment on above: Order Comment: CLEAN CATCH Performed By: #### L [id number] ####[facility] [address] [place], [address] Mucus Ql (Urine sed) 0 SEEN Normal [facility] Comment on above: Order Comment: CLEAN CATCH Performed By: #### L [id number] ####[facility] [address] [place], [address] WBC 0 SEEN Normal 0-5 [facility] Comment on above: Order Comment: CLEAN CATCH Performed By: #### L [id number] ####[facility] [address] [place], [place], [address] Urine clarityOrdered By: Nader Delgado on 01-12-2025 Clarity (U) Clear Clear [facility] Urine color determinationOrd ered By: Anthony Delgado on 01-12-2025 Color (U) Yellow Yellow [facility] Urine glucose detectionOrder ed By: Anthony Delgado on 01-12-2025 Glucose Ql (U) Normal mg/dl Normal [facility] Urine leukocyte esterase det ection by dipstickOrdered By: Anthony Delgado on 01-12-2025 Leukocyte esterase Test strip Ql (U) Negative Negative [facility] Urine pHOrdered By: Anthony Delgado on 01-12-2025 pH (U) 7.0 [pH] 5.0 - 8.0 [facility] Urine sediment bacteria coun t by microscopy (number/high power field)Ordered By: Anthony Delgado on 01-12-2025 Bacteria LM.HPF (Urine sed) [#/Area] 0 /[HPF] None Seen [facility] Urine specific gravity measu rementOrdered By: Anthony Delgado on 01-12-2025 Specific gravity (U) [Rel density] 1.010 1.002-1.030 [facility] Urine urobilinogen measureme ntOrdered By: Anthony Delgado on 01-12-2025 Urobilinogen Ql (U) Normal mg/dl Normal [facility] White blood cell (WBC) count Ordered By: Anthony Delgado on 01-12-2025 WBC (Bld) [#/Vol] 8.4 10*3/uL 4.4-11.0 [facility] White blood cell countOrdere d By: Anthony Delgado on 01-12-2025 White blood cell count 0 SEEN /hpf 0-5 [facility] Comprehensive Metabolic Prof ilon 11-06-2024 Bilirubin [Mass/Vol] 0.25 mg/dL Normal 0.00-1.30 [facility] Comment on above: Performed By: #### L [id number], L100.0100 ####[facility] [address] [place], [address] Absolute lymphocyte countOrd ered By: Shylabethany Danielson on 11-05-2024 Lymphocytes Auto (Unsp spec) [#/Vol] 3.46 10*3/uL 0.83-4.51 [facility] Absolute neutrophil countOrd ered By: Shylabethany Danielson on 11-05-2024 Neutrophils (Bld) [#/Vol] 4.3 10*3/uL 2.0-7.7 [facility] Anion gap in Serum or Plasma Ordered By: Shyla Danielson on 11-05-2024 Anion gap [Moles/Vol] 12 mmol/L 5- [facility] Automated lymphocyte count a s percentage of total leukocytesOrdered By: Shyla Danielson on 11-05-2024 Lymphocytes/100 WBC Auto (Unsp spec) 37.2 % - [facility] BUN/creatinine ratioOrdered By: [facility] on 11-05-2024 Urea nitrogen/Creatinine [Mass ratio] 20.5 mg/mg High 10- [facility] Basophil percentageOrdered B y: Shyla Danielson on 11-05-2024 Basophils/100 WBC (Bld) 0.3 % 0-1 [facility] Bilirubin, totalOrdered By: Shyla Danielson on 11-05-2024 Bilirubin [Mass/Vol] 0.25 mg/dL 0.00-1.30 [facility] CBC W/Diff, Automatedon 10-21 Absolute Lymph 3.46 X10 3/uL Normal 0.83-4.51 [facility] Comment on above: Performed By: #### L [id number], L100.0100 ####[facility] [address] [place], [address] Absolute Neut 4.3 X10 3/uL Normal 2.0-7.7 [facility] Comment on above: Performed By: #### L [id number], L100.0100 ####[facility] [address] [place], [address] Basophils/100 WBC (Bld) 0.3 % Normal 0-1 [facility] Comment on above: Performed By: #### L [id number], L100.0100 ####[facility] [address] [place], [address] Eosinophils/100 WBC (Bld) 4.7 % Normal 0-5 [facility] Comment on above: Performed By: #### L [id number], L100.0100 ####[facility] [address] [place], [address] Erythrocyte distribution width (RBC) [Ratio] 11.9 % Normal 11.6-14.6 [facility] Comment on above: Performed By: #### L [id number], L100.0100 ####[facility] [address] [place], [address] Hematocrit (Bld) [Volume fraction] 32.6 % Low 37-47 [facility] Comment on above: Performed By: #### L [id number], L100.0100 ####[facility] [address] [place], [address] Hemoglobin (Bld) [Mass/Vol] 11.6 g/dL Low 12.0-15.0 [facility] Comment on above: Performed By: #### L [id number], L100.0100 ####[facility] [address] [place], [address] IG% 0.200 Normal 0.0-0.9 [facility] Comment on above: Result Comment: IG% - Immature Granulocytes (promyelocytes, myelocytes and metamyelocytes) > 1% indicates that a LEFT SHIFT is Present. Performed By: #### L [id number], L100.0100 ####[facility] [address] [place], [address] Lymphocytes/100 WBC (Bld) 37.2 % Normal 19-41 [facility] Comment on above: Performed By: #### L [id number], L100.0100 ####[facility] [address] [place], [address] MCH (RBC) [Entitic mass] 32.5 pg High 27.0-32.0 [facility] Comment on above: Performed By: #### L [id number], L100.0100 ####[facility] [address] [place], [address] MCHC (RBC) [Mass/Vol] 35.6 g/dL Normal 32-36 [facility] Comment on above: Performed By: #### L [id number], L100.0100 ####[facility] [address] [place], [address] MCV (RBC) [Entitic vol] 91.3 fL Normal 81-99 [facility] Comment on above: Performed By: #### L [id number], L100.0100 ####[facility] [address] [place], [address] Monocytes/100 WBC (Bld) 10.9 % High 0-10 [facility] Comment on above: Performed By: #### L [id number], L100.0100 ####[facility] [address] [place], [address] Neutrophils/100 WBC (Bld) 46.7 % Low 47-70 [facility] Comment on above: Performed By: #### L [id number], L100.0100 ####[facility] [address] [place], [address] Nucleated RBC (Bld) [#/Vol] 0 10*3/uL Normal 0-5 [facility] Comment on above: Performed By: #### L [id number], L100.0100 ####[facility] [address] [place], [address] Platelet mean volume (Bld) [Entitic vol] 9.6 fL Normal 6.2-12.0 [facility] Comment on above: Performed By: #### L [id number], L100.0100 ####[facility] [address] [place], [address] Platelets (Bld) [#/Vol] 273 10*3/uL Normal 150-450 [facility] Comment on above: Performed By: #### L [id number], L100.0100 ####[facility] [address] [place], [address] RBC (Bld) [#/Vol] 3.57 10*6/uL Low 4.2-5.4 [facility] Comment on above: Performed By: #### L [id number], L100.0100 ####[facility] [address] [place], [address] RDW SD 38.5 fl Normal 35.1-43.9 [facility] Comment on above: Performed By: #### L [id number], L100.0100 ####[facility] [address] [place], [address] WBC (Bld) [#/Vol] 9.3 10*3/uL Normal 4.4-11.0 [facility] Comment on above: Performed By: #### L 500.4050, L100.0100 ####[facility] [address] [place], [address] Carbon dioxide, total [Moles /volume] in Central venous bloodOrdered By: Shyla Danielson on 11-05-2024 CO2 [Moles/Vol] 22.9 mmol/L 21.0-32.0 [facility] Chloride assayOrdered By: Jeffery Danielson on 11-05-2024 Chloride [Moles/Vol] 105 mmol/L 98-108 [facility] Eosinophil percentageOrdered By: Shyla Danielson on 11-05-2024 Eosinophils/100 WBC (Bld) 4.7 % 0-5 [facility] Erythrocyte distribution wid th ratioOrdered By: Shyla Danielson on 11-05-2024 Erythrocyte distribution width (RBC) [Ratio] 11.9 % 11.6-14.6 [facility] Erythrocyte distribution wid th standard deviationOrdered By: Shyla Danielson on 11-05-2024 Erythrocyte distribution width (RBC) [Ratio] 38.5 fl 35.1-43.9 [facility] Glomerular filtration rate ( GFR) estimation/1.73 sq m using serum, plasma, or whole bOrdered By: Shyla Danielson on 11-05-2024 GFR/1.73 sq M.predicted among non-blacks MDRD (S/P/Bld) [Vol rate/Area] 93 mL/min/{1.73_m2} >60 [facility] Comment on above: mL/min/1.73m2 CKD-EP I Creatinine Equation (2020) Hematocrit Auto (Bld) [Volum e fraction]Ordered By: Shyla Danielson on 11-05-2024 Hematocrit (Bld) [Volume fraction] 32.6 % Low 37-47 [facility] Hemoglobin measurementOrdere d By: [facility] on 11-05-2024 Hemoglobin (Bld) [Mass/Vol] 11.6 g/dL Low 12.0-15.0 [facility] Immature granulocytes/100 WB C Auto (Bld)Ordered By: Shyla Danielson on 11-05-2024 Immature granulocytes/100 WBC (Bld) 0.200 % 0.0-0.9 [facility] Comment on above: IG% - Immature Granu locytes (promyelocytes, myelocytes and metamyelocytes) > 1% indicates that a LEFT SHIFT is Present. Laboratory - Chemistry and C hemistry - challengeOrdered By: Shyla Danielson on 11-05-2024 AST [Catalytic activity/Vol] 24 U/L <32 [facility] MCV (mean corpuscular volume ) determinationOrdered By: Shyla Danielson 11-05-2024 MCV (RBC) [Entitic vol] 91.3 fL 81-99 [facility] Mean corpuscular hemoglobin (MCH) determinationOrdered By: Shyla Danielson 11-05-2024 MCH (RBC) [Entitic mass] 32.5 pg High 27.0-32.0 [facility] Mean corpuscular hemoglobin concentration (MCHC) determinationOrdered By: Shyla Danielson on 11-05-2024 MCHC (RBC) [Mass/Vol] 35.6 g/dL 32-36 [facility] Mean platelet volume determi nationOrdered By: Shyla Danielson on 11-05-2024 Platelet mean volume (Bld) [Entitic vol] 9.6 fL 6.2-12.0 [facility] Monocyte percentageOrdered B y: Shyla Danielson on 11-05-2024 Monocytes/100 WBC (Bld) 10.9 % High 0-10 [facility] Neutrophil percentageOrdered By: Shyla Danielson on 11-05-2024 Neutrophils/100 WBC (Bld) 46.7 % Low 47-70 [facility] Nucleated red blood cell per centageOrdered By: Shyla Danielson on 11-05-2024 Nucleated RBC/100 WBC (Bld) [Ratio] 0 % 0-5 [facility] Platelet countOrdered By: Jeffery Danielson on 11-05-2024 Platelets (Bld) [#/Vol] 273 10*3/uL 150-450 [facility] Potassium measurement (mass/ volume)Ordered By: Shyla Danielson on 11-05-2024 Potassium (Unsp spec) [Mass/Vol] 4.3 mmol/L 3.3-5.1 [facility] RBC Auto (Bld) [#/Vol]Ordere d By: Shyla Danielson on 11-05-2024 RBC (Bld) [#/Vol] 3.57 10*6/uL Low 4.2-5.4 [facility] Serum creatinine measurement (mass/volume)Ordered By: Shyla Danielson on 11-05-2024 Creatinine [Mass/Vol] 0.75 mg/dL 0.70-1.20 [facility] Serum globulin measurementOr dered By: Shyla Danielson on 11-05-2024 Globulin (S) [Mass/Vol] 2.8 g/dL 2.2-4.2 [facility] Serum glucose measurement (m ass/volume)Ordered By: Shyla Danielson on 11-05-2024 Glucose [Mass/Vol] 88 mg/dL 70-99 [facility] Serum or plasma alanine avila otransferase (ALT) measurementOrdered By: Shyla Danielson on 11-05-2024 ALT [Catalytic activity/Vol] 19 U/L <35 [facility] Serum or plasma albumin idania urement (mass/volume)Ordered By: Shyla Danielson on 11-05-2024 Albumin [Mass/Vol] 4.0 g/dL 3.5-5.0 [facility] Serum or plasma albumin/glob ulin mass ratioOrdered By: Shyla Danielson on 11-05-2024 Albumin/Globulin [Mass ratio] 1.5 {ratio} 0.9-2.4 [facility] Serum or plasma alkaline joaquín sphatase measurementOrdered By: Shyla Danielson on 11-05-2024 ALP [Catalytic activity/Vol] 93 U/L 35-104 [facility] Serum or plasma calcium idania urement (mass/volume)Ordered By: Shyla Danielson on 11-05-2024 Calcium [Mass/Vol] 9.6 mg/dL 7.6-11.0 [facility] Serum or plasma urea nitroge n measurement (mass/volume)Ordered By: Shyla Danielson on 11-05-2024 Urea nitrogen [Mass/Vol] 15 mg/dL 4-19 [facility] Sodium levelOrdered By: Tushar Danielson on 11-05-2024 Sodium [Moles/Vol] 140 mmol/L 133-145 [facility] Total proteinOrdered By: Deja Danielson on 11-05-2024 Protein [Mass/Vol] 6.8 g/dL 5.9-8.4 [facility] White blood cell (WBC) count Ordered By: Shyla Danielson on 11-05-2024 WBC (Bld) [#/Vol] 9.3 10*3/uL 4.4-11.0 [facility] Absolute lymphocyte countOrd ered By: Shyla Danielson on 08-14-2024 Lymphocytes Auto (Unsp spec) [#/Vol] 4.00 10*3/uL 0.83-4.51 [facility] Absolute neutrophil countOrd ered By: Shyla Danielson on 08-14-2024 Neutrophils (Bld) [#/Vol] 6.7 10*3/uL 2.0-7.7 [facility] Anion gap in Serum or Plasma Ordered By: Shyla Danielson on 08-14-2024 Anion gap [Moles/Vol] 11 mmol/L 5- [facility] Automated lymphocyte count a s percentage of total leukocytesOrdered By: Shyla Danielson on 08-14-2024 Lymphocytes/100 WBC Auto (Unsp spec) 32.7 % - [facility] BUN/creatinine ratioOrdered By: [facility] on 08-14-2024 Urea nitrogen/Creatinine [Mass ratio] 20.0 mg/mg 10- [facility] Basophil percentageOrdered B y: Shyla Danielson on 08-14-2024 Basophils/100 WBC (Bld) 0.3 % 0-1 [facility] Bilirubin, totalOrdered By: Shyla Danielson on 08-14-2024 Bilirubin [Mass/Vol] 0.22 mg/dL 0.00-1.30 [facility] CBC W/Diff, Automatedon 07-22 Absolute Lymph 4.00 X10 3/uL Normal 0.83-4.51 [facility] Comment on above: Performed By: #### L 500.4050, L100.0100 #### [facility] [address] [place], [address] Absolute Neut 6.7 X10 3/uL Normal 2.0-7.7 [facility] Comment on above: Performed By: #### L 500.4050, L100.0100 #### [facility] [address] [place], [address] Basophils/100 WBC (Bld) 0.3 % Normal 0-1 [facility] Comment on above: Performed By: #### L 500.4050, L100.0100 #### [facility] [address] [place], [address] Eosinophils/100 WBC (Bld) 2.9 % Normal 0-5 [facility] Comment on above: Performed By: #### L 500.4050, L100.0100 #### [facility] [address] [place], [address] Erythrocyte distribution width (RBC) [Ratio] 12.2 % Normal 11.6-14.6 [facility] Comment on above: Performed By: #### L 500.4050, L100.0100 #### [facility] [address] [place], [address] Hematocrit (Bld) [Volume fraction] 36.3 % Low 37-47 [facility] Comment on above: Performed By: #### L 500.4050, L100.0100 #### [facility] [address] [place], [address] Hemoglobin (Bld) [Mass/Vol] 12.8 g/dL Normal 12.0-15.0 [facility] Comment on above: Performed By: #### L 500.4050, L100.0100 #### [facility] [address] [place], [address] IG% 0.300 Normal 0.0-0.9 [facility] Comment on above: Result Comment: IG% - Immature Granulocytes (promyelocytes, myelocytes and metamyelocytes) > 1% indicates that a LEFT SHIFT is Present. Performed By: #### L 500.4050, L100.0100 #### [facility] [address] [place], [address] Lymphocytes/100 WBC (Bld) 32.7 % Normal 19-41 [facility] Comment on above: Performed By: #### L 500.4050, L100.0100 #### [facility] [address] [place], [address] MCH (RBC) [Entitic mass] 32.7 pg High 27.0-32.0 [facility] Comment on above: Performed By: #### L 500.4050, L100.0100 #### [facility] [address] [place], [address] MCHC (RBC) [Mass/Vol] 35.3 g/dL Normal 32-36 [facility] Comment on above: Performed By: #### L 500.4050, L100.0100 #### [facility] [address] [place], [address] MCV (RBC) [Entitic vol] 92.6 fL Normal 81-99 [facility] Comment on above: Performed By: #### L 500.4050, L100.0100 #### [facility] [address] [place], [address] Monocytes/100 WBC (Bld) 9.0 % Normal 0-10 [facility] Comment on above: Performed By: #### L 500.4050, L100.0100 #### [facility] [address] [place], [address] Neutrophils/100 WBC (Bld) 54.8 % Normal 47-70 [facility] Comment on above: Performed By: #### L 500.4050, L100.0100 #### [facility] [address] [place], [address] Nucleated RBC (Bld) [#/Vol] 0 10*3/uL Normal 0-5 [facility] Comment on above: Performed By: #### L 500.4050, L100.0100 #### [facility] [address] [place], [address] Platelet mean volume (Bld) [Entitic vol] 9.5 fL Normal 6.2-12.0 [facility] Comment on above: Performed By: #### L 500.4050, L100.0100 #### [facility] [address] [place], [address] Platelets (Bld) [#/Vol] 301 10*3/uL Normal 150-450 [facility] Comment on above: Performed By: #### L 500.4050, L100.0100 #### [facility] [address] [place], [address] RBC (Bld) [#/Vol] 3.92 10*6/uL Low 4.2-5.4 [facility] Comment on above: Performed By: #### L 500.4050, L100.0100 #### [facility] [address] [place], [address] RDW SD 40.6 fl Normal 35.1-43.9 [facility] Comment on above: Performed By: #### L 500.4050, L100.0100 #### [facility] [address] [place], [address] WBC (Bld) [#/Vol] 12.2 10*3/uL High 4.4-11.0 [facility] Comment on above: Performed By: #### L 500.4050, L100.0100 #### [facility] [address] [place], [address] Carbon dioxide, total [Moles /volume] in Central venous bloodOrdered By: Shyla Danielson on 08-14-2024 CO2 [Moles/Vol] 24.5 mmol/L 21.0-32.0 [facility] Chloride assayOrdered By: Jeffery Danielson on 08-14-2024 Chloride [Moles/Vol] 105 mmol/L 98-108 [facility] Comprehensive Metabolic Prof ilon 08-14-2024 Albumin [Mass/Vol] 4.2 g/dL Normal 3.5-5.0 [facility] Comment on above: Performed By: #### L 500.4050, L100.0100 ####[facility] [address] [place], [address] Albumin/Globulin [Mass ratio] 1.4 {ratio} Normal 0.9-2.4 [facility] Comment on above: Performed By: #### L 500.4050, L100.0100 ####[facility] [address] [place], [address] ALK PHOS 99 U/L Normal 35-104 [facility] Comment on above: Performed By: #### L 500.4050, L100.0100 ####[facility] [address] [place], [address] ALT [Catalytic activity/Vol] 20 U/L Normal <=34 [facility] Comment on above: Performed By: #### L 500.4050, L100.0100 ####[facility] [address] [place], [address] AST [Catalytic activity/Vol] 19 U/L Normal <=31 [facility] Comment on above: Performed By: #### L 500.4050, L100.0100 ####[facility] [address] [place], [address] Bilirubin [Mass/Vol] 0.22 mg/dL Normal 0.00-1.30 [facility] Comment on above: Performed By: #### L 500.4050, L100.0100 ####[facility] [address] [place], [address] BUN/CRE 20.0 RATIO Normal 10-20 [facility] Comment on above: Performed By: #### L 500.4050, L100.0100 ####[facility] [address] [place], [address] Calcium [Mass/Vol] 8.6 mg/dL Normal 7.6-11.0 [facility] Comment on above: Performed By: #### L 500.4050, L100.0100 ####[facility] [address] [place], [address] Chloride [Moles/Vol] 105 mmol/L Normal 98-108 [facility] Comment on above: Performed By: #### L 500.4050, L100.0100 ####[facility] [address] [place], [address] CO2 [Moles/Vol] 24.5 mmol/L Normal 21.0-32.0 [facility] Comment on above: Performed By: #### L 500.4050, L100.0100 ####[facility] [address] [place], [address] Creatinine [Mass/Vol] 0.79 mg/dL Normal 0.70-1.20 [facility] Comment on above: Performed By: #### L 500.4050, L100.0100 ####[facility] [address] [place], [address] GAP 11 Normal 5-15 [facility] Comment on above: Performed By: #### L 500.4050, L100.0100 ####[facility] [address] [place], [address] GFR/1.73 sq M.predicted among non-blacks MDRD (S/P/Bld) [Vol rate/Area] 87 mL/min/{1.73_m2} Normal >60 [facility] Comment on above: Result Comment: mL/m in/1.73m2 CKD-EPI Creatinine Equation (2020) Performed By: #### L 500.4050, L100.0100 ####[facility] [address] [place], [address] Globulin (S) [Mass/Vol] 2.9 g/dL Normal 2.2-4.2 [facility] Comment on above: Performed By: #### L 500.4050, L100.0100 ####[facility] [address] [place], [address] Glucose [Mass/Vol] 82 mg/dL Normal 70-99 [facility] Comment on above: Performed By: #### L 500.4050, L100.0100 ####[facility] [address] [place], [address] Potassium [Moles/Vol] 4.1 mmol/L Normal 3.3-5.1 [facility] Comment on above: Performed By: #### L 500.4050, L100.0100 ####[facility] [address] [place], [address] Sodium [Moles/Vol] 140 mmol/L Normal 133-145 [facility] Comment on above: Performed By: #### L 500.4050, L100.0100 ####[facility] [address] [place], [address] T PROT 7.1 g/dL Normal 5.9-8.4 [facility] Comment on above: Performed By: #### L 500.4050, L100.0100 ####[facility] [address] [place], [address] Urea nitrogen [Mass/Vol] 16 mg/dL Normal 4-19 [facility] Comment on above: Performed By: #### L 500.4050, L100.0100 ####[facility] [address] [place], [address] Eosinophil percentageOrdered By: Shyla Danielson on 08-14-2024 Eosinophils/100 WBC (Bld) 2.9 % 0-5 [facility] Erythrocyte distribution wid th ratioOrdered By: Shyla Danielson on 08-14-2024 Erythrocyte distribution width (RBC) [Ratio] 12.2 % 11.6-14.6 [facility] Erythrocyte distribution wid th standard deviationOrdered By: Shyla Danielson on 08-14-2024 Erythrocyte distribution width (RBC) [Entitic vol] 40.6 fL 35.1-43.9 [facility] Erythrocyte distribution width (RBC) [Ratio] 40.6 fl 35.1-43.9 [facility] GFR/1.73 sq M.predicted reza g non-blacks MDRD (S/P/Bld) [Vol rate/Area]Ordered By: Shyla Danielson on 08-14-2024 Estimated GFR (MDRD) Non-Af Amer 87 >60 [facility] Comment on above: mL/min/1.73m2 CKD-EP I Creatinine Equation (2020) Glomerular filtration rate ( GFR) estimation/1.73 sq m using serum, plasma, or whole bOrdered By: Shyla Danielson on 08-14-2024 GFR/1.73 sq M.predicted among non-blacks MDRD (S/P/Bld) [Vol rate/Area] 87 mL/min/{1.73_m2} >60 [facility] Comment on above: mL/min/1.73m2 CKD-EP I Creatinine Equation (2020) Hematocrit Auto (Bld) [Volum e fraction]Ordered By: Shyla Danielson on 08-14-2024 Hematocrit (Bld) [Volume fraction] 36.3 % Low 37-47 [facility] Hemoglobin measurementOrdere d By: Shyla Danielson on 08-14-2024 Hemoglobin (Bld) [Mass/Vol] 12.8 g/dL 12.0-15.0 [facility] Immature granulocytes/100 WB C Auto (Bld)Ordered By: Shyla Danielson on 08-14-2024 Immature granulocytes/100 WBC (Bld) 0.300 % 0.0-0.9 [facility] Comment on above: IG% - Immature Granu locytes (promyelocytes, myelocytes and metamyelocytes) > 1% indicates that a LEFT SHIFT is Present. Laboratory - Chemistry and C hemistry - challengeOrdered By: Shyla Danielson on 08-14-2024 AST [Catalytic activity/Vol] 19 U/L <32 [facility] Lymphocytes Auto (Unsp spec) [#/Vol]Ordered By: Shyla Danielson on 08-14-2024 Lymphocytes (Bld) [#/Vol] 4.00 10*3/uL 0.83-4.51 [facility] Lymphocytes/100 WBC Auto (Un sp spec)Ordered By: Shyla Danielson on 08-14-2024 Lymphocytes/100 WBC (Bld) 32.7 % 19-41 [facility] MCV (mean corpuscular volume ) determinationOrdered By: Shyla Danielson on 08-14-2024 MCV (RBC) [Entitic vol] 92.6 fL 81-99 [facility] Mean corpuscular hemoglobin (MCH) determinationOrdered By: Shyla Danielson on 08-14-2024 MCH (RBC) [Entitic mass] 32.7 pg High 27.0-32.0 [facility] Mean corpuscular hemoglobin concentration (MCHC) determinationOrdered By: Shyla Danielson on 08-14-2024 MCHC (RBC) [Mass/Vol] 35.3 g/dL 32-36 [facility] Mean platelet volume determi nationOrdered By: Shyla Danielson on 08-14-2024 Platelet mean volume (Bld) [Entitic vol] 9.5 fL 6.2-12.0 [facility] Monocyte percentageOrdered B y: Shyla Danielson on 08-14-2024 Monocytes/100 WBC (Bld) 9.0 % 0-10 [facility] Neutrophil percentageOrdered By: Shyla Danielson on 08-14-2024 Neutrophils/100 WBC (Bld) 54.8 % 47-70 [facility] Nucleated red blood cell per centageOrdered By: Shyla Danielson on 08-14-2024 Nucleated RBC/100 WBC (Bld) [Ratio] 0 % 0-5 [facility] Platelet countOrdered By: Jeffery Danielson on 08-14-2024 Platelets (Bld) [#/Vol] 301 10*3/uL 150-450 [facility] Potassium (Unsp spec) [Mass/ Vol]Ordered By: Shyla Danielson on 08-14-2024 Potassium [Moles/Vol] 4.1 mmol/L 3.3-5.1 [facility] Potassium measurement (mass/ volume)Ordered By: Shyla Danielson on 08-14-2024 Potassium (Unsp spec) [Mass/Vol] 4.1 mmol/L 3.3-5.1 [facility] RBC Auto (Bld) [#/Vol]Ordere d By: Shyla Danielson on 08-14-2024 RBC (Bld) [#/Vol] 3.92 10*6/uL Low 4.2-5.4 [facility] Serum creatinine measurement (mass/volume)Ordered By: Shyla Danielson on 08-14-2024 Creatinine [Mass/Vol] 0.79 mg/dL 0.70-1.20 [facility] Serum globulin measurementOr dered By: Shyla Danielson on 08-14-2024 Globulin (S) [Mass/Vol] 2.9 g/dL 2.2-4.2 [facility] Serum glucose measurement (m ass/volume)Ordered By: Shyla Danielson on 08-14-2024 Glucose [Mass/Vol] 82 mg/dL 70-99 [facility] Serum or plasma alanine avila otransferase (ALT) measurementOrdered By: Shyla Danielson on 08-14-2024 ALT [Catalytic activity/Vol] 20 U/L <35 [facility] Serum or plasma albumin idania urement (mass/volume)Ordered By: Shyla Danielson on 08-14-2024 Albumin [Mass/Vol] 4.2 g/dL 3.5-5.0 [facility] Serum or plasma albumin/glob ulin mass ratioOrdered By: Shyla Danielson on 08-14-2024 Albumin/Globulin [Mass ratio] 1.4 {ratio} 0.9-2.4 [facility] Serum or plasma alkaline joaquín sphatase measurementOrdered By: Shyla Danielson on 08-14-2024 ALP [Catalytic activity/Vol] 99 U/L 35-104 [facility] Serum or plasma calcium idania urement (mass/volume)Ordered By: Shyla Danielson on 08-14-2024 Calcium [Mass/Vol] 8.6 mg/dL 7.6-11.0 [facility] Serum or plasma urea nitroge n measurement (mass/volume)Ordered By: Shyla Danielson on 08-14-2024 Urea nitrogen [Mass/Vol] 16 mg/dL 4-19 [facility] Sodium levelOrdered By: Tushar Danielson on 08-14-2024 Sodium [Moles/Vol] 140 mmol/L 133-145 [facility] Total proteinOrdered By: Deja Danielson on 08-14-2024 Protein [Mass/Vol] 7.1 g/dL 5.9-8.4 [facility] White blood cell (WBC) count Ordered By: Shyla Danielson on 08-14-2024 WBC (Bld) [#/Vol] 12.2 10*3/uL High 4.4-11.0 [facility] MR/PAT.ANEon 07-02-2024 MR/PAT.[facility]ANNI 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 Hx Hospitalization No 07/02/24 13:22 Any Problems [...] take am of surgery PONV 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 Female Yes 07/02/24 13:22 HX of Motion Sickness No 07/02/24 13:22 HX of N/V After Surgery No 07/02/24 13:22 Non-Smoker No 07/02/24 13:22 Duration of Surgery greater Yes 07/02/24 13:22 than 60 minutes Number of Risk Factors 2 07/02/24 13:22 PONV Score Moderate Risk 07/02/24 13:22 Height Weight Height Weight: Anesthesia: Height Weight Height 5 ft 05/04/24 07:21 Respiratory Assessment Respiratory Assessment - textile worker: Respiratory Tract Infection Hx - textile worker Hx Respiratory Tract Infection No: SINUS CONGESTION 07/02/24 13:22 STOP Sleep Apnea STOP Sleep Apnea - textile worker: STOP Sleep Apnea - textile worker Hx Hypertension No 07/02/24 13:22 Hx Sleep [...] Tobacco Use History Tobacco Use History - textile worker: Tobacco Use History - textile worker Tobacco Use Smoking Status Current every day smoker 07/02/24 13:22 Hx Tobacco Use Yes 07/02/24 13:22 Years Smoking Packs Smoked per Day Smoking Cessation Date was within the last 15 years Hx Smoking Cessation Date Hx Smoking Cessation Counseling Hematologic Medial History Hematologic Hx - textile worker: 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 confused, unrespo /Reproduction History /Reproductive History - textile worker: /Reproductive Hx- textile worker Hx Now No 07/02/24 13:22 Gestational Age (in weeks): EDC: Hx Hx Para Hx Section SAB No 07/02/24 13:22 [facility] Medical History (Updated 07/02/24 @ 13:32 by [...] Unknown Hi story mcg (1,000 unit) capsule dextroamphetamine-amph etamine 30 30 mg PO BID 04/11/24 Unknown Hist ory mg tablet (Adderall) duloxetine 60 mg capsule,delayed 60 mg PO QDAY 04/11/24 Unknown His tory release (Cymbalta) folic acid 1 mg tablet 1 mg PO QDAY 04/11/24 Unk (more content not included)... Normal [facility] Absolute lymphocyte countOrd ered By: Leslie Patino on 06-29-2024 Lymphocytes Auto (Unsp spec) [#/Vol] 2.14 10*3/uL 0.83-4.51 [facility] Absolute neutrophil countOrd ered By: Leslie Patino on 06-29-2024 Neutrophils (Bld) [#/Vol] 4.6 10*3/uL 2.0-7.7 [facility] Albumin to globulin ratioOrd ered By: Leslie Patino on 06-29-2024 Albumin/Globulin [Mass ratio] 0.8 {ratio} Low 0.9-2.4 [facility] Automated lymphocyte count a s percentage of total leukocytesOrdered By: Leslie Patino on 06-29-2024 Lymphocytes/100 WBC Auto (Unsp spec) 27.7 % 19-41 [facility] Basophil percentageOrdered B y: Leslie Patino on 06-29-2024 Basophils/100 WBC (Bld) 0.3 % 0-1 [facility] Bilirubin, totalOrdered By: Leslie Patino on 06-29-2024 Bilirubin [Mass/Vol] 0.30 mg/dL 0.20-1.00 [facility] Comment on above: For patients on eltr ombopag therapy, use of Dimension [place] TBIL is not recommended. Blood urea nitrogen (BUN)/cr eatinine ratioOrdered By: Leslie Patino on 06-29-2024 Urea nitrogen/Creatinine [Mass ratio] 19.0 mg/mg 10-20 [facility] CBC W/Diff, Automatedon Absolute Lymph 2.14 X10 3/uL Normal 0.83-4.51 [facility] Comment on above: Performed By: #### L 100.0100, L500.4050 ####[facility] [address] [place], [address] Absolute Neut 4.6 X10 3/uL Normal 2.0-7.7 [facility] Comment on above: Performed By: #### L 100.0100, L500.4050 ####[facility] [address] [place], [address] Basophils/100 WBC (Bld) 0.3 % Normal 0-1 [facility] Comment on above: Performed By: #### L 100.0100, L500.4050 ####[facility] [address] [place], [address] Eosinophils/100 WBC (Bld) 1.7 % Normal 0-5 [facility] Comment on above: Performed By: #### L 100.0100, L500.4050 ####[facility] [address] [place], [address] Erythrocyte distribution width (RBC) [Ratio] 12.3 % Normal 11.6-14.6 [facility] Comment on above: Performed By: #### L 100.0100, L500.4050 ####[facility] [address] [place], [address] Hematocrit (Bld) [Volume fraction] 38.3 % Normal 37-47 [facility] Comment on above: Performed By: #### L 100.0100, L500.4050 ####[facility] [address] [place], [address] Hemoglobin (Bld) [Mass/Vol] 12.9 g/dL Normal 12.0-15.0 [facility] Comment on above: Performed By: #### L 100.0100, L500.4050 ####[facility] [address] [place], [address] IG% 0.300 Normal 0.0-0.9 [facility] Comment on above: Result Comment: IG% - Immature Granulocytes (promyelocytes, myelocytes and metamyelocytes) > 1% indicates that a LEFT SHIFT is Present. Performed By: #### L 100.0100, L500.4050 ####[facility] [address] [place], [address] Lymphocytes/100 WBC (Bld) 27.7 % Normal 19-41 [facility] Comment on above: Performed By: #### L 100.0100, L500.4050 ####[facility] [address] [place], [address] MCH (RBC) [Entitic mass] 31.7 pg Normal 27.0-32.0 [facility] Comment on above: Performed By: #### L 100.0100, L500.4050 ####[facility] [address] [place], [address] MCHC (RBC) [Mass/Vol] 33.7 g/dL Normal 32-36 [facility] Comment on above: Performed By: #### L 100.0100, L500.4050 ####[facility] [address] [place], [address] MCV (RBC) [Entitic vol] 94.1 fL Normal 81-99 [facility] Comment on above: Performed By: #### L 100.0100, L500.4050 ####[facility] [address] [place], [address] Monocytes/100 WBC (Bld) 10.5 % High 0-10 [facility] Comment on above: Performed By: #### L 100.0100, L500.4050 ####[facility] [address] [place], [address] Neutrophils/100 WBC (Bld) 59.5 % Normal 47-70 [facility] Comment on above: Performed By: #### L 100.0100, L500.4050 ####[facility] [address] [place], [address] Nucleated RBC (Bld) [#/Vol] 0 10*3/uL Normal 0-5 [facility] Comment on above: Performed By: #### L 100.0100, L500.4050 ####[facility] [address] [place], [address] Platelet mean volume (Bld) [Entitic vol] 9.6 fL Normal 6.2-12.0 [facility] Comment on above: Performed By: #### L 100.0100, L500.4050 ####[facility] [facility] [address] [place], [address] Platelets (Bld) [#/Vol] 245 10*3/uL Normal 150-450 [facility] Comment on above: Performed By: #### L 100.0100, L500.4050 ####[facility] [address] [place], [address] RBC (Bld) [#/Vol] 4.07 10*6/uL Low 4.2-5.4 [facility] Comment on above: Performed By: #### L 100.0100, L500.4050 ####[facility] [address] [place], [address] RDW SD 42.2 fl Normal 35.1-43.9 [facility] Comment on above: Performed By: #### L 100.0100, L500.4050 ####[facility] [address] [place], [address] WBC (Bld) [#/Vol] 7.7 10*3/uL Normal 4.4-11.0 [facility] Comment on above: Performed By: #### L 100.0100, L500.4050 ####[facility] [address] [place], [address] Carbon dioxide measurementOr dered By: Leslie Patino on 06-29-2024 CO2 [Moles/Vol] 28.0 mmol/L 21.0-32.0 [facility] Chloride measurementOrdered By: Leslie Patino on 06-29-2024 Chloride [Moles/Vol] 104 mmol/L 98-107 [facility] Comprehensive Metabolic Prof ilon 06-29-2024 Albumin [Mass/Vol] 3.4 g/dL Normal 3.2-5.0 [facility] Comment on above: Performed By: #### L 100.0100, L500.4050 ####[facility] [address] [place], [address] Albumin/Globulin [Mass ratio] 0.8 {ratio} Low 0.9-2.4 [facility] Comment on above: Performed By: #### L 100.0100, L500.4050 ####[facility] [address] [place], [address] ALK P 91 U/L Normal 45-117 [facility] Comment on above: Performed By: #### L 100.0100, L500.4050 ####[facility] [address] [place], [address] ALT [Catalytic activity/Vol] 51 U/L Normal 13-56 [facility] Comment on above: Performed By: #### L 100.0100, L500.4050 ####[facility] [address] [place], [address] AST [Catalytic activity/Vol] 38 U/L High 15-37 [facility] Comment on above: Performed By: #### L 100.0100, L500.4050 ####[facility] [address] [place], [address] Bilirubin [Mass/Vol] 0.30 mg/dL Normal 0.20-1.00 [facility] Comment on above: Result Comment: For patients on eltrombopag therapy, use of Dimension [place] TBIL is not recommended. Performed By: #### L 100.0100, L500.4050 ####[facility] [address] [place], [address] BUN/CRE 19.0 RATIO Normal 10-20 [facility] Comment on above: Performed By: #### L 100.0100, L500.4050 ####[facility] [address] [place], [address] CA,Total 9.5 mg/dL Normal 8.5-10.1 [facility] Comment on above: Performed By: #### L 100.0100, L500.4050 ####[facility] [address] [place], [address] Chloride [Moles/Vol] 104 mmol/L Normal 98-107 [facility] Comment on above: Performed By: #### L 100.0100, L500.4050 ####[facility] [address] [place], [address] CO2 [Moles/Vol] 28.0 mmol/L Normal 21.0-32.0 [facility] Comment on above: Performed By: #### L 100.0100, L500.4050 ####[facility] [address] [place], [address] Creatinine [Mass/Vol] 0.69 mg/dL Normal 0.55-1.02 [facility] Comment on above: Result Comment: The validity of the calculated GFR GFRAA in patients over 70 years has not been determined. Clinical correlation is essential. Performed By: #### L 100.0100, L500.4050 ####[facility] [address] [place], [address] EST GFR - AA 113 mL/min Normal >60 [facility] Comment on above: Result Comment: Afri can [place] GFR Calc Performed By: #### L 100.0100, L500.4050 ####[facility] [address] [place], [address] GAP 7 Normal 5-15 [facility] Comment on above: Performed By: #### L 100.0100, L500.4050 ####[facility] [address] [place], [address] GFR/1.73 sq M.predicted among non-blacks MDRD (S/P/Bld) [Vol rate/Area] 94 mL/min/{1.73_m2} Normal >60 [facility] Comment on above: Result Comment: Non- GFR Calc Performed By: #### L 100.0100, L500.4050 ####[facility] [address] [place], [address] Globulin (S) [Mass/Vol] 4.0 g/dL Normal 2.2-4.2 [facility] Comment on above: Performed By: #### L 100.0100, L500.4050 ####[facility] [address] [place], [address] Glucose [Mass/Vol] 94 mg/dL Normal 74-106 [facility] Comment on above: Performed By: #### L 100.0100, L500.4050 ####[facility] [address] [place], [address] Potassium [Moles/Vol] 3.8 mmol/L Normal 3.5-5.1 [facility] Comment on above: Performed By: #### L 100.0100, L500.4050 ####[facility] [address] [place], [address] Sodium [Moles/Vol] 139 mmol/L Normal 136-145 [facility] Comment on above: Performed By: #### L 100.0100, L500.4050 ####[facility] [address] [place], [address] T PROT 7.4 g/dL Normal 6.4-8.2 [facility] Comment on above: Performed By: #### L 100.0100, L500.4050 ####[facility] [address] [place], [address] Urea nitrogen [Mass/Vol] 13 mg/dL Normal 7-18 [facility] Comment on above: Performed By: #### L 100.0100, L500.4050 ####[facility] [address] [place], [address] Eosinophil percentageOrdered By: Leslie Patino on 06-29-2024 Eosinophils/100 WBC (Bld) 1.7 % 0-5 [facility] Erythrocyte distribution wid th ratioOrdered By: Leslie Patino on 06-29-2024 Erythrocyte distribution width (RBC) [Ratio] 12.3 % 11.6-14.6 [facility] Erythrocyte distribution wid th standard deviationOrdered By: Leslie Patino on 06-29-2024 Erythrocyte distribution width (RBC) [Entitic vol] 42.2 fL 35.1-43.9 [facility] Erythrocyte distribution width (RBC) [Ratio] 42.2 fl 35.1-43.9 [facility] Estimated glomerular filtrat ion rate (GFR) AmericanOrdered By: Leslie Patino on 06-29-2024 Estimated GFR (MDRD) Amer 113 mL/min >60 [facility] Comment on above: GFR Calc Glomerular filtration rate ( GFR) estimationOrdered By: Leslie Patino on 06-29-2024 Estimated GFR (MDRD) Non-Af Amer 94 mL/min >60 [facility] Comment on above: Non- GFR Calc GFR/1.73 sq M.predicted among non-blacks MDRD (S/P/Bld) [Vol rate/Area] 94 mL/min/{1.73_m2} >60 [facility] Comment on above: Non- GFR Calc Glucose measurementOrdered B y: Leslie Patino on 06-29-2024 Glucose [Mass/Vol] 94 mg/dL 74-106 [facility] Hematocrit Auto (Bld) [Volum e fraction]Ordered By: Leslie Patino on 06-29-2024 Hematocrit (Bld) [Volume fraction] 38.3 % 37-47 [facility] Hemoglobin measurementOrdere d By: Leslie Patino on 06-29-2024 Hemoglobin (Bld) [Mass/Vol] 12.9 g/dL 12.0-15.0 [facility] Immature granulocytes/100 WB C Auto (Bld)Ordered By: Leslie Patino on 06-29-2024 Immature granulocytes/100 WBC (Bld) 0.300 % 0.0-0.9 [facility] Comment on above: IG% - Immature Granu locytes (promyelocytes, myelocytes and metamyelocytes) > 1% indicates that a LEFT SHIFT is Present. Laboratory - Chemistry and C hemistry - challengeOrdered By: Leslie Patino on 06-29-2024 AST [Catalytic activity/Vol] 38 U/L High 15-37 [facility] Lymphocytes Auto (Unsp spec) [#/Vol]Ordered By: Leslie Patino on 06-29-2024 Lymphocytes (Bld) [#/Vol] 2.14 10*3/uL 0.83-4.51 [facility] Lymphocytes/100 WBC Auto (Un sp spec)Ordered By: Leslie Patino on 06-29-2024 Lymphocytes/100 WBC (Bld) 27.7 % 19-41 [facility] MCV (mean corpuscular volume ) determinationOrdered By: Leslie Patino on 06-29-2024 MCV (RBC) [Entitic vol] 94.1 fL 81-99 [facility] Mean corpuscular hemoglobin (MCH) determinationOrdered By: Leslie Patino on 06-29-2024 MCH (RBC) [Entitic mass] 31.7 pg 27.0-32.0 [facility] Mean corpuscular hemoglobin concentration (MCHC) determinationOrdered By: Leslie Patino on 06-29-2024 MCHC (RBC) [Mass/Vol] 33.7 g/dL 32-36 [facility] Mean platelet volume determi nationOrdered By: Leslie Patino on 06-29-2024 Platelet mean volume (Bld) [Entitic vol] 9.6 fL 6.2-12.0 [facility] Monocyte percentageOrdered B y: Leslie Patino on 06-29-2024 Monocytes/100 WBC (Bld) 10.5 % High 0-10 [facility] Neutrophil percentageOrdered By: Leslie Patino on 06-29-2024 Neutrophils/100 WBC (Bld) 59.5 % 47-70 [facility] Nucleated red blood cell per centageOrdered By: Leslie Patino on 06-29-2024 Nucleated RBC/100 WBC (Bld) [Ratio] 0 % 0-5 [facility] Platelet countOrdered By: Ra roverto Patino on 06-29-2024 Platelets (Bld) [#/Vol] 245 10*3/uL 150-450 [facility] Potassium measurementOrdered By: Leslie Patino on 06-29-2024 Potassium [Moles/Vol] 3.8 mmol/L 3.5-5.1 [facility] RBC Auto (Bld) [#/Vol]Ordere d By: Leslie Patino on 06-29-2024 RBC (Bld) [#/Vol] 4.07 10*6/uL Low 4.2-5.4 [facility] Serum anion gap measurementO rdered By: Leslie Patino on 06-29-2024 Anion gap [Moles/Vol] 7 mmol/L 5-15 [facility] Serum globulin measurementOr dered By: Leslie Patino on 06-29-2024 Globulin (S) [Mass/Vol] 4.0 g/dL 2.2-4.2 [facility] Serum or plasma alanine avila otransferase (ALT) measurementOrdered By: Leslie Patino on 06-29-2024 ALT [Catalytic activity/Vol] 51 U/L 13-56 [facility] Serum or plasma albumin idania urement (mass/volume)Ordered By: Leslie Patino on 06-29-2024 Albumin [Mass/Vol] 3.4 g/dL 3.2-5.0 [facility] Serum or plasma alkaline joaquín sphatase measurementOrdered By: Leslie Patino on 06-29-2024 ALP [Catalytic activity/Vol] 91 U/L 45-117 [facility] Serum or plasma calcium idania urement (mass/volume)Ordered By: Leslie Patino on 06-29-2024 Calcium [Mass/Vol] 9.5 mg/dL 8.5-10.1 [facility] Serum or plasma creatinine m easurement (mass/volume)Ordered By: Leslie Patino on 06-29-2024 Creatinine [Mass/Vol] 0.69 mg/dL 0.55-1.02 [facility] Comment on above: The validity of the calculated GFR & GFRAA in patients over 70 years has not been determined. Clinical correlation is essential. Serum or plasma urea nitroge n measurement (mass/volume)Ordered By: Leslie Patnio on 06-29-2024 Urea nitrogen [Mass/Vol] 13 mg/dL 7-18 [facility] Sodium levelOrdered By: Roseline Patino on 06-29-2024 Sodium [Moles/Vol] 139 mmol/L 136-145 [facility] Total proteinOrdered By: Yumi Patino on 06-29-2024 Protein [Mass/Vol] 7.4 g/dL 6.4-8.2 [facility] White blood cell (WBC) count Ordered By: Leslie Patino on 06-29-2024 WBC (Bld) [#/Vol] 7.7 10*3/uL 4.4-11.0 [facility] Knee 4 or More Viewson 06-21 Knee 4 or More Views [facility] Imaging Services [address] [place], [place] [id number] Knee 4 or More Views MR#: [id number] Acct: [id number] Name: KARL CLAROS Rep #: [id number] : 1965 F 59 From: Fareed Rashid PCP: ELISE Phillips Status: DEP AMB Study: Knee 4 or More Views Date of Exam: 06/21/24 Exam# [id number] Ordering Dr: Kate Burrell PROCEDURE: KNEE 4 OR MORE VIEWS REASON FOR EXAM: Chronic pain. TECHNIQUE: 4 views of the left knee COMPARISON: None. RAD/Knee 4 or More Views IMPRESSION: No significant left knee joint effusion is noted. Vamq-rj-krpotjpt left knee degenerative changes are seen, most prominent in the medial compartment, where moderately severe joint narrowing is evident. No acute fracture or dislocation is seen. Reading Location: [id number] CC: ELISE Patino; JEFFERY Lynn Research Biostatistician: Signed Normal [facility] Orthopedic Visit Reporton Orthopedic Visit Report [facility] [address] [place] [address] [address] [place] [address] OFFICE VISIT Date of Service: 06/21/24 MR#: [id number] Acct: [id number] Name: KARL CLAROS Rep #: [id number] : 1965 Provider: Dr. Levon Bojorquez MD [...] 06/21/24 H istory mcg (1,000 unit) capsule dextroamphetamine-amph etamine 30 30 mg PO BID 04/11/24 06/21/24 [...] has a prescription for Tramadol from her sales project administrator for RA pain. No prior neck or [...] significant n (more content not included)... Normal [facility] Orthopedic Visit Reporton Orthopedic Visit Report [facility] [address] [place] [address] [address] [place] [address] OFFICE VISIT Date of Service: 06/14/24 MR#: [id number] Acct: [id number] Name: KARL CLAROS Rep #: [id number] : 1965 Provider: JEFFERY Lynn Age/Sex: 59/F Location: [facility] [place] Status: Signed Intake Vital Signs 05/04/24 07:21 Height 5 ft Intake Visit Reasons: CERVICAL SPINE Hotel Associate Required: No Accompanied by: Self Is patient in pain?: No Allergies No Known Allergies Allergy (Verified 06/14/24 09:07) Medications ???Medication ???Instructions ???Recorded ???Confirmed ???Type iron, carbonyl 45 mg tablet 45 mg PO DAILYCM 06/29/18 06/14/24 History (Feosol) cholecalciferol (vitamin D3) 25 25 mcg PO QDAY 04/11/24 06/14/24 History mcg (1,000 unit) capsule dextroamphetamine-amph etamine 30 30 mg PO BID 04/11/24 06/14/24 [...] the decisions made by me, JEFFERY Lynn 06/14/24 0904. Part of today???s visit [...] has a prescription for Tramadol from her sales project administrator for RA pain. No prior neck or [...] and imaging (more content not included)... Normal [facility] Spine Cervical (Routine)on 0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 [Moles/Vol] 3.8 mmol/L 3.5-5.1 [facility] Protein [Mass/Vol] 7.1 g/dL 6.4-8.2 [facility] Sodium [Moles/Vol] 141 mmol/L 136-145 [facility] WBC (Bld) [#/Vol] 9.5 10*3/uL 4.4-11.0 [facility] Determination of erythrocyte mean corpuscular volume (MCV)Ordered By: Shyla Danielson on 07-19-2023 MCV (RBC) [Entitic vol] 98.0 fL 81-99 [facility] Erythrocyte distribution wid th ratioOrdered By: Shyla Danielson on 07-19-2023 Erythrocyte distribution width (RBC) [Ratio] 13.5 % 11.6-14.6 [facility] Erythrocyte distribution wid th standard deviationOrdered By: Shyla Danielson on 07-19-2023 Erythrocyte distribution width (RBC) [Entitic vol] 46.8 fL 35.1-43.9 [facility] Hematocrit Auto (Bld) [Volum e fraction]Ordered By: Shyla Danielson on 07-19-2023 Hematocrit (Bld) [Volume fraction] 34.0 % 37-47 [facility] Immature granulocytes/100 WB C Auto (Bld)Ordered By: Shyla Danielson on 07-19-2023 Immature granulocytes/100 WBC (Bld) 0.300 % 0.0-0.9 [facility] Comment on above: IG% - Immature Granu locytes (promyelocytes, myelocytes and metamyelocytes) > 1% indicates that a LEFT SHIFT is Present. Laboratory - Chemistry and C hemistry - challengeOrdered By: Shyla Danielson on 07-19-2023 Albumin/Globulin [Mass ratio] 1.1 {ratio} 0.9-2.4 [facility] ALP [Catalytic activity/Vol] 72 U/L 45-117 [facility] ALT [Catalytic activity/Vol] 33 U/L 13-56 [facility] CO2 [Moles/Vol] 29.0 mmol/L 21.0-32.0 [facility] Globulin (S) [Mass/Vol] 3.4 g/dL 2.2-4.2 [facility] Urea nitrogen/Creatinine [Mass ratio] 26.4 mg/mg 10-20 [facility] Laboratory - Hematology and Cell countsOrdered By: Shyla Danielson on 07-19-2023 MCH (RBC) [Entitic mass] 33.7 pg 27.0-32.0 [facility] MCHC (RBC) [Mass/Vol] 34.4 g/dL 32-36 [facility] Nucleated RBC/100 WBC (Bld) [Ratio] 0 % 0-5 [facility] Platelet mean volume (Bld) [Entitic vol] 9.7 fL 6.2-12.0 [facility] Platelets (Bld) [#/Vol] 300 10*3/uL 150-450 [facility] No Panel InformationOrdered By: Shyla Danielson on 07-19-2023 Estimated GFR (MDRD) Amer 107 mL/min >60 [facility] Comment on above: GFR Calc Estimated GFR (MDRD) Non-Af Amer 89 mL/min >60 [facility] Comment on above: Non- GFR Calc RBC Auto (Bld) [#/Vol]Ordere d By: Shyla Danielson on 07-19-2023 RBC (Bld) [#/Vol] 3.47 10*6/uL 4.2-5.4 [facility] Serum or plasma calcium idania urement (mass/volume)Ordered By: Shyla Danielson on 07-19-2023 Calcium [Mass/Vol] 9.6 mg/dL 8.5-10.1 [facility] Serum or plasma creatinine m easurement (mass/volume)Ordered By: Shyla Danielson on 07-19-2023 Creatinine [Mass/Vol] 0.72 mg/dL 0.55-1.02 [facility] Comment on above: The validity of the calculated GFR & GFRAA in patients over 70 years has not been determined. Clinical correlation is essential. Serum or plasma urea nitroge n measurement (mass/volume)Ordered By: Shyla Danielson on 07-19-2023 Urea nitrogen [Mass/Vol] 19 mg/dL 7-18 [facility] Thin prep Papanicolaou smear with manual screeningOrdered By: Shyla Danielson on 07-19-2023 Thin prep Papanicolaou smear with manual screening 3.7 g/dL 3.2-5.0 [facility] Thin prep Papanicolaou smear with manual screening 17 U/L 15-37 [facility] Thin prep Papanicolaou smear with manual screening 5 5-15 [facility] Absolute lymphocyte countOrd ered By: Shyla Danielson on 05-24-2023 Lymphocytes Auto (Unsp spec) [#/Vol] 4.57 10*3/uL 0.83-4.51 [facility] Basophil percentageOrdered B y: Shyla Danielson on 05-24-2023 Basophils/100 WBC (Bld) 0.3 % 0-1 [facility] Bilirubin [Mass/Vol] 0.20 mg/dL 0.20-1.00 [facility] Comment on above: For patients on eltr ombopag therapy, use of Dimension [place] TBIL is not recommended. Chloride [Moles/Vol] 111 mmol/L 98-107 [facility] Eosinophils/100 WBC (Bld) 2.4 % 0-5 [facility] Glucose [Mass/Vol] 80 mg/dL 74-106 [facility] Neutrophils (Bld) [#/Vol] 5.2 10*3/uL 2.0-7.7 [facility] Neutrophils/100 WBC (Bld) 47.1 % 47-70 [facility] Potassium [Moles/Vol] 4.4 mmol/L 3.5-5.1 [facility] Protein [Mass/Vol] 7.0 g/dL 6.4-8.2 [facility] Sodium [Moles/Vol] 140 mmol/L 136-145 [facility] WBC (Bld) [#/Vol] 11.1 10*3/uL 4.4-11.0 [facility] Blood erythrocytes count (nu mber/volume)Ordered By: Shyla Danielson on 05-24-2023 RBC (Bld) [#/Vol] 3.61 10*6/uL 4.2-5.4 [facility] Blood hemoglobin measurement (mass/volume)Ordered By: Shyla Danielson on 05-24-2023 Hemoglobin (Bld) [Mass/Vol] 11.6 g/dL 12.0-15.0 [facility] Blood lymphocytes/100 leukoc ytesOrdered By: Shyla Danielson on 05-24-2023 Lymphocytes/100 WBC (Bld) 41.2 % 19-41 [facility] Blood monocytes/100 leukocyt esOrdered By: Shyla Danielson on 05-24-2023 Monocytes/100 WBC (Bld) 8.5 % 0-10 [facility] Blood platelet mean volumeOr dered By: Shyla Dnaielson on 05-24-2023 Platelet mean volume (Bld) [Entitic vol] 9.9 fL 6.2-12.0 [facility] Determination of erythrocyte mean corpuscular volume (MCV)Ordered By: Shyla Danielson on 05-24-2023 MCV (RBC) [Entitic vol] 96.7 fL 81-99 [facility] Hematocrit Auto (Bld) [Volum e fraction]Ordered By: Shyla Danielson on 05-24-2023 Hematocrit (Bld) [Volume fraction] 34.9 % 37-47 [facility] Laboratory - Chemistry and C hemistry - challengeOrdered By: Shyla Danielson on 05-24-2023 ALP [Catalytic activity/Vol] 62 U/L 45-117 [facility] ALT [Catalytic activity/Vol] 33 U/L 13-56 [facility] CO2 [Moles/Vol] 26.0 mmol/L 21.0-32.0 [facility] Globulin (S) [Mass/Vol] 3.5 g/dL 2.2-4.2 [facility] Urea nitrogen/Creatinine [Mass ratio] 27.9 mg/mg 10-20 [facility] - Hematology and Cell countsOrdered By: Shyla Danielson on 05-24-2023 Erythrocyte distribution width (RBC) [Entitic vol] 42.9 fL 35.1-43.9 [facility] Erythrocyte distribution width (RBC) [Ratio] 12.5 % 11.6-14.6 [facility] Immature granulocytes/100 WBC (Bld) 0.500 % 0.0-0.9 [facility] Comment on above: IG% - Immature Granu locytes (promyelocytes, myelocytes and metamyelocytes) > 1% indicates that a LEFT SHIFT is Present. MCH (RBC) [Entitic mass] 32.1 pg 27.0-32.0 [facility] Nucleated RBC/100 WBC (Bld) [Ratio] 0 % 0-5 [facility] MCHC Auto (RBC) [Mass/Vol]Or dered By: Shyla Danielson on 05-24-2023 MCHC (RBC) [Mass/Vol] 33.2 g/dL 32-36 [facility] No Panel InformationOrdered By: Shyla Danielson on 05-24-2023 Estimated GFR (MDRD) Amer 70 mL/min >60 [facility] Comment on above: GFR Calc Estimated GFR (MDRD) Non-Af Amer 58 mL/min >60 [facility] Comment on above: Non- GFR Calc Platelets bldOrdered By: Deja Danielson on 05-24-2023 Platelets (Bld) [#/Vol] 263 10*3/uL 150-450 [facility] Serum or plasma albumin idania urement (mass/volume)Ordered By: Shyla Danielson on 05-24-2023 Albumin [Mass/Vol] 3.5 g/dL 3.2-5.0 [facility] Serum or plasma albumin/glob ulin mass ratioOrdered By: Shyla Danielson on 05-24-2023 Albumin/Globulin [Mass ratio] 1.0 {ratio} 0.9-2.4 [facility] Serum or plasma calcium idania urement (mass/volume)Ordered By: Shyla Danielson on 05-24-2023 Calcium [Mass/Vol] 9.2 mg/dL 8.5-10.1 [facility] Serum or plasma creatinine m easurement (mass/volume)Ordered By: Shyla Danielson on 05-24-2023 Creatinine [Mass/Vol] 1.04 mg/dL 0.55-1.02 [facility] Comment on above: The validity of the calculated GFR & GFRAA in patients over 70 years has not been determined. Clinical correlation is essential. Serum or plasma urea nitroge n measurement (mass/volume)Ordered By: Shyla Danielson on 05-24-2023 Urea nitrogen [Mass/Vol] 29 mg/dL 7-18 [facility] Thin prep Papanicolaou smear with manual screeningOrdered By: Shyla Danielson on 05-24-2023 Thin prep Papanicolaou smear with manual screening 17 U/L 15-37 [facility] Thin prep Papanicolaou smear with manual screening 3 5-15 [facility] Absolute lymphocyte countOrd ered By: Shyla Danielson on 03-30-2023 Lymphocytes Auto (Unsp spec) [#/Vol] 5.00 10*3/uL 0.83-4.51 [facility] Basophil percentageOrdered B y: Shyla Danielson on 03-30-2023 Basophils/100 WBC (Bld) 0.2 % 0-1 [facility] Bilirubin [Mass/Vol] 0.20 mg/dL 0.20-1.00 [facility] Comment on above: For patients on eltr ombopag therapy, use of Dimension [place] TBIL is not recommended. Chloride [Moles/Vol] 108 mmol/L 98-107 [facility] Eosinophils/100 WBC (Bld) 2.3 % 0-5 [facility] Glucose [Mass/Vol] 86 mg/dL 74-106 [facility] Neutrophils (Bld) [#/Vol] 4.8 10*3/uL 2.0-7.7 [facility] Neutrophils/100 WBC (Bld) 43.6 % 47-70 [facility] Potassium [Moles/Vol] 4.1 mmol/L 3.5-5.1 [facility] Protein [Mass/Vol] 7.2 g/dL 6.4-8.2 [facility] Sodium [Moles/Vol] 139 mmol/L 136-145 [facility] WBC (Bld) [#/Vol] 11.0 10*3/uL 4.4-11.0 [facility] Blood erythrocytes count (nu mber/volume)Ordered By: Shyla Danielson on 03-30-2023 RBC (Bld) [#/Vol] 3.85 10*6/uL 4.2-5.4 [facility] Blood hemoglobin measurement (mass/volume)Ordered By: Shyla Danielson on 03-30-2023 Hemoglobin (Bld) [Mass/Vol] 12.5 g/dL 12.0-15.0 [facility] Blood lymphocytes/100 leukoc ytesOrdered By: Shyla Danielson on 03-30-2023 Lymphocytes/100 WBC (Bld) 45.5 % 19-41 [facility] Blood monocytes/100 leukocyt esOrdered By: Shyla Danielson on 03-30-2023 Monocytes/100 WBC (Bld) 8.1 % 0-10 [facility] Blood platelet mean volumeOr dered By: Shyla Danielson on 03-30-2023 Platelet mean volume (Bld) [Entitic vol] 10.1 fL 6.2-12.0 [facility] Determination of erythrocyte mean corpuscular volume (MCV)Ordered By: Shyla Danielson on 03-30-2023 MCV (RBC) [Entitic vol] 95.6 fL 81-99 [facility] Hematocrit Auto (Bld) [Volum e fraction]Ordered By: Shyla Danielson on 03-30-2023 Hematocrit (Bld) [Volume fraction] 36.8 % 37-47 [facility] - Chemistry and C hemistry - challengeOrdered By: Shyla Danielson on 03-30-2023 ALP [Catalytic activity/Vol] 64 U/L 45-117 [facility] ALT [Catalytic activity/Vol] 28 U/L 13-56 [facility] CO2 [Moles/Vol] 27.0 mmol/L 21.0-32.0 [facility] Globulin (S) [Mass/Vol] 3.4 g/dL 2.2-4.2 [facility] Urea nitrogen/Creatinine [Mass ratio] 22.3 mg/mg 10-20 [facility] - Hematology and Cell countsOrdered By: Shyla Danielson on 03-30-2023 Erythrocyte distribution width (RBC) [Entitic vol] 42.2 fL 35.1-43.9 [facility] Erythrocyte distribution width (RBC) [Ratio] 12.3 % 11.6-14.6 [facility] Immature granulocytes/100 WBC (Bld) 0.300 % 0.0-0.9 [facility] Comment on above: IG% - Immature Granu locytes (promyelocytes, myelocytes and metamyelocytes) > 1% indicates that a LEFT SHIFT is Present. MCH (RBC) [Entitic mass] 32.5 pg 27.0-32.0 [facility] Nucleated RBC/100 WBC (Bld) [Ratio] 0 % 0-5 [facility] MCHC Auto (RBC) [Mass/Vol]Or dered By: Shyla Danielson on 03-30-2023 MCHC (RBC) [Mass/Vol] 34.0 g/dL 32-36 [facility] No Panel InformationOrdered By: Shyla Danielson on 03-30-2023 Estimated GFR (MDRD) Amer 108 mL/min >60 [facility] Comment on above: GFR Calc Estimated GFR (MDRD) Non-Af Amer 89 mL/min >60 [facility] Comment on above: Non- GFR Calc Platelets bldOrdered By: Deja Danielson on 03-30-2023 Platelets (Bld) [#/Vol] 278 10*3/uL 150-450 [facility] Serum or plasma albumin idania urement (mass/volume)Ordered By: Shyla Danielson on 03-30-2023 Albumin [Mass/Vol] 3.8 g/dL 3.2-5.0 [facility] Serum or plasma albumin/glob ulin mass ratioOrdered By: Shyla Danielson on 03-30-2023 Albumin/Globulin [Mass ratio] 1.1 {ratio} 0.9-2.4 [facility] Serum or plasma calcium idania urement (mass/volume)Ordered By: Shyla Danielson on 03-30-2023 Calcium [Mass/Vol] 9.0 mg/dL 8.5-10.1 [facility] Serum or plasma creatinine m easurement (mass/volume)Ordered By: Shyla Danielson on 03-30-2023 Creatinine [Mass/Vol] 0.72 mg/dL 0.55-1.02 [facility] Comment on above: The validity of the calculated GFR & GFRAA in patients over 70 years has not been determined. Clinical correlation is essential. Serum or plasma urea nitroge n measurement (mass/volume)Ordered By: Shyla Danielson on 03-30-2023 Urea nitrogen [Mass/Vol] 16 mg/dL 7-18 [facility] Thin prep Papanicolaou smear with manual screeningOrdered By: Shyla Danielson on 03-30-2023 Thin prep Papanicolaou smear with manual screening 19 U/L 15-37 [facility] Thin prep Papanicolaou smear with manual screening 4 5-15 [facility] Absolute lymphocyte countOrd ered By: Shyla Danielson on 01-17-2023 Lymphocytes Auto (Unsp spec) [#/Vol] 5.03 10*3/uL 0.83-4.51 [facility] Basophil percentageOrdered B y: Shyla Danielson on 01-17-2023 Basophils/100 WBC (Bld) 0.3 % 0-1 [facility] Bilirubin [Mass/Vol] 0.40 mg/dL 0.20-1.00 [facility] Comment on above: For patients on eltr ombopag therapy, use of Dimension [place] TBIL is not recommended. Chloride [Moles/Vol] 110 mmol/L 98-107 [facility] Eosinophils/100 WBC (Bld) 3.7 % 0-5 [facility] Glucose [Mass/Vol] 84 mg/dL 74-106 [facility] Neutrophils (Bld) [#/Vol] 5.2 10*3/uL 2.0-7.7 [facility] Neutrophils/100 WBC (Bld) 45.0 % 47-70 [facility] Potassium [Moles/Vol] 3.7 mmol/L 3.5-5.1 [facility] Protein [Mass/Vol] 7.3 g/dL 6.4-8.2 [facility] Sodium [Moles/Vol] 140 mmol/L 136-145 [facility] WBC (Bld) [#/Vol] 11.6 10*3/uL 4.4-11.0 [facility] Blood erythrocytes count (nu mber/volume)Ordered By: Shyla Danielson on 01-17-2023 RBC (Bld) [#/Vol] 4.09 10*6/uL 4.2-5.4 [facility] Blood hemoglobin measurement (mass/volume)Ordered By: Shyla Danielson on 01-17-2023 Hemoglobin (Bld) [Mass/Vol] 13.7 g/dL 12.0-15.0 [facility] Blood lymphocytes/100 leukoc ytesOrdered By: Shyla Danielson on 01-17-2023 Lymphocytes/100 WBC (Bld) 43.4 % 19-41 [facility] Blood manual differential co mment interpretation (narrative result)Ordered By: Shyla Danielson on 01-17-2023 Manual differential comment Lauro (Bld) [Interp] SCANNED [facility] Blood monocytes/100 leukocyt esOrdered By: Shyla Danielson on 01-17-2023 Monocytes/100 WBC (Bld) 7.3 % 0-10 [facility] Blood platelet mean volumeOr dered By: Shyla Danielson on 01-17-2023 Platelet mean volume (Bld) [Entitic vol] 10.0 fL 6.2-12.0 [facility] Determination of erythrocyte mean corpuscular volume (MCV)Ordered By: Shyla Danielson on 01-17-2023 MCV (RBC) [Entitic vol] 93.4 fL 81-99 [facility] Erythrocyte sedimentation ra teOrdered By: Shyla Danielson on 01-17-2023 ESR (Bld) [Velocity] 4 mm/h 0-30 [facility] Hematocrit Auto (Bld) [Volum e fraction]Ordered By: Shyla Danielson on 01-17-2023 Hematocrit (Bld) [Volume fraction] 38.2 % 37-47 [facility] - Chemistry and C hemistry - challengeOrdered By: Shyla Danielson on 01-17-2023 ALP [Catalytic activity/Vol] 67 U/L 45-117 [facility] ALT [Catalytic activity/Vol] 26 U/L 13-56 [facility] CO2 [Moles/Vol] 25.0 mmol/L 21.0-32.0 [facility] Globulin (S) [Mass/Vol] 3.5 g/dL 2.2-4.2 [facility] Urea nitrogen/Creatinine [Mass ratio] 24.2 mg/mg 10-20 [facility] - Hematology and Cell countsOrdered By: Shyla Danielson on 01-17-2023 Erythrocyte distribution width (RBC) [Entitic vol] 39.1 fL 35.1-43.9 [facility] Erythrocyte distribution width (RBC) [Ratio] 11.4 % 11.6-14.6 [facility] Immature granulocytes/100 WBC (Bld) 0.300 % 0.0-0.9 [facility] Comment on above: IG% - Immature Granu locytes (promyelocytes, myelocytes and metamyelocytes) > 1% indicates that a LEFT SHIFT is Present. MCH (RBC) [Entitic mass] 33.5 pg 27.0-32.0 [facility] Nucleated RBC/100 WBC (Bld) [Ratio] 0 % 0-5 [facility] MCHC Auto (RBC) [Mass/Vol]Or dered By: Shyla Danielson on 01-17-2023 MCHC (RBC) [Mass/Vol] 35.9 g/dL 32-36 [facility] No Panel InformationOrdered By: Shyla Danielson on 01-17-2023 Anti-Nuclear Antibody Screen Negative Negative [facility] Comment on above: Performed at: [address] [id number] Director: Jass Portillo PhD, Phone: [phone] Estimated GFR (MDRD) Amer 104 mL/min >60 [facility] Comment on above: GFR Calc Estimated GFR (MDRD) Non-Af Amer 86 mL/min >60 [facility] Comment on above: Non- GFR Calc Hepatitis B Surface Antigen Non-Reactive Nonreactive [facility] Hepatitis C Antibody Non-Reactive Nonreactive [facility] Comment on above: Non Reactive: < 0.8 Equivocal: >/= 0.8 to < 1.0 Reactive: >/= 1.0The CDC recommends that a reactive/equivocal HCV antibody result be followed up by the HCV Nucleic Acid Amplificationtest (174322) Platelets bldOrdered By: Deja Danielson on 01-17-2023 Platelets (Bld) [#/Vol] 282 10*3/uL 150-450 [facility] Serum cyclic citrullinated p eptide IgG antibody assay (units/volume)Ordered By: Shyla Danielson on 01-17-2023 Cyclic citrullinated peptide IgG Qn 5 units 0-19 [facility] Comment on above: Negative <20 Weak po sitive 20 - 39 Moderate positive 40 - 59 Strong positive >59Performed at: [facility] [id number] Director: Jass Portillo PhD, Phone: [phone] Serum hepatitis B virus surf [place] antibody IgG detectionOrdered By: Shyla Danielson on 01-17-2023 HBV surface IgG Ql (S) Non-Reactive [facility] Comment on above: Non Reactive: Incons istent with immunity less than <10 mIU/mL Reactive: Consistent with immunity greater than or equal to 10 mIU/mL Serum or plasma C reactive p rotein measurement (mass/volume)Ordered By: Shyla Danielson on 01-17-2023 CRP [Mass/Vol] mg/L 0.0-3.0 [facility] Comment on above: C-Reactive Protein ( CRP) provides useful information for thediagnosis, therapy and monitoring of inflammatory processesand associated diseases. For the evaluation of Relative Riskfor Cardiovascular Disease, a High Sensitivity CRP (HSCRP)should be ordered. Serum or plasma albumin idania urement (mass/volume)Ordered By: Shyla Danielson on 01-17-2023 Albumin [Mass/Vol] 3.8 g/dL 3.2-5.0 [facility] Serum or plasma albumin/glob ulin mass ratioOrdered By: Shyla Danielson on 01-17-2023 Albumin/Globulin [Mass ratio] 1.1 {ratio} 0.9-2.4 [facility] Serum or plasma calcium idania urement (mass/volume)Ordered By: Shyla Danielson on 01-17-2023 Calcium [Mass/Vol] 9.2 mg/dL 8.5-10.1 [facility] Serum or plasma creatinine m easurement (mass/volume)Ordered By: Shyla Danielson on 01-17-2023 Creatinine [Mass/Vol] 0.74 mg/dL 0.55-1.02 [facility] Comment on above: The validity of the calculated GFR & GFRAA in patients over 70 years has not been determined. Clinical correlation is essential. Serum or plasma urea nitroge n measurement (mass/volume)Ordered By: Shyla Danielson on 01-17-2023 Urea nitrogen [Mass/Vol] 18 mg/dL 7-18 [facility] Serum rheumatoid factor dete ctionOrdered By: Shyla Danielson on 01-17-2023 Rheumatoid factor Ql (S) < 10.0 IU/mL <15 [facility] Thin prep Papanicolaou smear with manual screeningOrdered By: [facility] on 01-17-2023 Thin prep Papanicolaou smear with manual screening 19 U/L 15-37 [facility] Thin prep Papanicolaou smear with manual screening 5 5-15 [facility] Vital Signs Date Time Vital Sign Value Performing Clinician Facility 01-12-2025 15:22-0400 Body temperature 97.8 [degF] Leslie Patino [employer]AMOND SAW OPERATOR-C Work Phone: [facility] 01-12-2025 15:22-0400 Diastolic blood pressure 88 mm[Hg] Leslie Patino [employer]AMOND SAW OPERATOR-C Work Phone: [facility] 01-12-2025 15:22-0400 Heart rate 92 /min Leslie Patino [employer]AMOND SAW OPERATOR-C Work Phone: [facility] 01-12-2025 15:22-0400 Respiratory rate 16 /min Leslie Patino [employer]AMOND SAW OPERATOR-C Work Phone: [facility] 01-12-2025 15:22-0400 SaO2% (BldA) [Mass fraction] 93 % Leslie Patino [employer]AMOND SAW OPERATOR-C Work Phone: [facility] 01-12-2025 15:22-0400 Systolic blood pressure 151 mm[Hg] Leslie Patino [employer]AMOND SAW OPERATOR-C Work Phone: [facility] 01-12-2025 11:59-0400 Body height 152.4 cm Leslie Patino [employer]AMOND SAW OPERATOR-C Work Phone: [facility] 01-12-2025 11:59-0400 Body mass index (BMI) [Ratio] 34 kg/m2 Leslie Patino [employer]OND SAW OPERATOR-C Work Phone: [facility] 01-12-2025 11:59-0400 Body weight 78.92 kg Leslie Patino [employer]AMOND SAW OPERATOR-C Work Phone: [facility] 01-12-2025 11:22-0400 Body mass index (BMI) [Ratio] 33.97 kg/m2 Nadeen Praisler-Wood CLOCK MAKER.ANIMAL KEEPER Work Phone: [facility] 01-12-2025 11:22-0400 Body temperature 98.49 [degF] Nadeen Praisler-Wood CLOCK MAKER.ANIMAL KEEPER Work Phone: [facility] 01-12-2025 11:22-0400 Body weight 78.9 kg Nadeen Praisler-Wood CLOCK MAKER.ANIMAL KEEPER Work Phone: [facility] 01-12-2025 11:22-0400 Diastolic blood pressure 84 mm[Hg] Nadeen Praisler-Wood CLOCK MAKER.ANIMAL KEEPER Work Phone: [facility] 01-12-2025 11:22-0400 Heart rate 118 /min Nadeen Praisler-Wood CLOCK MAKER.ANIMAL KEEPER Work Phone: [facility] 01-12-2025 11:22-0400 Respiratory rate 18 /min Nadeen Praisler-Wood CLOCK MAKER.ANIMAL KEEPER Work Phone: [facility] 01-12-2025 11:22-0400 SaO2% (BldA) [Mass fraction] 98 % Nadeen Rocha CLOCK MAKER.ANIMAL KEEPER Work Phone: [facility] 01-12-2025 11:22-0400 Systolic blood pressure 136 mm[Hg] Nadeen Rocha CLOCK MAKER.ANIMAL KEEPER Work Phone: [facility] 05-04-2024 09:35-0500 Body temperature 97.2 [degF] Leslie Sukumar [employer]AMOND SAW OPERATOR-C Work Phone: [facility] 05-04-2024 09:35-0500 Diastolic blood pressure 80 mm[Hg] Leslie Sukumar DIAMOND SAW OPERATOR-C Work Phone: [facility] 05-04-2024 09:35-0500 Heart rate 85 /min Leslie Sukumar [employer]AMOND SAW OPERATOR-C Work Phone: [facility] 05-04-2024 09:35-0500 Respiratory rate 16 /min Leslie Sukumar DIAMOND SAW OPERATOR-C Work Phone: [facility] 05-04-2024 09:35-0500 SaO2% (BldA) [Mass fraction] 100 % Leslie Sukumar DIAMOND SAW OPERATOR-C Work Phone: [facility] 05-04-2024 09:35-0500 Systolic blood pressure 128 mm[Hg] Leslie Sukumar DIAMOND SAW OPERATOR-C Work Phone: [facility] 05-04-2024 07:21-0500 Body height 152.4 cm Leslie Sukumar DIAMOND SAW OPERATOR-C Work Phone: [facility] 05-04-2024 07:21-0500 Body mass index (BMI) [Ratio] 31.8 kg/m2 Leslie Sukumar DIAMOND SAW OPERATOR-C Work Phone: [facility] 05-04-2024 07:21-0500 Body weight 74 kg Leslie Sukumar DIAMOND SAW OPERATOR-C Work Phone: [facility] 06-12-2023 08:23-0500 Body temperature 100.6 [degF] Minnie Chand CLOCK MAKER.ANIMAL KEEPER Work Phone: [facility] 06-12-2023 08:23-0500 Body weight 69.85 kg Minnie Chand CLOCK MAKER.ANIMAL KEEPER Work Phone: [facility] 06-12-2023 08:23-0500 Diastolic blood pressure 70 mm[Hg] Minnie Chand CLOCK MAKER.ANIMAL KEEPER Work Phone: [facility] 06-12-2023 08:23-0500 Heart rate 91 /min Minnie Chand CLOCK MAKER.ANIMAL KEEPER Work Phone: [facility] 06-12-2023 08:23-0500 Respiratory rate 20 /min Minnie Chand CLOCK MAKER.ANIMAL KEEPER Work Phone: [facility] 06-12-2023 08:23-0500 SaO2% (BldA) [Mass fraction] 100 % Minnie Chand CLOCK MAKER.ANIMAL KEEPER Work Phone: [facility] 06-12-2023 08:23-0500 Systolic blood pressure 110 mm[Hg] Minnie Chand CLOCK MAKER.ANIMAL KEEPER Work Phone: [facility] Encounters Encounter Date Encounter Type Care Provider Facility Start: 03-25-2025 End: 03-25-2025 ambulatory [facility] Facility:[facility] [place] Start: 02-20-[address] Shyla Danielson MD -Laboratory [place] Work Phone: Start: 02-20-2025 End: 02-20-2025 ambulatory [facility] Facility:[facility] Start: 02-12-2025 End: 02-12-2025 ambulatory [facility] DIAMOND SAW OPERATOR-C Work Phone: -Laboratory [facility] Start: 02-12-2025 End: 02-12-2025 Patient encounter procedure Leslieshay Patino DIAMOND SAW OPERATOR-C -Laboratory [facility] Work Phone: Start: 02-12-2025 End: 02-12-2025 ambulatory [facility] Facility:[facility] Start: 01-14-2025 End: 01-14-2025 Follow-up encounter Nadeen Rocha CLOCK MAKER.ANIMAL KEEPER Work Phone: [facility] Comment on above: Results Start: 01-12-2025 End: 01-12-2025 Emergency department patient visit Leslie Sukumar DIAMOND SAW OPERATOR-C Work Phone: -Emergency Department Work Phone: Start: 01-12-2025 End: 01-12-2025 Patient encounter procedure Nadeen Rocha CLOCK MAKER.ANIMAL KEEPER Work Phone: [facility] Comment on above: LLQ abdominal pain ( Primary Dx); Hematuria, unspecified type Start: 01-12-2025 End: 01-13-2025 ambulatory NADEEN ROCHA Facility:[facility] Start: 11-05-2024 End: 11-05-2024 ambulatory Leslie Patino DIAMOND SAW OPERATOR-C Work Phone: [facility] Work Phone: Start: 11-05-2024 End: 11-05-[address] Shyla Danielson MD -Laboratory [place] Work Phone: Start: 11-05-2024 End: 11-05-2024 ambulatory Leslie Sukumar Facility:[facility] Start: 08-14-2024 End: 08-14-2024 ambulatory Leslie Patino DIAMOND SAW OPERATOR-C Work Phone: [facility] Work Phone: Start: 08-14-2024 End: 08-14-[address] Shyla Danielson MD -Laboratory, [place] Work Phone: Start: 08-14-2024 End: 08-14-2024 ambulatory Leslie Patino Facility:[facility] Start: 07-13-2024 Encounter for other preprocedural examination Leslie Patino [facility] Start: 07-10-2024 Encounter for other preprocedural examination Levon [facility] Start: 06-29-2024 End: 06-29-2024 Patient encounter procedure Leslie Patino DIAMOND SAW OPERATOR-C -[facility] Start: 06-29-2024 End: 06-29-2024 ambulatory [facility] Facility:[facility] Start: 06-26-2024 ambulatory Levon Bojorquez Facility:[facility] Start: 06-21-2024 End: 06-21-[address] Levon Bojorquez MD -[facility] Work Phone: Start: 06-21-2024 End: 06-21-2024 ambulatory [facility] Facility:[facility] Start: 06-14-2024 End: 06-14-2024 Patient encounter procedure Kate GIL -[facility] Work Phone: Start: 06-14-2024 End: 06-14-2024 ambulatory [facility] Facility:[facility] [place] Start: 06-04-2024 End: 06-04-2024 Patient encounter procedure Kate GIL -[facility] Work Phone: Start: 06-04-2024 End: 06-04-2024 ambulatory [facility] Facility:[facility] Start: 05-21-2024 End: 05-21-[address] [facility] Start: 05-21-2024 End: 05-21-2024 ambulatory [facility] Facility:[facility] Start: 05-04-2024 ambulatory Christian Florence Facility :[facility] Start: 05-04-2024 Non-patient / Non-visit Dr. Sunita PHILIPPE -[facility] Start: 05-04-2024 End: 05-04-2024 Admission to same day surgery center Dr. Christian Florence MD -Endoscopy Work Phone: Start: 05-04-2024 End: 05-04-2024 ambulatory Christian Florence Facility:[facility] Start: 05-02-2024 Registered Recurring Kate GIL -Physical Therapy Work Phone: Start: 05-02-2024 End: 05-02-2024 ambulatory [facility] Facility:[facility] Start: 04-17-2024 End: 04-17-2024 ambulatory [facility] Facility:[facility] Start: 04-11-2024 End: 04-11-2024 ambulatory Christian Florence Facility:[facility] Start: 09-13-2023 End: 09-13-2023 ambulatory [facility] Work Phone: Start: 09-13-2023 End: 09-13-2023 Patient encounter procedure [facility] Work Phone: Start: 07-19-2023 End: 07-19-2023 ambulatory [facility] Work Phone: Start: 07-19-2023 End: 07-19-2023 Patient encounter procedure [facility] Work Phone: Start: 06-12-2023 End: 06-12-2023 Patient encounter procedure Minnie Chand CLOCK MAKER.[facility] Work Phone: [facility] Comment on above: URI, acute (Primary Dx); Acute cough Start: 05-24-2023 End: 05-24-2023 ambulatory [facility] Work Phone: Start: 05-24-2023 End: 05-24-2023 Patient encounter procedure [facility] Work Phone: Start: 03-30-2023 End: 03-30-2023 [facility] Work Phone: Start: 03-30-2023 End: 03-30-2023 Patient encounter procedure [facility] Work Phone: Start: 01-17-2023 End: 01-17-2023 ambulatory [facility] Work Phone: Start: 01-17-2023 End: 01-17-2023 Patient encounter procedure [facility] Work Phone: Procedures Date Procedure Procedure Detail Performing Clinician Start: 02-12-2025 Liquid based cervica l cytology screening Leslie Patino DIAMOND SAW OPERATOR-C Work Phone: Comment on above: NEGATIVE FOR INTRAEP ITHELIAL LESION OR MALIGNANCY.CELLULAR CHANGES ASSOCIATED WITH ATROPHY ARE PRESENT. This liquid based Th inPrep(R) pap test was screened withthe use of an image guided system. Start: 01-12-2025 Urnls dip stick/tabl et reagent auto microscopy Leslie Patino DIAMOND SAW OPERATOR-C Work Phone: Start: 01-12-2025 Estimated creatinine clearance Leslie Patino DIAMOND SAW OPERATOR-C Work Phone: Start: 01-12-2025 Computed tomography of abdomen and pelvis with intravenous contrast Leslie Patino DIAMOND SAW OPERATOR-C Work Phone: Start: 01-12-2025 Urnls dip stick/tabl et rgnt auto w/o microscopy Nadeen Rocha APRN.ANIMAL KEEPER Work Phone: Start: 06-29-2024 Measurement of renal function Leslie Patino DIAMOND SAW OPERATOR-C Work Phone: Comment on above: GFR Calc Start: 06-21-2024 X-ray of knee, four or more views Leslieshay Patino DIAMOND SAW OPERATOR-C Work Phone: Start: 06-04-2024 MRI of cervical spine R richardson Patino DIAMOND SAW OPERATOR-C Work Phone: Start: 01-17-2023 Pelvis X-ray Start: 07-20-2011 Lipid 1996 panel - S alex or Plasma Minnie Chand CLOCK MAKER.ANIMAL KEEPER Work Phone: Plan of Treatment Date Care Activity Detail Author Start: 12-11-2027 Diabetes Screening Diabetes Screenin g [facility] Start: 02-28-2027 Screening for malign ant neoplasm of colon [facility] Start: 01-21-2025 Influenza vaccination Influenza Vacc ine (#1) [facility] Start: 01-12-2025 [facility] Start: 05-04-2024 Colonoscopy flx dx w/collj spec when pfrmd DIAGNOSTIC COLONOSCOPY [facility] Start: 05-04-2024 Patient discharge [facility] Start: 06-14-2023 Screening for malign ant neoplasm of cervix [facility] Start: 06-12-2023 End: 06-26-2023 COVID & INFLUENZA A/B & RSV NAAT, ROUTINE COVID & INFLUENZA A/B & RSV NAAT, ROUTINE Microbiology Routine URI, acute Acute cough Expected: 06/12/2023, Expires: 06/26/2023 [facility] Work Phone: Comment on above: Expected: 06/12/2023 , Expires: 06/26/2023 Start: 05-23-2023 Depression Assessment Depression Ass essment [facility] Start: 01-21-2023 Influenza vaccination Influenza Vacc ine (#1) [facility] Start: 10-09-2020 Covid-19 Vaccine (3 - Moderna risk series) Covid-19 Vaccine (3 - Moderna risk series) [facility] Start: 06-14-2019 Screening for malign ant neoplasm of cervix Cervical Cancer Screening [facility] Start: 07-20-2016 Lipid panel Lipid Screening [facility] Start: 07-20-2014 Diabetes Screening Diabetes Screenin g [facility] Start: 2011 Screening for malign ant neoplasm of colon [facility] Start: 2006 Screening for malign ant neoplasm of breast Mammogram Screening [facility] Start: 1985 Hepatitis B Vaccine (1 of 3 - 19+ 3-dose series) Hepatitis B Vaccine (1 of 3 - 19+ 3-dose series) [facility] Start: 1985 Pneumococcal Vaccine : 50+ (1 of 2 - PCV) Pneumococcal Vaccine: 50+ (1 of 2 - PCV) [facility] Start: 1985 Shingrix Vaccine (1 of 2) Shingrix Vaccine (1 of 2) [facility] Start: 1985 Urine microalbumin profile DTaP,Tdap,Td Vaccine (1 - Tdap) [facility] Start: 1984 Anxiety Screening Anxiety Screening [facility] Start: 1984 Depression Screening Depression Scre ening [facility] Start: 1984 Hepatitis C screening Hepatitis C Sc reening [facility] Start: 1984 HIV screening HIV Screening [facility] Start: 1972 Pneumococcal vaccination Pneumococcal Vaccine (1 of 2 - PCV) [facility] Start: 1966 Hepatitis B Vaccine (1 of 3 - 3-dose series) Hepatitis B Vaccine (1 of 3 - 3-dose series) [facility] Bacteria identified in Urine by Culture BACTERIAL CULTURE, URINE Microbiology Routine LLQ abdominal pain Ordered: 01/12/2025 [facility] Work Phone: Comment on above: Ordered: 01/12/2025 Patient Education Colitis [facility] Work Phone: Patient referral [facility] Work Phone: End: 07-11-2024 Radiologic exam chest 2 views XR CHEST 2V FRONTAL/LAT Radiology STAT URI, acute Acute cough 1 Occurrences starting 06/12/2023 until 07/11/2024 [facility] Work Phone: Comment on above: 1 Occurrences starti ng 06/12/2023 until 07/11/2024 Immunizations Immunization Date Immunization Notes Care Provider Krishna maharaj 02-21-2024 influenza virus vacc ine, unspecified formulation Nadeen Rocha APRN.CNP Work Phone: [facility] Payers Date Payer Category Payer Unknown 0 2024 Self-pay [id number] 2022 [employer] BLUE CARD PPO OOS [id number] 2022 Unknown [employer] BLUE CARD PPO OOS [id number] 2022-Present [phone] [address] [place] [address] PPO [id number] 2022 Unknown [id number] Unknown [id number] Unknown [id number] [id number]. 2.462 Unknown [id number] 2.16.840.1.181866.3.579. 2.462 Unknown [id number] 2.16.840.1.682585.3.579. 2.462 Unknown [id number] 2.16.840.1.310796.3.579. 2.462 Unknown [id number] 2.16.840.1.033194.3.579. 2.462 Unknown [id number] 2.16.840.1.404359.3.579. 2.462 Unknown [id number] 2.16.840.1.661101.3.579. 2.462 Unknown [id number] 2.16.840.1.641660.3.579. 2.462 Unknown [id number] 2.16.840.1.470977.3.579. 2.462 Unknown [id number] 2.16.840.1.115833.3.579. 2.462 Unknown [id number] 2.16.840.1.908991.3.579. 2.462 Unknown [id number] 2.16.840.1.063867.3.579. 2.462 Unknown [id number] 2.16.840.1.541299.3.579. 2.462 Unknown [id number] 2.16.840.1.771333.3.579. 2.462 Unknown [id number] 2.16.840.1.740366.3.579. 2.462 Unknown [id number] 2.16.840.1.083049.3.579. 2.462 Unknown [id number] 2.16.840.1.278732.3.579. 2.462 Unknown [id number] 2.16.840.1.813840.3.579. 2.462 Unknown [id number] 2.16.840.1.793720.3.579. 2.462 Social History Date Type Detail Facility Start: 06-29-2018 End: 06-29-2018 Tobacco smoking status NHIS Unknown if ever smoked [facility] Start: 06-29-2018 Non-smoker [facility] Start: 1965 Sex Assigned At Female [facility] Start: 06-08-2023 End: 01-12-2025 Tobacco smoking status NHIS Ex-smoker [facility] Work Phone: History of tobacco use Current smoker [facility] Work Phone: Start: 06-08-2023 Tobacco use and exposure Smokeless tobacco non-user [facility] Work Phone: Start: 06-12-2023 Alcohol intake 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 (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) [facility] Start: 04-30-2020 End: 06-12-2023 History of Social function [facility] Start: 04-30-2020 End: 06-12-2023 Tobacco use panel [facility] Start: 04-23-2012 National Score (1-100), lower number is lower risk Not on file [facility] Start: 06-14-2018 Alcohol Comment rare -- 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 [facility] Start: 1965 Sex Assigned At Not on file [facility] Start: 07-02-2024 Tobacco smoking status NHIS Smokes tobacco daily (finding) [facility] Start: 08-20-2024 Sex Female (finding) [facility] NEGATED: Highlighted row Not [facility] Goals Date Patient Goal Desired Activity /State Mental Status Date Assessment Result Facility 05-04-2024 Cognitive function Level Of Consciousness Drowsy [facility] Work Phone: 05-04-2024 Cognitive function Voice/Name [facility] Work Phone: Clinical Notes 06-12-2023 to 01-14-2025 Telephone Encounter - Violette Thomas MA - 01/14/2025 11:19 AM EDTTelephone Encounter - Violette Thomas MA - 01/14/2025 11:19 AM EDT Note Date & Type Note Facility 01-14-2025 Telephone encount er Note Patient given results and verbalized understanding of instructions given. Violette Thomas MA [facility] 01-14-2025 Miscellaneous Notes Formattin g of this note might be different from the original. Patient given results and verbalized understanding of instructions given. Violette Thomas MA Left message for patient to return call. Violette Thomas MA ----- Message from Nadeen Rocha APRN.CNP sent at 01/14/2025 9:13 AM EDT ----- Please advise patient the urine culture was negative-no sign of infection. Please inquire if she went to ER for further evaluation on 01/12. Nadeen Rocha APRN.CNP ----- Message ----- From: Kathleen Rodriguez Sent: 01/12/2025 11:30 AM EDT To: Pending Sale To [facility] documented in this encounter [facility] 01-14-2025 Telephone encount er Note Left message for patient to return call. Violette Thomas MA [facility] 01-14-2025 Telephone encount er Note ----- Message from Nadeen Rocha APRN.ANIMAL KEEPER sent at 01/14/2025 9:13 AM EDT ----- Please advise patient the urine culture was negative-no sign of infection. Please inquire if she went to ER for further evaluation on 01/12. Nadeen Rocha APRN.CNP ----- Message ----- From: Interface, Telcor Oru Ib Sent: 01/12/2025 11:30 AM EDT To: [facility] Provider Pool [facility] 01-12-2025 Discharge summary [facility] 01-12-2025 Discharge summary Note Date/Time January 12, 2025 3:30pm [facility] Medical Records Department [address] [place] [address] Emergency Department Summary 01/12/25 MR#: [id number] Acct: [id number] Name: KARL CLAROS Rep #:[id number] : 1965 59 From: Anthony Delgado MD PCP: ELISE Phillips Status:REG ER Location: ED HPI HPI - GI History of Present Illness Chief Complaint: Abd Pain Informant: patient Narrative Narrative: 59-year-old female 4 days worth of pain in her left lower quadrant radiating into her left low back that feels different than her rheumatoid arthritis joint pain, sent by urgent care for evaluation. States pains been constant and worsening. No diarrhea no blood in her stool no urinary symptoms no nausea, vomiting, fevers, or chills. PFSH PFSH Medical History Loss of hearing Post-menopausal Rheumatoid arthritis Restless legs Injury of head and neck Blackout Shortness of breath on exertion History of pain when walking History of edema Wears glasses Wears partial dentures Low iron Heartburn Smoker CPAP (continuous positive airway pressure) dependence Leg cramps Anxiety Depression Home Medications ?Medication ?Instructions ?Recorded ?Last Taken ?Type iron, carbonyl 45 mg tablet 45 mg PO DAILYCM 06/29/18 Unknown History (Feosol) cholecalciferol (vitamin D3) 25 25 mcg PO QDAY 4 Unknown History mcg (1,000 unit) capsule dextroamphetamine-amphetamine 30 30 mg PO BID 04/11/24 Unknown History mg tablet (Adderall) duloxetine 60 mg capsule,delayed 60 mg PO QDAY 4 Unknown History release (Cymbalta) folic acid 1 mg tablet 1 mg PO QDAY 04/11/24 Unknow n History hydroxyzine HCl 25 mg tablet 25 mg PO TID PRN anxiety 04/11/24 Unknown History methotrexate sodium 2.5 mg tablet 15 mg PO WE 04/11/24 Unknown History tramadol 50 mg tablet 50 mg PO TID 04/11/24 Unknow n History metronidazole 500 mg tablet 500 mg PO BID #14 tabs Unknown Rx naproxen 500 mg tablet 500 mg PO BID PRN pain #8 ta bs 01/12/25 Unknown Rx Allergy/AdvReac Type Severity Reaction Status Date / Time No Known Allergies Allergy Verified 01/12/25 12:00 Family History Father Heart disease Cancer Surgical History Hx of myringotomy History of Hx of colonoscopy Hx of exploratory laparotomy Hx of lithotripsy History of carpal tunnel surgery of right wrist History of carpal tunnel surgery of left wrist Social History Smoking Status: Former smoker alcohol intake: never additional social history: ibuprofen daily ROS ROS ED Constitutional Constitutional ED: Denies chills or fever(s) Eyes Eyes: Denies change in vision or diplopia ENT ENT ED: Denies rhinorrhea or sore throat Cardiovascular Cardiovascular: Denies chest pain or palpitations Respiratory/Chest Respiratory/Chest: Denies cough or dyspnea Gastrointestinal Gastrointestinal: Reports abdominal pain; Denies diarrhea, hematochezia, melena,nausea or vomiting Genitourinary Genitourinary ED: Denies dysuria or hematuria Musculoskeletal Musculoskeletal: Reports back pain; Denies neck pain Integumentary Denies abscess or rash Neurologic Neurologic: Denies headache(s), paresthesias or weakness Psychiatric Psychiatric: Denies anxiety or suicidal thoughts EXAM Physical Exam Const Vital Signs: 01/12/25 11:59 01/12/25 13:58 01/12/25 15:00 Temperature 98.9 F 97.7 F L 98.1 F Temperature Source Oral Oral Oral Pulse Rate 108 H 93 97 Respiratory Rate 16 17 14 Blood Pressure 158/77 H 135/83 H 151/88 H Blood Pressure Mean 104 100 109 Pulse Ox 98 96 97 Oxygen Delivery Method Room Air Room Air 01/12/25 15:22 Temperature 97.8 F Temperature Source Pulse Rate 92 Respiratory Rate 16 Blood Pressure 151/88 H Blood Pressure Mean 109 Pulse Ox 93 Oxygen Delivery Method Positive well nourished and well developed General Appearance ED: well developed and NAD HEENT Reports moist mucous membranes normocephalic and atraumatic Eyes PERRL and EOMs intact bilaterally Neck full ROM and supple Resp normal respiratory effort and clear to auscultation bilaterally Cardio regular rate, regular rhythm and no murmurs GI non-distended GI Narrative: Tender in the left lower quadrant, closer to the umbilicus/medially, no guardingor rebound no pulsatile masses. No cullon sign or Delgado Blum sign Auscultation: normoactive bowel sounds Palpation: soft Back/Spine no CVA tenderness General Back: other FROM Extremity normal to inspection General Extremety ED: Negative for edema, pulses abnormal or tenderness General Extremity: Negative for edema or pulses abnormal Neuro oriented x3, CN's II-XII intact bilaterally and no sensory deficits noted Sensorium / Orientation: awake and alert Motor Exam: strength 5/5 throughout Skin no rashes or lesions noted and no wounds MDM MDM MDM Narrative Medical decision making narrative: Patient with left lower quadrant pain and some focal tenderness without guardingor rebound, less concerned about AAA but more concerned about diverticulitis, could also be a stone in the differential. Urinalysis shows trace amount of blood but is also otherwise unremarkable, and her labs are normal. Obtained a CT of the abdomen/pelvis, I reviewed images and the result which I agree with, it is consistent with sigmoid and rectal colitis rather than diverticulitis. Also noted incidental bilateral nephrolithiasis up to 4 mm without signs of hydronephrosis. When asked about blood and mucus in her stools, she states she does not think she has had any blood but she really has not been paying that much attention to her stools. She was given Toradol which did not help a lot with the pain but she states the pain is not severe. Her vital signs are stable. I think this is less likely to be ischemic given her overall general good health, but differential includes ischemic colitis versus inflammatory versus infectious. She does not have a significant leukocytosis but I am going to put her on metronidazole until she can follow-up especially since she is relatively immunocompromised on methotrexate. GI is not on-call this weekend, Arturo giving her their information to make an appointment as well as her physician. Lab Data Attestation: I reviewed the patient's lab results. Labs: Laboratory Results - last 24 hr 01/12/25 01/12/25 12:33 12:50 WBC 8.4 RBC 3.77 L Hgb 12.2 Hct 34.6 L MCV 91.8 MCH 32.4 H MCHC 35.3 RDW Std Deviation 39.6 RDW Coeff of Kierra 11.9 Plt Count 272 MPV 8.8 Immature Gran % (Auto) 0.200 Neut % (Auto) 53.6 Lymph % (Auto) 33.0 [place] % (Auto) 9.6 Eos % (Auto) 3.2 Baso % (Auto) 0.4 Absolute Neuts (auto) 4.5 Absolute Lymphs (auto) 2.78 Nucleated RBC % 0 Sodium 141 Potassium 4.1 Chloride 103 Carbon Dioxide 27.6 Anion Gap 11 BUN 14 Creatinine 0.67 L Estim Creat Clear Calc 85.06 Est GFR (MDRD) Non-Af 101 BUN/Creatinine Ratio 20.7 H Glucose 86 Calcium 10.2 Urine Color Yellow Urine Clarity Clear Urine pH 7.0 Ur Specific [place] 1.010 Urine Protein Negative Urine Glucose (UA) Normal Urine Ketones Negative Urine Occult Blood 150 H Urine Nitrite Negative Urine Bilirubin Negative Urine Urobilinogen Normal Ur Leukocyte Esterase Negative Urine RBC 5-10 SEEN Urine WBC 0 SEEN Ur Squamous Epith Cells 0 SEEN Urine Bacteria 0 SEEN Urine Mucus 0 SEEN Radiography Diagnostic Testing: Clinical Impression(s) from Imaging Studies Abdomen/Pelvis CT 01/12/25 12:24 IMPRESSION: A haustral left, sigmoid colon and rectum along with edematous wall thickening with minimal pericolic fat stranding suggestive of acute colitis. This can be infectious, inflammatory or ischemic. Bilateral non obstructive kidney stones measuring up to 4 mm. No hydronephrosis. Reading Location: [id number] Discharge Plan Triage Chief Complaint: Abd Pain ED Provider: Anthony Delgado Dx/Rx/DC Orders Clinical Impression: Colitis, Bilateral nephrolithiasis Instructions: Colitis Prescriptions: New metronidazole 500 mg tablet 500 mg PO BID Qty: 14 0RF naproxen 500 mg tablet 500 mg PO BID PRN (Reason: pain) Qty: 8 0RF No Action dextroamphetamine-amphetamine [Adderall] 30 mg tablet 30 mg PO BID Rx Instructions: administer doses at least 4-6 hours apart duloxetine [Cymbalta] 60 mg capsule,delayed release(DR/EC) 60 mg PO QDAY folic acid 1 mg tablet 1 mg PO QDAY hydroxyzine HCl 25 mg tablet 25 mg PO TID PRN (Reason: anxiety) tramadol 50 mg tablet 50 mg PO TID methotrexate sodium 2.5 mg tablet 15 mg PO WE cholecalciferol (vitamin D3) 25 mcg (1,000 unit) capsule 25 mcg PO QDAY iron, carbonyl [Feosol] 45 MG capsule 45 mg PO DAILYCM Primary Care Provider: Leslie Patino Referrals: Justino Mccollum DO [Med Staff - Active Staff] - As soon as possible Leslie Patino, ELISE [Primary Care Provider] - As soon as possible Activity Restrictions/Additional Instructions: Your CT scan also incidentally showed small stones in both your kidneys, no larger than 4 mm. These are not causing any pain or problems right now but could come down and become stuck in the plumbing 1 day and cause pain on 1 side. There is no sign of that occurring at this time. Print Language: Mozambican Disposition Disposition: Home, Self Care What to do if you have Problems For any increased pain, shortness of breath, bleeding, nausea or vomiting, chestpain, or any unexpected problems, contact your Primary Care Provider. Call [facility] ([phone]) or report to the closest Emergency Room. Call 911 if necessary. 01/12/25 1530 <Electronically signed by Anthony Delgado MD> Cosigner Signature (if applicable): CC: DIAMOND SAW OPERATOR-C Leslie Mccollum DO ~ Signed [facility] Work Phone: 1(784) 405-227708-23-2025 Radiology Diagnostic study note [facility] Imaging Services [address] [place] [address] Abdomen/Pelvis W IV Cont ONLY MR#: [id number] Acct: [id number] Name: KARL CLAROS Rep #: [id number] : 1965 F 59 From: Ramon Madden MD PCP: ELISE Phillips Status: REG ER Study:Abdomen/Pelvis W IV Cont ONLY Date of E xam: 01/12/25 Exam# [id number] Ordering Dr: Tommy Delgado MD PROCEDURE: ABDOMEN/PELVIS W IV CONT ONLY 01/12/2025 REASON FOR EXAM: LLQ PAIN TECHNIQUE: ABDOMEN/PELVIS W IV CONT ONLY Coronal and Sagittal reconstruction series were provided. CONTRAST: Isovue 370 VOLUME: 100 mL One or more dose reduction techniques were used (e.g., Automated exposure control, adjustment of the mA and/or kV according to patient size, use of iterative reconstruction technique. RADIATION DOSE SUMMARY: CTDlvol: 20.75 mGy DLP: 995.96 mGycm COMPARISON: None. FINDINGS: Lung bases: Clear. Liver: Unremarkable. Gallbladder: Unremarkable. No biliary dilation. Spleen: Unremarkable. Pancreas: Unremarkable. Adrenals: Unremarkable. Kidneys: Bilateral kidney stones measuring up to 4 mm. No hydronephrosis. Simple left kidney cysts measuring 11 and 17 mm. No hydronephrosis. Bladder: Unremarkable. Reproductive Organs: Unremarkable. Bowel: A haustral left, sigmoid colon and rectum along with edematous wall thickening with minimal pericolic fat stranding suggestive of acute colitis. Appendix: Unremarkable. Lymph nodes: No lymphadenopathy. Vasculature: No aneurysm. Atherosclerotic calcifications of the aorta. Peritoneum / Retroperitoneum: No free air or free fluid. Bones: No acute bony abnormalities. CT/Abdomen/Pelvis W IV Cont ONLY IMPRESSION: A haustral left, sigmoid colon and rectum along with edematous wall thickening with minimal pericolic fat stranding suggestive of acute colitis. This can be infectious, inflammatory or ischemic. Bilateral non obstructive kidney stones measuring up to 4 mm. No hydronephrosis. Reading Location: [id number] CC: DIAMOND SAW OPERATORPiaC Leslie Patino; Dr. Anthony Delgado MD ~ Research Biostatistician: Signed [place] [id number] Instructions* Patient Instructions* Nadeen Rocha APRN.ANIMAL KEEPER - 01/12/2025 11:50 AM EDT 1. LLQ abdominal pain (R10.32) 2. Hematuria, unspecified type (R31.9) - LLQ abdominal pain with hematuria on urinalysis; differential includes diverticulitis and nephrolithiasis. - Advised ED evaluation for abdominal and pelvic CT to rule out diverticulitis or nephrolithiasis. - Discussed risks of delayed diagnosis, including potential for colonic rupture or abscess if diverticulitis is present. - Provided education on diverticulitis, including pathophysiology and need for prompt diagnosis andtreatment. - Go to the emergency department today for evaluation of your left-sided pain and the blood in yoururine; this will help diagnose or rule out diverticulitis (inflammation of the colon) or a kidney stone. [facility] NoteHNO ID: [id number] Author: NADEEN ROCHA APRN.ANIMAL KEEPER Service: ? Author Type: Nurse Practitioner Type: Progress Notes Filed: 01/12/2025 11:50 Note Text: URGENT CARE [facility] Karl Claros is a 59 year old female. Patient presents with: Abdominal Pain: left lower quadrant and back pain, worse with touch x 4 days Abdominal Pain Abdominal Pain: - Onset a few days ago, with increasing severity. - Described as feeling like a huge bruise. - Pain is more pronounced at night, causing difficulty standing upright. - Pain is reminiscent of previous kidney stone episodes. - Denies fever, chills, nausea, emesis, or diarrhea. - Mild constipation noted; recently stopped taking a prescribed stool softener. - Recent cervical fusion surgery on 01/11, with prescribed pain medication and muscle relaxers. RA: - Managed with weekly medication regimen of six pills. - Regular blood work required by arthritis specialist. Review of Systems Gastrointestinal: Positive for abdominal pain. Constitutional: (-) fever, (-) chills Musculoskeletal: (+) back pain Gastrointestinal: (+) abdominal pain, (+) constipation, (-) nausea, (-) vomiting, (-) diarrhea Objective BP 136/84 Pulse 118 Temp 36.9 ?C (98.5 ?F) Resp 18 Wt 78.9 kg (173 lb 15.1 oz) LMP 06/27/2018 SpO2 98% BMI 33.97 kg/m? PAST MEDICAL HISTORY Diagnosis Date ADD (attention deficit disorder) Arthritis Depression Renal calculus 2009 PAST SURGICAL HISTORY Procedure Laterality Date APPENDECTOMY SECTION HX x 2 PAST SURGICAL HISTORY OF Bilateral Carpal Tunnel Surgery PAST SURGICAL HISTORY OF Tubes in ears SALPINGECTOMY Ectopic ; unsure which tube was removed ALLERGIES No Known Allergies MEDICATIONS Mdwvjlgdgyvlotb-Rkbrfcjxu-JW (BROMFED DM) 2-30-10 mg/5 mL syrup Take 5 mL by mouth four times a day as needed. folic acid 1 mg tablet Take 2 tablets by mouth every afternoon. methotrexate 2.5 mg tablet TAKE 7 TABLETS BY MOUTH EVERY WEEK DULoxetine (CYMBALTA) 30 mg capsule Take 1 capsule by mouth every afternoon. albuterol HFA (PROAIR HFA) 90 mcg/actuation inhaler Inhale 2 Puffs as instructed every 4 hours as needed. benzonatate (TESSALON PERLE) 100 mg capsule Take 2 capsules by mouth three times daily as needed. IBUPROFEN ORAL Take by mouth as needed. FLUoxetine (PROZAC) 20 mg capsule hydrOXYzine pamoate (VISTARIL) 25 mg capsule Pseudoephedrine HCl (SUDAFED SR) 120 mg TbER ondansetron orally disintegrating (ZOFRAN ODT) 4 mg disintegrating tablet ondansetron orally disintegrating (ZOFRAN ODT) 4 mg disintegrating tablet Take 1 tablet by mouth every 8 hours as needed for nausea/vomiting. benzonatate (TESSALON PERLES) 100 mg capsule Take 2 capsules by mouth three times a day as needed for cough. HYDROcodone-acetaminophen (NORCO) 5-325 mg per tablet EVERY 4 HOURS NEEDED PRN For Pain (Patient not taking: Reported on 06/12/2023) FAMILY HISTORY Problem Relation Age of Onset Drug abuse Son SOCIAL HISTORY[1] Physical Exam Vitals and nursing note reviewed. Constitutional: General: She is not in acute distress. Appearance: Normal appearance. She is not ill-appearing. Cardiovascular: Rate and Rhythm: Normal rate and regular rhythm. Heart sounds: Normal heart sounds. Pulmonary: Effort: Pulmonary effort is normal. No respiratory distress. Breath sounds: Normal breath sounds. No wheezing or rales. Abdominal: General: Bowel sounds are normal. There is no distension. Palpations: Abdomen is soft. There is no mass. Tenderness: There is abdominal tenderness in the left lower quadrant. There is no right CVA tenderness, left CVA tenderness or guarding. Skin: General: Skin is warm and dry. Neurological: Mental Status: She is alert. { 1. LLQ abdominal pain (R10.32) 2. Hematuria, unspecified type (R31.9) - LLQ abdominal pain with hematuria on urinalysis; differential includes diverticulitis and nephrolithiasis. - Advised ED evaluation for abdominal and pelvic CT to rule out diverticulitis or nephrolithiasis. - Discussed risks of delayed diagnosis, including potential for colonic rupture or abscess if diverticulitis is present. - Provided education on diverticulitis, including pathophysiology and need for prompt diagnosis and treatment. Nadeen Rocha APRN.ANIMAL KEEPER and Recording using PlayScape software for draft documentation of the visit was discussed with the patient/authorized representative government relations; all questions welcomed and answered. Patient/authorized representative government relations agreed to proceed Disposition The patient was other (comment). 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 Most recent use May 2018 [facility]08-23-2025 History of Present illness Narrative* Nadeen Rocha APRN.ANIMAL KEEPER - 01/12/2025 11:49 AM EDT [facility] Colonzeb Claros is a 59 year old female. Patient presents with: Abdominal Pain: left lower quadrant and back pain, worse with touch x 4 days Abdominal Pain Abdominal Pain: - Onset a few days ago, with increasing severity. - Described as feeling like a huge bruise. - Pain is more pronounced at night, causing difficulty standing upright. - Pain is reminiscent of previous kidney stone episodes. - Denies fever, chills, nausea, emesis, or diarrhea. - Mild constipation noted; recently stopped taking a prescribed stool softener. - Recent cervical fusion surgery on 01/11, with prescribed pain medication and muscle relaxers. RA: - Managed with weekly medication regimen of six pills. - Regular blood work required by arthritis specialist. Review of Systems Gastrointestinal: Positive for abdominal pain. Constitutional: (-) fever, (-) chills Musculoskeletal: (+) back pain Gastrointestinal: (+) abdominal pain, (+) constipation, (-) nausea, (-) vomiting, (-) diarrhea Objective BP 136/84 Pulse 118 Temp 36.9 C (98.5 F) Resp 18 Wt 78.9 kg (173 lb 15.1 oz) LMP 06/27/2018 SpO2 98% BMI 33.97 kg/m PAST MEDICAL HISTORY Diagnosis Date ADD (attention deficit disorder) Arthritis Depression Renal calculus 2009 PAST SURGICAL HISTORY Procedure Laterality Date APPENDECTOMY SECTION HX x 2 PAST SURGICAL HISTORY OF Bilateral Carpal Tunnel Surgery PAST SURGICAL HISTORY OF Tubes in ears SALPINGECTOMY Ectopic ; unsure which tube was removed ALLERGIES No Known Allergies MEDICATIONS Xqkqvvxgyokwbsx-Pliqetmfw-WD (BROMFED DM) 2-30-10 mg/5 mL syrup Take 5 mL by mouth four times a dayas needed. folic acid 1 mg tablet Take 2 tablets by mouth every afternoon. methotrexate 2.5 mg tablet TAKE 7 TABLETS BY MOUTH EVERY WEEK DULoxetine (CYMBALTA) 30 mg capsule Take 1 capsule by mouth every afternoon. albuterol HFA (PROAIR HFA) 90 mcg/actuation inhaler Inhale 2 Puffs as instructed every 4 hours as needed. benzonatate (TESSALON PERLE) 100 mg capsule Take 2 capsules by mouth three times daily as needed. IBUPROFEN ORAL Take by mouth as needed. FLUoxetine (PROZAC) 20 mg capsule hydrOXYzine pamoate (VISTARIL) 25 mg capsule Pseudoephedrine HCl (SUDAFED SR) 120 mg TbER ondansetron orally disintegrating (ZOFRAN ODT) 4 mg disintegrating tablet ondansetron orally disintegrating (ZOFRAN ODT) 4 mg disintegrating tablet Take 1 tablet by mouth every 8 hours as needed for nausea/vomiting. benzonatate (TESSALON PERLES) 100 mg capsule Take 2 capsules by mouth three times a day as needed for cough. HYDROcodone-acetaminophen (NORCO) 5-325 mg per tablet EVERY 4 HOURS NEEDED PRN For Pain (Patientnot taking: Reported on 06/12/2023) FAMILY HISTORY Problem Relation Age of Onset Drug abuse Son SOCIAL HISTORY[1] Physical Exam Vitals and nursing note reviewed. Constitutional: General: She is not in acute distress. Appearance: Normal appearance. She is not ill-appearing. Cardiovascular: Rate and Rhythm: Normal rate and regular rhythm. Heart sounds: Normal heart sounds. Pulmonary: Effort: Pulmonary effort is normal. No respiratory distress. Breath sounds: Normal breath sounds. No wheezing or rales. Abdominal: General: Bowel sounds are normal. There is no distension. Palpations: Abdomen is soft. There is no mass. Tenderness: There is abdominal tenderness in the left lower quadrant. There is no right CVA tenderness, left CVA tenderness or guarding. Skin: General: Skin is warm and dry. Neurological: Mental Status: She is alert. { 1. LLQ abdominal pain (R10.32) 2. Hematuria, unspecified type (R31.9) - LLQ abdominal pain with hematuria on urinalysis; differential includes diverticulitis and nephrolithiasis. - Advised ED evaluation for abdominal and pelvic CT to rule out diverticulitis or nephrolithiasis. - Discussed risks of delayed diagnosis, including potential for colonic rupture or abscess if diverticulitis is present. - Provided education on diverticulitis, including pathophysiology and need for prompt diagnosis andtreatment. Nadeen Rocha APRN.ANIMAL KEEPER and Recording using PlayScape software for draft documentation of the visit was discussed with thepatient/authorized representative government relations; all questions welcomed and answered. Patient/authorized representative government relations agreed to proceed Disposition The patient was other (comment). 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 Most recent use May [facility]* Diagnosis Onset Date Resolution Status Admit Date Cervical myelopathy acute 2024 9:02am Cervical radiculopathy acute [facility] 2024 9:02am Cervical myelopathy acute 2024 8:13am Cervical radiculopathy acute Ja 2024 8:13am Left knee pain acute June 212024 8:13am [facility] Work Phone: 1(488) 600-403612-13-2024 Evaluation note* Diagnosis Onset Date Resolution Status Admit Date Positive colorectal cancer screening using Cologuard test acute D ecember 2023 6:54am Cervical myelopathy acute [place] 2024 9:02am Cervical radiculopathy acute Ja ary 2024 9:02am Cervical myelopathy acute 2024 8:13am [facility] Left knee pain acute June 212024 8:13am [facility] Work Phone: 1(734) 276-926512-13-2024 [facility] Medical Records Department [address] [place] [address] History Physical Exam 05/04/24 0850 MR#: [id number] Acct: [id number] Name: KARL CLAROS Rep #: [id number] : 1965 58 From: Christian Florence MD PCP: ELISE Phillips Status:[facility] Location: [place] [address] HPI - General General Date of Admission: 05/04/24 Date of Service: 05/04/24 Chief Complaint: Positive Cologuard test HPI Narrative KARL CLAROS, is a 58 F who presents for colonoscopy. She was recently found to have positive Cologuard test. She denies any GI issues or complaints otherwise. [facility] Medical History Wears glasses Wears partial dentures [...] ELISE Patino; Dr. Christian Florence MD * [facility] History of Present illness Narrative * Minnie Chand APRN.ANIMAL KEEPER - 06/12/2023 8:40 AM EST This note was created using NONO. Subjective Karl Claros is a 58 year old female. 58 year old female with no PMH presents today for worsening cough. She was seen in [facility] on 06/08/2023 for cough x1 [...] history is provided by the patient. No english as a second language teacher was used. Cough This is a new problem. The current episode started more than 2 days ago. The problem occurs constantly. The problem has been gradually worsening. The cough is Non-productive. There has been no fever.Associated symptoms include chills, sweats, rhinorrhea and myalgias. Pertinent negatives include nochest pain, no ear congestion, no ear pain, [...] disintegrating (ZOFRAN ODT) 4 mg disintegrating tablet Nfdhpcmdsgiyefy-Vkpkiavjx-XS (BROMFED DM) 2-30-10 mg/5 mL syrup Take 5 mL by mouth four times a dayas needed. ondansetron orally disintegrating (ZOFRAN ODT) 4 mg disintegrating tablet Take 1 tablet by mouth every 8 hours as needed for nausea/vomiting. albuterol HFA (PROAIR HFA) 90 mcg/actuation inhaler Inhale 2 Puffs as instructed every 4 hours as needed. (Patient not taking: Reported on 06/12/2023) HYDROcodone-acetaminophen (NORCO) 5-325 mg per tablet EVERY 4 HOURS NEEDED PRN For Pain (Patientnot taking: Reported on 06/12/2023) FAMILY HISTORY Problem [...] Negative for ear discharge, ear pain, sinus pressure,sinus pain and sore throat. Eyes: Negative for [...] tube. No hemotympanum. Tympanic membrane is not injected,scarred, perforated, erythematous, retracted or bulging. Tympanic membrane [...] tenderness or frontal sinus tenderness. Mouth/Throat: Lips: [place]. Mouth: Mucous membranes are moist. No oral [...] ROUTINE - XR CHEST 2V FRONTAL/LAT - [id number]-[id number]-JZ 2 MG-30 MG-10 MG/5 ML ORAL SYRUP [...] ROUTINE - XR CHEST 2V FRONTAL/LAT - [id number] 2 MG-30 MG-10 MG/5 ML ORAL SYRUP - Discussed viral etiology and rationale for treatment. - Symptomatic treatment with prn analgesia - Supportive care with fluids and rest - The patient may also use acetaminophen PRN. Candelaria Lynn TEACHING PROVIDER (Physician/PA/CLOCK MAKER) NOTE OF PERSONAL INVOLVEMENT IN CARE: I have personally seen and examined the patient and performed the medical decision-making components. I have reviewed the Advanced Practice Registered Nurse (CLOCK MAKER) Student's documentation and verified the findings in the note as written. Any additions or changes are noted in bold/italics. Signature: Minnie Chand Date: 06/12/2023 Time: 9:20 AM [facility] noteNo assessment information availableWReg[facility] Work Phone: Evaluation note* Diagnosis URI, acute- Primary Acute upper respiratory infections of unspecified site Acute cough [facility]* Diagnosis LLQ abdominal pain- Primary Abdominal pain, left lower quadrant Hematuria, unspecified type [facility] instructions[facility] Instructions Your CT scan also incidentally showed small stones in both your kidneys, no larger than 4 mm. These are not causing any pain or problems right now but could come down and become stuck in the plumbing 1 day and cause pain on 1 side. There is no sign of that occurring at this time. [facility] Work Phone: Reason for referral (narrative)No reason for referral information availableWRegency [facility] Work Phone: Advance Directives No Advanced Directives Records Found Advance Directive Response Recorded Date/ Time Advance Directives No April 30, 2017 12:59am Living Will No June 29 9:34am Power of Intake Man No June 29, 2018 9:34am Advance Directive Response Recorded Date/ Time Advance Directives No April 29, 2017 11:59pm Living Will No June 29 8:34am Power of Intake Man No June 29, 2018 8:34am Advance Directive Response Recorded Date/ Time Living Will No May 01 3:03pm Do you have a Healthcare Power of Intake Man? No May 01, 2024 3:03pm Advance Directives No February 22, 2024 8:17am Advance Directive Response Recorded Date/ Time Advance Directives No February 22, 2024 8:17am Advance Directive Response Recorded Date/ Time Do you have a Healthcare Power of Intake Man? No January 12, 2025 12:05pm Advance Directives No February 22, 2024 8:17am [...] COPY PCP November 05, 2024 7:30 am Chief Complaint Admit Date PAIN- COPY PCP November 05, 2024 7:30 am abd January 12, 2025 11 :57am Chief Complaint Admit Date PAIN- COPY PCP November 05, 2024 7:30 am abd January 12, 2025 11 :57am PAIN- COPY PCP February 20, 2025 9: 08am Health Concerns Infection Onset Date Last Indicated Resolved Time COVID-19 Rule-Out 06/12/2023 06/12/2023 Summary Purpose Family History No Family History Records Found Additional Source Comments Care Teams (unrecognized sec tion and content) Team Status: Active Member Role Status Dates Leslie Patino DIAMOND SAW OPERATOR-C Primary Care Provider Active Team Status: Inactive Member Role Status Dates Leslie Patino NP-C Primary Care Provider Active Start: June 14, 2024 End: June 14, 2024 Leslie Patino NP-C Referring Provider Active St art: June 14, 2024 End: June 14, 2024 JEFFERY Lynn Attending Provider Active Star t: June 14, 2024 End: June 14, 2024 Team Status: Inactive Member Role Status Dates Leslie Patino NP-C Primary Care Provider Active Start: June 21, 2024 End: June 21, 2024 Leslie Patino NP-C Referring Provider Active St art: June 21, [...] NP-C Primary Care Provider Active Start: June 29, 2024 End: June 29, 2024 Leslie Patino NP-C Attending Provider Active St art: June 29, 2024 End: June 29, 2024 Team Status: Inactive Member Role Status Dates Leslie Patino DIAMOND SAW OPERATOR-C Primary Care Provider Active Start: August 14, 2024 End: August 14, 2024 Dr. Shyla Danielson MD Attending Provider Active Start: August 14, 2024 End: August 14, 2024 Dr. Shyla Danielson MD Referring Provider Active Start: August 14, 2024 End: August 14, 2024 Team Status: Active Member Role Status Dates Monica Deleon DIAMOND SAW OPERATOR, DIAMOND SAW OPERATOR-C Family Provider Active No Primary Care Physician Primary Care Provider Active Team Status: Inactive Member Role Status Dates No Primary Care Physician Primary Care Provider Active Dr. Shyla Danielson MD Attending Provider, Referring Provider Active Team Status: Active Member Role Status Dates Leslie Patino DIAMOND SAW OPERATOR-C Primary Care Provider Active Start: May 02, 2024 JEFFERY Lynn Attending Provider Active Star t: May 02, 2024 JEFFERY Lynn Referring Provider Active Star t: May 02, 2024 Team Status: Inactive Member Role Status Dates Leslie Patino DIAMOND SAW OPERATOR-C Primary Care Provider Active Start: May 04, 2024 End: May 04, 2024 Leslie Patino DIAMOND SAW OPERATOR-C Referring Provider Active St art: May 04, 2024 End: May 04, 2024 Dr. Christian Florence MD Attending Provider Active Start: May 04, 2024 End: May 04, 2024 Team Status: Active Member Role Status Dates Leslie Patino DIAMOND SAW OPERATOR-C Primary Care Provider Active Start: May 04, 2024 Leslie Patino DIAMOND SAW OPERATOR-C Referring Provider Active St art: May 04, 2024 Dr. Christian Florence MD Attending Provider Active Start: May 04, 2024 Dr. Christian Florence MD Other Provider Active St art: May 04, 2024 Team Status: Inactive Member Role Status Dates Leslie Patino DIAMOND SAW OPERATOR-C Primary Care Provider Active Start: May 21, 2024 End: May 21, 2024 Dr. Shyla Danielson MD Attending Provider Active Start: May 21, 2024 End: May 21, 2024 Dr. Shyla Danielson MD Referring Provider Active Start: May 21, 2024 End: May 21, 2024 Team Status: Inactive Member Role Status Dates Leslie Sukumar , DIAMOND SAW OPERATOR-C Primary Care Provider Active Start: June 04, 2024 End: June 04, 2024 JEFFERY Lynn Attending Provider Active Star t: June 04, 2024 End: June 04, 2024 JEFFERY Lynn Referring Provider Active Star t: June 04, 2024 End: June 04, 2024 Team Status: Inactive Member Role Status Dates Leslie Sukumar , DIAMOND SAW OPERATOR-C Primary Care Provider Active Start: November 05, 2024 End: November 05, 2024 Dr. Shyla Danielson MD Attending Provider Active Start: November 05, 2024 End: November 05, 2024 Dr. Shyla Danielson MD Referring Provider Active Start: November 05, 2024 End: November 05, 2024 Team Status: Active Member Role/Relationship Status Dates Leslie Sukumar , DIAMOND SAW OPERATOR-C Primary Care Provider Active Team Status: Inactive Member Role/Relationship Status Dates Leslie Sukumar , DIAMOND SAW OPERATOR-C Primary Care Provider Active Start: November 05, 2024 End: November 05, 2024 Dr. Shyla Danielson MD Attending Provider Active Start: November 05, 2024 End: November 05, 2024 Dr. Shyla Danielson MD Referring Provider Active Start: November 05, 2024 End: November 05, 2024 Team Status: Inactive Member Role/Relationship Status Dates Leslie Sukumar , DIAMOND SAW OPERATOR-C Primary Care Provider Active Start: January 12, 2025 End: January 12, 2025 Dr. Anthony Delgado MD Emergency Provider Active Start: January 12, 2025 End: January 12, 2025 Team Status: Active Member Role/Relationship Status Dates Leslie Patino , DIAMOND SAW OPERATOR-C Primary care physician Active Team Status: Inactive Member Role/Relationship Status Dates Leslie Sukumar , DIAMOND SAW OPERATOR-C Primary care physician Active Start: November 05, 2024 End: November 05, 2024 Dr. Shyla Danielson MD Attending physician Active Start: November 05, 2024 End: November 05, 2024 Dr. Shyla Danielson MD Referring Provider Active Start: November 05, 2024 End: November 05, 2024 Team Status: Inactive Member Role/Relationship Status Dates ELISE Phillips Primary care physician Active Start: January 12, 2025 End: January 12, 2025 Dr. Anthony Delgado MD Attending physician Active Start: January 12, 2025 End: January 12, 2025 Dr. Anthony Delgado MD Emergency Depart ment Physician Active Start: January 12, 2025 End: January 12, 2025 Team Status: Inactive Member Role/Relationship Status Dates Leslie Patino NP-Anthony Primary care physician Active Start: February 12, 2025 End: February 12, 2025 ELISE Phillips Attending physician Active S tart: February 12, 2025 End: February 12, 2025 ELISE Phillips Referring Provider Active St art: February 12, 2025 End: February 12, 2025 Team Status: Active Member Role/Relationship Status Dates Leslie Patino NP-Anthony Primary care physician Active Start: February 20, 2025 Dr. Shyla Danielson MD Attending physician Active Start: February 20, 2025 Dr. Shyla Danielson MD Referring Provider Active Start: February 20, 2025 Goals (unrecognized section and content) Goals may [...] or prosecute any alcohol or drug abuse patient.[facility] CenterIn the event this information is protected by the Federal Confidentiality of Alcohol and Drug Abuse Patient Records regulations: The Federal rules restrict any use of the information to criminally investigate or prosecute any alcohol or drug abuse patient.[facility] CenterIn the event this information is protected by the Federal Confidentiality of Alcohol and Drug Abuse Patient Records regulations: The Federal rules restrict any use of the information to criminally investigate or prosecute any alcohol or drug abuse patient.[facility] Reason for Visit (unrecogniz ed section and content) Reason Comments Cough Retuning from 06/08, worsening Reason Comments Abdominal Pain left lower quadrant and back pain, worse with touch x 4 days Reason Onset Date Comments Results 01/14/2025 INFORMATION SOURCE (unrecogn ized section and content) DATE CREATED AUTHOR 01/15/2025 [facility] DATE CREATED AUTHOR AUTHOR'S ORGANIZ ATION 03/27/2025 [facility] FOR RECORDS PERTAINING TO PATIENTS WHO ARE [...] BE BASED ON THE PRIMARY CLINICAL RECORDS. [facility]. provides no warranty or guarantee of the accuracy or completeness of information in this document.
[2025-05-08 10:15] LABS: Hematocrit 36.4 % (37-47); Hemoglobin 12.5 g/dL (12.0-15.0); Immature Granulocytes Count 0.030 X10^3/uL (0.0-0.0); Mean Corp Hgb Conc 34.3 g/dL (32-36); Mean Corpuscular Volume 93.6 fL (81-99); Mean Platelet Vol. 9.3 fl (6.2-12.0); NRBC Flagged by Analyzer 0 % (0-5); Platelet Count 313 K/mm3 (150-450); RBC Distribution Width CV 12.6 % (11.6-14.6); RBC Distribution Width SD 42.9 fl (35.1-43.9); Red Blood Count 3.89 M/mm3 (4.2-5.4); White Blood Count 9.3 K/mm3 (4.4-11.0)
[2025-05-08 10:41] LABS: AST(SGOT) 23 U/L (<=31); Alanine Aminotransfer ALT/SGPT 24 U/L (<=34); Albumin, Serum 4.3 g/dL (3.5-5.0); Alkaline Phosphatase 98 U/L (35-104); Anion Gap 12 (5-15); BUN 19 mg/dL (4-19); BUN/Creat Ratio 21.3 RATIO (10-20); Calcium,Total 10.1 mg/dL (7.6-11.0); Carbon Dioxide 24.1 mmol/L (21.0-32.0); Chloride 107 mmol/L (98-108); Globulin 3.0 g/dL (2.2-4.2); Glucose 88 mg/dL (70-99); Potassium 3.7 mmol/L (3.3-5.1)
== END | disposition home or self-care (01) ==
LOC: MTLAB 07:45
PROVIDERS: PCP Nurse Practitioner Family; Referring Provider Internal Medicine Rheumatology; Visit Provider Internal Medicine Rheumatology
DX: M06.4 Inflammatory polyarthropathy (principal); Z79.899 Other long term (current) drug therapy
CPT/HCPCS: 36415; 80053; 85025